=== PATIENT | female | born 1955 | race Caucasian/White ===

== ENCOUNTER → 2020-08-05 | Outpatient (CLI) | payer OTHER ==
[~2020-08-05] MED LIST: AMIT25TA; BIOT1000 PO; IMIT50TA; LIPITOR; SYNT75TA; VITMTA PO
== END ==
LOC: M LABSMTC 08:16
PROVIDERS: ATTEND Anesthesiology
DX: Z01.812 Encounter for preprocedural laboratory examination (principal); Z20.822 Contact with and (suspected) exposure to COVID-19

== ENCOUNTER 2020-08-10 07:05 | Day surgery (SDC) | payer OTHER ==
[~2020-08-10] VITALS: Ht 157.5 cm; Wt 99.3 kg
[~2020-08-10 07:05] MED LIST changes: -AMIT25TA; +AMIT25TA17; +LR 1,000 ML IV ONE; +ceFAZolin SOD 2 GM in IV 1 EA IV ONE
--- OUTSIDE RECORDS SUMMARY | 2020-08-10 07:12 | CCD | Continuity of Care Document ---
Author Author [facility] Organization [facility] Address [address] [place] [address] Phone Support Name Relationship Address [place] [address] Jack Jamil PRS [facility] [place] [address] Navi Hunt PRS [address] [place] [address] [place] [address] Stanislaw Thompson PRS [address] [place] [address] Gerson Francisco PRS [address] [place] [address] Josesito Ragland PRS [address] [place] [address] Bandar Vazquez PRS [address] [place] [address] [place] [address] [place] [address] Allergies, Adverse Reactions, Alerts No known allergies. Medications Medication Status Dose Units Route Directions Qty Days Start Date End Date Instructions Flucelvax Quad 5320-6909 (PF) (flu vac q s 2018(4 yr up)CD(PF)) 60 mcg (15 mcg x Discontinued 0.5 ML IM 1 Time/Once 0.5 June 28, 2019 8:54am June 28, 2019 9:41am Levothyroxine (Synthroid) 125 mcg tablet Discontinued 125 MCG PO daily June 28, 2019 9:24am August 30, 2019 9:57am Levothyroxine (Synthroid) 112 mcg tablet Discontinued 112 MCG PO daily 30 August 30, 2019 9:57am October 04, 2019 1:44pm Biotin Active 43864 MCG PO Once Per Day September 13, 2019 9:27am Azithromycin (Zithromax) 500 mg tablet Discontinued 500 MG PO .TIW 36 September 13, 2019 9:38am October 04, 2019 1:44pm *MUST BE BRAN D NAME Amitriptyline Active 12.5 MG PO At Bedtime December 27, 2019 7:57am Levothyroxine (Synthroid) 88 mcg tablet Discontinued 88 MCG PO daily December 27, 2019 8:23 am February 17, 2020 8:31am Afluria Qd (3yr up)(PF) (flu vac [id number] 36mos up(PF)) Discontinued 0.5 ML IM 1 Time/Once 0.5 May 29, 2020 2:56pm May 292019 2:56pm Atorvastatin (Lipitor) 40 MG tablet Discontinued 1 TAB PO O nce Per Day April 17, 2014 2:55pm April 26, 2019 11:19am Levothyroxine (Synthroid) 150 MCG tablet Discontinued 1 TAB PO O nce Per Day April 17, 2014 2:55pm April 26, 2019 11:19am Multivitamin (Daily Multi-Vitamin) tablet Active 1 TAB PO O nce Per Day July 06, 2018 8:53am Enoxaparin (Lovenox) 30 MG/0.3 ML syringe Discontinued 30 MG SQ E very 12 Hours July 08, 2018 12:16pm August 03, 2018 4:11pm Oxycodone/Acetaminophen (Percocet 5/325) 1 TAB Tablet Discontinued 2 TAB PO Every 4 hours July 08, 2018 12:16pm August 03, 2018 4:11pm Cephalexin (Keflex) 500 mg capsule D iscontinued 500 MG PO Three times a day February 06, 2019 6:16pm April 12, 2019 10:19am Naproxen Discontinued 500 MG PO Every 12 Hours February 06, 2019 6:20pm October 04, 2019 1:44pm Atorvastatin (Lipitor) 40 mg tablet Discontinued 40 MG PO O nce Per Day October 04, 2019 1:44 pm May 01, 2020 11:50am Sumatriptan Succinate (Imitrex) 50 mg tablet Discontinued 50 MG PO Q 2H October 04, 2019 1:44 pm April 19, 2020 11:31am Naproxen (Naprosyn) 500 mg tablet Di scontinued 500 MG PO Every 12 Hours October 04, 2019 1:44 pm December 27, 2019 7:57am Levothyroxine (Synthroid) 112 mcg tablet Discontinued 112 MCG PO daily October 04, 2019 1:44 pm November 23, 2019 9:54am Azithromycin (Zithromax) 500 mg tablet Discontinued 500 MG PO .TIW October 04, 2019 1:44 pm December 27, 2019 7:56am *MUST BE BRAND NAME Levothyroxine (Synthroid) 88 mcg tablet Discontinued 88 MCG PO daily February 17, 2020 8:31 am March 27, 2020 11:44am Oxycodone-Acetaminophen (Percocet) 5-325 mg tablet Active 1 TAB PO Three times a day July 17, 2020 4:19pm Sumatriptan Succinate (Imitrex) 25 MG tablet Discontinued 25 MG PO A S NEEDED May 20, 2014 9:57am December 08, 2018 7:51am Calcium Carbonate-Vitamin D3 Active 1 EACH PO Once Per Day May 20, 2014 9 :57am Naproxen (Naprosyn) 250 MG tablet Di scontinued 250 MG PO 2 Times Per Day June 03, 2014 12:45pm June 07, 2014 10:11am Oxycodone-Acetaminophen (Percocet 5-325 Mg Tablet) 1 EACH tablet Discontinued 1 - 2 TAB PO Every 4 hours June 13, 2014 12:01pm July 01, 2014 10:29am Hydrocodone-Acetaminophen Discontinued 1 TAB PO Every 4 Hours June 16, 2014 12:03pm July 01, 2014 10:29am Meloxicam Discontinued 15 MG PO Once Per Day July 19, 2014 8:44am October 24, 2014 8:03am Meloxicam (Mobic) 15 MG tablet Discontinue d 15 MG PO Once Per Day July 19, 2014 10:34am October 24, 2014 8:03am Naproxen Sodium (Aleve) 220 MG capsule Discontinued 220 MG PO August 17, 2014 9 :13am July 02, 2018 8:31am Triamcinolone Acetonide Discontinued 1 APPLIC TP 2 Times Per Da y 1 March 05, 2017 8:1 5am February 26, 2018 9:15am Patient will mix with otc moisturizer and apply to trunk and extremities twice daily x 2 weeks (disp: 1lbs jar) Ibuprofen Discontinued 4 00 MG PO At Bedtime April 18, 2017 8:40am July 02, 2018 8:31am Fexofenadine (Maritza Allergy) 180 MG tablet Discontinued 180 MG PO Once Per Day June 11, 2017 11:17am March 20, 2018 12:39pm Clobetasol Discontinued 1 SM.AMT TP 2 Times Per Day June 11, 2017 11:17am February 26, 2018 9:15am DISP 60 GRAM S (large surface area) Apply twice daily for up to two weeks as needed for active rash. Tacrolimus (Protopic) 100 GM ointment Discontinued 1 SM.AMT TP 2 Times Per Day July 23, 2017 10:17am February 26, 2018 9:15am 0.1% Apply to rashy areas twice daily as instructed. Disp 100G Azithromycin (Zithromax) 500 MG tablet Discontinued 500 MG PO Three times per week November 19, 2017 11:38am November 24, 2017 1:25pm Take one pill three times a week (Friday/Friday/Friday) Azithromycin (Zithromax) 500 MG tablet Discontinued 500 MG PO Three times per week November 24, 2017 1:25pm December 04, 2017 12:07pm Take one pill three times a week (Friday/Friday/Friday) AMIE-Pt requests BRAND ONLY Azithromycin (Zithromax) 500 MG tablet Discontinued 500 MG PO Three times per week December 04, 2017 12:pm February 17, 2018 1:26pm Take one pill three times a week (Friday/Friday/Friday) AMIE-Pt requests BRAND ONLY Azithromycin (Zithromax) 500 MG tablet Discontinued 500 MG PO Three times per week February 17, 2018 1:26pm April 03, 2018 1:22pm Take one pill three times a week (Friday /Friday/Friday) AMIE-Pt requests BRAND ONLY Azithromycin (Zithromax) 500 MG tablet Discontinued 500 MG PO Three times per week April 03, 2018 1:22pm April 08, 2018 12:03pm Take one pill three times a week (Friday /Friday/Friday) AMIE-Pt requests BRAND ONLY Azithromycin (Zithromax) 500 MG tablet Discontinued 500 MG PO Three times per week April 08, 2018 12:03pm September 10, 2018 11:51am Take one pill three times a week (Friday /Friday/Friday) AMIE-Pt requests BRAND ONLY Cephalexin (Keflex) 500 MG capsule D iscontinued 500 MG PO Four Times a Day 40 July 10, 2018 2:11pm July 13, 2018 9:13am take one tablet by mouth four times a day for 10 days Cephalexin Discontinued 500 MG PO Every 6 hours 40 July 13, 2018 9:36am August 03, 2018 4:11pm Oxycodone-Acetaminophen (Percocet 5-325 Mg Tablet) 1 EACH tablet Discontinued 1 - 2 TAB PO Every 4 hours July 16, 2018 3:54pm August 032018 4:11pm Azithromycin (Zithromax) 500 MG tablet Discontinued 500 MG PO Three times per week September 10, 2018 11:51am November 25, 2018 9:37am Take one pill three times a week (Friday /Friday/Friday) AMIE-Pt requests BRAND ONLY Azithromycin (Zithromax) 500 MG tablet Discontinued 500 MG PO Three times per week September 10, 2018 11:51am February 23, 2019 10:07am Take one pill three times a week (Friday /Friday/Friday) AMIE-Pt requests BRAND ONLY Sumatriptan Succinate (Imitrex) 25 mg tablet Discontinued 25 MG PO A S NEEDED 04 26December 08, 2018 7:49am March 26, 2019 2:39pm Azithromycin (Zithromax) 500 mg tablet Discontinued 500 MG PO Three times per week February 23, 2019 10:06am April 26, 2019 8:01am Take one pill three times a week (Friday /Friday/Friday) AMIE-Pt requests BRAND ONLY Sumatriptan Succinate (Imitrex) 25 mg tablet Discontinued 25 MG PO A S NEEDED 04 26March 26, 2019 2:37pm April 02, 2019 10:58am Sumatriptan Succinate (Imitrex) 25 mg tablet Discontinued 25 MG PO A S NEEDED April 02, 2019 10:57am August 09, 2019 12:47pm Atorvastatin (Lipitor) 40 mg tablet Discontinued 40 MG PO O nce Per Day April 26 11:18am April 26, 2019 11:54am Levothyroxine (Synthroid) 150 mcg tablet Discontinued 150 MCG PO Once Per Day April 26, 2019 11:19am April 26, 2019 11:47am Levothyroxine (Synthroid) 150 mcg tablet Discontinued 150 MCG PO Once Per Day April 26, 2019 11:47am May 24, 2019 3:16pm Atorvastatin (Lipitor) 40 mg tablet Discontinued 40 MG PO O nce Per Day April 26 11:53am April 27, 2019 8:55am Atorvastatin (Lipitor) 40 mg tablet Discontinued 40 MG PO O nce Per Day April 27, 2019 8:54am October 04, 2019 1:44pm Levothyroxine Discontinued 137 MCG PO Once Per Day May 24, 2019 3:15pm June 28, 2019 9:25am Sumatriptan Succinate (Imitrex) 50 mg tablet Discontinued 50 MG PO Q 2H August 09, 2019 12:46pm October 04, 2019 1:44pm Azithromycin (Zithromax) 500 mg tablet Discontinued 500 MG PO .TIW August 25, 2019 9:22am August 26, 2019 8:39am Azithromycin (Zithromax) 500 mg tablet Discontinued 500 MG PO .TIW August 26, 2019 8:38am September 13, 2019 9:39am Levothyroxine (Synthroid) 112 mcg tablet Discontinued 112 MCG PO daily November 23, 2019 9:54am January 26, 2020 12:07pm Levothyroxine (Synthroid) 88 mcg tablet Discontinued 88 MCG PO daily March 27, 2020 11:43am May 01, 2020 11:49am Sumatriptan Succinate (Imitrex) 50 mg tablet Discontinued 50 MG PO 2 Times Per Day 36 April 19, 2020 11:29am April 24, 2020 8:52am Sumatriptan Succinate (Imitrex) 50 mg tablet Active 50 MG PO Q 2H 36 April 24 20 8:51am Atorvastatin (Lipitor) 40 mg tablet Active 40 MG PO Once Per Day May 01, 2020 11:47am Levothyroxine (Synthroid) 75 mcg tablet Discontinued 75 MCG PO daily 30 May 01, 2020 11:48am July 26, 2020 10:07am Levothyroxine (Synthroid) 75 mcg tablet Active 0 .ROUTE .COMPLEX July 26, 2020 10:06am Take 1 tablet by mouth once daily for 30 days Problems Active Problems Medical Problem Onset Date Status Carpal tunnel syndrome, right Active Trigger finger, left middle finger Active Left carpal tunnel syndrome Active Trigger thumb, left thumb Active Rotator cuff tear, non-traumatic Active Wrist fracture, left A ctive Status post total right knee replacement Active Hyperlipidemia Active Hypothyroidism Active Trigger thumb of left hand Active Trigger thumb, right thumb Active Pityriasis lichenoides chronica Active Bilateral carpal tunnel syndrome Active Procedures Procedure Date Performed Status Urine Culture August 07, 2020 active Xray Abdomen 2V (Flat/Upright) Decem 2019 2:26pm completed CT Abd/pel w/o contrast June 3:44pm completed Urine Culture July 17, 2020 completed Xray Chest 2 view PA/LAT July 242019 9:50am completed 3D DIG MAMMO SCREEN BILAT June 282019 9:18am completed Xray Third Digit,Left Hand June 21, 2020 7:33am completed MRI Shoulder Right w/o May 08, 2020 1:45pm completed Xray Hand Complete RT April 04, 2020 7:22am completed Respiratory Panel (PCR) February 18, 2020 completed Xray Wrist complete RT October 03 12:16pm completed Relevant Diagnostic Tests and/or Laboratory Data Laboratory Results Test Date/Time Result Interpretation Reference Range Result Comment Performing Site White Blood Count August 07, 2020 7:57a m 10.1 10e3/uL 4.45-10.71 [facility], [address] [place] [address] 77799 White Blood Count July 31, 2020 8:08am 11.8 10e3/uL 4.45-10.71 [facility], [address] [place] [address] 04009 White Blood Count July 24 8:25am 7.9 10e3/uL 4.45-10.71 [facility], [address] [place] [address] 81041 White Blood Count May 01, 2020 6:33am 7.7 10e3/uL 4.45-10.71 [facility], [address] [place] [address] 82284 Red Blood Count August 07, 2020 7:57am 3.89 10e6/uL 4.20-5.40 [facility], [address] [place] [address] 85103 Red Blood Count July 31, 2020 8:08am 3.62 10e6/uL 4.20-5.40 [facility], [address] [place] [address] 07228 Red Blood Count July 24, 2020 8:25am 3.24 10e6/uL 4.20-5.40 [facility], [address] [place] [address] 84529 Red Blood Count May 01, 2020 6:33am 4.70 10e6/uL 4.20-5.40 [facility], [address] [place] [address] 32332 Hemoglobin August 07, 2020 7:57am 12.0 g/dL 10.7-15.4 [facility], [address] [place] [address] 49634 Hemoglobin July 31, 2020 8:08am 11.0 g/dL 10.7-15.4 [facility], [address] [place] [address] Hemoglobin July 24, 2020 8:25am 9.9 g/dL 10.7-15.4 [facility], [address] [place] [address] 38166 Hemoglobin May 01, 2020 6:33am 14.4 g/dL 10.7-15.4 [facility], [address] [place] [address] 15183 Hematocrit August 07, 2020 7:57am 37.9 % 37-47 [facility], [address] [place] [address] 71631 Hematocrit July 31, 2020 8:08am 35.4 % 37-47 [facility], [address] [place] [address] 69431 Hematocrit July 24, 2020 8:25am 31.5 % 37-47 [facility], [address] [place] [address] 72958 Hematocrit May 01, 2020 6:33am 44.1 % 37-47 [facility], [address] [place] [address] 35856 Mean Corpuscular Volume July 7:57am 97.4 fl 80-96 [facility], [address] [place] [address] Mean Corpuscular Volume July 31, 2020 8:08am 97.8 fl 80-96 [facility], [address] [place] [address] 41834 Mean Corpuscular Volume June 8:25am 97.[address] [place] [address] [facility], [address] [place] [address] 11387 Mean Corpuscular Volume May 01, 2020 6:33am 93.[address] [place] [address] [facility], [address] [place] [address] 57995 Mean Corpuscular Hemoglobin August 07, 2020 7:57am 30.8 pg 27-31 [facility], [address] [place] [address] 72871 Mean Corpuscular Hemoglobin July 31, 2020 8:08am 30.4 pg 27-31 [facility], [address] [place] [address] 72170 Mean Corpuscular Hemoglobin July 24, 2020 8:25am 30.6 pg 27-31 [facility], [address] [place] [address] 40972 Mean Corpuscular Hemoglobin May 01, 2020 6:33am 30.6 pg 2731 [facility], [address] [place] [address] 78070 Mean Corpuscular Hemoglobin Concent August 07, 2020 7:57am 31.7 g/dl 37 [facility], [address] [place] [address] 22296 Mean Corpuscular Hemoglobin Concent July 31, 2020 8:08am 31.1 g/dl [facility]37 [facility], [address] [place] [address] 91739 Mean Corpuscular Hemoglobin Concent July 24, 2020 8:25am 31.4 g/dl 3337 [facility], [address] [place] [address] 93212 Mean Corpuscular Hemoglobin Concent May 01, 2020 6:33am 32.7 g/dl [facility], [address] [place] [address] 90576 Red Cell Distribution Width August 07, 2020 7:57am 13 % 11-15 [facility], [address] [place] [address] 39126 Red Cell Distribution Width July 31, 2020 8:08am 13 % 11-15 [facility], [address] [place] [address] 03294 Red Cell Distribution Width July 24, 2020 8:25am 13 % 11-15 [facility], [address] [place] [address] 48614 Red Cell Distribution Width May 01, 2020 6:33am 13 % 11-15 [facility], [address] [place] [address] 55662 Platelet Count August 07, 2020 7:57am 379 10e3/ul 130-472 [facility], [address] [place] [address] 12864 Platelet Count July 31, 2020 8:08am 392 10e3/ul 130-472 [facility], [address] [place] [address] 14878 Platelet Count July 24, 2020 8:25am 301 10e3/ul 130-472 [facility], [address] [place] [address] 52329 Platelet Count May 01, 2020 6:33am 285 10e3/ul 130-472 [facility], [address] [place] [address] Mean Platelet Volume August 07, 7:57am 9.5 fl 9.1-13.1 [facility], [address] [place] [address] 53109 Mean Platelet Volume July 31 8:08am 9.7 fl 9.1-13.1 [facility], [address] [place] [address] Mean Platelet Volume July 24, 2020 8:25am 9.2 fl 9.1-13.1 [facility], [address] [place] [address] Mean Platelet Volume May 01 6:33am 9.7 fl 9.1-13.1 [facility], [address] [place] [address] 22561 Neutrophils (%) (Auto) August 07, 2020 7:57am 57.2 % 41-77 [facility], [address] [place] [address] 48536 Neutrophils (%) (Auto) July 31, 2020 8:08am 68.1 % 41-77 [facility], [address] [place] [address] 05423 Neutrophils (%) (Auto) June 8:25am 55.5 % 41-[address] [place] [address] [facility], [address] [place] [address] 80897 Neutrophils (%) (Auto) May 01, 2020 6:33am 51.7 % [address] [facility], [address] [place] [address] 21167 Absolute Neutrophil August 07 7:57am 5.8 # 1.7-7.6 [facility], [address] [place] [address] 19892 Absolute Neutrophil July 31 8:08am 8.1 # 1.7-7.6 [facility], [address] [place] [address] 64992 Absolute Neutrophil July 24 8:25am 4.4 # 1.7-7.6 [facility], [address] [place] [address] 90400 Absolute Neutrophil May 01 6:33am 4.0 # 1.7-7.6 [facility], [address] [place] [address] 47904 Lymphocytes (%) (Auto) August 07, 2020 7:57am 30.5 % 14-46 [facility], [address] [place] [address] 59308 Lymphocytes (%) (Auto) July 31, 2020 8:08am 19.8 % 14-46 [facility], [address] [place] [address] 47480 Lymphocytes (%) (Auto) June 8:25am 31.1 % 14-46 [facility], [address] [place] [address] 02843 Lymphocytes (%) (Auto) May 01, 2020 6:33am 34.5 % 14-46 [facility], [address] [place] [address] 51800 Lymphocytes # (Auto) August 07 7:57am 3.1 # 0.6-4.6 [facility], [address] [place] [address] 17081 Lymphocytes # (Auto) July 31 8:08am 2.3 # 0.6-4.6 [facility], [address] [place] [address] 73346 Lymphocytes # (Auto) July 24, 2020 8:25am 2.4 # 0.6-4.6 [facility], [address] [place] [address] 28568 Lymphocytes # (Auto) May 01 6:33am 2.7 # 0.6-4.6 [facility], [address] [place] [address] 87051 Monocytes (%) (Auto) August 07, 021 7:57am 8.6 % 4-12 [facility], [address] [place] [address] 11178 Monocytes (%) (Auto) July 31 8:08am 9.1 % 4-12 [facility], [address] [place] [address] 71474 Monocytes (%) (Auto) July 24, 2020 8:25am 8.2 % 4-12 [facility], [address] [place] [address] 22029 Monocytes (%) (Auto) May 01 6:33am 8.7 % 4-12 [facility], [address] [place] [address] 62233 Monocytes # August 07, 2020 7:57am 0.9 # 0.2-1.2 [facility], [address] [place] [address] 87399 Monocytes # July 31, 2020 8:08am 1.1 # 0.2-1.2 [facility], [address] [place] [address] 79064 Monocytes # July 24, 2020 8:25am 0.6 # 0.2-1.2 [facility], [address] [place] [address] 03557 Monocytes # May 01, 2020 6:33am 0.7 # 0.2-1.2 [facility], [address] [place] [address] 18184 Eosinophils (%) (Auto) August 07, 2020 7:57am 2.6 % 0-7 [facility], [address] [place] [address] 41683 Eosinophils (%) (Auto) July 31, 2020 8:08am 2.3 % 0-7 [facility], [address] [place] [address] 11026 Eosinophils (%) (Auto) June 8:25am 3.8 % 0-7 [facility], [address] [place] [address] 93352 Eosinophils (%) (Auto) May 01, 2020 6:33am 4.0 % 0-7 [facility], [address] [place] [address] 81969 Absolute Eosinophils (CBC) July 282020 7:57am 0.3 # 0.0-0.5 [facility], [address] [place] [address] 81935 Absolute Eosinophils (CBC) July 312020 8:08am 0.3 # 0.0-0.5 [facility], [address] [place] [address] 70885 Absolute Eosinophils (CBC) July 24, 2020 8:25am 0.3 # 0.0-0.5 [facility], [address] [place] [address] 56947 Absolute Eosinophils (CBC) May 012019 6:33am 0.3 # 0.0-0.5 [facility], [address] [place] [address] 32790 Basophils (%) (Auto) August 07 7:57am 0.8 % 0.4-1.3 [facility], [address] [place] [address] 61404 Basophils (%) (Auto) July 31 8:08am 0.4 % 0.4-1.3 [facility], [address] [place] [address] 47362 Basophils (%) (Auto) July 24, 2020 8:25am 0.9 % 0.4-1.3 [facility], [address] [place] [address] 04130 Basophils (%) (Auto) May 01 6:33am 0.8 % 0.4-1.3 [facility], [address] [place] [address] 13512 Absolute Basophils (CBC) July 7:57am 0.1 # 0.0-0.2 [facility], [address] [place] [address] 47516 Absolute Basophils (CBC) July 8:08am 0.1 # 0.0-0.2 [facility], [address] [place] [address] 37479 Absolute Basophils (CBC) July 242019 8:25am 0.1 # 0.0-0.2 [facility], [address] [place] [address] 56917 Absolute Basophils (CBC) April 6:33am 0.1 # 0.0-0.2 [facility], [address] [place] [address] 50104 Immature Granulocyte % (Auto) r y 2020 7:57am 0.3 % 0-2 [facility], [address] [place] [address] 13631 Immature Granulocyte % (Auto) r y 2020 8:08am 0.3 % 0-2 [facility], [address] [place] [address] 48719 Immature Granulocyte % (Auto) Dece er 2019 8:25am 0.5 % 0-2 [facility], [address] [place] [address] 63330 Immature Granulocyte % (Auto) Octobe r 2019 6:33am 0.3 % 0-2 [facility], [address] [place] [address] 09579 Absolute Immature Granulocyte (auto August 07, 2020 7:57am 0.0 # 0-0.1 [facility], [address] [place] [address] Absolute Immature Granulocyte (auto July 31, 2020 8:08am 0.0 # 0-0.1 [facility], [address] [place] [address] Absolute Immature Granulocyte (auto July 24, 2020 8:25am 0.0 # 0-0.1 [facility], [address] [place], [place] [id number] Absolute Immature Granulocyte (auto May 01, 2020 6:33am 0.0 # 0-0.1 [facility], [address] [place] [address] 26515 Add Manual Differential July 7:57am No [facility], [address] [place] [address] 72231 Add Manual Differential July 31, 2020 8:08am No [facility], [address] [place] [address] 15072 Add Manual Differential June 8:25am No [facility], [address] [place] [address] 19181 Add Manual Differential May 01, 2020 6:33am No [facility], [address] [place] [address] 65556 Urine Color July 17, 2020 1:54pm Yellow [facility], [address] [place] [address] 37501 Urine Appearance July 17, 2020 1:54p m Turbid CLEAR [facility], [address] [place] [address] Urine pH July 17, 2020 1:54pm 5.0 [facility], [address] [place] [address] 46805 Urine Specific [place] June 1:54pm 1.027 [facility], [address] [place] [address] 73176 Urine Leukocyte Esterase July 172019 1:54pm Small NEGATIVE A Culture has been added to this specimen per established criteria [facility], [address] [place] [address] 78597 Urine Nitrate July 17, 2020 1:54pm Negative NEGATIVE [facility], [address] [place] [address] [id number] Urine Protein July 17, 2020 1:54pm 100 mg/dl NEGATIVE [facility], [address] [place] [address] [id number] Urine Glucose July 17, 2020 1:54pm Negative NEGATIVE [facility], [address] [place] [address] [id number] Urine Ketones July 17, 2020 1:54pm Negative NEGATIVE [facility], [address] [place] [address] [id number] Urine Urobilinogen July 17 1:54pm 0.2 eu/dl [facility], [address] [place] [address] [id number] Urine Bilirubin July 17, 2020 1:54pm Negative NEGATIVE [facility], [address] [place] [address] [id number] Urine Blood July 17, 2020 1:54pm Large NEGATIVE A Culture has been added to this specimen per established criteria [facility], [address] [place] [id number] Add Urine Microanalysis June 1:54pm Microscopic added [facility], [address] [place] [address] 16149 Urine RBC July 17, 2020 1:54pm 51-100 /hpf [facility], [address] [place] [address] 82145 Urine WBC July 17, 2020 1:54pm 5-8 /hpf [facility], [address] [place] [address] 43729 Urine Squamous Epithelial Cells Dece mber 2019 1:54pm Few /hpf [facility], [address] [place] [address] 15004 Urine Amorphous Sediment July 172019 1:54pm Large amt urates [facility], [address] [place] [address] 56360 Blood Urea Nitrogen August 07 7:57am 17 mg/dL 04-19 [facility], [address] [place] [address] 05227 Blood Urea Nitrogen July 31 8:08am 22 mg/dL 04-19 [facility], [address] [place] [address] 01388 Blood Urea Nitrogen July 24 020 8:25am 15 mg/dL 04-19 [facility], [address] [place] [address] 62462 Blood Urea Nitrogen May 01 0 6:33am 18 mg/dL 04-19 [facility], [address] [place] [address] 24265 Sodium Level August 07, 2020 7:57am 141 mmol/L 132-146 [facility], [address] [place] [address] 37560 Sodium Level July 31, 2020 8:08am 142 mmol/L 132-146 [facility], [address] [place] [address] 08478 Sodium Level July 24, 2020 8:25am 144 mmol/L 132-146 [facility], [address] [place] [address] 12287 Sodium Level May 01, 2020 6:33am 141 mmol/L 132-146 [facility], [address] [place] [address] 52828 Potassium Level August 07, 2020 7:57am 4.1 mmol/L 3.5-5.5 [facility], [address] [place] [address] 80166 Potassium Level July 31, 2020 8:08am 4.7 mmol/L 3.5-5.5 [facility], [address] [place] [address] 38011 Potassium Level July 24, 2020 8:25am 4.6 mmol/L 3.5-5.5 [facility], [address] [place] [address] 53196 Potassium Level May 01, 2020 6:33am 4.1 mmol/L 3.5-5.5 [facility], [address] [place] [address] 22013 Chloride Level August 07, 2020 7:57am 106 mmol/l 99-109 [facility], [address] [place] [address] 12787 Chloride Level July 31, 2020 8:08am 107 mmol/l 99-109 [facility], [address] [place] [address] 71793 Chloride Level July 24, 2020 8:25am 107 mmol/l 99-109 [facility], [address] [place] [address] 43353 Chloride Level May 01, 2020 6:33am 108 mmol/l 99-109 [facility], [address] [place] [address] 74535 Carbon Dioxide Level August 07 7:57am 29 mmol/l -31 [facility], [address] [place] [address] 57246 Carbon Dioxide Level July 31 8:08am 30 mmol/l -31 [facility], [address] [place] [address] 23825 Carbon Dioxide Level July 24, 2020 8:25am 32 mmol/l - [facility], [address] [place] [address] 33208 Carbon Dioxide Level May 01 6:33am 27 mmol/l 20-31 [facility], [address] [place] [address] 54391 Anion Gap August 07, 2020 7:57am 10 mmol/l 8-16 [facility], [address] [place] [address] Anion Gap July 31, 2020 8:08am 10 mmol/l 8-16 [facility], [address] [place] [address] Anion Gap July 24, 2020 8:25am 10 mmol/l 8-16 [facility], [address] [place] [address] Anion Gap May 01, 2020 6:33am 10 mmol/l 8-16 [facility], [address] [place] [address] 34016 Glucose Level August 07, 2020 7:57am 136 mg/dL 74-106 [facility], [address] [place] [address] Glucose Level July 31, 2020 8:08am 122 mg/dL 74-106 [facility], [address] [place] [address] Glucose Level July 24, 2020 8:25am 127 mg/dL 74-106 [facility], [address] [place] [address] Glucose Level May 01, 2020 6:33am 125 mg/dL 74-106 [facility], [address] [place] [address] Creatinine August 07, 2020 7:57am 1.2 mg/dL 0.5-1.1 [facility], [address] [place] [address] Creatinine July 31, 2020 8:08am 1.3 mg/dL 0.5-1.1 [facility], [address] [place] [address] Creatinine July 24, 2020 8:25am 1.2 mg/dL 0.5-1.1 [facility], [address] [place] [address] Creatinine May 01, 2020 6:33am 0.9 mg/dL 0.5-1.1 [facility], [address] [place] [address] 21510 Glomerular Filtration Rate Calc Meliton radha 2020 7:57am 45 ml/min ABOVE 60 [facility], [address] [place] [address] Glomerular Filtration Rate Calc Meliton radha 2020 8:08am 41 ml/min ABOVE 60 [facility], [address] [place] [address] 73531 Glomerular Filtration Rate Calc Dece mber 2019 8:25am 45 ml/min ABOVE 60 [facility], [address] [place] [address] 73157 Glomerular Filtration Rate Calc Octo heladio 2019 6:33am Greater than 60 ml/min ABOVE 60 [facility], [address] [place] [address] 64899 Alanine Aminotransferase (ALT/SGPT) May 01, 2020 6:33am 33 U/L 10-49 [facility], [address] [place], [place] [address] Aspartate Amino Transf (AST/SGOT) Oc 2019 6:33am 20 U/L 0-33 [facility], [address] [place], [place] [address] Alkaline Phosphatase May 01 6:33am 90 U/L 45-129 [facility], [address] [place] [address] 21636 Calcium Level August 07, 2020 7:57am 9.5 mg/dL 8.5-10.1 [facility], [address] [place] [address] Calcium Level July 31, 2020 8:08am 9.2 mg/dL 8.5-10.1 [facility], [address] [place] [address] 78020 Calcium Level July 24, 2020 8:25am 9.0 mg/dL 8.5-10.1 [facility], [address] [place] [address] 27698 Calcium Level May 01, 2020 6:33am 9.2 mg/dL 8.5-10.1 [facility], [address] [place] [address] 99504 Total Bilirubin May 01, 2020 6:33am 0.6 mg/dL 0.3-1.2 [facility], [address] [place] [address] 98091 Albumin May 01, 2020 6:33am 3.7 g/dL 3.2-4.8 [facility], [address] [place] [address] 76396 Serum Total Protein May 01 6:33am 7.6 g/dL 5.7-8.2 [facility], [address] [place] [address] 99037 Triglycerides Level May 01 6:33am 189 mg/dL 0-150 [facility], [address] [place] [address] 30006 Triglycerides Level August 27 9:13am 144 mg/dL 0-150 [facility], [address] [place] [address] 96176 Cholesterol Level May 01, 2020 6:33am 194 mg/dL 120-200 [facility], [address] [place] [address] 10078 Cholesterol Level August 27, 2019 9:13a m 172 mg/dL 120-200 [facility], [address] [place] [address] 78298 HDL Cholesterol May 01, 2020 6:33am 50 mg/dL HDL Less than 40 mg/dL: Major risk for CHDHDL Greater than 59 mg/dL: Low risk for CHD [facility], [address] [place] [address] 47438 HDL Cholesterol August 27, 2019 9:13am 59 mg/dL HDL Less than 40 mg/dL: Major risk for CHDHDL Greater than 59 mg/dL: Low risk for CHD [facility], [address] [place] [address] 23780 LDL Cholesterol, Calculated May 01, 2020 6:33am 107 mg/dL 0-100 [facility], [address] [place] [address] 23925 LDL Cholesterol, Calculated August 27, 2019 9:13am 85 mg/dL 0-100 [facility], [address] [place] [address] 06493 Thyroid Stimulating Hormone (TSH) De [facility] 2019 8:25am 10.30 uIU/mL 0.35-5.50 Repeated by: Debra Estrada 07/24/20 100 4.Result Confirmation: 10.3 uIU/mL [facility], [address] [place] [address] 96111 Thyroid Stimulating Hormone (TSH) Oc tober 2019 6:33am 3.84 uIU/mL 0.35-5.50 [facility], [address] [place] [address] 45000 Thyroid Stimulating Hormone (TSH) Ju ne 2019 7:03am 3.31 uIU/mL 0.35-5.50 [facility], [address] [place] [address] 86257 Thyroid Stimulating Hormone (TSH) Ju ne 2019 6:40am 1.59 uIU/mL 0.35-5.50 [facility], [address] [place] [address] 97304 Thyroid Stimulating Hormone (TSH) Ap ril 2019 7:07am 1.75 uIU/mL 0.35-5.50 [facility], [address] [place] [address] 28380 Thyroid Stimulating Hormone (TSH) Ma [facility] 2019 7:09am 0.60 uIU/mL 0.35-5.50 [facility], [address] [place] [address] 77471 Thyroid Stimulating Hormone (TSH) Ja [facility] 2019 9:13am 0.10 uIU/mL 0.35-5.50 Repeated by: Amie Bowie 08/27/19 1033. Result Confirmation: 0.101 uIU/mL [facility], [address] [place] [address] 17489 Microbiology Results Procedure Source Result Collection Date/Time Result Date/Time Result Comment Performing Site Urine Culture Urine,voided No growth. July 17, 2020 1:54pm July 18, 2020 12:57pm [facility], [address] [place], [place] [address] Respiratory Panel (PCR) Nasopharyngeal No Organisms Detected February 18, 2020 9:05am February 18, 2020 6:03pm [facility], [address] [place] [address] 60960 Diagnostic Imaging Reports Report Dictated Date/Time Dictated By Status Radiology Report October 04, 2019 1:42pm Vinicius Steele MD completed [place] [id number] [phone] NAME SEX PT STATUS ACCOUNT NUMBER MARII DYKES REG REF [id number] ORDERING PHYSICIAN LOCATION MEDICAL RECORD NO. Navi Hunt MD [facility] [id number] ATTENDING PHYSICIAN DATE OF DATE OF EXAM/TIME Jacy Franz MD 1955 10/04/19 / 1316 TYPE / EXAM Xray Wrist complete RT REASON FOR EXAM pain, ortho COMPARISON: None FINDINGS: No evidence for fractures, subluxation or adjacent soft tissue swelling is noted. IMPRESSION: No fracture, dislocation, or other significant abnormality. Reported By Vinicius Steele MD on 10/04/19 1342 Signed By Vinicius Steele MD on 10/04/19 1343 Date Time CC: Vinicius Steele MD; Jacy Franz MD Techn: CARRC Trans Dt/Tm: Trans by: DT Prt Dt/Tm: [id number]: Total DLP = 0.00 mGy-cm Fluoroscopy Time (in secs): Radiology Report April 04, 2020 4:00p m Kristie Miranda , [employer] completed [facility] [address] [place] [address] [phone] NAME SEX PT STATUS ACCOUNT NUMBER MARII DYKES F REG REF [id number] ORDERING PHYSICIAN LOCATION MEDICAL RECORD NO. Navi Hunt MD RAD [id number] ATTENDING PHYSICIAN DATE OF DATE OF EXAM/TIME Jacy Franz MD 1955 04/04/20821 TYPE / EXAM Xray Hand Complete RT REASON FOR EXAM right hand pain, ortho ANA CRISTINAPAULDIEGO ASTUDILLOOPAL Santiago [id number] 1955 ADDENDUM CORRECTION: The original report incorrectly reflects Kristie Miranda as the reporting R adiologist. The correct Radiologist for this report is Kellie Brewer MD. The content of this report remains unchanged. Addendum Reported By Kellie Brewer MD on 04/12/201608 Signed By Kellie Brewer MD on 04/12/201608 Trans Dt/Tm: Trans by: MEDQ [p pg] COMPARISON: None FINDINGS: There is normal alignment and position of the bones. No fracture or radiopaque foreign body is identified. Mild DJD. Small erosions are also seen in the interphalangeal joints and wrist. IMPRESSION: No acute findings Reported By Kristie Miranda on 04/04/201599 Signed By Kristie Miranda on 04/04/20 160 Date Time CC: Kellie Brewer MD; Kristie Miranda; Jacy Franz MD Techn: RADTC Trans Dt/Tm: Trans by: DT Prt Dt/Tm: : Total DLP = 0.00 mGy-cm Fluoroscopy Time (in secs): Radiology Report May 08, 2020 4:25pm Donna Means MD completed [facility] [address] [place] [address] [phone] NAME SEX PT STATUS ACCOUNT NUMBER MARII DYKES REG REF [id number] ORDERING PHYSICIAN LOCATION MEDICAL RECORD NO. Jacy Franz MD MRI [id number] ATTENDING PHYSICIAN DATE OF DATE OF EXAM/TIME Jacy Franz MD 1955 05/08/201444 TYPE / EXAM MRI Shoulder Right w/o REASON FOR EXAM pain, decreased ROM since june Clinical History/Indication for Exam: pain, decreased ROM since june MR RIGHT UPPER EXTREMITY WITHOUT INTRAVENOUS CONTRAST SHOULDER INDICATION: pain, decreased ROM since june TECHNIQUE: Multiplanar magnetic resonance images of the right shoulder without intravenous contrast. COMPARISON: X-ray right shoulder 06/28/2019 FINDINGS: TENDONS: Supraspinatus: Tear posterior aspect of the supraspinatus tendon measuring 1.9 cm transverse 0.5 cm superior to inferior and 1.1 cm AP diameter. Supraspinatus tendinosis and thickening with moderate muscle atrophy. Infraspinatus: Infraspinatus tendinosis and thickening with mild muscle atrophy. Subscapularis: Subscapularis tendinosis and thickening. Teres minor: Unremarkable. Biceps brachii, long head: Unremarkable. LIGAMENTS: Glenohumeral: Unremarkable. Muscles: Unremarkable. Fluid: Fluid in the subacromial/subdeltoid bursa. Moderate glenohumeral joint effusion. Cartilage: Unremarkable. Glenoid labrum: Normal with no evidence of tear or truncation. Normal bicipital labral complex. Bones/joints: Moderate degenerative change acromioclavicular joint surrounding edema and increased fluid in the joint space. 7 mm subcortical cyst superior aspect acromion at the acromioclavicular joint. Type II acromion. IMPRESSION: 1. Moderate degenerative change acromioclavicular joint surrounding edema and increased fluid in the joint space. 7 mm subcortical cyst superior aspect acromion at the acromioclavicular joint. Type II acromion. 2. Subacromial subdeltoid bursitis. 3. Complete tear posterior aspect of the supraspinatus tendon at the insertion measuring 1.9 cm transverse 0.5 cm superior to inferior and 1.1 cm AP diameter. 4. Supraspinatus tendinosis and thickening with moderate muscle atrophy. 5. Infraspinatus tendinosis and thickening with mild muscle atrophy. 6. Subscapularis tendinosis and thickening. 7. Moderate glenohumeral joint effusion. REPORT SIGNATURE ON FILE 05/08/2020 (16:25 Eastern Time ) Signed by: Donna Means M.D., [facility] Reported By Donna Means MD on 05/08/201624 Signed By Donna Means MD on 05/08/201624 Date Time CC: Donna Means MD; Jacy Franz MD Techn: RAMÍREZJO Trans Dt/Tm: Trans by: DT Prt Dt/Tm: [id number]: Total DLP = 0.00 mGy-cm 2158-4109: Total Radiation Dose = 0.0000 mSv Lifetime Dose: 0 mSv Radiology Report June 21, 2020 8:50a m Kellie Brewer MD completed [facility] [address] [place] [id number] [phone] NAME SEX PT STATUS ACCOUNT NUMBER MARII DYKES REG REF [id number] ORDERING PHYSICIAN LOCATION MEDICAL RECORD NO. Stanislaw KIANA-C [facility] [id number] ATTENDING PHYSICIAN DATE OF DATE OF EXAM/TIME Jacy Franz MD 1955 06/21/20732 TYPE / EXAM Xray Third Digit,Left Hand REASON FOR EXAM Third digit left hand pain, ortho COMPARISON: 07/05/2019 FINDINGS: Multiple views show no fracture, dislocation, or bony abnormality. The joint spaces are well-maintained. Mild degenerative changes are seen. Soft tissue structures are normal. IMPRESSION: Mild DJD Reported By Kellie Brewer MD on 06/21/20 0850 Signed By Kellie Brewer MD on 06/21/20 0851 Date Time CC: Kellie Brewer MD; Jacy Franz MD Techn: CARRC Trans Dt/Tm: Trans by: DT Prt Dt/Tm: 9178-1600: Total DLP = 0.00 mGy-cm Fluoroscopy Time (in secs): Radiology Report July 17, 2020 2:33p m Vinicius Steele MD completed [facility] [address] [place], [place] [id number] [phone] NAME SEX PT STATUS ACCOUNT NUMBER MARII DYKES [facility] ER [id number] ORDERING PHYSICIAN LOCATION MEDICAL RECORD NO. Bandar Vazquez MD ER [id number] ATTENDING PHYSICIAN DATE OF DATE OF EXAM/TIME Jacy Franz MD 1955 07/17/206 TYPE / EXAM Xray Abdomen 2V (Flat/Upright) REASON FOR EXAM c/o constipation COMPARISON: None available. FINDINGS: There is no free intraperitoneal air. Grossly, paucity of small bowel gas is seen. There is no pathologically dilated loop of large or small bowel. Solid stool is seen in the cecum. IMPRESSION: 1. No free intraperitoneal air. 2. No pathologically dilated small or large bowel loop. 3. Solid stool seen in the cecum. Reported By Vinicius Steele MD on 07/17/20 1433 Signed By Vinicius Steele MD on 07/17/20 1435 Date Time CC: Vinicius Steele MD; Jacy Franz MD Techn: CARAI Trans Dt/Tm: Trans by: DT Prt Dt/Tm: [id number]: Total DLP = 0.00 mGy-cm Fluoroscopy Time (in secs): Radiology Report July 17, 2020 3:46p m Vinicius Steele MD completed [facility] [address] [place] [address] [phone] NAME SEX PT STATUS ACCOUNT NUMBER MARII DYKES REG ER [id number] ORDERING PHYSICIAN LOCATION MEDICAL RECORD NO. Bandar Vazquez MD ER [id number] ATTENDING PHYSICIAN DATE OF DATE OF EXAM/TIME Jacy Franz MD 1955 07/17/201543 TYPE / EXAM CT Abd/pel w/o contrast REASON FOR EXAM L sided flank pain; r/o kidney stone COMPARISON: None available. TECHNIQUE: CT images through the abdomen and pelvis obtained without intravenous contrast. FINDINGS: LUNG BASES: A small hiatal hernia is seen. Otherwise, grossly unremarkable LIVER: No focal mass lesions. No intrahepatic biliary ductal dilatation. GALLBLADDER: CT appearance is unremarkable. SPLEEN: Unremarkable. PANCREAS: Normal CT appearance. ADRENALS: No nodules. KIDNEYS: An approximately 8 to 9 mm calculus is seen at the left UPJ. It is associated with significant proximal hydronephrosis. A second tiny calculus is seen in the left renal pelvis. It measures approximately 2 to 3 mm. Perinephric stranding seen on the left indicates a component of pelvicalyceal reflux. No renal calculus or hydronephrosis seen on the right. BOWEL: Sigmoid diverticulosis is seen. Mild injection of the sigmoid. Colon is appreciated. Clinical correlation advised. MESENTERY/PERITONEUM: Unremarkable. NODES: Nondilated. PELVIS: Unremarkable. BONE WINDOWS: No aggressive osseous abnormalities. VASCULATURE: Normal, without aneurysm or significant atherosclerotic disease. SOFT TISSUES: Unremarkable. IMPRESSION: 1. Obstructive 8 to 9 mm calculus, left UPJ. Associated hydronephrosis and perinephric stranding. 2. Sigmoid diverticulosis associated with mild injection of the sigmoid mesocolon. Reported By Vinicius Steele MD on 07/17/20 1546 Signed By Vinicius Steele MD on 07/17/20 1553 Date Time CC: Vinicius Steele MD; Jacy Franz MD Techn: MORSA Trans Dt/Tm: Trans by: DT Prt Dt/Tm: [id number]: Total DLP = 732.00 mGy-cm 0174-1173: Total Radiation Dose = 10.9800 mSv Lifetime Dose: 10.9800 mS v Radiology Report July 24, 2020 10:09am Vinicius Steele MD completed [place] [address] [place] [id number] [phone] NAME SEX PT STATUS ACCOUNT NUMBER MARII DYKES REG REF [id number] ORDERING PHYSICIAN LOCATION MEDICAL RECORD NO. Jacy Franz MD EKG [id number] ATTENDING PHYSICIAN DATE OF DATE OF EXAM/TIME Jacy Franz MD 1955 07/24/20949 TYPE / EXAM Xray Chest 2 view PA/LAT REASON FOR EXAM pre op COMPARISON: June 15, 2018 FINDINGS: The cardiac and mediastinal silhouettes appear normal and the lungs are clear. Prominent cardiac fat pad finding. The bones and soft tissues are normal. The upper abdomen is unremarkable. IMPRESSION: No acute cardiopulmonary disease. Reported By Vinicius Steele MD on 07/24/201008 Signed By Vinicius Steele MD on 07/24/201008 Date Time CC: Vinicius Steele MD; Jacy Franz MD Techn: EBEBR Trans Dt/Tm: Trans by: DT Prt Dt/Tm: 6339-0504: Total DLP = 0.00 mGy-cm Fluoroscopy Time (in secs): Radiology Report July 25, 2020 9:50a m Vinicius Steele MD completed [facility] [address] [place] [address] [phone] NAME SEX PT STATUS ACCOUNT NUMBER MARII DYKES REG REF [id number] ORDERING PHYSICIAN LOCATION MEDICAL RECORD NO. Jacy Franz MD EKG [id number] ATTENDING PHYSICIAN DATE OF DATE OF EXAM/TIME Jacy Franz MD 1955 07/24/20917 TYPE / EXAM 3D DIG MAMMO SCREEN BILAT REASON FOR EXAM Screening for breast cancer LAST CLINICAL BREAST EXAM: unknown FIVE YEAR RISK: 1.2% LIFETIME RISK: 4.7% FAMILY HISTORY OF BREAST CARCINOMA: None COMPARISON: May 19, 2017 and 2012 2D bilateral digital mammogram in the CC and MLO projections was performed with supplemental 3D tomosynthesis of both breasts. FINDINGS: Craniocaudad and oblique lateral views of the breasts were obtained. The breasts are primarily of fat density. Asymmetrical breast tissue is seen in the upper-outer quadrants of both posterior breasts. These remain stable findings. There is no dominant mass, suspicious clustered microcalcification or architectural distortion. IMPRESSION: No mammographic evidence of malignancy. Yearly screening recommended. OVERALL FINAL ASSESSMENT OF FINDINGS BI-RADS 2 - Benign findings OVERALL FINAL ASSESSMENT OF THE BREAST COMPOSITION Breast Density Classification: A Description: The breasts are almost entirely fatty. This mammogram was read with the assistance of Bret, an FDA-approved computer- aided detection system for mammography. Reported By Vinicius Steele MD on 07/25/2050 Signed By Vinicius Steele MD on 07/25/2058 Date Time CC: Vinicius Steele MD; Jacy Franz MD Techn: ABE Trans Dt/Tm: Trans by: DT Prt Dt/Tm: 3086-4356: Total DLP = 0.00 mGy-cm 6907-4054: Total Radiation Dose = 0.0000 mSv Lifetime Dose: 10.9800 mSv Health Concerns Health Concerns may be documented in an alternate section. Advance Directives Advance Directive Response Recorded Date/Time Advanced Directive No Joaquin kincaid 2020 8:56am Advance Directives on File or in chart? No February 08, 2019 8:16am Does Patient have a DNR? No July 24, 2020 7:59am Healthcare Proxy Yes Dec 2019 7:59am Health Care Proxy Name Alberto Dykes February 08, 2019 8:16am Health Care Proxy Phone Number [phone] February 08, 2019 8:16am Living Will No January 12:19pm Chief Complaint and Reason for Visit Chief Complaint E03.9,E78.5 Thyroid dysfunction Office visit E03.9 Thyroid dysfunction Wrist Pain Follow-up M25.539 RIGHT WRIST Post op visit (orthopedics) Post op visit (orthopedics) E03.9 E03.9 Office visit E03.9 Screening Colonoscopy Rash PRE OP COVID TESTING Call First Appt Screening Colonoscopy M79.641 Hand pain E03.9 RT SHOULDER STRAIN Flu shot Shoulder pain/injury THIRD DIGIT LT HAND Finger Pain/injury Hyperlipidemia KIDNEY PAIN,CONSTIPATED SCREENING Z12.31,E78.2,Z01.818,E03.9,I10 D64.9 Pre-operative H&P N20.0 Shoulder pain/injury follow-up Reason for Visit Hypothyroidism Pityriasis lichenoides chronica Hypothyroidism Carpal tunnel syndrome, right Left carpal tunnel syndrome Trigger thumb, left thumb Left carpal tunnel syndrome Hyperlipidemia Hypothyroidism Trigger thumb, right thumb Rotator cuff tear, non-traumatic Trigger finger, left middle finger Hyperlipidemia Hypothyroidism Encounters Encounter Location(s) Ar rival/Admit Date Discharge/Depart Date Provider(s) Registered Referred [facility] August 27, 2019 9:00am Jacy Franz MD Departed Physician/Provider Office Visit [facility] August 30, 2019 9:24am August 30, 2019 9:54am Jacy mora MD Departed Physician/Provider Office Visit [facility] September 13, 2019 9:16am September 13, 2019 9:40am KIANA Garcia Registered Referred [facility] September 27, 2019 7:02am Jacy Franz MD Departed Physician/Provider Office Visit [facility] September 27, 2019 8:58am September 27, 2019 9:35am Jacy palacios MD Departed Physician/Provider Office Visit [facility] October 04, 2019 11:48am October 04, 2019 1:04pm Navi Hunt MD Registered Referred [facility] October 04, 2019 12:08pm Chio Roman MD Registered Outpatient [facility] October 05, 2019 9:04am October 05, 2019 3:01pm Navi Hunt MD Departed Physician/Provider Office Visit [facility] October 15, 2019 8:01am October 15, 2019 8:31am Stanislaw brunson PA-C Departed Physician/Provider Office Visit [facility] November 03, 2019 7:37am November 03, 2019 7:52am Stanislaw burr PA-C Registered Referred [facility] November 22, 2019 7:01am Jacy Franz MD Registered Referred [facility] December 27, 2019 6:25am Jacy Franz MD Departed Physician/Provider Office Visit [facility] December 27, 2019 7:42am December 27, 2019 8:27am Jacy tejeda MD Registered Referred [facility] January 25, 2020 6:50am Jacy Franz MD Departed Physician/Provider Office Visit [facility] General Surgery January 25, 2020 7:50am January 25, 2020 8:18am Rosalia Campos Departed Physician/Provider Office Visit [facility] February 14, 2020 8:43am February 14, 2020 9:14am Jacy palacios MD Registered Referred [facility] Drop Off February 18, 2020 11:08am Gerson Francisco MD Departed Physician/Provider Office Visit [facility] February 18, 2020 11:45am February 18, 2020 12:00pm Gerson Francisco MD Registered Outpatient [facility] General Surgery February 21, 2020 7:46am February 21, 2020 11:45am Gerson Francisco MD Registered Referred [facility]Radiology April 04, 2020 7:13am Chio Roman MD Departed Physician/Provider Office Visit [facility] Orthopedics April 05, 2020 7:39am April 05, 2020 8:06am Navi oneill MD Registered Referred [facility]Labor[facility] May 01, 2020 6:29am Jacy Franz MD Registered Referred [facility]-MRI/MRA May 08, 2020 1:41pm Jacy Franz MD Departed Physician/Provider Office Visit [facility] May 29, 2020 2:56pm May 29, 2020 3:09pm Jacy mora MD Departed Physician/Provider Office Visit [facility] Orthopedic May 29, 2020 3:11pm May 29, 2020 3:50pm Josesito edwards MD Registered Referred [facility] June 21, 2020 7:28am Stanislaw Thompson PA-C Departed Physician/Provider Office Visit [facility] Orthopedics June 21, 2020 8:32am June 21, 2020 9:28am Stanislaw tomas PA-C Departed Physician/Provider Office Visit [facility] July 03, 2020 9:24am July 03, 2020 9:52am Jacy mora MD Departed Emergency [facility]Emergency Room ER July 17, 2020 1:02pm July 17, 2020 4:55pm null Registered Referred [facility]-EKG July 24, 2020 7:55am Stanislaw Thompson PA-C Registered Referred [facility]Labor[facility] July 31, 2020 7:56am Jacy Franz MD Departed Physician/Provider Office Visit [facility] July 31, 2020 8:56am July 31, 2020 9:30am Jacy winn MD Registered Referred [facility] August 07, 2020 7:55am Sánchez Valdes MD Departed Physician/Provider Office Visit [facility] Orthopedics August 07, 2020 8:30am August 07, 2020 9:16am Stanislaw stover PA-C Recent Diagnosis Onset Date Hypothyroidism Pityriasis lichenoides chronica Hypothyroidism Carpal tunnel syndrome, right Left carpal tunnel syndrome Trigger thumb, left thumb Left carpal tunnel syndrome Hyperlipidemia Hypothyroidism Trigger thumb, right thumb Rotator cuff tear, non-traumatic Trigger finger, left middle finger Hyperlipidemia Hypothyroidism Assessments Diagnosis Onset Date Res olution Status Hypothyroidism acute Pityriasis lichenoides chronica acute Hypothyroidism acute Carpal tunnel syndrome, right acute Left carpal tunnel syndrome acute Trigger thumb, left thumb acute Left carpal tunnel syndrome acute Hyperlipidemia acute Hypothyroidism acute Trigger thumb, right thumb acute Rotator cuff tear, non-traumatic acute Trigger finger, left middle finger acute Hyperlipidemia acute Hypothyroidism acute Functional Status No Functional Status information available Goals Goals may be documented in an alternate section. Immunizations Immunization Event Date Not Given Reason Dose Number Print Inspector Lot Number Vaccine Information Statement (VIS) Deta il influenza vaccine, inactivated Decem 2018 [id number] influenza vaccine, inactivated [facility] 2019 [id number] Mental Status Observation Response Jose e Recorded Impairments Visual Dece 2019 1:35pm Medical Equipment No Medical Equipment Information available Insurance Providers Guarantor MARII DYKES Address [address] [place] [address] Contact Info. Home Phone: Payer Policy Id Coverage Id Subscriber's Name Subscriber Id Effective Date Expiration Date [facility] [id number] ALBERTO DYKES [id number] Self Pay Self N/A [facility] [id number] MARII DYKES [id number] Plan of Treatment Patient last seen for a right trigger thumb which has resolved from injection. She now has developed a left middle finger trigger finger and would like an injection today. She has done well with injections in the past. The patient gave verbal consent for a left long steroid injection. I discussed t he risks and complications of the same. I discussed the possible risks of short-term corticos teroid drugs to the hand to include: a temporary increase in pain, skin discoloration at the injecti on site, skin thinning, tendon injury or neurovascular injury. I discussed the rare risk of i nfection or allergic reaction after the injection. Finger was preppred with an alcohol swab. I anest hetized the skin with Ethyl Chloride spray. I injected a 1 ml mixture of the following: Lidocai ne 1% without epinephrine -- 0.5 ml, and dexamethasone 4mg/ml -0.5 ml. I used a 25-gauge needl e. Needle was disposed. Injection site dressed with a Band-Aid. The patient tolerated the inje ction very well and was given postinjection information. Patient is agreeable to follow-up as needed. She is planning shoulder surgery w diamante Ragland in July. MRI scan reviewed shows a complete tear of the right supraspinatus tendon. Regi ent is also noted to have AC arthritic changes as well as a type II acromion. There is mild to moder ate atrophy noted of the right supraspinatus muscle. The retraction of the tear is approximately 2.5 cm. In view of her symptomatology I thought it be worthwhile to try to repair the rotator cuff tear . The surgical procedure, perioperative course as well as risks and complications were discusse d with the patient in detail. We will proceed with surgical intervention at the earliest possible convenience. 64-year-old female here for follow-up of carpal tunnel surgery. In addition the patient also has new onset right trigger thumb. Patient also has a history of a left trigger ramon mb which was injected with corticosteroid injection and resolved. At this point I recommende d corticosteroid injection of the thumb flexor sheath. I explained the risk benefits alternative s and complications. Patient understood and agreed to proceed. Procedure: Patient was explained the risks, benefits alternatives, complications to injecti on of the thumb flexor sheath, right. Complications include but are not limited to localized pa in, bleeding, infection, fat necrosis, transient hyperglycemia (high blood sugar), skin discol oration, tendon rupture, failure of treatment, nerve injury. The patient verbalized understandi ng and agreed to proceed despite the risks. All questions were thoroughly answered. The skin was prepped using betadine and 70% isopropynol. A 2:1 mixture of 4 mg of dexamethasone and 1% plain Lidocaine was injected with minimal discomfort. The patient tolerated the procedure well. Post injection instructions were given to the patient and the patient verbalized understanding. All questions were answered. 64 yoF who is here for screening colonoscopy. Last one in 2007 which showed div erticulosis and no other anomalies. No changes in bowel habits, no blood in stool, and no weight l oss. No family hx of colorectal cancer. -Discussed colonoscopy with patient. The procedure details as well as risks whi ch include but not limited to bleeding and perforation were discussed. SHe understands and wishes to proceed. lipids were good, will recheck TSH with preop labs, has appt 1 month, cortisone to hand, call if not improved 1 week Postop right carpal tunnel release. Patient is doing very well and paresthesias have resolved. She will continue with home exercises. Expect continued improvement and intermitten t discomfort and patient may follow-up on an as-needed basis. Patient doing well postoperatively. Sutures removed. Pain is now under control. Paresthesias of the median nerve distribution are resolved. May wash with regular soap and water. Co ntinue postop range of motion exercises. Recommended padded bicycling glove or wrist splint intermit tently for pain. Avoid heavy lifting or pressure in the palm. Followup in 4 weeks. thyroid and hair loss improved, TSH normal, seeing neurology for headaches, advi sed on ortho for shoulder, see 3 months Patient has right carpal tunnel syndrome which is clinically significant. She h as tried multiple corticosteroid injections activity modification bracing. This is all failed to treat the problem. At this point I recommend surgical intervention. I discussed the risk benefits alternatives complications and expected outcome. Patient agreed with surgery. She also agre ed that there is no guarantee of any particular outcome. Patient understood and will schedule surge ry for her tomorrow. She will require preoperative clearance. SURGICAL CONSENT The operation and its objectives and pre and post operative course were explain ed to the patient as well as any alternative methods of treatment. Both operative and non-operative treatment courses have benefits and have consequences both positive and negative. As in any surgi ramona procedure, there are risks involved, although statistically their incidence is low. The most freq uent complications in surgery include infection, permanent numbness, joint stiffness, persistent sw elling, tenderness, prominence of the surgical scar(s), pain, muscle tendon/bone injury, nerve injur y, loss of digit or limb, neuropathic pain (CRPS), failure of treatment, unmet expectations, etc. Th e patient also understood that separate related or unrelated disease entities may become more a pparent after resolution of symptoms. There are also risks associated with anesthesia involvi ng the heart, lungs, vascular system, brain, kidneys, liver, etc. These were all explained to the pat ient and have verbalized understanding and consent. PROCEDURE: Right carpal tunnel release I also explained to the patient that medicine is not a precise science and gali vidual variations with respect to healing and ultimate recovery are impossible to predict. There i s no guarantee that the surgery will be successful and it is even conceivable, although very unlikel y, that the condition will be aggravated. It is also possible that additional operations may be required in the future. Patient verbalized understanding and consent to this as well. Occasionally, situations arise during surgery that requires that the procedure be altered in the patients best interest, and this will be done if it is deemed necessary. The patient agreed to permit any alterations of the intraoperative surgical plan based on the judgment of Dr. Hunt. The patient also consented to photographs that may be taken for medical education pu rposes, provided that their name is neither revealed nor listed in any publication. The pre and post operative course has been thoroughly discussed including the possible need for postoperati ve therapy / rehabilitation. The patient verbalized understanding and consent to all of the a ever before a decision for surgery was made. The decision to accept the surgical plan was not made under any duress. Every reasonable effort was made to explain the details of the patient s care in a compassionate manner understandable by the patients educational level, langu age barrier, and any other disability that would hinder complete and thorough understanding. Patient is less symptomatic on the left side however it is still positive on the side. Again when she recovers on the right side I will recommend carpal tunnel release surgery on the left side. This will be done in the near future however clinically the right side is more s ignificant and it is her dominant side. Patient also complains of triggering of the left thumb which is clinically impro roverto from corticosteroid injection. We will continue to follow this if this recurs will r ecommend surgical release. TSH still low, decrease thyroid dose, check 1 month, many headaches , neuro refe rral done, see 4 months Future Tests Future scheduled test information is unavailable Pending Tests Pending diagnostic test information is unavailable Future Visits Future appointment information is unavailable Referrals to Other Providers Reason for Referral Referral Start Date Provider Provider Conta ct Information Provider Address Teresa Cassidy MD Work Phone: [phone] [place] [address] Navi Hunt MD Email: [email or web address] Phone: [phone] [facility] [phone] Future Procedures Future procedure information is unavailable Future Medications Future medication information is unavailable Patient Instructions Hypothyroidism (GEN) Hypothyroidism (GEN) Carpal Tunnel Surgery (DC) Colonoscopy (DC) Diverticulosis (DC) Social History Smoking Status Status Date of Observation Former smoker July 17, 2020 1: 53pm Observation Status Date of Observation Not February 08, 2019 Observation Status Observation Response Jose e of Response Smoking Status Former smoker July 17, 2020 1:53pm Alcohol Use No July 17, 2020 1:53pm Substance Use No Decee 2019 1:53pm Assigned Sex Female Vital Signs Vital Reading Result Ref erence Range Collection Date/Time Height 62 [in_i] August 30, 2019 9:29am Weight 192.00 [lb_av] August 30, 2019 9:29am Heart Rate 87 /min 60-100 August 30, 2019 9:29am Respiratory rate 12 /min 12-24 August 30, 2019 9:29am BP Systolic 134 mm[Hg] August 30, 2019 9:29am BP Diastolic 62 mm[Hg] August 30, 2019 9:29am BMI (Body Mass Index) 35.1 kg/m2 August 30, 2019 9:29am Height 62 [in_i] September 13, 2019 9:20am Weight 192.00 [lb_av] September 13, 2019 9:20am Heart Rate 74 /min 60-100 September 13, 2019 9:20am Oxygen saturation by Pulse oximetry 98 % 95- 100 September 13, 2019 9:20am BP Systolic 128 mm[Hg] September 13, 2019 9:20am BP Diastolic 68 mm[Hg] September 13, 2019 9:20am BMI (Body Mass Index) 35.1 kg/m2 September 13, 2019 9:20am Height 62 [in_i] September 27, 2019 9:10am Weight 192.00 [lb_av] September 27, 2019 9:10am Heart Rate 74 /min 60-100 September 27, 2019 9:10am Respiratory rate 12 /min -September 27, 2019 9:10am Oxygen saturation by Pulse oximetry 98 % 95- 100 September 27, 2019 9:10am BP Systolic 148 mm[Hg] September 27, 2019 9:10am BP Diastolic 72 mm[Hg] September 27, 2019 9:10am BMI (Body Mass Index) 35.1 kg/m2 September 27, 2019 9:10am Heart Rate 84 /min 60-100 October 04, 2019 12:48pm Respiratory rate 16 /min 07-20October 04, 2019 12:48pm Oxygen saturation by Pulse oximetry 96 % 95- 100 October 04, 2019 12:48pm BP Systolic 132 mm[Hg] October 04, 2019 12:48pm BP Diastolic 74 mm[Hg] October 04, 2019 12:48pm Height 62 [in_i] October 04, 2019 2:47pm Weight 215.00 [lb_av] October 04, 2019 2:47pm Body Temperature 97.6 [degF] 97.6-99.5 October 05, 2019 3:44pm Heart Rate 87 /min 60-100 October 05, 2019 3:44pm Respiratory rate 18 /min -October 05, 2019 3:44pm Oxygen saturation by Pulse oximetry 93 % 95- 100 October 05, 2019 3:44pm BP Systolic 157 mm[Hg] October 05, 2019 3:44pm BP Diastolic 79 mm[Hg] October 05, 2019 3:44pm Heart Rate 79 /min 60-100 October 15, 2019 9:05am Respiratory rate 16 /min -October 15, 2019 9:05am Oxygen saturation by Pulse oximetry 98 % 95- 100 October 15, 2019 9:05am BP Systolic 126 mm[Hg] October 15, 2019 9:05am BP Diastolic 74 mm[Hg] October 15, 2019 9:05am Heart Rate 87 /min 60-100 November 03, 2019 8:41am Respiratory rate 16 /min -November 03, 2019 8:41am Oxygen saturation by Pulse oximetry 96 % 95- 100 November 03, 2019 8:41am BP Systolic 122 mm[Hg] November 03, 2019 8:41am BP Diastolic 78 mm[Hg] November 03, 2019 8:41am Height 62 [in_i] December 27, 2019 8:50am Weight 219.00 [lb_av] December 27, 2019 8:50am Heart Rate 90 /min 60-100 December 27, 2019 8:50am Respiratory rate 12 /min -December 27, 2019 8:50am Oxygen saturation by Pulse oximetry 96 % 95- 100 December 27, 2019 8:50am BP Systolic 132 mm[Hg] December 27, 2019 8:50am BP Diastolic 60 mm[Hg] December 27, 2019 8:50am BMI (Body Mass Index) 40.0 kg/m2 December 27, 2019 8:50am Height 62 [in_i] January 25, 2020 8:55am Weight 200.00 [lb_av] January 25, 2020 8:55am Body Temperature 98.1 [degF] 97.6-99.5 January 25, 2020 8:55am Heart Rate 92 /min 60-100 January 25, 2020 8:55am Oxygen saturation by Pulse oximetry 96 % 95- 100 January 25, 2020 8:55am BP Systolic 124 mm[Hg] January 25, 2020 8:55am BP Diastolic 70 mm[Hg] January 25, 2020 8:55am BMI (Body Mass Index) 36.6 kg/m2 January 25, 2020 8:55am Height 62 [in_i] February 14, 2020 9:57am Weight 200.00 [lb_av] February 14, 2020 9:57am BMI (Body Mass Index) 36.6 kg/m2 February 14, 2020 9:57am Height 62 [in_i] February 17, 2020 9:32am Weight 200.00 [lb_av] February 17, 2020 9:32am Body Temperature 98.5 [degF] 97.6-99.5 February 21, 2020 12:26pm Heart Rate 82 /min 60-100 February 21, 2020 12:26pm Respiratory rate 18 /min 12-February 21, 2020 12:26pm Oxygen saturation by Pulse oximetry 98 % 95- 100 February 21, 2020 12:26pm BP Systolic 128 mm[Hg] February 21, 2020 12:26pm BP Diastolic 96 mm[Hg] February 21, 2020 12:26pm Heart Rate 84 /min 60-100 April 05, 2020 8:45am Respiratory rate 16 /min -April 05, 2020 8:45am Oxygen saturation by Pulse oximetry 96 % 95- 100 April 05, 2020 8:45am BP Systolic 124 mm[Hg] April 05, 2020 8:45am BP Diastolic 72 mm[Hg] April 05, 2020 8:45am Heart Rate 86 /min 60-100 May 29, 2020 3:21pm Respiratory rate 18 /min -May 29, 2020 3:21pm Oxygen saturation by Pulse oximetry 96 % 95- 100 May 29, 2020 3:21pm BP Systolic 140 mm[Hg] May 29, 2020 3:21pm BP Diastolic 92 mm[Hg] May 29, 2020 3:21pm Height 63 [in_i] June 21, 2020 8:40am Weight 220.00 [lb_av] June 21, 2020 8:40am Body Temperature 96.7 [degF] 97.6-99.5 June 21, 2020 8:40am Heart Rate 64 /min 60-100 June 21, 2020 8:40am Respiratory rate 18 /min 07-20June 21, 2020 8:40am Oxygen saturation by Pulse oximetry 98 % 95- 100 June 21, 2020 8:40am BP Systolic 110 mm[Hg] June 21, 2020 8:40am BP Diastolic 78 mm[Hg] June 21, 2020 8:40am BMI (Body Mass Index) 38.9 kg/m2 June 21, 2020 8:40am Height 63 [in_i] July 03, 2020 9:33am Weight 200.00 [lb_av] July 03, 2020 9:33am Heart Rate 64 /min 60-100 July 03, 2020 9:33am Respiratory rate 12 /min 07-20July 03, 2020 9:33am Oxygen saturation by Pulse oximetry 96 % 95- 100 July 03, 2020 9:33am BP Systolic 142 mm[Hg] July 03, 2020 9:33am BP Diastolic 68 mm[Hg] July 03, 2020 9:33am BMI (Body Mass Index) 35.4 kg/m2 July 03, 2020 9:33am Height 62 [in_i] July 17, 2020 1:35pm Weight 221.30 [lb_av] July 17, 2020 1:35pm Body Temperature 98.7 [degF] 97.6-99.5 July 17, 2020 4:55pm Heart Rate 88 /min 60-100 July 17, 2020 4:55pm Respiratory rate 18 /min 12-July 17, 2020 4:55pm Oxygen saturation by Pulse oximetry 95 % 95- 100 July 17, 2020 4:55pm BP Systolic 144 mm[Hg] July 17, 2020 4:55pm BP Diastolic 87 mm[Hg] July 17, 2020 4:55pm Height 62 [in_i] July 31, 2020 9:07am Weight 221.00 [lb_av] July 31, 2020 9:07am Body Temperature 97.3 [degF] 97.6-99.5 July 31, 2020 9:07am Heart Rate 68 /min 60-100 July 31, 2020 9:07am Respiratory rate 12 /min -July 31, 2020 9:07am Oxygen saturation by Pulse oximetry 98 % 95- 100 July 31, 2020 9:07am BP Systolic 134 mm[Hg] July 31, 2020 9:07am BP Diastolic 62 mm[Hg] July 31, 2020 9:07am BMI (Body Mass Index) 40.4 kg/m2 July 31, 2020 9:07am Height 62 [in_i] August 07, 2020 8:43am Weight 217.37 [lb_av] August 07, 2020 8:43am Body Temperature 97.5 [degF] 97.6-99.5 August 07, 2020 8:43am Heart Rate 82 /min 60-100 August 07, 2020 8:43am Respiratory rate 18 /min 12-August 07, 2020 8:43am Oxygen saturation by Pulse oximetry 96 % 95- 100 August 07, 2020 8:43am BP Systolic 140 mm[Hg] August 07, 2020 8:43am BP Diastolic 82 mm[Hg] August 07, 2020 8:43am BMI (Body Mass Index) 39.7 kg/m2 August 07, 2020 8:43am
--- OUTSIDE RECORDS SUMMARY | 2020-08-10 07:12 | CCD | Continuity of Care Document ---
Author Author Gisselle PIMENTEL M.D. Organization Unknown Address [address] [place] [address] Phone [phone] Care Team Providers Care Counterperson Name Role Phone Jacy Franz M.D. AUTM [phone] Problems Active Problems Provider Date Migraine Arabella Pimentel M.D. Onset: 10/11/2019 Social History Type Date Description Comments Sex Unknown Tobacco Use Start: Unknown End: Unknown Patient is a former smoker Allergies, Adverse Reactions, Alerts Description No Known Drug Allergies Medications Active Medications SIG Qnty Indications Ordering Provide r Date Amitriptyline HCL 10mg Tablets Take 1 tablet at bedtime brand name only. 30tabs Arabella rojo M.D. 07/11/2020 Atorvastatin Calcium 40mg Tablets Once a day Arabella Pimentel M.D. Immunizations Description No Information Available Vital Signs Date Vital Result Comment 08/07/2020 12:44pm Respiratory Rate 12 /min Height 62 inches 5'2" Weight 212.00 lb BMI (Body Mass Index) 38.8 kg/m2 [place] Body Weight 110 lb 04/24/2020 2:39pm Respiratory Rate 12 /min Height 62 inches 5'2" Weight 200.00 lb BMI (Body Mass Index) 36.6 kg/m2 [place] [facility] Weight 110 lb Results Description No Information Available Procedures Description No Information Available Medical Devices Description No Information Available Encounters Type Date Location Provider Dx Diagnosis Office Visit 04/24/2020 2:00p Main office - [place] Arabella lopez M.D. G43.719 Chronic migraine w/o aura, intractable, w/o stat migr Assessments Date Code Description Provider 08/07/2020 G43.719 Chronic migraine wit hout aura, intractable, without status migrainosus Arabella Pimentel M.D. 04/24/2020 G43.719 Chronic migraine wit hout aura, intractable, without status migrainosus Arabella Pimentel M.D. Plan of Treatment No Information Available Functional Status Description No Information Available Mental Status Description No Information Available Referrals Description No Information Available
--- OUTSIDE RECORDS SUMMARY | 2020-08-10 07:12 | CCD | Continuity of Care Document ---
Author Author Gisselle PIMENTEL M.D. Organization Unknown Address [address] [place] [address] Phone [phone] Care Team Providers Care Immigration Lawyer Name Role Phone Jacy Franz M.D. AUTM [phone] Problems Active Problems Provider Date Migraine Arabella [...] lb BMI (Body Mass Index) 38.8 kg/m2 [place] Body Weight 110 lb 04/24/2020 2:39pm Respiratory Rate 12 /min Height 62 inches 5'2" Weight 200.00 lb BMI (Body Mass Index) 36.6 kg/m2 [place] Body Weight 110 lb Results Description No Information Available Procedures Description No Information Available Medical Devices Description No Information Available Encounters Type Date Location Provider Dx Diagnosis Office Visit 08/07/2020 12:30p Main office - [place] Arabella lopez M.D. G43.719 Chronic migraine w/o aura, intractable, w/o stat migr Office Visit 04/24/2020 2:00p Main office - [place] Arabella lopez M.D. G43.719 Chronic migraine w/o [...]
--- OUTSIDE RECORDS SUMMARY | 2020-08-10 07:14 | CCD | Continuity of Care Document ---
Author Author [facility] Organization [facility] Address [address] [place] [address] Phone Support Name Relationship Address Phone [place] [address] Jack Jamil PRS [facility] [place] [address] Navi Hunt PRS [address] [place] [address] [place] [address] Stanislaw Thompson PRS [address] [place] [address] Gerson Francisco PRS [address] [place] [address] Josesito Ragland PRS [address] [place] [address] Bandar Vazquez PRS [address] [place] [address] Allergies, Adverse Reactions, Alerts No known allergies. Medications Medication Status Dose Units Route Directions Qty Days Start Date End Date Instructions Flucelvax Quad [id number] (PF) (flu vac q s 2018(4 yr up)CD(PF)) 60 mcg (15 mcg x Discontinued 0.5 ML IM 1 Time/Once 0.5 June 28, 2019 8:54am June 28, 2019 9:41am Levothyroxine (Synthroid) 125 mcg tablet Discontinued 125 MCG PO daily June 28, 2019 9:24am August 30, 2019 9:57am Levothyroxine (Synthroid) 112 mcg tablet Discontinued 112 MCG PO daily August 30, 2019 9:57am October 04, 2019 1:44pm Biotin Active 77605 MCG PO Once Per Day September 13, [...] 8:31am Afluria Qd (3yr up)(PF) (flu vac [id number] 36mos up(PF)) Discontinued 0.5 ML IM 1 [...] 1 SM.AMT TP 2 Times Per Day 60 June 11, 2017 11:17am February 26, 2018 [...] Three times per week December 04, 2017 12:07pm February 17, 2018 1:26pm Take one pill [...] - 2 TAB PO Every 4 hours 40 July 16, 2018 3:54pm August 032018 4:11pm Azithromycin (Zithromax) 500 MG tablet Discontinued 500 MG PO Three times per week 36 September 10, 2018 11:51am November 25, 2018 [...] 50 MG PO 2 Times Per Day April 19, 2020 11:29am April 24, 2020 8:52am Sumatriptan Succinate (Imitrex) 50 mg tablet Active 50 MG PO Q 2H April 24 8:51am Atorvastatin (Lipitor) 40 mg tablet Active [...] syndrome Active Procedures Procedure Date Performed Status Xray Abdomen 2V (Flat/Upright) Decem 2019 2:26pm [...] Result Comment Performing Site White Blood Count July 31, 2020 8:08am 11.8 10e3/uL 4.45-10.71 [facility], [address] [place] [address] 39460 White Blood Count July 24 8:25am 7.9 10e3/uL 4.45-10.71 [facility], [address] [place] [address] 83723 White Blood Count May 01, 2020 6:33am 7.7 10e3/uL 4.45-10.71 [facility], [address] [place] [address] 26227 Red Blood Count July 31, 2020 8:08am 3.62 10e6/uL 4.20-5.40 [facility], [address] [place] [address] 15021 Red Blood Count July 24, 2020 8:25am 3.24 10e6/uL 4.20-5.40 [facility], [address] [place] [address] 20962 Red Blood Count May 01, 2020 6:33am 4.70 10e6/uL 4.20-5.40 [facility], [address] [place] [address] 63243 Hemoglobin July 31, 2020 8:08am 11.0 g/dL 10.7-15.4 [facility], [address] [place] [address] 36664 Hemoglobin July 24, 2020 8:25am 9.9 g/dL 10.7-15.4 [facility], [address] [place] [address] 71484 Hemoglobin May 01, 2020 6:33am 14.4 g/dL 10.7-15.4 [facility], [address] [place] [address] 08558 Hematocrit July 31, 2020 8:08am 35.4 % 37-47 [facility], [address] [place] [address] 50661 Hematocrit July 24, 2020 8:25am 31.5 % 37-47 [facility], [address] [place] [address] 83626 Hematocrit May 01, 2020 6:33am 44.1 % 37-47 [facility], [address] [place] [address] 82689 Mean Corpuscular Volume July 31, 2020 8:08am 97.8 fl 80-96 [facility], [address] [place] [address] 89435 Mean Corpuscular Volume June 8:25am 97.2 fl 80-96 [facility], [address] [place] [address] 03402 Mean Corpuscular Volume May 01, 2020 6:33am 93.8 fl 80-96 [facility], [address] [place] [address] 03615 Mean Corpuscular Hemoglobin July 31, 2020 8:08am 30.4 pg 27-31 [facility], [address] [place] [address] 86803 Mean Corpuscular Hemoglobin July 24, 2020 8:25am 30.6 pg 27-31 [facility], [address] [place] [address] 95029 Mean Corpuscular Hemoglobin May 01, 2020 6:33am 30.6 pg 27-31 [facility], [address] [place] [address] 37031 Mean Corpuscular Hemoglobin Concent July 31, 2020 8:08am 31.1 g/dl 33-37 [facility], [address] [place] [address] 20033 Mean Corpuscular Hemoglobin Concent July 24, 2020 8:25am 31.4 g/dl [address] [place] [address] LABORATORY, [address] [place] [address] 37716 Mean Corpuscular Hemoglobin Concent May 01, 2020 6:33am 32.7 g/dl [address] [place] [address] LABORATORY, [address] [place] [address] Red Cell Distribution Width July 31, 2020 8:08am 13 % 11-15 [facility], [address] [place] [address] Red Cell Distribution Width July 24, 2020 8:25am 13 % 11-15 [facility], [address] [place] [address] 23433 Red Cell Distribution Width May 01, 2020 6:33am 13 % 11-15 [facility], [address] [place] [address] 55749 Platelet Count July 31, 2020 8:08am 392 10e3/ul 130-472 [facility], [address] [place] [address] Platelet Count July 24, 2020 8:25am 301 10e3/ul 130-472 [facility], [address] [place] [address] 05665 Platelet Count May 01, 2020 6:33am 285 10e3/ul 130-472 [facility], [address] [place] [address] 11651 Mean Platelet Volume July 31 8:08am 9.7 fl 9.1-13.1 [facility], [address] [place] [address] 88492 Mean Platelet Volume July 24, 2020 8:25am 9.2 fl 9.1-13.1 [facility], [address] [place] [address] 46319 Mean Platelet Volume May 01 6:33am 9.7 fl 9.1-13.1 [facility], [address] [place] [address] 95149 Neutrophils (%) (Auto) July 31, 2020 8:08am 68.1 % [address] [facility], [address] [place] [address] 32199 Neutrophils (%) (Auto) June 8:25am 55.5 % -77 [facility], [address] [place] [address] 32368 Neutrophils (%) (Auto) May 01, 2020 6:33am 51.7 % [address] [facility], [address] [place] [address] 39775 Absolute Neutrophil July 31 8:08am 8.1 # 1.7-7.6 [facility], [address] [place] [address] 34858 Absolute Neutrophil July 24 020 8:25am 4.4 # 1.7-7.6 [facility], [address] [place] [address] 89799 Absolute Neutrophil May 01 0 6:33am 4.0 # 1.7-7.6 [facility], [address] [place] [address] 15120 Lymphocytes (%) (Auto) July 31, 2020 8:08am 19.8 % 14-46 [facility], [address] [place] [address] 87375 Lymphocytes (%) (Auto) June 8:25am 31.1 % 14-46 [facility], [address] [place] [address] 04587 Lymphocytes (%) (Auto) May 01, 2020 6:33am 34.5 % 14-46 [facility], [address] [place] [address] 83734 Lymphocytes # (Auto) July 31 8:08am 2.3 # 0.6-4.6 [facility], [address] [place] [address] 46949 Lymphocytes # (Auto) July 24, 2020 8:25am 2.4 # 0.6-4.6 [facility], [address] [place] [address] 27413 Lymphocytes # (Auto) May 01 6:33am 2.7 # 0.6-4.6 [facility], [address] [place] [address] 56471 Monocytes (%) (Auto) July 31 8:08am 9.1 % 4-12 [facility], [address] [place] [address] 58901 Monocytes (%) (Auto) July 24, 2020 8:25am 8.2 % 4-12 [facility], [address] [place] [address] 88762 Monocytes (%) (Auto) May 01 6:33am 8.7 % 4-12 [facility], [address] [place] [address] 38737 Monocytes # July 31, 2020 8:08am 1.1 # 0.2-1.2 [facility], [address] [place] [address] 84759 Monocytes # July 24, 2020 8:25am 0.6 # 0.2-1.2 [facility], [address] [place] [address] 13692 Monocytes # May 01, 2020 6:33am 0.7 # 0.2-1.2 [facility], [address] [place] [address] 58154 Eosinophils (%) (Auto) July 31, 2020 8:08am 2.3 % 0-7 [facility], [address] [place] [address] 02688 Eosinophils (%) (Auto) June 8:25am 3.8 % 0-7 [facility], [address] [place] [address] 73468 Eosinophils (%) (Auto) May 01, 2020 6:33am 4.0 % 0-7 [facility], [address] [place] [address] Absolute Eosinophils (CBC) July 312020 8:08am 0.3 # 0.0-0.5 [facility], [address] [place] [address] Absolute Eosinophils (CBC) July 24, 2020 8:25am 0.3 # 0.0-0.5 [facility], [address] [place] [address] Absolute Eosinophils (CBC) May 012019 6:33am 0.3 # 0.0-0.5 [facility], [address] [place] [address] 89403 Basophils (%) (Auto) July 31 8:08am 0.4 % 0.4-1.3 [facility], [address] [place] [address] 26279 Basophils (%) (Auto) July 24, 2020 8:25am 0.9 % 0.4-1.3 [facility], [address] [place] [address] 60674 Basophils (%) (Auto) May 01 6:33am 0.8 % 0.4-1.3 [facility], [address] [place] [address] 11530 Absolute Basophils (CBC) July 8:08am 0.1 # 0.0-0.2 [facility], [address] [place] [address] 18935 Absolute Basophils (CBC) July 242019 8:25am 0.1 # 0.0-0.2 [facility], [address] [place] [address] 30160 Absolute Basophils (CBC) April 6:33am 0.1 # 0.0-0.2 [facility], [address] [place] [address] 33865 Immature Granulocyte % (Auto) Januar y 2020 8:08am 0.3 % 0-2 [facility], [address] [place] [address] 74551 Immature Granulocyte % (Auto) Decemb er 2019 8:25am 0.5 % 0-2 [facility], [address] [place] [address] 79665 Immature Granulocyte % (Auto) Octobe r 2019 6:33am 0.3 % 0-2 [facility], [address] [place] [address] 93228 Absolute Immature Granulocyte (auto July 31, 2020 8:08am 0.0 # 0-0.1 [facility], [address] [place] [address] 32273 Absolute Immature Granulocyte (auto July 24, 2020 8:25am 0.0 # 0-0.1 [facility], [address] [place] [address] 96922 Absolute Immature Granulocyte (auto May 01, 2020 6:33am 0.0 # 0-0.1 [facility], [address] [place] [address] 31169 Add Manual Differential July 31, 2020 8:08am No [facility], [address] [place] [address] 74017 Add Manual Differential June 8:25am No [facility], [address] [place] [address] 14526 Add Manual Differential May 01, 2020 6:33am No [facility], [address] [place] [address] 22337 Urine Color July 17, 2020 1:54pm Yellow [facility], [address] [place] [address] 69550 Urine Appearance July 17, 2020 1:54p m Turbid CLEAR [facility], [address] [place] [address] 87896 Urine pH July 17, 2020 1:54pm 5.0 [facility], [address] [place] [address] 65683 Urine Specific [place] June 1:54pm 1.027 [facility], [address] [place] [address] Urine Leukocyte Esterase July 172019 1:54pm Small NEGATIVE A Culture has been added to this specimen per established criteria [facility], [address] [place] [address] 09211 Urine Nitrate July 17, 2020 1:54pm Negative NEGATIVE [facility], [address] [place] [address] Urine Protein July 17, 2020 1:54pm 100 mg/dl NEGATIVE [facility], [address] [place] [address] 55296 Urine Glucose July 17, 2020 1:54pm Negative NEGATIVE [facility], [address] [place] [address] 27754 Urine Ketones July 17, 2020 1:54pm Negative NEGATIVE [facility], [address] [place] [address] 53520 Urine Urobilinogen July 17 1:54pm 0.2 eu/dl [facility], [address] [place] [address] 29790 Urine Bilirubin July 17, 2020 1:54pm Negative NEGATIVE [facility], [address] [place] [address] 11614 Urine Blood July 17, 2020 1:54pm Large NEGATIVE A Culture has been added to this specimen per established criteria [facility], [address] [place] [address] 74641 Add Urine Microanalysis June 1:54pm Microscopic added [facility], [address] [place] [address] 61175 Urine RBC July 17, 2020 1:54pm 51-100 /hpf [facility], [address] [place] [address] Urine WBC July 17, 2020 1:54pm 5-8 /hpf [facility], [address] [place], [place] [address] Urine Squamous Epithelial Cells Dece mber 2019 1:54pm Few /hpf [facility], [address] [place] [address] Urine Amorphous Sediment July 172019 1:54pm Large amt urates [facility], [address] [place] [address] 05545 Blood Urea Nitrogen July 31 1 8:08am 22 mg/dL 04-19 [facility], [address] [place], [place] [address] Blood Urea Nitrogen July 24 020 8:25am 15 mg/dL 04-19 [facility], [address] [place] [address] 78426 Blood Urea Nitrogen May 01 0 6:33am 18 mg/dL 04-19 [facility], [address] [place], [place] [address] Sodium Level July 31, 2020 8:08am 142 mmol/L 132-146 [facility], [address] [place] [address] 64174 Sodium Level July 24, 2020 8:25am 144 mmol/L 132-146 [facility], [address] [place] [address] 28040 Sodium Level May 01, 2020 6:33am 141 mmol/L 132-146 [facility], [address] [place] [address] 96547 Potassium Level July 31, 2020 8:08am 4.7 mmol/L 3.5-5.5 [facility], [address] [place] [address] 59900 Potassium Level July 24, 2020 8:25am 4.6 mmol/L 3.5-5.5 [facility], [address] [place] [address] 13458 Potassium Level May 01, 2020 6:33am 4.1 mmol/L 3.5-5.5 [facility], [address] [place] [address] 02432 Chloride Level July 31, 2020 8:08am 107 mmol/l 99-109 [facility], [address] [place] [address] 16492 Chloride Level July 24, 2020 8:25am 107 mmol/l 99-109 [facility], [address] [place] [address] 95514 Chloride Level May 01, 2020 6:33am 108 mmol/l 99-109 [facility], [address] [place] [address] 93649 Carbon Dioxide Level July 31 8:08am 30 mmol/l -31 [facility], [address] [place] [address] Carbon Dioxide Level July 24, 2020 8:25am 32 mmol/l 20-31 [facility], [address] [place] [address] 29303 Carbon Dioxide Level May 01 6:33am 27 mmol/l -31 [facility], [address] [place] [address] 11246 Anion Gap July 31, 2020 8:08am 10 mmol/l 8-16 [facility], [address] [place] [address] Anion Gap July 24, 2020 8:25am 10 mmol/l 8-16 [facility], [address] [place] [address] Anion Gap May 01, 2020 6:33am 10 mmol/l 8-16 [facility], [address] [place] [address] 88060 Glucose Level July 31, 2020 8:08am 122 mg/dL 74-106 [facility], [address] [place] [address] Glucose Level July 24, 2020 8:25am 127 mg/dL 74-106 [facility], [address] [place] [address] Glucose Level May 01, 2020 6:33am 125 mg/dL 74-106 [facility], [address] [place] [address] Creatinine July 31, 2020 8:08am 1.3 mg/dL 0.5-1.1 [facility], [address] [place] [address] Creatinine July 24, 2020 8:25am 1.2 mg/dL 0.5-1.1 [facility], [address] [place] [address] Creatinine May 01, 2020 6:33am 0.9 mg/dL 0.5-1.1 [facility], [address] [place] [address] Glomerular Filtration Rate Calc Melitno radha 2020 8:08am 41 ml/min ABOVE 60 [facility], [address] [place] [address] Glomerular Filtration Rate Calc Dece mber 2019 8:25am 45 ml/min ABOVE 60 [facility], [address] [place] [address] Glomerular Filtration Rate Calc Octo heladio 2019 6:33am Greater than 60 ml/min ABOVE 60 [facility], [address] [place] [address] Alanine Aminotransferase (ALT/SGPT) May 01, 2020 6:33am 33 U/L 10-49 [facility], [address] [place] [address] Aspartate Amino Transf (AST/SGOT) Oc 2019 6:33am 20 U/L 0-33 [facility], [address] [place] [address] Alkaline Phosphatase May 01 6:33am 90 U/L 45-129 [facility], [address] [place] [address] Calcium Level July 31, 2020 8:08am 9.2 mg/dL 8.5-10.1 [facility], [address] [place] [address] Calcium Level July 24, 2020 8:25am 9.0 mg/dL 8.5-10.1 [facility], [address] [place] [address] 29632 Calcium Level May 01, 2020 6:33am 9.2 mg/dL 8.5-10.1 [facility], [address] [place] [address] 26745 Total Bilirubin May 01, 2020 6:33am 0.6 mg/dL 0.3-1.2 [facility], [address] [place] [address] 10701 Albumin May 01, 2020 6:33am 3.7 g/dL 3.2-4.8 [facility], [address] [place], [place] [address] Serum Total Protein May 01 0 6:33am 7.6 g/dL 5.7-8.2 [facility], [address] [place], [place] [address] Triglycerides Level May 01 0 6:33am 189 mg/dL 0-150 [facility], [address] [place], [place] [address] Triglycerides Level August 27 9:13am 144 mg/dL 0-150 [facility], [address] [place] [address] 96242 Cholesterol Level May 01, 2020 6:33am 194 mg/dL 120-200 [facility], [address] [place] [address] 07024 Cholesterol Level August 27, 2019 9:13a m 172 mg/dL 120-200 [facility], [address] [place], [place] [address] HDL Cholesterol May 01, 2020 6:33am 50 mg/dL HDL Less than 40 mg/dL: Major risk for CHDHDL Greater than 59 mg/dL: Low risk for CHD [facility], [address] [place] [address] 25798 HDL Cholesterol August 27, 2019 9:13am 59 mg/dL HDL Less than 40 mg/dL: Major risk for CHDHDL Greater than 59 mg/dL: Low risk for CHD [facility], [address] [place] [address] LDL Cholesterol, Calculated May 01, 2020 6:33am 107 mg/dL 0-100 [facility], [address] [place] [address] LDL Cholesterol, Calculated August 27, 2019 9:13am 85 mg/dL 0-100 [facility], [address] [place], [place] [address] Thyroid Stimulating Hormone (TSH) Ceron 2019 8:25am 10.30 uIU/mL 0.35-5.50 Repeated by: Debra Estrada 07/24/20 100 4.Result Confirmation: 10.3 uIU/mL [facility], [address] [place] [address] 93260 Thyroid Stimulating Hormone (TSH) Oc tober 2019 6:33am 3.84 uIU/mL 0.35-5.50 [facility], [address] [place] [address] 18540 Thyroid Stimulating Hormone (TSH) Ju ma 2019 7:03am 3.31 uIU/mL 0.35-5.50 [facility], [address] [place] [address] 85313 Thyroid Stimulating Hormone (TSH) Ju ma 2019 6:40am 1.59 uIU/mL 0.35-5.50 [facility], [address] [place] [address] 88654 Thyroid Stimulating Hormone (TSH) [facility] 2019 7:07am 1.75 uIU/mL 0.35-5.50 [facility], [address] [place] [address] 66548 Thyroid Stimulating Hormone (TSH) [facility] 2019 7:09am 0.60 uIU/mL 0.35-5.50 [facility], [address] [place] [address] 94272 Thyroid Stimulating Hormone (TSH) [facility] 2019 9:13am 0.10 uIU/mL 0.35-5.50 Repeated by: Amie Bowie 08/27/19 1033. Result Confirmation: 0.101 uIU/mL LOCATED WITH[facility], [address] [place] [id number] Microbiology Results Procedure Source Result Collection Date/Time Result Date/Time Result Comment Performing Site Urine Culture Urine,voided No growth. July 17, 2020 1:54pm July 18, 2020 12:57pm LOCATED [facility], [address] [place] [address] [id number] Respiratory Panel (PCR) Nasopharyngeal No Organisms Detected February 18, 2020 9:05am February 18, 2020 6:03pm LOCATED [facility], [address] [place] [id number] Diagnostic Imaging Reports Report Dictated Date/Time Dictated By Status Radiology Report October 04, 2019 1:42pm Vinicius Steele MD completed [facility] [place] [address] [place] [address] [phone] NAME SEX PT STATUS ACCOUNT NUMBER ANA CRISTINATINOMARII Jack F REG REF [id number] ORDERING PHYSICIAN LOCATION MEDICAL RECORD NO. Navi Hunt MD RAD [id number] ATTENDING PHYSICIAN DATE OF DATE OF EXAM/TIME Jacy Franz MD 1955 10/[birth year]/191315 TYPE / EXAM Xray Wrist complete RT REASON FOR EXAM pain, ortho COMPARISON: None FINDINGS: No evidence for fractures, subluxation or adjacent soft tissue swelling is noted. IMPRESSION: No fracture, dislocation, or other significant abnormality. Reported By Vinicius Steele MD on 10/04/19 134 Signed By Vinicius Steele MD on 10/04/19 134 Date Time CC: Vinicius Steele MD; Jacy Franz MD Techn: CARRC Trans Dt/Tm: Trans by: DT Prt Dt/Tm: [id number]: Total DLP = 0.00 mGy-cm Fluoroscopy Time (in secs): Radiology Report April 04, 2020 4:00p lula Miranda NP completed [place] [address] [place] [address] [phone] NAME SEX PT STATUS ACCOUNT NUMBER NEHAMARII Santiago Cindy REG REF [id number] ORDERING PHYSICIAN LOCATION MEDICAL RECORD NO. Navi Hunt MD RAD [id number] ATTENDING PHYSICIAN DATE OF DATE OF EXAM/TIME Jacy Franz MD 1955 04/04/20821 TYPE / EXAM Xray Hand Complete RT REASON FOR EXAM right hand pain, ortho ANA CRISTINAPAULMARII ASTUDILLO [id number] 1955 ADDENDUM CORRECTION: The original report incorrectly reflects Kristie Miranda as the reporting R adiologist. The correct Radiologist for this report is Kellie Brewer MD. The content of this report remains unchanged. Addendum Reported By Kellie Brewer MD on 04/12/20 1609 Signed By Kellie Brewer MD on 04/12/20 1609 Trans Dt/Tm: Trans by: MEDQ [p pg] COMPARISON: None FINDINGS: There is normal alignment and position of the bones. No fracture or radiopaque foreign body is identified. Mild DJD. Small erosions are also seen in the interphalangeal joints and wrist. IMPRESSION: No acute findings Reported By Kristie Miranda on 04/04/20 1600 Signed By Kristie Miranda on 04/04/20 1603 Date Time CC: Kellie Brewer MD; Kristie Miranda; Jacy Franz MD Techn: RADTC Trans Dt/Tm: Trans by: DT Prt Dt/Tm: : Total DLP = 0.00 mGy-cm Fluoroscopy Time (in secs): Radiology Report May 08, 2020 4:25pm Donna Means MD completed [place] [id number] [phone] NAME SEX PT STATUS ACCOUNT NUMBER MARII DYKES REG REF [id number] ORDERING PHYSICIAN LOCATION MEDICAL RECORD NO. Jacy Franz MD MRI [id number] ATTENDING PHYSICIAN DATE OF DATE OF EXAM/TIME [...] Time ) Signed by: Donna Means M.D., [facility] Reported By Donna Means MD on 05/08/201624 Signed By Donna Means MD on 05/08/201624 Date Time CC: Donna Means MD; Jacy Franz MD Techn: FROJO Trans Dt/Tm: Trans by: DT Prt Dt/Tm: : Total DLP = 0.00 mGy-cm : Total Radiation Dose = 0.0000 mSv Lifetime Dose: 0 mSv Radiology Report June 21, 2020 8:50a m Kellie Brewer MD completed [address] [address] [place] [address] [phone] NAME SEX PT STATUS ACCOUNT NUMBER MARII DYKES Jack REG REF [id number] ORDERING PHYSICIAN LOCATION MEDICAL RECORD NO. [facility] [id number] ATTENDING PHYSICIAN DATE OF DATE OF EXAM/TIME [...] DJD Reported By Kellie Brewer MD on 06/21/2050 Signed By Kellie Brewer MD on 06/21/2051 Date Time CC: Kellie Brewer MD; Jacy Franz MD Techn: CARRC Trans Dt/Tm: Trans by: DT Prt Dt/Tm: : Total DLP = 0.00 mGy-cm Fluoroscopy Time (in secs): Radiology Report July 17, 2020 2:33p m Vinicius Steele MD completed [place] [address] [address] [place] [address] [phone] NAME SEX PT STATUS ACCOUNT NUMBER ANA CRISTINAMARII JIMÉNEZ F REG ER [id number] ORDERING PHYSICIAN LOCATION MEDICAL RECORD NO. Bandar Vazquez MD ER [id number] ATTENDING PHYSICIAN DATE OF DATE OF EXAM/TIME Jacy Franz MD 1955 07/17/201425 TYPE / EXAM Xray Abdomen 2V (Flat/Upright) [...] Reported By Vinicius Steele MD on 07/17/20 143 Signed By Vinicius Steele MD on 07/17/20 143 Date Time CC: Vinicius Steele MD; Jacy Franz MD Techn: CARAI Trans Dt/Tm: Trans by: DT Prt Dt/Tm: [id number]: Total DLP = 0.00 mGy-cm Fluoroscopy Time (in secs): Radiology Report July 17, 2020 3:46p m [place] [address] [phone] NAME SEX PT STATUS ACCOUNT NUMBER MARII DYKES [facility] [id number] ORDERING PHYSICIAN LOCATION MEDICAL RECORD NO. Bandar Vazquez MD [id number] ATTENDING PHYSICIAN DATE OF DATE OF EXAM/TIME [...] Trans Dt/Tm: Trans by: DT Prt Dt/Tm: [id number]: Total DLP = 732.00 mGy-cm 8359-6507: Total Radiation Dose = 10.9800 mSv Lifetime Dose: 10.9800 mS v Radiology Report July 24, 2020 10:09am Vinicius Steele MD completed [facility] [address] [place] [address] [phone] NAME SEX PT STATUS ACCOUNT NUMBER MARII DYKES REG REF [id number] ORDERING PHYSICIAN LOCATION MEDICAL RECORD NO. Jacy Franz MD EKG [id number] ATTENDING PHYSICIAN DATE OF DATE OF EXAM/TIME [...] disease. Reported By Vinicius Steele MD on 07/24/20 100 Signed By Vinicius Steele MD on 07/24/20 1009 Date Time CC: Vinicius Steele MD; Jacy Franz MD Techn: EBEBR Trans Dt/Tm: Trans by: DT Prt Dt/Tm: [id number]: Total DLP = 0.00 mGy-cm Fluoroscopy Time (in secs): Radiology Report July 25, 2020 9:50a m Vinicius Steele MD completed [facility] [address] [place] [address] [phone] NAME SEX PT STATUS ACCOUNT NUMBER MARII DYKES REG REF [id number] ORDERING PHYSICIAN LOCATION MEDICAL RECORD NO. Jacy Franz MD EKG [id number] ATTENDING PHYSICIAN DATE OF DATE OF EXAM/TIME [...] mammography. Reported By Vinicius Steele MD on 07/25/20 0950 Signed By Vinicius Steele MD on 07/25/20 0958 Date Time CC: Vinicius Steele MD; Jacy Franz MD Techn: BAKLE Trans Dt/Tm: Trans by: DT Prt Dt/Tm: [id number]: Total DLP = 0.00 mGy-cm 6028-7061: Total Radiation Dose = 0.0000 mSv Lifetime Dose: 10.9800 mSv Health Concerns Health Concerns may be documented in an alternate section. Advance Directives Advance Directive Response Recorded Date/Time Advanced Directive No 2019 1:44pm Advance Directives on File or in chart? No February 08, 2019 8:16am Does Patient have a DNR? No July 24, 2020 7:59am Healthcare Proxy Yes Jun 7:59am Health Care Proxy Name Alberto Dykes February 08, 2019 8:16am Health Care Proxy Phone Number February 08, 2019 8:16am Living Will No [...] KIDNEY PAIN,CONSTIPATED SCREENING Z12.31,E78.2,Z01.818,E03.9,I10 D64.9 Pre-operative H&P Reason for Visit Hypothyroidism Pityriasis lichenoides chronica Hypothyroidism Carpal tunnel syndrome, right Left carpal tunnel syndrome Trigger thumb, left thumb Left carpal tunnel syndrome Hyperlipidemia Hypothyroidism Trigger thumb, right thumb Rotator cuff tear, non-traumatic Trigger finger, left middle finger Hyperlipidemia Hypothyroidism Encounters Encounter Location(s) Ar rival/Admit Date Discharge/Depart Date Provider(s) Registered Referred [facility] August 27, 2019 9:00am Jacy Franz MD Departed Physician/Provider Office Visit [facility] August 30, 2019 9:24am August 30, 2019 9:54am Jacy mora MD Departed Physician/Provider Office Visit [facility] Dermatology September 13, 2019 9:16am September 13, 2019 9:40am KAINA Garcia Registered [facility] September 27, 2019 7:02am Jacy Franz MD Departed Physician/Provider Office Visit [facility] September 27, 2019 8:58am September 27, 2019 9:35am Jacy palacios MD Departed Physician/Provider Office Visit [facility] Orthopedics October 04, 2019 11:48am October 04, 2019 1:04pm Navi Hunt MD Registered [facility]Radiology October 04, 2019 12:08pm Chio Roman MD Registered Outpatient [facility] Orthopedics October 05, 2019 9:04am October 05, 2019 3:01pm Navi Hunt MD Departed Physician/Provider Office Visit [facility] Orthopedics October 15, 2019 8:01am October 15, 2019 8:31am Stanislaw brunson PA-C Departed Physician/Provider Office Visit [facility] Orthopedics November 03, 2019 7:37am November 03, 2019 7:52am Stanislaw burr PA-C Registered Referred [facility] November 22, 2019 7:01am Jacy Franz MD Registered Referred [facility] December 27, 2019 6:25am Jacy Franz MD Departed Physician/Provider Office Visit [facility] December 27, 2019 7:42am December 27, 2019 8:27am Jacy tejeda MD Registered Referred [facility] January 25, 2020 6:50am Jacy Franz MD Departed Physician/Provider Office Visit [facility] General Surgery January 25, 2020 7:50am January 25, 2020 8:18am Lula Campos Departed Physician/Provider Office Visit [facility] February 14, 2020 8:43am February 14, 2020 9:14am Jacy palacios MD Registered [facility]Lab Drop Off February 18, 2020 11:08am Gerson Francisco MD Departed Physician/Provider Office Visit [facility] February 18, 2020 11:45am February 18, 2020 12:00pm Gerson Francisco MD Registered Outpatient [facility] General Surgery February 21, 2020 7:46am February 21, 2020 11:45am Gerson Francisco MD Registered [facility]Radiology April 04, 2020 7:13am Chio Roman MD Departed Physician/Provider Office Visit [facility] Orthopedics April 05, 2020 7:39am April 05, 2020 8:06am Navi oneill MD Registered Referred [facility] May 01, 2020 6:29am Jacy Franz MD Registered [facility]-MRI/MRA May 08, 2020 1:41pm Jacy Franz MD Departed Physician/Provider Office Visit [facility] May 29, 2020 2:56pm May 29, 2020 3:09pm Jacy mora MD Departed Physician/Provider Office Visit [facility] Orthopedics May 29, 2020 3:11pm May 29, 2020 3:50pm Josesito edwards MD Registered [facility]Radiology June 21, 2020 7:28am Stanislaw Thompson PA-C Departed Physician/Provider Office Visit [facility] Orthopedics June 21, 2020 8:32am June 21, 2020 9:28am Stanislaw tomas PA-C Departed Physician/Provider Office Visit [facility] July 03, 2020 9:24am July 03, 2020 9:52am Jacy mora MD Departed Emergency [facility]Emergency Room ER July 17, 2020 1:02pm July 17, 2020 4:55pm null Registered [facility]EKG July 24, 2020 7:55am Stanislaw Thompson PA-C Registered [facility]Labor[facility] July 31, 2020 7:56am Jacy Franz MD Departed Physician/Provider Office Visit [facility] July 31, 2020 8:56am July 31, 2020 9:30am Jacy winn MD Recent Diagnosis Onset Date Hypothyroidism Pityriasis lichenoides [...] Event Date Not Given Reason Dose Number Cardiopulmonary Technician And Eeg Tech Lot Number Vaccine Information Statement (VIS) Deta il influenza vaccine, inactivated Dece2018 2612 31 influenza vaccine, inactivated Novem 2019 [id number] Mental Status Observation Response Jose e Recorded Impairments Visual Dece2019 1:35pm Medical Equipment No Medical Equipment Information available Insurance Providers Guarantor MARII Santiago [facility] Address [address] [place] [address] Contact Info. Home Phone: Payer Policy Id Coverage Id Subscriber's Name Subscriber Id Effective Date Expiration Date [facility] [id number] ALBERTO DYKES [id number] Self Pay Self N/A [facility] [id number] MARII DYKES [id number] Plan of Treatment Patient last seen for [...] Provider Address Teresa Cassidy MD Work Phone: [phone] [place] [address] Navi Hunt MD Email: [email or web address] Work Phone: [phone] [phone] Future Procedures Future procedure information is unavailable [...] July 17, 2020 1:53pm Substance Use No Decembe 2019 1:53pm Assigned Sex Female Vital Signs [...] 04, 2019 12:48pm Respiratory rate 16 /min -October 04, 2019 12:48pm Oxygen saturation by Pulse [...] 05, 2019 3:44pm Respiratory rate 18 /min 12-October 05, 2019 3:44pm Oxygen saturation by Pulse oximetry 93 % 95- 100 October 05, 2019 3:44pm BP Systolic 157 mm[Hg] October 05, 2019 3:44pm BP Diastolic 79 mm[Hg] October 05, 2019 3:44pm Heart Rate 79 /min 60-100 October 15, 2019 9:05am Respiratory rate 16 /min 12-October 15, 2019 9:05am Oxygen saturation by Pulse oximetry 98 % 95- 100 October 15, 2019 9:05am BP Systolic 126 mm[Hg] October 15, 2019 9:05am BP Diastolic 74 mm[Hg] October 15, 2019 9:05am Heart Rate 87 /min 60-100 November 03, 2019 8:41am Respiratory rate 16 /min 12-November 03, 2019 8:41am Oxygen saturation by Pulse [...] 05, 2020 8:45am Respiratory rate 16 /min 07-20April 05, 2020 8:45am Oxygen saturation by Pulse oximetry 96 % 95- 100 April 05, 2020 8:45am BP Systolic 124 mm[Hg] April 05, 2020 8:45am BP Diastolic 72 mm[Hg] April 05, 2020 8:45am Heart Rate 86 /min 60-100 May 29, 2020 3:21pm Respiratory rate 18 /min 07-20May 29, 2020 3:21pm Oxygen saturation by Pulse [...] 03, 2020 9:33am Respiratory rate 12 /min 12-July 03, 2020 9:33am Oxygen saturation by Pulse [...] 17, 2020 4:55pm Respiratory rate 18 /min -July 17, 2020 4:55pm Oxygen saturation by Pulse [...]
--- OUTSIDE RECORDS SUMMARY | 2020-08-10 07:16 | CCD ---
Author Author [facility] [email or web address] ems Organization [facility] ems Address Unknown Phone Unavailable Care Team Providers Care Nurse Advocate Name Role Phone Sánchez Valdes Unavailable PROBLEMS Type Condition ICD9-CM Code [id number] Code Onset Dates Condition S tatus SNOMED Code Notes Problem Kidney stone N20.0 Active 65096041 ALLERGIES No Known Allergies ENCOUNTERS from 1955 to 2020-07-26 Encounter Location Date Provider Diagnosis [facility] Urology [address] [place] [address] [place] [address] Jun Sánchez Valdes Kidney stone N20.0 IMMUNIZATIONS No Information SOCIAL HISTORY Tobacco Use: Social History Observation Description Date Details (start date - stop date) Former Smoker Sex Assigned At : Social History Observation Description Sex Assigned At Unknown Language: Question Answer Notes Languages spoken: Japanese Sabianism: Question Answer Notes Sabianism No mu-ism beliefs that would impact health care. Alcohol Screening: Question Answer Notes Did you have a drink containing alcohol in the past year? No Points 0 Interpretation Negative Tobacco Use: Question Answer Notes Are you a: former smoker quit 14 yrs ago REASON FOR REFERRAL No Information VITAL SIGNS No information MEDICATIONS Medication SIG (Take, Route, Frequency, Duration) Notes Start Da te End Date Status Calcium + D Active Lipitor 40 MG 1 tablet Orally Once a day for 30 day(s) Active Percocet 5-325 MG 1 tablet as needed Orally Active Aleve 220 MG 1 tablet with food or milk as needed Orally every 12 hrs Active Boniva 150 MG 1 tablet Orally for 30 day(s) Active Imitrex 25 MG 1 tablet at least 2 hours be tween doses as needed Orally Twice a day Active Synthroid 150 MCG 1 tablet in the morning on a n empty stomach Orally Once a day for 30 day(s) Active Ketorolac Tromethamine 10 MG 1 tablet with food or mil k as needed Orally every 6 hrs for 5 day(s) Jun, Active PROCEDURES No Information RESULTS No Results REASON FOR VISIT KUB MEDICAL (GENERAL) HISTORY Type Description Date Medical History high cholesterol Medical History hypolipidiemia Medical History renal colic Surgical History rotator cuff 2014 Goals Section No Information Health Concerns No Information MEDICAL EQUIPMENT No Information MENTAL STATUS No Information FUNCTIONAL STATUS No Information ASSESSMENTS Encounter Date Diagnosis Assessment Notes Treatment Notes Treatm ent Clinical Notes Jun, Kidney stone (ICD-10 - N20.0) PLAN OF TREATMENT Medication Medication Name Sig Start Date Stop Date Ketorolac Tromethamine 10 MG 1 tablet with food or mil k as needed Orally every 6 hrs for 5 day(s) Jun, Treatment Notes Test Name Order Date ADM ABDOMEN 1 VIEW (KUB) 2020-07-26 Next Appt Details Provider Name:Sue L Tae, 2020-08- 8 09:00:00 AM, [address], [place], [address], Insurance Providers Payer Name Payer Address Payer Phone Insured Name Patient Relati onship to Insured Coverage Start Date Coverage End Date [facility] [address] [address] [facility] [phone] Alberto Dykes
--- OUTSIDE RECORDS SUMMARY | 2020-08-10 07:16 | CCD ---
Author Author [facility] [employer] ems Organization [facility] ems Address Unknown Phone Unavailable Care Team Providers Care Doughnut Icer Name Role Phone ValdesSánchez Unavailable PROBLEMS Type Condition ICD9-CM Code [id number] Code Onset Dates Condition S tatus SNOMED Code Notes Problem Kidney stone N20.0 Active 42642644 ALLERGIES No Known Allergies ENCOUNTERS from 1955 to 2020-07-20 Encounter Location Date Provider Diagnosis [facility] Urology [address] [place] [address] Jun Sánchez Valdes Calculus of kidney with calculus of uret er N20.2 ; Kidney stone N20.0 and Obstruction of left ureteropelvic junction (UPJ) due to stone N20.1 IMMUNIZATIONS No Information SOCIAL HISTORY Tobacco Use: Social History Observation Description Date Details (start date - stop date) Former Smoker Sex Assigned At : Social History Observation Description Sex Assigned At Unknown Language: Question Answer Notes Languages spoken: Moldovan Congregation: Question Answer Notes Congregation No christian beliefs that would impact health care. Alcohol Screening: Question Answer Notes Did you have a drink containing alcohol in the past year? No Points 0 Interpretation Negative Tobacco Use: Question Answer Notes Are you a: former smoker quit 14 yrs ago REASON FOR REFERRAL No Information VITAL SIGNS Weight 223 lbs Jun, Height 62.5 in Jun, BMI 40.13 kg/m2 Jun, Heart Rate 91 /min Jun, Respiratory Rate 18 /min Jun, Temperature 97.5 degrees Fahrenheit Jun, Oximetry 93 Jun, Blood pressure systolic 122 mm Hg Jun, Blood pressure diastolic 70 mm Hg Jun, MEDICATIONS Medication SIG (Take, Route, Frequency, Duration) [...] Information RESULTS No Results REASON FOR VISIT renal colic MEDICAL (GENERAL) HISTORY Type Description Date Medical History high cholesterol Medical History hypolipidiemia Medical History renal colic Surgical History rotator cuff 2014 Goals Section No Information Health Concerns No Information MEDICAL EQUIPMENT No Information MENTAL STATUS No Information FUNCTIONAL STATUS No Information ASSESSMENTS Encounter Date Diagnosis Assessment Notes Treatment Notes Treatm ent Clinical Notes Jun, Calculus of kidney with calculus of ureter (ICD- 10 - N20.2) Jun, Kidney stone (ICD-10 - N20.0) Patient will be scheduled for left ESWL for a 9 mm UPJ calculus. Jun, Obstruction of left ureterop elvic junction (UPJ) due to stone (ICD- 10 - N20.1) Jun, Other Kidney stones: a dult material was printed,Low-oxalate diet material was printed,Kidney stones: adult, Low-oxalate diet, Kidney stones material was published to portal PLAN OF TREATMENT Medication Medication Name Sig Start Date Stop Date Ketorolac Tromethamine 10 MG 1 tablet with food or mil k as needed Orally every 6 hrs for 5 day(s) Jun, Treatment Notes Assessment Notes Clinical Notes Kidney stone Patient will be sche duled for left ESWL for a 9 mm UPJ calculus. Treatment Notes Test Name Order Date CBC - Complete Blood Count 2020-07-20 Basic Metabolic Profile (BMP) 2020-07-20 URINE CULTURE 2020-07-20 Electrocardiogram (EKG) 2020-07-20 ADM CHEST 2 VIEW 2020-07-20 Future Test Test Name Order Date ADM ABDOMEN 1 VIEW (KUB) [id number] Next Appt Details 2 weeks after ESWL Reason:KUB after ESWL Follow Up:2 weeks after ESWLKUB after ESWL Insurance Providers Payer Name Payer Address Payer Phone Insured Name Patient Relati onship to Insured Coverage Start Date Coverage End Date [facility] [address] [address] [facility] [phone] Alberto Dykes
--- OUTSIDE RECORDS SUMMARY | 2020-08-10 07:16 | CCD ---
Author Author [facility] [employer] ems Organization [facility] ems Address Unknown Phone Unavailable Care Team Providers Care Driver Education Instructor Name Role Phone Sánchez Valdes Unavailable PROBLEMS Type Condition ICD9-CM Code [id number] Code Onset Dates Condition S tatus SNOMED Code Notes Problem Kidney stone N20.0 Active [id number] ALLERGIES No Known Allergies ENCOUNTERS from 1955 to 2020-07-20 Encounter Location Date Provider Diagnosis [facility] Urology [id number] [place] [address] [place] [address] Jun Sánchez Valdes IMMUNIZATIONS No Information SOCIAL HISTORY Tobacco Use: Social History Observation Description Date Details (start date - stop date) Former Smoker Sex Assigned At : Social History Observation Description Sex Assigned At Unknown Language: Question Answer Notes Languages spoken: Tamazight Religious: Question Answer Notes Religious No worship beliefs that would impact health care. Alcohol [...] Information RESULTS No Results REASON FOR VISIT pain meds MEDICAL (GENERAL) HISTORY Type Description Date Medical History high cholesterol Medical History hypolipidiemia Medical History renal colic Surgical History rotator cuff 2014 Goals Section No Information Health Concerns No Information MEDICAL EQUIPMENT No Information MENTAL STATUS No Information FUNCTIONAL STATUS No Information ASSESSMENTS No Information PLAN OF TREATMENT Medication Medication Name Sig Start Date Stop Date Ketorolac Tromethamine 10 MG 1 tablet with food or mil k as needed Orally every 6 hrs for 5 day(s) Jun, Insurance Providers Payer Name Payer Address Payer Phone Insured Name Patient Relati onship to Insured Coverage Start Date Coverage End Date [facility] [address] [address] [facility] [id number] Alberto Dykes
--- OUTSIDE RECORDS SUMMARY | 2020-08-10 07:17 | CCD | Continuity of Care Document ---
Author Author [facility] Organization [facility] Address [address] [place] [address] Phone Support Name Relationship Address [place] [address] Jack Jamil PRS [facility] [place] [address] Navi Hunt PRS [address] [place] [address] [place] [address] Stanislaw Thompson PRS [address] [place] [address] Gerson Francisco PRS [address] [place] [address] Josesito Ragland PRS [address] [place] [address] Bandar Vazquez PRS [address] [place] [address] Allergies, Adverse Reactions, Alerts No known allergies. Medications Medication Status Dose Units Route Directions Qty Days Start Date End Date Instructions Flucelvax Quad 1760-9814 (PF) (flu vac q s 2018(4 yr [...] 9:57am October 04, 2019 1:44pm Biotin Active 64481 MCG PO Once Per Day September 13, [...] 8:31am Afluria Qd (3yr up)(PF) (flu vac [id number] 36mos up(PF)) Discontinued 0.5 ML IM 1 [...] Discontinued 1 TAB PO Every 4 Hours 40 June 16, 2014 12:03pm July 01, 2014 [...] 1 SM.AMT TP 2 Times Per Day 1 July 23, 2017 10:17am February 26, 2018 [...] per week 36 September 10, 2018 11:51am February 23, 2019 10:07am Take one pill three times a week (Friday /Friday/Friday) AMIE-Pt requests BRAND ONLY Sumatriptan Succinate (Imitrex) 25 mg tablet Discontinued 25 MG PO A S NEEDED 04 26December 08, 2018 7:49am March 26, 2019 2:39pm Azithromycin (Zithromax) 500 mg tablet Discontinued 500 MG PO Three times per week 36 February 23, 2019 10:06am April 26, 2019 [...] 2020 11:47am Levothyroxine (Synthroid) 75 mcg tablet Active 75 MCG PO daily 30 May 01, 2020 11:48am Problems Active Problems Medical Problem Onset Date [...] 3:44pm completed Urine Culture July 17, 2020 active Xray Third Digit,Left Hand June 21, 2020 7:33am completed MRI Shoulder Right w/o May 08, 2020 1:45pm completed Xray Hand Complete RT April 04, 2020 7:22am completed Respiratory Panel (PCR) February 18, 2020 completed Xray Wrist complete RT October 03 12:16pm completed Relevant Diagnostic Tests and/or Laboratory Data Laboratory Results Test Date/Time Result Interpretation Reference Range Result Comment Performing Site White Blood Count May 01, 2020 6:33am 7.7 10e3/uL 4.45-10.71 [facility], [address] [place] [address] 41035 Red Blood Count May 01, 2020 6:33am 4.70 10e6/uL 4.20-5.40 [facility], [address] [place] [address] 18244 Hemoglobin May 01, 2020 6:33am 14.4 g/dL 10.7-15.4 [facility], [address] [place] [address] 86704 Hematocrit May 01, 2020 6:33am 44.1 % 37-47 [facility], [address] [place] [address] 17851 Mean Corpuscular Volume May 01, 2020 6:33am 93.8 fl 80-96 [facility], [address] [place] [address] 85759 Mean Corpuscular Hemoglobin May 01, 2020 6:33am 30.6 pg 27-31 [facility], [address] [place] [address] 47424 Mean Corpuscular Hemoglobin Concent May 01, 2020 6:33am 32.7 g/dl 33-37 [facility], [address] [place] [address] 34832 Red Cell Distribution Width May 01, 2020 6:33am 13 % 11-15 [facility], [address] [place] [address] 92087 Platelet Count May 01, 2020 6:33am 285 10e3/ul 130-472 [facility], [address] [place], [place] [address] Mean Platelet Volume May 01 6:33am 9.7 fl 9.1-13.1 [facility], [address] [place], [place] [address] Neutrophils (%) (Auto) May 01, 2020 6:33am 51.7 % 41-77 [facility], [address] [place], [place] [address] Absolute Neutrophil May 01 0 6:33am 4.0 # 1.7-7.6 [facility], [address] [place] [address] Lymphocytes (%) (Auto) May 01, 2020 6:33am 34.5 % 14-46 [facility], [address] [place] [address] Lymphocytes # (Auto) May 01 6:33am 2.7 # 0.6-4.6 [facility], [address] [place], [place] [id number] Monocytes (%) (Auto) May 01 6:33am 8.7 % 4-12 [facility], [address] [place], [place] [id number] Monocytes # May 01, 2020 6:33am 0.7 # 0.2-1.2 [facility], [address] [place], [place] [address] Eosinophils (%) (Auto) May 01, 2020 6:33am 4.0 % 0-7 [facility], [address] [place] [address] 68607 Absolute Eosinophils (CBC) May 012019 6:33am 0.3 # 0.0-0.5 [facility], [address] [place], [place] [address] Basophils (%) (Auto) May 01 6:33am 0.8 % 0.4-1.3 [facility], [address] [place] [address] 96498 Absolute Basophils (CBC) April 6:33am 0.1 # 0.0-0.2 [facility], [address] [place] [address] Immature Granulocyte % (Auto) Octobe r 2019 6:33am 0.3 % 0-2 [facility], [address] [place], [place] [address] Absolute Immature Granulocyte (auto May 01, 2020 6:33am 0.0 # 0-0.1 [facility], [address] [place] [address] Add Manual Differential May 01, 2020 6:33am No [facility], [address] [place], [place] [address] Urine Color July 17, 2020 1:54pm Yellow [facility], [address] [place], [place] [address] Urine Appearance July 17, 2020 1:54p m Turbid CLEAR [facility], [address] [place], [place] [address] Urine pH July 17, 2020 1:54pm 5.0 [facility], [address] [place] [address] Urine Specific [place] June 1:54pm 1.027 [facility], [address] [place] [address] Urine Leukocyte Esterase July 172019 1:54pm Small NEGATIVE A Culture has been added to this specimen per established criteria [facility], [address] [place] [address] 60740 Urine Nitrate July 17, 2020 1:54pm Negative NEGATIVE [facility], [address] [place], [place] [address] Urine Protein July 17, 2020 1:54pm 100 mg/dl NEGATIVE [facility], [address] [place] [address] 93928 Urine Glucose July 17, 2020 1:54pm Negative NEGATIVE [facility], [address] [place] [address] Urine Ketones July 17, 2020 1:54pm Negative NEGATIVE [facility], [address] [place] [address] 23896 Urine Urobilinogen July 17 1:54pm 0.2 eu/dl [facility], [address] [place] [address] 61301 Urine Bilirubin July 17, 2020 1:54pm Negative NEGATIVE [facility], [address] [place] [address] Urine Blood July 17, 2020 1:54pm Large NEGATIVE A Culture has been added to this specimen per established criteria [facility], [address] [place] [address] Add Urine Microanalysis June 1:54pm Microscopic added [facility], [address] [place] [address] Urine RBC July 17, 2020 1:54pm 51-100 /hpf [facility], [address] [place] [address] Urine WBC July 17, 2020 1:54pm 5-8 /hpf [facility], [address] [place] [address] 56366 Urine Squamous Epithelial Cells Dece mb2019 1:54pm Few /hpf [facility], [address] [place] [address] 03713 Urine Amorphous Sediment July 172019 1:54pm Large amt urates [facility], [address] [place] [address] 12136 Blood Urea Nitrogen May 01 0 6:33am 18 mg/dL 9-23 [facility], [address] [place] [address] 50107 Sodium Level May 01, 2020 6:33am 141 mmol/L 132-146 [facility], [address] [place] [address] 91493 Potassium Level May 01, 2020 6:33am 4.1 mmol/L 3.5-5.5 [facility], [address] [place] [address] 91530 Chloride Level May 01, 2020 6:33am 108 mmol/l 99-109 [facility], [address] [place] [address] 54696 Carbon Dioxide Level May 01 6:33am 27 mmol/l 20-31 [facility], [address] [place] [address] 39942 Anion Gap May 01, 2020 6:33am 10 mmol/l 8-16 [facility], [address] [place] [address] 93973 Glucose Level May 01, 2020 6:33am 125 mg/dL 74-106 [facility], [address] [place] [address] 63093 Creatinine May 01, 2020 6:33am 0.9 mg/dL 0.5-1.1 [facility], [address] [place] [address] 10418 Glomerular Filtration Rate Calc Octo 2019 6:33am Greater than 60 ml/min ABOVE 60 [facility], [address] [place] [address] 19296 Alanine Aminotransferase (ALT/SGPT) May 01, 2020 6:33am 33 U/L 10-49 [facility], [address] [place] [address] 59381 Aspartate Amino Transf (AST/SGOT) Oc 2019 6:33am 20 U/L 0-33 [facility], [address] [place] [address] 44826 Alkaline Phosphatase May 01 6:33am 90 U/L 45-129 [facility], [address] [place] [address] 29605 Calcium Level May 01, 2020 6:33am 9.2 mg/dL 8.5-10.1 [facility], [address] [place] [address] 99137 Total Bilirubin May 01, 2020 6:33am 0.6 mg/dL 0.3-1.2 [facility], [address] [place] [address] 33675 Albumin May 01, 2020 6:33am 3.7 g/dL 3.2-4.8 [facility], [address] [place], [place] [address] Serum Total Protein May 01 0 6:33am 7.6 g/dL 5.7-8.2 [facility], [address] [place], [place] [address] Triglycerides Level May 01 0 6:33am 189 mg/dL 0-150 [facility], [address] [place], [place] [address] Triglycerides Level August 27 9:13am 144 mg/dL 0-150 [facility], [address] [place] [address] Cholesterol Level May 01, 2020 6:33am 194 mg/dL 120-200 [facility], [address] [place], [place] [address] Cholesterol Level August 27, 2019 9:13a m 172 mg/dL 120-200 [facility], [address] [place], [place] [address] HDL Cholesterol May 01, 2020 6:33am 50 mg/dL HDL Less than 40 mg/dL: Major risk for CHDHDL Greater than 59 mg/dL: Low risk for CHD [facility], [address] [place], [place] [address] HDL Cholesterol August 27, 2019 9:13am 59 mg/dL HDL Less than 40 mg/dL: Major risk for CHDHDL Greater than 59 mg/dL: Low risk for CHD [facility], [address] [place], [place] [address] LDL Cholesterol, Calculated May 01, 2020 6:33am 107 mg/dL 0-100 [facility], [address] [place] [address] LDL Cholesterol, Calculated August 27, 2019 9:13am 85 mg/dL 0-100 [facility], [address] [place], [place] [address] Thyroid Stimulating Hormone (TSH) Oc tob2019 6:33am 3.84 uIU/mL 0.35-5.50 [facility], [address] [place], [place] [address] Thyroid Stimulating Hormone (TSH) Ju nc 2019 7:03am 3.31 uIU/mL 0.35-5.50 [facility], [address] [place] [address] Thyroid Stimulating Hormone (TSH) Ju nc 2019 6:40am 1.59 uIU/mL 0.35-5.50 [facility], [address] [place] [address] Thyroid Stimulating Hormone (TSH) Ap ril 2019 7:07am 1.75 uIU/mL 0.35-5.50 [facility], [address] [place] [address] Thyroid Stimulating Hormone (TSH) Ma [facility] 2019 7:09am 0.60 uIU/mL 0.35-5.50 [facility], [address] [place] [address] Thyroid Stimulating Hormone (TSH) Ja [facility] 2019 9:13am 0.10 uIU/mL 0.35-5.50 Repeated by: Amie Bowie 08/27/19 1033. Result Confirmation: 0.101 uIU/mL [facility], [address] [place] [address] Microbiology Results Procedure Source Result Collection Date/Time Result Date/Time Result Comment Performing Site Respiratory Panel (PCR) Nasopharyngeal No Organisms Detected February 18, 2020 9:05am February 18, 2020 6:03pm [facility], [address] [place] [address] Diagnostic Imaging Reports Report Dictated Date/Time Dictated By Status Radiology Report October 04, 2019 1:42pm Vinicius Steele MD completed [place] [address] [place] [address] [phone] NAME SEX PT STATUS ACCOUNT NUMBER MARII DYKES REG REF [id number] ORDERING PHYSICIAN LOCATION MEDICAL RECORD NO. Navi Hunt MD RAD [id number] ATTENDING PHYSICIAN DATE OF DATE OF EXAM/TIME Jacy Franz MD 1955 10/04/196 TYPE / EXAM Xray Wrist complete RT [...] Trans Dt/Tm: Trans by: DT Prt Dt/Tm: [id number]: Total DLP = 0.00 mGy-cm Fluoroscopy Time (in secs): Radiology Report April 04, 2020 4:00p m Kristie Miranda NP completed [facility] [address] [place] [address] [phone] NAME SEX PT STATUS ACCOUNT NUMBER NEHAMARII Jack F REG REF [id number] ORDERING PHYSICIAN LOCATION MEDICAL RECORD NO. Navi Hunt MD RAD [id number] ATTENDING PHYSICIAN DATE OF DATE OF EXAM/TIME Jacy Franz MD 1955 04/04/20821 TYPE / EXAM Xray Hand Complete RT REASON FOR EXAM right hand pain, ortho MARII DYKES [id number] 1955 ADDENDUM CORRECTION: The original report incorrectly [...] wrist. IMPRESSION: No acute findings Reported By SilverioBradKristieStaci on 04/04/20 1600 Signed By SilverioBradKristie on 04/04/20 1603 Date Time CC: Kellie Brewer MD; Kristie Miranda; Jacy Franz MD Techn: RADTC Trans Dt/Tm: Trans by: DT Prt Dt/Tm: : Total DLP = 0.00 mGy-cm Fluoroscopy Time (in secs): Radiology Report May 08, 2020 4:25pm Donna Means MD completed [facility] [address] [place] [address] [phone] NAME SEX PT STATUS ACCOUNT NUMBER MARII DYKES REG REF [id number] ORDERING PHYSICIAN LOCATION MEDICAL RECORD NO. Jacy Franz MD MRI [id number] ATTENDING PHYSICIAN DATE OF DATE OF EXAM/TIME [...] Time ) Signed by: Donna Means M.D., [facility] Reported By Donna Means MD on 05/08/201624 Signed By Donna Means MD on 05/08/201624 Date Time CC: Donna Means MD; Jacy Franz MD Techn: AMANDA Trans Dt/Tm: Trans by: DT Prt Dt/Tm: [id number]: Total DLP = 0.00 mGy-cm 6102-1212: Total Radiation Dose = 0.0000 mSv Lifetime Dose: 0 mSv Radiology Report June 21, 2020 8:50a m Kellie Brewer MD completed [facility] [address] [place] [id number] [phone] NAME SEX PT STATUS ACCOUNT NUMBER MARII DYKES REG REF [id number] ORDERING PHYSICIAN LOCATION MEDICAL RECORD NO. Stanislaw Thompson [facility] [id number] ATTENDING PHYSICIAN DATE OF DATE OF EXAM/TIME [...] 06/21/2050 Signed By Kellie Brewer MD on 06/21/20850 Date Time CC: Kellie Brewer MD; Jacy Franz MD Techn: CARRC Trans Dt/Tm: Trans by: DT Prt Dt/Tm: [id number]: Total DLP = 0.00 mGy-cm Fluoroscopy Time (in secs): Health Concerns Health Concerns may be documented in an alternate section. Advance Directives Advance Directive Response Recorded Date/Time Advanced Directive No De 2019 1:44pm Advance Directives on File or in chart? No June 20, 2020 1:36pm Does Patient have a DNR? No July 17, 2020 1:44pm Healthcare Proxy Yes Jun 1:44pm Health Care Proxy Name Alberto Dykes June 20, 2020 1:36pm Health Care Proxy Phone Number June 20, 2020 1:36pm Living Will No June 20, 2020 1:36pm Chief Complaint and Reason for Visit Chief [...] LT HAND Finger Pain/injury Hyperlipidemia KIDNEY PAIN,CONSTIPATED Reason for Visit Hypothyroidism Pityriasis lichenoides chronica Hypothyroidism Carpal tunnel syndrome, right Left carpal tunnel syndrome Trigger thumb, left thumb Left carpal tunnel syndrome Hyperlipidemia Hypothyroidism Trigger thumb, right thumb Rotator cuff tear, non-traumatic Trigger finger, left middle finger Hyperlipidemia Hypothyroidism Encounters Encounter Location(s) Ar rival/Admit Date Discharge/Depart Date Provider(s) Registered Referred -Laboratory August 27, 2019 9:00am Jacy Franz MD Departed Physician/Provider Office Visit -[facility] August 30, 2019 9:24am August 30, 2019 9:54am Jacy Franz MD Departed Physician/Provider Office Visit -[facility] Dermatology September 13, 2019 9:16am September 13, 2019 9:40am KIANA Flores Registered Referred -Laboratory September 27, 2019 7:02am Jacy Franz MD Departed Physician/Provider Office Visit -[facility] September 27, 2019 8:58am September 27, 2019 9:35am Jacy Franz MD Departed Physician/Provider Office Visit -[facility] Orthopedics October 04, 2019 11:48am October 04, 2019 1:04pm Navi Hunt MD Registered Referred -Radiology October 04, 2019 12:08pm Chio Roman MD Registered Outpatient -[facility] Orthopedics October 05, 2019 9:04am October 05, 2019 3:01pm Navi Hunt MD Departed Physician/Provider Office Visit -[facility] Orthopedics October 15, 2019 8:01am October 15, 2019 8:31am Stanislaw Thompson PA-C Departed Physician/Provider Office Visit -[facility] Orthopedics November 03, 2019 7:37am November 03, 2019 7:52am Stanislaw Thompson PA-C Registered Referred -Laboratory November 22, 2019 7:01am Jacy Franz MD Registered Referred -Laboratory December 27, 2019 6:25am Jacy Franz MD Departed Physician/Provider Office Visit -[facility] December 27, 2019 7:42am December 27, 2019 8:27am Jacy Franz MD Registered Referred -Laboratory January 25, 2020 6:50am Jacy Franz MD Departed Physician/Provider Office Visit -[facility] General Surgery January 25, 2020 7:50am January 25, 2020 8:18am Gerson Francisco MD Departed Physician/Provider Office Visit -[facility] February 14, 2020 8:43am February 14, 2020 9:14am Jacy Franz MD Registered Referred -Lab Drop Off February 18, 2020 11:08am Gerson Francisco MD Departed Physician/Provider Office Visit -[facility] February 18, 2020 11:45am February 18, 2020 12:00pm Gerson Francisco MD Registered Outpatient -[facility] Surgery February 21, 2020 7:46am February 20 11:45am Gerson Francisco MD Registered Referred -Radiology April 04, 2020 7:13am Chio Roman MD Departed Physician/Provider Office Visit -[facility] Orthopedics April 05, 2020 7:39am April 05, 2020 8:06am Navi Hunt MD Registered Referred -Laboratory May 01, 2020 6:29am Jacy Franz MD Registered Referred -MRI/MRA May 08, 2020 1:41pm Jacy Franz MD Departed Physician/Provider Office Visit -[facility] May 29, 2020 2:56pm May 29, 2020 3:09pm Jacy Franz MD Departed Physician/Provider Office Visit -[facility] Orthopedics May 29, 2020 3:11pm May 29, 2020 3:50pm Josesito Ragland MD Registered Referred -Radiology June 21, 2020 7:28am CHUCHO Gary Departed Physician/Provider Office Visit -[facility] Orthopedics June 21, 2020 8:32am June 21, 2020 9:28am Stanislaw Thompson PA-C Departed Physician/Provider Office Visit -[facility] July 03, 2020 9:24am July 03, 2020 9:52am Jacy Franz MD Departed Emergency -Emergency Room ER July 17, 2020 1:02pm July 17, 2020 4:55pm null Recent Diagnosis Onset Date Hypothyroidism Pityriasis lichenoides [...] Event Date Not Given Reason Dose Number Hairspring Ii Inspector Lot Number Vaccine Information Statement (VIS) Deta il influenza vaccine, inactivated Decem 2018 2612 31 influenza vaccine, inactivated Novem 2019 [id number] Mental Status Observation Response Jose e Recorded Impairments Visual Decem 2019 1:35pm Medical Equipment No Medical Equipment Information available Insurance Providers Guarantor MARII DYKES Address [address] [place] [address] Contact Info. Home Phone: Payer Policy Id Coverage Id Subscriber's Name Subscriber Id Effective Date Expiration Date [facility] [id number] ALBERTO DYKES [id number] Self Pay Self N/A [facility] [id number] MARII DYKES [id number] Plan of Treatment Patient last seen for [...] Provider Address Teresa Cassidy MD Work Phone: [phone] [facility] [address] Navi Hunt MD Email: [email or web address] Work Phone: [phone] [facility] [phone] Future Procedures Future procedure information is unavailable Future Medications Future medication information is unavailable Patient Instructions Hypothyroidism (GEN) Hypothyroidism (GEN) Carpal Tunnel Surgery (DC) Colonoscopy (DC) Diverticulosis (DC) Social History Smoking Status Status Date of Observation Former smoker July 17, 2020 1: 53pm Observation Status Date of Observation Not June 20, 2020 Observation Status Observation Response Jose e of Response Smoking Status Former smoker July 17, 2020 1:53pm Alcohol Use No July 17, 2020 1:53pm Substance Use No Decembe r 2019 1:53pm Assigned Sex Female Vital Signs Vital Reading Result Ref erence Range Collection Date/Time Height 62 [in_i] August 30, 2019 9:29am Weight 192.00 [lb_av] August 30, 2019 9:29am Heart Rate 87 /min 60-100 August 30, 2019 9:29am Respiratory rate 12 /min -August 30, 2019 9:29am BP Systolic 134 mm[Hg] [...] 27, 2019 9:10am Respiratory rate 12 /min 12-September 27, 2019 9:10am Oxygen saturation by Pulse oximetry 98 % 95- 100 September 27, 2019 9:10am BP Systolic 148 mm[Hg] September 27, 2019 9:10am BP Diastolic 72 mm[Hg] September 27, 2019 9:10am BMI (Body Mass Index) 35.1 kg/m2 September 27, 2019 9:10am Heart Rate 84 /min 60-100 October 04, 2019 12:48pm Respiratory rate 16 /min 12-24 October 04, 2019 12:48pm Oxygen saturation by Pulse [...] 27, 2019 8:50am Respiratory rate 12 /min 07-20December 27, 2019 8:50am Oxygen saturation by Pulse [...] 21, 2020 12:26pm Respiratory rate 18 /min -February 21, 2020 12:26pm Oxygen saturation by Pulse [...] 21, 2020 8:40am Respiratory rate 18 /min -June 21, 2020 8:40am Oxygen saturation by Pulse [...] 17, 2020 4:55pm Respiratory rate 18 /min 07-20July 17, 2020 4:55pm Oxygen saturation by Pulse oximetry 95 % 95- 100 July 17, 2020 4:55pm BP Systolic 144 mm[Hg] July 17, 2020 4:55pm BP Diastolic 87 mm[Hg] July 17, 2020 4:55pm
--- OUTSIDE RECORDS SUMMARY | 2020-08-10 07:18 | CCD | Continuity of Care Document ---
Author Author [facility] Organization [facility] Address [address] [place] [address] Phone Support Name Relationship Address Phone [place] [address] MicheleCash parmar PRS [address] [place] [address] Josesito Ragland PRS [address] [place] [address] Jack Jamil PRS [facility] [place] [address] GilbertNavi jovel PRS [address] [place] [address] [place] [address] Stanislaw Thompson PRS [address] [place] [address] Gerson Francisco PRS [address] [place] [address] Allergies, Adverse Reactions, Alerts No known allergies. Medications Medication Status Dose Units Route Directions Qty Days Start Date End Date Instructions Flucelvax Quad 1383-2421 (PF) (flu vac q s 2018(4 yr [...] 9:57am October 04, 2019 1:44pm Biotin Active 58996 MCG PO Once Per Day September 13, [...] 8:31am Afluria Qd (3yr up)(PF) (flu vac oe3832-62 36mos up(PF)) Discontinued 0.5 ML IM 1 [...] 2020 8:31 am March 27, 2020 11:44am Sumatriptan Succinate (Imitrex) 25 MG tablet Discontinued [...] Discontinued 500 MG PO Every 6 hours July 13, 2018 9:36am August 03, 2018 [...] 40 MG PO O nce Per Day 90 April 27, 2019 8:54am October 04, 2019 [...] MG PO Q 2H 36 April 24 8:51am Atorvastatin (Lipitor) 40 mg [...] Active Procedures Procedure Date Performed Status Xray Third Digit,Left Hand June 21, 2020 7:33am completed MRI Shoulder Right w/o May 08, 2020 1:45pm completed Xray Hand Complete RT April 04, 2020 7:22am completed Respiratory Panel (PCR) February 18, 2020 completed Xray Wrist complete RT October 03 12:16pm completed Xray Knee Comp 4 or more RT July 14, 2019 9:13am completed Xray Wrist complete LT July 05, 2019 7:22am completed Relevant Diagnostic Tests and/or Laboratory Data Laboratory Results Test Date/Time Result Interpretation Reference Range Result Comment Performing Site White Blood Count May 01, 2020 6:33am 7.7 10e3/uL 4.45-10.71 [facility], [address] [place] [address] 16955 Red Blood Count May 01, 2020 6:33am 4.70 10e6/uL 4.20-5.40 [facility], [address] [place] [address] 31756 Hemoglobin May 01, 2020 6:33am 14.4 g/dL 10.7-15.4 [facility], [address] [place] [address] 04259 Hematocrit May 01, 2020 6:33am 44.1 % 37-47 [facility], [address] [place] [address] 02594 Mean Corpuscular Volume May 01, 2020 6:33am 93.8 fl 80-96 [facility], [address] [place] [address] 34071 Mean Corpuscular Hemoglobin May 01, 2020 6:33am 30.6 pg 27-31 [facility], [address] [place] [address] 61290 Mean Corpuscular Hemoglobin Concent May 01, 2020 6:33am 32.7 g/dl 33-37 [facility], [address] [place] [address] 88097 Red Cell Distribution Width May 01, 2020 6:33am 13 % 11-15 [facility], [address] [place] [address] 78370 Platelet Count May 01, 2020 6:33am 285 10e3/ul 130-472 [facility], [address] [place] [address] 43852 Mean Platelet Volume May 01 6:33am 9.7 fl 9.1-13.1 [facility], [address] [place] [address] Neutrophils (%) (Auto) May 01, 2020 6:33am 51.7 % 41-77 [facility], [address] [place], [place] [address] Absolute Neutrophil May 01 0 6:33am 4.0 # 1.7-7.6 [facility], [address] [place] [address] Lymphocytes (%) (Auto) May 01, 2020 6:33am 34.5 % 14-46 [facility], [address] [place] [address] Lymphocytes # (Auto) May 01 6:33am 2.7 # 0.6-4.6 [facility], [address] [place] [address] Monocytes (%) (Auto) May 01 6:33am 8.7 % 4-12 [facility], [address] [place] [address] Monocytes # May 01, 2020 6:33am 0.7 # 0.2-1.2 [facility], [address] [place] [address] Eosinophils (%) (Auto) May 01, 2020 6:33am 4.0 % 0-7 [facility], [address] [place] [address] Absolute Eosinophils (CBC) May 012019 6:33am 0.3 # 0.0-0.5 [facility], [address] [place] [address] Basophils (%) (Auto) May 01 6:33am 0.8 % 0.4-1.3 [facility], [address] [place] [address] Absolute Basophils (CBC) April 6:33am 0.1 # 0.0-0.2 [facility], [address] [place] [address] Immature Granulocyte % (Auto) Octobe r 2019 6:33am 0.3 % 0-2 [facility], [address] [place] [address] Absolute Immature Granulocyte (auto May 01, 2020 6:33am 0.0 # 0-0.1 [facility], [address] [place] [address] Add Manual Differential May 01, 2020 6:33am No [facility], [address] [place] [address] 63833 Blood Urea Nitrogen May 01 0 6:33am 18 mg/dL 9-23 [facility], [address] [place] [address] 24601 Sodium Level May 01, 2020 6:33am 141 mmol/L 132-146 [facility], [address] [place] [address] 51734 Potassium Level May 01, 2020 6:33am 4.1 mmol/L 3.5-5.5 [facility], [address] [place] [address] 04708 Chloride Level May 01, 2020 6:33am 108 mmol/l 99-109 [facility], [address] [place] [address] 33949 Carbon Dioxide Level May 01 6:33am 27 mmol/l 20-31 [facility], [address] [place] [address] 43896 Anion Gap May 01, 2020 6:33am 10 mmol/l 8-16 [facility], [address] [place] [address] 38207 Glucose Level May 01, 2020 6:33am 125 mg/dL 74-106 [facility], [address] [place] [address] 90106 Creatinine May 01, 2020 6:33am 0.9 mg/dL 0.5-1.1 [facility], [address] [place] [address] 99151 Glomerular Filtration Rate Calc Octo 2019 6:33am Greater than 60 ml/min ABOVE 60 [facility], [address] [place] [address] 77118 Alanine Aminotransferase (ALT/SGPT) May 01, 2020 6:33am 33 U/L 10-49 [facility], [address] [place] [address] 10069 Aspartate Amino Transf (AST/SGOT) Oc tob2019 6:33am 20 U/L 0-33 [facility], [address] [place] [address] 64049 Alkaline Phosphatase May 01 6:33am 90 U/L 45-129 [facility], [address] [place] [address] 61876 Calcium Level May 01, 2020 6:33am 9.2 mg/dL 8.5-10.1 [facility], [address] [place] [address] 91553 Total Bilirubin May 01, 2020 6:33am 0.6 mg/dL 0.3-1.2 [facility], [address] [place] [address] 90080 Albumin May 01, 2020 6:33am 3.7 g/dL 3.2-4.8 [facility], [address] [place] [address] 59970 Serum Total Protein May 01 6:33am 7.6 g/dL 5.7-8.2 [facility], [address] [place] [address] 42882 Triglycerides Level May 01 6:33am 189 mg/dL 0-150 [facility], [address] [place] [address] 01541 Triglycerides Level August 27 9:13am 144 mg/dL 0-150 [facility], [address] [place] [address] 61806 Cholesterol Level May 01, 2020 6:33am 194 mg/dL 120-200 [facility], [address] [place] [address] Cholesterol Level August 27, 2019 9:13a m 172 mg/dL 120-200 [facility], [address] [place] [address] 16234 HDL Cholesterol May 01, 2020 6:33am 50 mg/dL HDL Less than 40 mg/dL: Major risk for CHDHDL Greater than 59 mg/dL: Low risk for CHD [facility], [address] [place] [address] HDL Cholesterol August 27, 2019 9:13am 59 mg/dL HDL Less than 40 mg/dL: Major risk for CHDHDL Greater than 59 mg/dL: Low risk for CHD [facility], [address] [place] [address] 65871 LDL Cholesterol, Calculated May 01, 2020 6:33am 107 mg/dL 0-100 [facility], [address] [place] [address] 86284 LDL Cholesterol, Calculated August 27, 2019 9:13am 85 mg/dL 0-100 [facility], [address] [place] [address] 25611 Thyroid Stimulating Hormone (TSH) Oc tober 2019 6:33am 3.84 uIU/mL 0.35-5.50 [facility], [address] [place] [address] Thyroid Stimulating Hormone (TSH) Ju ne 2019 7:03am 3.31 uIU/mL 0.35-5.50 [facility], [address] [place] [address] 34831 Thyroid Stimulating Hormone (TSH) Ju ne 2019 6:40am 1.59 uIU/mL 0.35-5.50 [facility], [address] [place] [address] Thyroid Stimulating Hormone (TSH) Ap ril 2019 7:07am 1.75 uIU/mL 0.35-5.50 [facility], [address] [place] [address] Thyroid Stimulating Hormone (TSH) [facility] 2019 7:09am 0.60 uIU/mL 0.35-5.50 [facility], [address] [place] [address] Thyroid Stimulating Hormone (TSH) Ja [facility] 2019 9:13am 0.10 uIU/mL 0.35-5.50 Repeated by: Amie Bowie 08/27/19 1033. Result Confirmation: 0.101 uIU/mL [facility], [address] [place] [address] Microbiology Results Procedure Source Result Collection Date/Time Result Date/Time Result Comment Performing Site Respiratory Panel (PCR) Nasopharyngeal No Organisms Detected February 18, 2020 9:05am February 18, 2020 6:03pm [facility], [address] [place] [address] Diagnostic Imaging Reports Report Dictated Date/Time Dictated By Status Radiology Report July 05, 2019 3:11pm Niraj Torres MD completed [address] [place] [address] [phone] NAME SEX PT STATUS ACCOUNT NUMBER MARII DYKES REG REF [id number] ORDERING PHYSICIAN LOCATION MEDICAL RECORD NO. Cash Bautista MD [facility] [id number] ATTENDING PHYSICIAN DATE OF DATE OF EXAM/TIME Jacy Franz MD 1955 07/05/19721 TYPE / EXAM Xray Wrist complete LT REASON FOR EXAM Left wrist pain, ortho LEFT WRIST SERIES 07/05/2019 FINDINGS: The bones are osteopenic. No fracture or dislocation is identified. No suspicious osseous lesion is seen. The soft tissues are unremarkable. There is some mild joint space narrowing and spurring at the interphalangeal joint of the thumb. IMPRESSION: No fracture/dislocation. Osteopenia. Mild DJD. Reported By Niraj Torres MD on 07/05/19 1511 Signed By Niraj Torres MD on 07/07/19 1346 Date Time CC: Niraj Torres MD; Jacy Franz MD Techn: CUMME Trans Dt/Tm: Trans by: DT Prt Dt/Tm: [id number]: Total DLP = 0.00 mGy-cm Fluoroscopy Time (in secs): Radiology Report July 14, 2019 9:18a m Bandar Arita MD completed [facility] [address] [id number] [phone] NAME SEX PT STATUS ACCOUNT NUMBER MARII DYKES REG REF [id number] ORDERING PHYSICIAN LOCATION MEDICAL RECORD NO. Josesito Ragland MD RAD [id number] ATTENDING PHYSICIAN DATE OF DATE OF EXAM/TIME Jacy Franz MD 1955 07/14/19912 TYPE / EXAM Xray Knee Comp 4 or more RT REASON FOR EXAM 1 year post op right total knee arthropl asty- Orth Procedure: Right knee Clinical indication: 1 years status post right knee arthroplasty Comparison: 12/28/2018 Technique: 4 view(s) Findings: No fractures are seen. Spurring at the medial and lateral joint compartments of the left knee is consistent with degenerative disease. The patient is status post total right knee prosthesis placement. No abnormalities between the bone or prosthesis is present.. Multiple calcifications posterior to the right knee suggest loose bodies, possibly within a Padilla's cyst.. Bone mineralization is normal. Impression: Multiple calcific loose bodies posterior to the right knee possibly in a Padilla's cyst Findings in the medial and lateral joint compartments of the left knee consistent with degenerative disease Unremarkable total right knee prosthesis Reported By Bandar Arita MD on 07/14/19917 Signed By Bandar Arita MD on 07/14/19919 Date Time CC: Bandar Arita MD; Jacy Franz MD Techn: FROSA Trans Dt/Tm: Trans by: DT Prt Dt/Tm: [id number]: Total DLP = 0.00 mGy-cm Fluoroscopy Time (in secs): Radiology Report October 04, 2019 1:42pm Vinicius Steele MD completed [place] [address] [place] [address] [phone] NAME SEX PT STATUS ACCOUNT NUMBER PEEMARII ASTUDILLO REG REF [id number] ORDERING PHYSICIAN LOCATION MEDICAL RECORD NO. Navi Hunt MD RAD [id number] ATTENDING PHYSICIAN DATE OF DATE OF EXAM/TIME [...] Trans Dt/Tm: Trans by: DT Prt Dt/Tm: [id number]: Total DLP = 0.00 mGy-cm Fluoroscopy Time (in secs): Radiology Report April 04, 2020 4:00p m Kristie Miranda NP completed [place] [address] [place] [address] [phone] NAME SEX PT STATUS ACCOUNT NUMBER MARII DYKES REG REF [id number] ORDERING PHYSICIAN LOCATION MEDICAL RECORD NO. Navi Hunt MD RAD [id number] ATTENDING PHYSICIAN DATE OF DATE OF EXAM/TIME Jacy Franz MD 1955 04/04/20821 TYPE / EXAM Xray Hand Complete RT REASON FOR EXAM right hand pain, ortho MARII DYKES [id number] 1955 ADDENDUM CORRECTION: The original report incorrectly reflects Kristie Miranda as the reporting R adiologist. The correct Radiologist for this report is Kellie Brewer MD. The content of this report remains unchanged. Addendum Reported By Kellie Brewer MD on 04/12/20 160 Signed By Kellie Brewer MD on 04/12/201608 [...] on 04/04/20 1603 Date Time CC: Kellie Brweer MD; Kristie Miranda; Jacy Franz MD Techn: RADTC Trans Dt/Tm: Trans by: DT Prt Dt/Tm: : Total DLP = 0.00 mGy-cm Fluoroscopy Time (in secs): Radiology Report May 08, 2020 4:25pm Donna Means MD completed [facility] [address] [place] [address] [phone] NAME SEX PT STATUS ACCOUNT NUMBER MARII DYKES REG REF [id number] ORDERING PHYSICIAN LOCATION MEDICAL RECORD NO. Jacy Franz MD [facility] [id number] ATTENDING PHYSICIAN DATE OF DATE OF EXAM/TIME Jacy Franz MD 1955 05/08/20 1445 TYPE / EXAM MRI Shoulder Right w/o [...] Time ) Signed by: Donna Means M.D., FRCPC Reported By Donna Means MD on 05/08/201624 Signed By Donna Means MD on 05/08/201624 Date Time CC: Donna Means MD; Jacy Franz MD Techn: FROJO Trans Dt/Tm: Trans by: DT Prt Dt/Tm: : Total DLP = 0.00 mGy-cm : Total Radiation Dose = 0.0000 mSv Lifetime Dose: 0 mSv Radiology Report June 21, 2020 8:50a m Kellie Brewer MD completed [facility] [address] [place], [place] [id number] [phone] NAME SEX PT STATUS ACCOUNT NUMBER MARII DYKES REG REF [id number] ORDERING PHYSICIAN LOCATION MEDICAL RECORD NO. Stanislaw PA-C [facility] [id number] ATTENDING PHYSICIAN DATE OF DATE OF EXAM/TIME [...] Advance Directive Response Recorded Date/Time Advanced Directive Yes N ov2019 1:36pm Advance Directives on File or in chart? No June 20, 2020 1:36pm Does Patient have a DNR? No June 20, 2020 1:36pm Healthcare Proxy Yes Kelley murphyer 2019 1:36pm Health Care Proxy Name Alberto Dykes June 20, 2020 1:36pm Health Care Proxy Phone Number June 20, 2020 1:36pm Living Will No June 20, 2020 1:36pm Chief Complaint and Reason for Visit Chief Complaint LT WRIST PAIN,ORTHO Wrist pain TOTAL KNEE ARTHROPLASTY Knee pain follow-up E03.9,E78.5 Thyroid dysfunction Office visit E03.9 Thyroid dysfunction Wrist Pain Follow-up M25.539 RIGHT WRIST Post op visit (orthopedics) Post op visit (orthopedics) E03.9 E03.9 Office visit E03.9 Screening Colonoscopy Rash PRE OP COVID TESTING Call First Appt Screening Colonoscopy M79.641 Hand pain E03.9 RT SHOULDER STRAIN Flu shot Shoulder pain/injury THIRD DIGIT LT HAND Finger Pain/injury Hyperlipidemia Reason for Visit Trigger thumb of le ft hand Status post total right knee replacement Hypothyroidism Pityriasis lichenoides chronica Hypothyroidism Carpal tunnel syndrome, right Left carpal tunnel syndrome Trigger thumb, left thumb Left carpal tunnel syndrome Hyperlipidemia Hypothyroidism Trigger thumb, right thumb Rotator cuff tear, non-traumatic Trigger finger, left middle finger Hyperlipidemia Hypothyroidism Encounters Encounter Location(s) Ar rival/Admit Date Discharge/Depart Date Provider(s) Registered Referred -Radiology July 05, 2019 7:04am Cash Bautista MD Departed Physician/Provider Office Visit -[facility] Orthopedics July 05, 2019 9:13am July 05, 2019 9:46am Cash Bautista MD Registered Referred -Radiology July 14, 2019 8:58am Josesito Ragland MD Departed Physician/Provider Office Visit -[facility] July 14, 2019 9:13am July 14, 2019 10:23am Josesito Ragland MD Registered Referred -Laboratory August 27, 2019 9:00am Jacy Franz MD Departed Physician/Provider Office Visit -[facility] August 30, 2019 9:24am August 30, 2019 9:54am Jacy Franz MD Departed Physician/Provider Office Visit -[facility] Dermatology September 13, 2019 9:16am September 13, 2019 9:40am KIANA Flores Registered Referred -Laboratory September 27, 2019 7:02am Jacy Franz MD Departed Physician/Provider Office Visit -[facility] September 27, 2019 8:58am September 27, 2019 9:35am Jacy Franz MD Departed Physician/Provider Office Visit -[facility] October 04, 2019 11:48am October 04, 2019 1:04pm Navi Hunt MD Registered Referred -Radiology October 04, 2019 12:08pm Chio Roman MD Registered Outpatient -[facility] October 05, 2019 9:04am October 05, 2019 3:01pm Navi Hunt MD Departed Physician/Provider Office Visit -[facility] October 15, 2019 8:01am October 15, 2019 8:31am Stanislaw Thompson PA-C Departed Physician/Provider Office Visit -[facility] November 03, 2019 7:37am November 03, 2019 7:52am Stanislaw Thompson PA-C Registered Referred -Laboratory November 22, 2019 7:01am Jacy Franz MD Registered Referred -Laboratory December 27, 2019 6:25am Jacy Franz MD Departed Physician/Provider Office Visit -[facility] December 27, 2019 7:42am December 27, 2019 8:27am Jacy Franz MD Registered Referred -Laboratory January 25, 2020 6:50am Jacy Franz MD Departed Physician/Provider Office Visit -[facility] General Surgery January 25, 2020 7:50am January 25, 2020 8:18am Gerson Francisco MD Departed Physician/Provider Office Visit -[facility] February 14, 2020 8:43am February 14, 2020 9:14am Jacy Franz MD Registered Referred -Lab Drop Off February 18, 2020 11:08am Gerson Francisco MD Departed Physician/Provider Office Visit -[facility] February 18, 2020 11:45am February 18, 2020 12:00pm Gerson Francisco MD Registered Outpatient -[facility] General Surgery February 21, 2020 7:46am February 20 11:45am Gerson Francisco MD Registered Referred -Radiology April 04, 2020 7:13am Chio Roman MD Departed Physician/Provider Office Visit -[facility] Orthopedics April 05, 2020 7:39am April 05, 2020 8:06am Navi Hunt MD Registered Referred -Laboratory May 01, 2020 6:29am Jacy Frazn MD Registered Referred -MRI/MRA May 08, 2020 1:41pm Jacy Franz MD Departed Physician/Provider Office Visit -[facility] May 29, 2020 2:56pm May 29, 2020 3:09pm Jacy Franz MD Departed Physician/Provider Office Visit -[facility] May 29, 2020 3:11pm May 29, 2020 3:50pm Josesito Ragland MD Registered Referred -Radiology June 21, 2020 7:28am CHUCHO Gary Departed Physician/Provider Office Visit -[facility] June 21, 2020 8:32am June 21, 2020 9:28am Stanislaw Thompson PA-C Departed Physician/Provider Office Visit -[facility] July 03, 2020 9:24am July 03, 2020 9:52am Jacy Franz MD Recent Diagnosis Onset Date Trigger thumb of left hand Status post total right knee replacement Hypothyroidism Pityriasis lichenoides chronica Hypothyroidism Carpal tunnel syndrome, right Left carpal tunnel syndrome Trigger thumb, left thumb Left carpal tunnel syndrome Hyperlipidemia Hypothyroidism Trigger thumb, right thumb Rotator cuff tear, non-traumatic Trigger finger, left middle finger Hyperlipidemia Hypothyroidism Assessments Diagnosis Onset Date Res olution Status Trigger thumb of left hand acute Status post total right knee replacement acute Hypothyroidism acute Pityriasis lichenoides chronica acute Hypothyroidism [...] Event Date Not Given Reason Dose Number Medical Editor Lot Number Vaccine Information Statement (VIS) Deta il influenza vaccine, inactivated Decem heladio 2018 [id number] influenza vaccine, inactivated Novem 2019 [id number] Mental Status No Mental Status Information Available Medical Equipment No Medical Equipment Information available Insurance Providers Guarantor MARII Santiago NEHA Address [address] [id number] Contact Info. Home Phone: Payer Policy Id Coverage Id Subscriber's Name Subscriber Id Effective Date Expiration Date [facility] [id number] ALBERTO Farris NEHA [id number] Self Pay Self N/A [facility] [id number] MARII Santiago NEHA [id number] Plan of Treatment Patient last seen for [...] discussed. SHe understands and wishes to proceed. Postop right carpal tunnel release. Patient is [...] neuro refe rral done, see 4 months Each carpal tunnel has been injected today, using 2 cc 1% plain Xylocaine and 40 mg of Kenalog for each. Patient has been reminded that there is limited duration of action of the corticosteroid, and ultimately she is likely to require surgical intervention. The flexor pollicis longus tendon sheath on the left has been injected today wit h 1/4 cc each of Xylocaine and Kenalog. It is hoped that this will again be of symptomatic benef it, but ultimately patient will likely require tenovaginotomy for long-term relief. We will see patient in follow-up as requested. Patient is doing well following right total knee arthroplasty done a year ago. X-rays show good position alignment of prosthetic components. Patient has no radiolucencies arou nd either the tibial or femoral components. Patient ambulates with a normal gait. She was advised t o continue with activity to tolerance and follow-up with us on as-needed basis. Antibiotics raleigh uld be used prophylactically for dental procedures. Future Tests Future scheduled test information is unavailable Pending Tests Pending diagnostic test information is unavailable Future Visits Future appointment information is unavailable Referrals to Other Providers Reason for Referral Referral Start Date Provider Provider Ana ct Information Provider Address Navi Hunt MD Email: [email or web address] Phone: [phone] [phone] Future Procedures Future procedure information is unavailable Future Medications Future medication information is unavailable Patient Instructions Hypothyroidism (GEN) Hypothyroidism (GEN) Carpal Tunnel Surgery (DC) Colonoscopy (DC) Diverticulosis (DC) Social History Smoking Status Status Date of Observation Never smoker June 20, 2020 1:3 6pm Observation Status Date of Observation Not June 20, 2020 Observation Status Observation Response Jose e of Response Smoking Status Never smoker June 20, 2020 1:36pm Alcohol Use No June 20, 2020 1:36pm Substance Use No Novembe r 2019 1:36pm Assigned Sex Female Vital Signs Vital Reading Result Ref erence Range Collection Date/Time Heart Rate 92 /min 60-100 July 05, 2019 9:15am Respiratory rate 16 /min 12-24 July 05, 2019 9:15am Oxygen saturation by Pulse oximetry 95 % 95- 100 July 05, 2019 9:15am BP Systolic 136 mm[Hg] July 05, 2019 9:15am BP Diastolic 82 mm[Hg] July 05, 2019 9:15am Height 62 [in_i] July 14, 2019 9:45am Weight 190.00 [lb_av] July 14, 2019 9:45am Heart Rate 86 /min 60-100 July 14, 2019 9:45am Respiratory rate 16 /min 12-24 July 14, 2019 9:45am Oxygen saturation by Pulse oximetry 96 % 95- 100 July 14, 2019 9:45am BP Systolic 124 mm[Hg] July 14, 2019 9:45am BP Diastolic 76 mm[Hg] July 14, 2019 9:45am BMI (Body Mass Index) 34.7 kg/m2 July 14, 2019 9:45am Height 62 [in_i] August 30, 2019 9:29am [...] 04, 2019 12:48pm Respiratory rate 16 /min 12-October 04, 2019 12:48pm Oxygen saturation by Pulse [...] Respiratory rate 18 /min -February 21, 2020 12:pm Oxygen saturation by Pulse oximetry 98 % [...]
--- OUTSIDE RECORDS SUMMARY | 2020-08-10 07:19 | CCD | Continuity of Care Document ---
Author Author [facility] Organization [facility] Address [address] [place] [address] Phone Support Name Relationship Address Phone [place] [address] MicheleCash parmar PRS [address] [place] [address] Josesito Ragland PRS [address] [place] [address] Jack Jamil PRS [facility] [place] [address] GilbertNavi jovel PRS [address] [place] [address] [place] [address] Stanislaw Thompson PRS [address] [place] [address] Gerson Francisco PRS [address] [place] [address] Allergies, Adverse Reactions, Alerts No known allergies. Medications Medication Status Dose Units Route Directions Qty Days Start Date End Date Instructions Flucelvax Quad 6885-0940 (PF) (flu vac q s 2018(4 yr [...] 9:57am October 04, 2019 1:44pm Biotin Active 25412 MCG PO Once Per Day September 13, [...] 8:31am Afluria Qd (3yr up)(PF) (flu vac fa4401-32 36mos up(PF)) Discontinued 0.5 ML IM 1 [...] complete LT July 05, 2019 7:22am completed Xray Shoulder complete RT June 282018 9:43am completed Relevant Diagnostic Tests and/or Laboratory Data Laboratory Results Test Date/Time Result Interpretation Reference Range Result Comment Performing Site White Blood Count May 01, 2020 6:33am 7.7 10e3/uL 4.45-10.71 [facility], [address] [place] [address] 38425 Red Blood Count May 01, 2020 6:33am 4.70 10e6/uL 4.20-5.40 [facility], [address] [place] [address] 78683 Hemoglobin May 01, 2020 6:33am 14.4 g/dL 10.7-15.4 [facility], [address] [place] [address] 02567 Hematocrit May 01, 2020 6:33am 44.1 % 37-47 [facility], [address] [place] [address] 30726 Mean Corpuscular Volume May 01, 2020 6:33am 93.8 fl 80-96 [facility], [address] [place] [address] 28356 Mean Corpuscular Hemoglobin May 01, 2020 6:33am 30.6 pg 27-31 [facility], [address] [place] [address] 04419 Mean Corpuscular Hemoglobin Concent May 01, 2020 6:33am 32.7 g/dl 33-37 [facility], [address] [place] [address] 73336 Red Cell Distribution Width May 01, 2020 6:33am 13 % 11-15 [facility], [address] [place] [address] 87335 Platelet Count May 01, 2020 6:33am 285 10e3/ul 130-472 [facility], [address] [place] [address] 90829 Mean Platelet Volume May 01 6:33am 9.7 fl 9.1-13.1 [facility], [address] [place] [address] 47053 Neutrophils (%) (Auto) May 01, 2020 6:33am 51.7 % 41-77 [facility], [address] [place], [place] [address] Absolute Neutrophil May 01 0 6:33am 4.0 # 1.7-7.6 [facility], [address] [place], [place] [address] Lymphocytes (%) (Auto) May 01, 2020 6:33am 34.5 % 14-46 [facility], [address] [place] [address] Lymphocytes # (Auto) May 01 6:33am 2.7 # 0.6-4.6 [facility], [address] [place] [address] Monocytes (%) (Auto) May 01 6:33am 8.7 % 4-12 [facility], [address] [place] [address] 11409 Monocytes # May 01, 2020 6:33am 0.7 # 0.2-1.2 [facility], [address] [place] [address] Eosinophils (%) (Auto) May 01, 2020 6:33am 4.0 % 0-7 [facility], [address] [place] [address] Absolute Eosinophils (CBC) May 012019 6:33am 0.3 # 0.0-0.5 [facility], [address] [place] [address] Basophils (%) (Auto) May 01 6:33am 0.8 % 0.4-1.3 [facility], [address] [place], [place] [address] Absolute Basophils (CBC) April 6:33am 0.1 # 0.0-0.2 [facility], [address] [place] [address] Immature Granulocyte % (Auto) Octobe r 2019 6:33am 0.3 % 0-2 [facility], [address] [place] [address] Absolute Immature Granulocyte (auto May 01, 2020 6:33am 0.0 # 0-0.1 [facility], [address] [place] [address] Add Manual Differential May 01, 2020 6:33am No [facility], [address] [place] [address] 45463 Blood Urea Nitrogen May 01 0 6:33am 18 mg/dL 9-23 [facility], [address] [place] [address] 49217 Sodium Level May 01, 2020 6:33am 141 mmol/L 132-146 [facility], [address] [place] [address] 85110 Potassium Level May 01, 2020 6:33am 4.1 mmol/L 3.5-5.5 [facility], [address] [place] [address] 79808 Chloride Level May 01, 2020 6:33am 108 mmol/l 99-109 [facility], [address] [place] [address] 07363 Carbon Dioxide Level May 01 6:33am 27 mmol/l 20-31 [facility], [address] [place] [address] 87687 Anion Gap May 01, 2020 6:33am 10 mmol/l 8-16 [facility], [address] [place] [address] 52250 Glucose Level May 01, 2020 6:33am 125 mg/dL 74-106 [facility], [address] [place] [address] 85269 Creatinine May 01, 2020 6:33am 0.9 mg/dL 0.5-1.1 [facility], [address] [place] [address] 80361 Glomerular Filtration Rate Calc Octo 2019 6:33am Greater than 60 ml/min ABOVE 60 [facility], [address] [place] [address] 58459 Alanine Aminotransferase (ALT/SGPT) May 01, 2020 6:33am 33 U/L 10-49 [facility], [address] [place] [address] 00054 Aspartate Amino Transf (AST/SGOT) Oc tob2019 6:33am 20 U/L 0-33 [facility], [address] [place] [address] 85440 Alkaline Phosphatase May 01 6:33am 90 U/L 45-129 [facility], [address] [place] [address] 36450 Calcium Level May 01, 2020 6:33am 9.2 mg/dL 8.5-10.1 [facility], [address] [place] [address] 75719 Total Bilirubin May 01, 2020 6:33am 0.6 mg/dL 0.3-1.2 [facility], [address] [place] [address] 90504 Albumin May 01, 2020 6:33am 3.7 g/dL 3.2-4.8 [facility], [address] [place] [address] 32022 Serum Total Protein May 01 0 6:33am 7.6 g/dL 5.7-8.2 [facility], [address] [place] [address] 31183 Triglycerides Level May 01 0 6:33am 189 mg/dL 0-150 [facility], [address] [place] [address] 68147 Triglycerides Level August 27 9:13am 144 mg/dL 0-150 [facility], [address] [place] [address] 31197 Cholesterol Level May 01, 2020 6:33am 194 mg/dL 120-200 [facility], [address] [place] [address] 57449 Cholesterol Level August 27, 2019 9:13a m 172 mg/dL 120-200 [facility], [address] [place] [address] HDL Cholesterol May 01, 2020 6:33am 50 mg/dL HDL Less than 40 mg/dL: Major risk for CHDHDL Greater than 59 mg/dL: Low risk for CHD [facility], [address] [place] [address] 97307 HDL Cholesterol August 27, 2019 9:13am 59 mg/dL HDL Less than 40 mg/dL: Major risk for CHDHDL Greater than 59 mg/dL: Low risk for CHD [facility], [address] [place] [address] 65462 LDL Cholesterol, Calculated May 01, 2020 6:33am 107 mg/dL 0-100 [facility], [address] [place] [address] LDL Cholesterol, Calculated August 27, 2019 9:13am 85 mg/dL 0-100 [facility], [address] [place] [address] 95907 Thyroid Stimulating Hormone (TSH) Oc tober 2019 6:33am 3.84 uIU/mL 0.35-5.50 [facility], [address] [place] [address] 85580 Thyroid Stimulating Hormone (TSH) Ju md 2019 7:03am 3.31 uIU/mL 0.35-5.50 [facility], [address] [place] [address] Thyroid Stimulating Hormone (TSH) Ju ne 2019 6:40am 1.59 uIU/mL 0.35-5.50 [facility], [address] [place] [address] 27412 Thyroid Stimulating Hormone (TSH) Ap ril 2019 7:07am 1.75 uIU/mL 0.35-5.50 [facility], [address] [place] [address] 22771 Thyroid Stimulating Hormone (TSH) Ma rch 2019 7:09am 0.60 uIU/mL 0.35-5.50 [facility], [address] [place] [address] Thyroid Stimulating Hormone (TSH) Ja nuary 2019 9:13am 0.10 uIU/mL 0.35-5.50 Repeated by: Amie Bowie 08/27/19 1033. Result Confirmation: 0.101 uIU/mL [facility], [address] [place] [address] Thyroid Stimulating Hormone (TSH) De cember 2018 7:08am 0.08 uIU/mL 0.35-5.50 Repeated by: Debra Estrada 06/28/19 083 8.Result Confirmation: 0.074 uIU/mL [facility], [address] [place] [address] 63485 Microbiology Results Procedure Source Result Collection Date/Time Result Date/Time Result Comment Performing Site Respiratory Panel (PCR) Nasopharyngeal No Organisms Detected February 18, 2020 9:05am February 18, 2020 6:03pm [facility], [address] [place] [address] 35433 Diagnostic Imaging Reports Report Dictated Date/Time Dictated By Status Radiology Report June 28, 2019 2:48pm Josh Young MD completed [place] [address] [facility] [place] [place] [address] [phone] NAME SEX PT STATUS ACCOUNT NUMBER MARII DYKES REG REF [id number] ORDERING PHYSICIAN LOCATION MEDICAL RECORD NO. Jacy Franz MD LAB [id number] ATTENDING PHYSICIAN DATE OF DATE OF EXAM/TIME Jacy Franz MD 1955 06/28/19942 TYPE / EXAM Xray Shoulder complete RT REASON FOR EXAM pain RIGHT SHOULDER PRIOR EXAMINATION: 04/14/15. FINDINGS: There is no acute fracture or dislocation. There are moderate degenerative changes most significant acromioclavicular joint with joint space narrowing. There is mild downward spurring from the distal clavicle. IMPRESSION: Degenerative changes without acute fracture. Reported By Josh Young MD on 06/28/19 1448 Signed By Josh Young MD on 07/02/19 1329 Date Time CC: Josh Young MD; Jacy Franz MD Techn: RADTC Trans Dt/Tm: Trans by: DT Prt Dt/Tm: [id number]: Total DLP = 0.00 mGy-cm Fluoroscopy Time (in secs): Radiology Report July 05, 2019 3:11pm Niraj Torres MD completed [place] [id number] [phone] NAME SEX PT STATUS ACCOUNT NUMBER MARII DYKES REG REF [id number] ORDERING PHYSICIAN LOCATION MEDICAL RECORD NO. Cash Bautista MD RAD [id number] ATTENDING PHYSICIAN DATE OF DATE OF EXAM/TIME [...] Trans Dt/Tm: Trans by: DT Prt Dt/Tm: [id number]: Total DLP = 0.00 mGy-cm Fluoroscopy Time (in secs): Radiology Report July 14, 2019 9:18a m Bandar Arita MD completed [facility] [address] [place] [id number] [phone] NAME SEX PT STATUS ACCOUNT NUMBER MARII DYKES REG REF [id number] ORDERING PHYSICIAN LOCATION MEDICAL RECORD NO. Josesito Ragland MD RAD [id number] ATTENDING PHYSICIAN DATE OF DATE OF EXAM/TIME [...] Trans Dt/Tm: Trans by: DT Prt Dt/Tm: [id number]: Total DLP = 0.00 mGy-cm Fluoroscopy Time (in secs): Radiology Report October 04, 2019 1:42pm Vinicius Steele MD completed [place] [address] [place] [address] [phone] NAME SEX PT STATUS ACCOUNT NUMBER NEHAMARII Jack White REG REF [id number] ORDERING PHYSICIAN LOCATION MEDICAL RECORD NO. Navi Hunt MD RAD [id number] ATTENDING PHYSICIAN DATE OF DATE OF EXAM/TIME Jacy Franz MD 1955 10/04/191315 TYPE / EXAM Xray Wrist complete RT REASON FOR EXAM pain, ortho COMPARISON: None FINDINGS: No evidence for fractures, subluxation or adjacent soft tissue swelling is noted. IMPRESSION: No fracture, dislocation, or other significant abnormality. Reported By Vinicius Steele MD on 10/04/191341 Signed By Vinicius Steele MD on 10/04/191342 Date Time CC: Vinicius Steele MD; Jacy Franz MD Techn: [facility] Trans Dt/Tm: Trans by: DT Prt Dt/Tm: [id number]: Total DLP = 0.00 mGy-cm Fluoroscopy Time (in secs): Radiology Report April 04, 2020 4:00p m Kristie Miranda NP completed [place] [address] [place] [address] [phone] NAME SEX PT STATUS ACCOUNT NUMBER MARII DYKES F REG REF [id number] ORDERING PHYSICIAN LOCATION MEDICAL RECORD NO. Navi Hunt MD RAD [id number] ATTENDING PHYSICIAN DATE OF DATE OF EXAM/TIME Jacy Franz MD 1955 04/04/20821 TYPE / EXAM Xray Hand Complete RT REASON FOR EXAM right hand pain, ortho MARII DYKES [id number] 1955 ADDENDUM CORRECTION: The original report incorrectly reflects Kristie Miranda as the reporting R adiologist. The correct Radiologist for this report is Kellie Brewer MD. The content of this report remains unchanged. Addendum Reported By Kellie Brewer MD on 04/12/20 1609 Signed By Kellie Brewer MD on 04/12/20 160 Trans Dt/Tm: Trans by: MEDQ [p pg] [...] 08, 2020 4:25pm Donna Means MD completed [place] [address] [place] [address] [phone] NAME SEX PT STATUS ACCOUNT NUMBER MARII DYKES REG REF [id number] ORDERING PHYSICIAN LOCATION MEDICAL RECORD NO. Jacy Franz MD MRI [id number] ATTENDING PHYSICIAN DATE OF DATE OF EXAM/TIME [...] Time ) Signed by: Donna Means M.D., [facility] Reported By Donna Means MD on 05/08/20 1625 Signed By Donna Means MD on 05/08/20 1625 Date Time CC: Donna Means MD; Jacy Franz MD Techn: [facility] Trans Dt/Tm: Trans by: DT Prt Dt/Tm: [id number]: Total DLP = 0.00 mGy-cm 2764-5993: Total Radiation Dose = 0.0000 mSv Lifetime Dose: 0 mSv Health Concerns Health Concerns may be documented in an alternate section. Advance Directives Advance Directive Response Recorded Date/Time Advanced Directive Yes N ov2019 1:36pm Advance Directives on File or in chart? No June 20, 2020 1:36pm Does Patient have a DNR? No June 20, 2020 1:36pm Healthcare Proxy Yes Kelley 2019 1:36pm Health Care Proxy Name Alberto Dykes June 20, 2020 1:36pm Health Care Proxy Phone Number [phone] June 20, 2020 1:36pm Living Will No June 20, 2020 1:36pm Chief Complaint and Reason for Visit Chief Complaint E03.9/PAIN Office visit LT WRIST PAIN,ORTHO Wrist pain TOTAL KNEE [...] pain/injury THIRD DIGIT LT HAND Finger Pain/injury Reason for Visit Trigger thumb of le ft hand Status post total right knee replacement Hypothyroidism Pityriasis lichenoides chronica Hypothyroidism Carpal tunnel syndrome, right Left carpal tunnel syndrome Trigger thumb, left thumb Left carpal tunnel syndrome Hyperlipidemia Hypothyroidism Trigger thumb, right thumb Rotator cuff tear, non-traumatic Trigger finger, left middle finger Encounters Encounter Location(s) Ar rival/Admit Date Discharge/Depart Date Provider(s) Registered Referred -Laboratory June 28, 2019 7:00am Rosalia Brenner Departed Physician/Provider Office Visit -[facility] June 28, 2019 8:54am June 28, 2019 9:30am Jacy Franz MD Registered Referred -Radiology July 05, 2019 7:04am Cash Bautista MD Departed Physician/Provider Office Visit -[facility] Orthopedics July 05, 2019 9:13am July 05, 2019 9:46am Cash Bautista MD Registered Referred -Radiology July 14, 2019 8:58am Josesito Ragland MD Departed Physician/Provider Office Visit -[facility] Orthopedics July 14, 2019 9:13am July 14, 2019 10:23am Josesito Ragland MD Registered Referred -Laboratory August 27, 2019 9:00am Jacy Franz MD Departed Physician/Provider Office Visit -[facility] August 30, 2019 9:24am August 30, 2019 9:54am Jacy Franz MD Departed Physician/Provider Office Visit -[facility] Dermatology September 13, 2019 9:16am September 13, 2019 9:40am KIANA Flores Registered Referred -Laboratory September 27, 2019 7:02am Jacy Franz MD Departed Physician/Provider Office Visit -[facility] September 27, 2019 8:58am September 27, 2019 9:35am Jacy Franz MD Departed Physician/Provider Office Visit -[facility] Orthopedics October 04, 2019 11:48am October 04, 2019 1:04pm Navi Hunt MD Registered Referred -Radiology October 04, 2019 12:08pm Chio Roman MD Registered Outpatient -[facility] Orthopedics October 05, 2019 9:04am October 05, 2019 3:01pm Navi Hunt MD Departed Physician/Provider Office Visit -[facility] Orthopedics October 15, 2019 8:01am October 15, 2019 8:31am Stanislaw Thompson PA-C Departed Physician/Provider Office Visit -[facility] Orthopedics November 03, 2019 7:37am November 03, 2019 7:52am Stanislaw Thompson PA-C Registered Referred -Laboratory November 22, 2019 7:01am Jacy Franz MD Registered Referred -Laboratory December 27, 2019 6:25am Jacy Franz MD Departed Physician/Provider Office Visit -[facility] December 27, 2019 7:42am December 27, 2019 8:27am Jacy Franz MD Registered Referred -Laboratory January 25, 2020 6:50am Jacy Franz MD Departed Physician/Provider Office Visit -[facility] General Surgery January 25, 2020 7:50am January 25, 2020 8:18am Gerson Francisco MD Departed Physician/Provider Office Visit -[facility] February 14, 2020 8:43am February 14, 2020 9:14am Jacy Franz MD Registered Referred -Lab Drop Off February 18, 2020 11:08am Gerson Francisco MD Departed Physician/Provider Office Visit -[facility] February 18, 2020 11:45am February 18, 2020 12:00pm Gerson Francisco MD Registered Outpatient -[facility] General Surgery February 21, 2020 7:46am February 20 11:45am Gerson Francisco MD Registered Referred -Radiology April 04, 2020 7:13am Chio Roman MD Departed Physician/Provider Office Visit -[facility] Orthopedics April 05, 2020 7:39am April 05, 2020 8:06am Navi Hunt MD Registered Referred -Laboratory May 01, 2020 6:29am Jacy Franz MD Registered Referred -MRI/MRA May 08, 2020 1:41pm Jacy Franz MD Departed Physician/Provider Office Visit -[facility] May 29, 2020 2:56pm May 29, 2020 3:09pm Jacy Franz MD Departed Physician/Provider Office Visit -[facility] Orthopedics May 29, 2020 3:11pm May 29, 2020 3:50pm Josesito Ragland MD Registered Referred -Radiology June 21, 2020 7:28am CHUCHO Gary Departed Physician/Provider Office Visit -[facility] Orthopedics June 21, 2020 8:32am June 21, 2020 9:28am Stanislaw Thompson PA-C Recent Diagnosis Onset Date Trigger thumb of left hand Status post total right knee replacement Hypothyroidism Pityriasis lichenoides chronica Hypothyroidism Carpal tunnel syndrome, right Left carpal tunnel syndrome Trigger thumb, left thumb Left carpal tunnel syndrome Hyperlipidemia Hypothyroidism Trigger thumb, right thumb Rotator cuff tear, non-traumatic Trigger finger, left middle finger Assessments Diagnosis Onset Date Res olution Status [...] acute Trigger finger, left middle finger acute Functional Status No Functional Status information available Goals Goals may be documented in an alternate section. Immunizations Immunization Event Date Not Given Reason Dose Number Web User Experience Strategist Lot Number Vaccine Information Statement (VIS) Deta il influenza vaccine, inactivated Decem 2018 2612 31 influenza vaccine, inactivated Novem 2019 [id number] Mental Status No Mental Status Information Available Medical Equipment No Medical Equipment Information available Insurance Providers Guarantor MARII DYKES Address [address] [place] [address] Contact Info. Home Phone: Payer Policy Id Coverage Id Subscriber's Name Subscriber Id Effective Date Expiration Date [facility] [id number] ALBERTO DYKES [id number] Self Pay Self N/A [facility] [id number] MARII DYKES [id number] Plan of Treatment Patient last seen for [...] uld be used prophylactically for dental procedures. discussed thyroid, hair loss, decrease to synthroid 125 mcg, check 6 weeks, x ra y shoulder and ortho referral done, hugo lester advised Future Tests Future scheduled test information is unavailable Pending Tests Pending diagnostic test information is unavailable Future Visits Future appointment information is unavailable Referrals to Other Providers Reason for Referral Referral Start Date Provider Provider Ana ct Information Provider Address Navi Hunt MD Email: [email or web address] Phone: [phone] [address] Future Procedures Future procedure information is unavailable Future Medications Future medication information is unavailable Patient Instructions Hypothyroidism (GEN) Hypothyroidism (GEN) Hypothyroidism (GEN) Carpal Tunnel Surgery (DC) Colonoscopy (DC) Diverticulosis (DC) Social History Smoking Status Status Date of Observation Never smoker June 20, 2020 1:3 6pm Observation Status Date of Observation Not June 20, 2020 Observation Status Observation Response Jose e of Response Smoking Status Never smoker June 20, 2020 1:36pm Alcohol Use No June 20, 2020 1:36pm Substance Use No [facility] 2019 1:36pm Assigned Sex Female Vital Signs Vital Reading Result Ref erence Range Collection Date/Time Height 62 [in_i] June 28, 2019 9:03am Weight 190.00 [lb_av] June 28, 2019 9:03am Heart Rate 68 /min 60-100 June 28, 2019 9:03am Respiratory rate 12 /min -June 28, 2019 9:03am Oxygen saturation by Pulse oximetry 95 % 95- 100 June 28, 2019 9:03am BP Systolic 168 mm[Hg] June 28, 2019 9:03am BP Diastolic 82 mm[Hg] June 28, 2019 9:03am BMI (Body Mass Index) 34.7 kg/m2 June 28, 2019 9:03am Heart Rate 92 /min 60-100 July 05, 2019 9:15am Respiratory rate 16 /min -July 05, 2019 9:15am Oxygen saturation by Pulse [...] 05, 2019 3:44pm Respiratory rate 18 /min 07-20October 05, 2019 3:44pm Oxygen saturation by Pulse [...] 03, 2019 8:41am Respiratory rate 16 /min 07-20November 03, 2019 8:41am Oxygen saturation by Pulse [...] 21, 2020 8:40am Respiratory rate 18 /min 12-24 June 21, 2020 8:40am Oxygen saturation by Pulse oximetry 98 % 95- 100 June 21, 2020 8:40am BP Systolic 110 mm[Hg] June 21, 2020 8:40am BP Diastolic 78 mm[Hg] June 21, 2020 8:40am BMI (Body Mass Index) 38.9 kg/m2 June 21, 2020 8:40am
--- OUTSIDE RECORDS SUMMARY | 2020-08-10 07:20 | CCD | Continuity of Care Document ---
Author Author [facility] Organization [facility] Address [address] [place] [address] Phone Support Name Relationship Address [place] [address] MicheleCash parmar PRS [address] [place] [address] Josesito Ragland PRS [address] [place] [address] Jack Jamil PRS [facility] [place] [address] GilbertNavi jovel PRS [address] [place] [address] RomanReg [place] [address] Stanislaw Thompson PRS [address] [place] [address] Gerson Francisco PRS [address] [place] [address] Allergies, Adverse Reactions, Alerts No known allergies. Medications Medication Status Dose Units Route Directions Qty Days Start Date End Date Instructions Flucelvax Quad 1646-0099 (PF) (flu vac q s 2018(4 yr [...] 9:57am October 04, 2019 1:44pm Biotin Active 29341 MCG PO Once Per Day September 13, 2019 9:27am Azithromycin (Zithromax) 500 mg tablet Discontinued 500 MG PO .TIW 36 September 13, 2019 9:38am October 04, 2019 1:44pm *MUST BE BRAN D NAME Amitriptyline Active 12.5 MG PO At Bedtime December 27, 2019 7:57am Levothyroxine (Synthroid) 88 mcg tablet Discontinued 88 MCG PO daily December 27, 2019 8:23 am February 17, 2020 8:31am Atorvastatin (Lipitor) 40 MG tablet Discontinued 1 [...] APPLIC TP 2 Times Per Da y March 05, 2017 8:1 5am February 26, [...] tablet Discontinued 50 MG PO Q 2H 27 August 09, 2019 12:46pm October 04, 2019 [...] Date Status Carpal tunnel syndrome, right Active Left carpal tunnel syndrome Active Trigger thumb, left thumb Active Wrist fracture, left A ctive Status post total right knee replacement Active Hyperlipidemia Active Hypothyroidism Active Trigger thumb of left hand Active Trigger thumb, right thumb Active Pityriasis lichenoides chronica Active Bilateral carpal tunnel syndrome Active Procedures Procedure Date Performed Status MRI Shoulder Right w/o May 08, 2020 [...] 01, 2020 6:33am 7.7 10e3/uL 4.45-10.71 [facility], [address] [place] [address] 68091 Red Blood Count May 01, 2020 6:33am 4.70 10e6/uL 4.20-5.40 [facility], [address] [place] [address] 58530 Hemoglobin May 01, 2020 6:33am 14.4 g/dL 10.7-15.4 [facility], [address] [place] [address] 86501 Hematocrit May 01, 2020 6:33am 44.1 % 37-47 [facility], [address] [place] [address] 65468 Mean Corpuscular Volume May 01, 2020 6:33am 93.8 fl 80-96 [facility], [address] [place] [address] 57850 Mean Corpuscular Hemoglobin May 01, 2020 6:33am 30.6 pg 27-31 [facility], [address] [place] [address] 31822 Mean Corpuscular Hemoglobin Concent May 01, 2020 6:33am 32.7 g/dl 33-37 [facility], [address] [place] [address] 35061 Red Cell Distribution Width May 01, 2020 6:33am 13 % 11-15 [facility], [address] [place] [address] 09947 Platelet Count May 01, 2020 6:33am 285 10e3/ul 130-472 [facility], [address] [place] [address] 27229 Mean Platelet Volume May 01 6:33am 9.7 fl 9.1-13.1 [facility], [address] [place] [address] 03370 Neutrophils (%) (Auto) May 01, 2020 6:33am 51.7 % 41-77 [facility], [address] [place] [address] 38444 Absolute Neutrophil May 01 0 6:33am 4.0 # 1.7-7.6 [facility], [address] [place] [address] 73325 Lymphocytes (%) (Auto) May 01, 2020 6:33am 34.5 % 14-46 [facility], [address] [place] [address] 46167 Lymphocytes # (Auto) May 01 6:33am 2.7 # 0.6-4.6 [facility], [address] [place] [address] 65369 Monocytes (%) (Auto) May 01 6:33am 8.7 % 4-12 [facility], [address] [place], [place] [address] Monocytes # May 01, 2020 6:33am 0.7 # 0.2-1.2 [facility], [address] [place] [address] 16412 Eosinophils (%) (Auto) May 01, 2020 6:33am 4.0 % 0-7 [facility], [address] [place], [place] [address] Absolute Eosinophils (CBC) May 012019 6:33am 0.3 # 0.0-0.5 [facility], [address] [place], [place] [address] Basophils (%) (Auto) May 01 6:33am 0.8 % 0.4-1.3 [facility], [address] [place] [address] Absolute Basophils (CBC) April 6:33am 0.1 # 0.0-0.2 [facility], [address] [place] [address] Immature Granulocyte % (Auto) Octobe r 2019 6:33am 0.3 % 0-2 [facility], [address] [place], [place] [address] Absolute Immature Granulocyte (auto May 01, 2020 6:33am 0.0 # 0-0.1 [facility], [address] [place], [place] [address] Add Manual Differential May 01, 2020 6:33am No [facility], [address] [place], [place] [address] Blood Urea Nitrogen May 01 0 6:33am 18 mg/dL 9-23 [facility], [address] [place], [place] [address] Sodium Level May 01, 2020 6:33am 141 mmol/L 132-146 [facility], [address] [place], [place] [address] Potassium Level May 01, 2020 6:33am 4.1 mmol/L 3.5-5.5 [facility], [address] [place] [address] 36767 Chloride Level May 01, 2020 6:33am 108 mmol/l 99-109 [facility], [address] [place] [address] 26426 Carbon Dioxide Level May 01 6:33am 27 mmol/l 20-31 [facility], [address] [place] [address] 22337 Anion Gap May 01, 2020 6:33am 10 mmol/l 8-16 [facility], [address] [place] [address] 79162 Glucose Level May 01, 2020 6:33am 125 mg/dL 74-106 [facility], [address] [place] [address] 72664 Creatinine May 01, 2020 6:33am 0.9 mg/dL 0.5-1.1 [facility], [address] [place] [address] 70570 Glomerular Filtration Rate Calc Octo 2019 6:33am Greater than 60 ml/min ABOVE 60 [facility], [address] [place] [address] 28275 Alanine Aminotransferase (ALT/SGPT) May 01, 2020 6:33am 33 U/L 10-49 [facility], [address] [place] [address] 15004 Aspartate Amino Transf (AST/SGOT) Oc tober 2019 6:33am 20 U/L 0-33 [facility], [address] [place] [address] 40717 Alkaline Phosphatase May 01 6:33am 90 U/L 45-129 [facility], [address] [place] [address] 22411 Calcium Level May 01, 2020 6:33am 9.2 mg/dL 8.5-10.1 [facility], [address] [place] [address] 72733 Total Bilirubin May 01, 2020 6:33am 0.6 mg/dL 0.3-1.2 [facility], [address] [place] [address] 44268 Albumin May 01, 2020 6:33am 3.7 g/dL 3.2-4.8 [facility], [address] [place] [address] 50816 Serum Total Protein May 01 0 6:33am 7.6 g/dL 5.7-8.2 [facility], [address] [place] [address] 43983 Triglycerides Level May 01 0 6:33am 189 mg/dL 0-150 [facility], [address] [place] [address] 89545 Triglycerides Level August 27 9:13am 144 mg/dL 0-150 [facility], [address] [place] [address] 87737 Cholesterol Level May 01, 2020 6:33am 194 mg/dL 120-200 [facility], [address] [place] [address] 20014 Cholesterol Level August 27, 2019 9:13a m 172 mg/dL 120-200 [facility], [address] [place] [address] 48362 HDL Cholesterol May 01, 2020 6:33am 50 mg/dL HDL Less than 40 mg/dL: Major risk for CHDHDL Greater than 59 mg/dL: Low risk for CHD [facility], [address] [place] [address] 44803 HDL Cholesterol August 27, 2019 9:13am 59 mg/dL HDL Less than 40 mg/dL: Major risk for CHDHDL Greater than 59 mg/dL: Low risk for CHD [facility], [address] [place] [address] 75302 LDL Cholesterol, Calculated May 01, 2020 6:33am 107 mg/dL 0-100 [facility], [address] [place] [address] 84047 LDL Cholesterol, Calculated August 27, 2019 9:13am 85 mg/dL 0-100 [facility], [address] [place] [address] 71790 Thyroid Stimulating Hormone (TSH) [facility] 6:33am 3.84 uIU/mL 0.35-5.50 [facility], [address] [place] [address] 22282 Thyroid Stimulating Hormone (TSH) Ju ne 2019 7:03am 3.31 uIU/mL 0.35-5.50 [facility], [address] [place] [address] 42931 Thyroid Stimulating Hormone (TSH) Ju ne 2019 6:40am 1.59 uIU/mL 0.35-5.50 [facility], [address] [place] [address] 09408 Thyroid Stimulating Hormone (TSH) Ap ril 2019 7:07am 1.75 uIU/mL 0.35-5.50 [facility], [address] [place] [address] 67174 Thyroid Stimulating Hormone (TSH) [facility] 2019 7:09am 0.60 uIU/mL 0.35-5.50 [facility], [address] [place] [address] Thyroid Stimulating Hormone (TSH) Joaquin codi 2019 9:13am 0.10 uIU/mL 0.35-5.50 Repeated by: Amie Bowie 08/27/19 1033. Result Confirmation: 0.101 uIU/mL [facility], [address] [place] [address] Thyroid Stimulating Hormone (TSH) Ceron 2018 7:08am 0.08 uIU/mL 0.35-5.50 Repeated by: Debra Estrada 06/28/19 083 8.Result Confirmation: 0.074 uIU/mL [facility], [address] [place] [address] Microbiology Results Procedure Source Result Collection Date/Time Result Date/Time Result Comment Performing Site Respiratory Panel (PCR) Nasopharyngeal No Organisms Detected February 18, 2020 9:05am February 18, 2020 6:03pm [facility], [address] [place], [place] [address] Diagnostic Imaging Reports Report Dictated Date/Time Dictated By Status Radiology Report June 28, 2019 2:48pm Josh Young MD completed [place] [address] [place] [address] [phone] NAME SEX PT STATUS ACCOUNT NUMBER MARII DYKES REG REF [id number] ORDERING PHYSICIAN LOCATION MEDICAL RECORD NO. Jacy Franz MD LAB [id number] ATTENDING PHYSICIAN DATE OF DATE OF EXAM/TIME [...] Reported By Josh Young MD on 06/28/19 4528 Signed By Josh Young MD on 07/02/19 1329 Date Time CC: Josh Young MD; Jacy Franz MD Techn: RADTC Trans Dt/Tm: Trans by: DT Prt Dt/Tm: [id number]: Total DLP = 0.00 mGy-cm Fluoroscopy Time (in secs): Radiology Report July 05, 2019 3:11pm Niraj Torres MD completed [place] [id number] [place], [place] [address] [phone] NAME SEX PT STATUS ACCOUNT NUMBER MARII DYKES REG REF [id number] ORDERING PHYSICIAN LOCATION MEDICAL RECORD NO. Cash Bautista MD RAD [id number] ATTENDING PHYSICIAN DATE OF DATE OF EXAM/TIME [...] Trans Dt/Tm: Trans by: DT Prt Dt/Tm: [id number]: Total DLP = 0.00 mGy-cm Fluoroscopy Time (in secs): Radiology Report July 14, 2019 9:18a m Bandar Arita MD completed [place] [address] [place], [place] [address] [phone] NAME SEX PT STATUS ACCOUNT NUMBER MARII DYKES F REG REF [id number] ORDERING PHYSICIAN LOCATION MEDICAL RECORD NO. Josesito Ragland MD RAD [id number] ATTENDING PHYSICIAN DATE OF DATE OF EXAM/TIME [...] Arita MD on 07/14/19919 Date Time CC: Banadr Arita MD; Jacy Franz MD Techn: FRO Trans Dt/Tm: Trans by: DT Prt Dt/Tm: 1712-1079: Total DLP = 0.00 mGy-cm Fluoroscopy Time (in secs): Radiology Report October 04, 2019 1:42pm Vinicius Steele MD completed [facility] [address] [place] [address] [phone] NAME SEX PT STATUS ACCOUNT NUMBER MARII DYKES REG REF [id number] ORDERING PHYSICIAN LOCATION MEDICAL RECORD NO. 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 Navi Hunt MD RAD [id number] ATTENDING PHYSICIAN DATE OF DATE OF EXAM/TIME Jacy Franz MD 1955 04/04/20821 TYPE / EXAM Xray Hand Complete RT REASON FOR EXAM right hand pain, ortho MARII DYKES [id number] 1955 ADDENDUM CORRECTION: The original report incorrectly [...] 08, 2020 4:25pm Donna Means MD completed [facility] [address] [place] [address] [phone] NAME SEX PT STATUS ACCOUNT NUMBER MARII DYKES REG REF [id number] ORDERING PHYSICIAN LOCATION MEDICAL RECORD NO. Jacy Franz MD MRI [id number] ATTENDING PHYSICIAN DATE OF DATE OF EXAM/TIME [...] Time ) Signed by: Donna Means M.D., [facility] Reported By Donna Means MD on [...] Directive Response Recorded Date/Time Advanced Directive Yes J 2019 6:50am Advance Directives on File or in chart? No February 08, 2019 8:16am Does Patient have a DNR? No February 18, 2020 12:19pm Healthcare Proxy Yes Willy 2019 12:19pm Health Care Proxy Name Alberto Dykes February [...] RT SHOULDER STRAIN Flu shot Shoulder pain/injury Reason for Visit Trigger thumb of le ft hand Status post total right knee replacement Hypothyroidism Pityriasis lichenoides chronica Hypothyroidism Carpal tunnel syndrome, right Left carpal tunnel syndrome Trigger thumb, left thumb Left carpal tunnel syndrome Hyperlipidemia Hypothyroidism Trigger thumb, right thumb Encounters Encounter Location(s) Ar rival/Admit Date Discharge/Depart Date Provider(s) Registered Referred [facility]Laboratory June 28, 2019 7:00am Jacy Franz MD Departed Physician/Provider Office Visit [facility] June 28, 2019 8:54am June 28, 2019 9:30am Jacy mora MD Registered Referred [facility]Radiology July 05, 2019 7:04am Cash Bautista MD Departed Physician/Provider Office Visit [facility] July 05, 2019 9:13am July 05, 2019 9:46am Cash walsh MD Registered Referred [facility] July 14, 2019 8:58am Josesito Ragland MD Departed Physician/Provider Office Visit [facility] July 14, 2019 9:13am July 14, 2019 10:23am Josesito champagne MD Registered Referred [facility] August 27, 2019 9:00am Jacy Franz MD Departed Physician/Provider Office Visit [facility] August 30, 2019 9:24am August 30, 2019 9:54am Jacy mora MD Departed Physician/Provider Office Visit [facility] Dermat[facility] September 13, 2019 9:16am September 13, 2019 9:40am KIANA Garcia Registered Referred [facility] September 27, 2019 7:02am Jacy Franz MD Departed Physician/Provider Office Visit [facility] September 27, 2019 8:58am September 27, 2019 9:35am Jacy palacios MD Departed Physician/Provider Office Visit [facility] October 04, 2019 11:48am October 04, 2019 1:04pm Navi Hunt MD Registered Referred [facility]Rad[facility] October 04, 2019 12:08pm Chio Roman MD Registered Outpatient [facility] October 05, 2019 9:04am October 05, 2019 3:01pm Navi Hunt MD Departed Physician/Provider Office Visit [facility] October 15, 2019 8:01am October 15, 2019 8:31am Stanislaw brunson PA-C Departed Physician/Provider Office Visit [facility] November 03, 2019 7:37am November 03, 2019 7:52am Stanislaw burr PA-C Registered Referred [facility]Labor[facility] November 22, 2019 7:01am Jacy Franz MD Registered Referred [facility] December 27, 2019 6:25am Jcay Franz MD Departed Physician/Provider Office Visit [facility] December 27, 2019 7:42am December 27, 2019 8:27am Jacy tejeda MD Registered Referred [facility] January 25, 2020 6:50am Jacy Franz MD Departed Physician/Provider Office Visit [facility] General Surgery January 25, 2020 7:50am January 25, 2020 8:18am Lula Campos Departed Physician/Provider Office Visit [facility] February 14, 2020 8:43am February 14, 2020 9:14am Jacy palacios MD Registered Referred [facility]-Lab Drop Off February 18, 2020 11:08am Gerson Francisco MD Departed Physician/Provider Office Visit [facility] February 18, 2020 11:45am February 18, 2020 12:00pm Gerson Francisco MD Registered Outpatient [facility] February 21, 2020 7:46am February 21, 2020 11:45am Gerson Francisco MD Registered Referred [facility]Radiology April 04, 2020 7:13am Chio Roman MD Departed Physician/Provider Office Visit [facility] April 05, 2020 7:39am April 05, 2020 8:06am Navi oneill MD Registered Referred [facility]Labor[facility] May 01, 2020 6:29am Jacy Franz MD Registered Referred [facility]-MRI/MRA May 08, 2020 1:41pm Jacy Franz MD Departed Physician/Provider Office Visit [facility] May 29, 2020 2:56pm May 29, 2020 3:09pm Jacy mora MD Departed Physician/Provider Office Visit [facility] May 29, 2020 3:11pm May 29, 2020 3:50pm Josesito edwards MD Recent Diagnosis Onset Date Trigger thumb of left hand Status post total right knee replacement Hypothyroidism Pityriasis lichenoides chronica Hypothyroidism Carpal tunnel syndrome, right Left carpal tunnel syndrome Trigger thumb, left thumb Left carpal tunnel syndrome Hyperlipidemia Hypothyroidism Trigger thumb, right thumb Assessments Diagnosis Onset Date Res olution Status Trigger thumb of left hand acute Status post total right knee replacement acute Hypothyroidism acute Pityriasis lichenoides chronica acute Hypothyroidism acute Carpal tunnel syndrome, right acute Left carpal tunnel syndrome acute Trigger thumb, left thumb acute Left carpal tunnel syndrome acute Hyperlipidemia acute Hypothyroidism acute Trigger thumb, right thumb acute Functional Status No Functional Status information available Goals Goals may be documented in an alternate section. Immunizations Immunization Event Date Not Given Reason Dose Number Air/Ocean Export Clerk Lot Number Vaccine Information Statement (VIS) Zainab mckenzie influenza vaccine, inactivated Decem 2018 [id number] 31 Mental Status No Mental Status Information Available Medical Equipment No Medical Equipment Information available Insurance Providers Guarantor MARII DYKES Address [address] [place] [address] Contact Info. Home Phone: Payer Policy Id Coverage Id Subscriber's Name Subscriber Id Effective Date Expiration Date [facility] [id number] ALBERTO Farris NEHA [id number] Self Pay Self N/A [facility] [id number] MARII DYKES [id number] Plan of Treatment 64-year-old female here for follow-up of carpal [...] Provider Address Navi Hunt MD Email: [email or web address] Phone: [phone] [address] Future Procedures Future procedure information is unavailable Future Medications Future medication information is unavailable Patient Instructions Hypothyroidism (GEN) Hypothyroidism (GEN) Hypothyroidism (GEN) Carpal Tunnel Surgery (DC) Colonoscopy (DC) Diverticulosis (DC) Social History Smoking Status Status Date of Observation Never smoker February 17, 2020 9:32am Observation Status Date of Observation Not February 08, 2019 Observation Status Observation Response Jose e of Response Smoking Status Never smoker February 17, 2020 8:32am Alcohol Use No January 8:16am Substance Use No February 162019 8:32am Assigned Sex Female Vital Signs Vital Reading Result Ref erence Range Collection Date/Time Height 62 [in_i] June 28, 2019 9:03am Weight 190.00 [lb_av] June 28, 2019 9:03am Heart Rate 68 /min 60-100 June 28, 2019 9:03am Respiratory rate 12 /min 12-June 28, 2019 9:03am Oxygen saturation by Pulse oximetry 95 % 95- 100 June 28, 2019 9:03am BP Systolic 168 mm[Hg] June 28, 2019 9:03am BP Diastolic 82 mm[Hg] June 28, 2019 9:03am BMI (Body Mass Index) 34.7 kg/m2 June 28, 2019 9:03am Heart Rate 92 /min 60-100 July 05, 2019 9:15am Respiratory rate 16 /min 12-24 July 05 2019 9:15am Oxygen saturation by Pulse oximetry 95 % 95- 100 July 05, 2019 9:15am BP Systolic 136 mm[Hg] July 05, 2019 9:15am BP Diastolic 82 mm[Hg] July 05, 2019 9:15am Height 62 [in_i] July 14, 2019 9:45am Weight 190.00 [lb_av] July 14, 2019 9:45am Heart Rate 86 /min 60-100 July 14, 2019 9:45am Respiratory rate 16 /min 12-July 14, 2019 9:45am Oxygen saturation by Pulse [...] 27, 2019 8:50am Respiratory rate 12 /min 12-December 27, 2019 8:50am Oxygen saturation by Pulse [...] 29, 2020 3:21pm Respiratory rate 18 /min 12-24 May 29, 2020 3:21pm Oxygen saturation by Pulse oximetry 96 % 95- 100 May 29, 2020 3:21pm BP Systolic 140 mm[Hg] May 29, 2020 3:21pm BP Diastolic 92 mm[Hg] May 29, 2020 3:21pm
--- OUTSIDE RECORDS SUMMARY | 2020-08-10 07:22 | CCD | Continuity of Care Document ---
Author Author [facility] Organization [facility] Address [address] [place] [address] Phone Support Name Relationship Address [place] [address] MicheleCash parmar PRS [address] [place] [address] Josesito Ragland PRS [address] [place] [address] Jack Jamil PRS [facility] [place] [address] GilbertNavi jovel PRS [address] [place] [address] RomanReg [place] [address] Stanislaw Thompson PRS [address] [place] [address] Gerson Francisco PRS [address] [place] [address] Allergies, Adverse Reactions, Alerts No known allergies. Medications Medication Status Dose Units Route Directions Qty Days Start Date End Date Instructions Flucelvax Quad 2949-8488 (PF) (flu vac q s 2018(5 yr [...] 9:57am October 04, 2019 1:44pm Biotin Active 36928 MCG PO Once Per Day September 13, [...] 10e3/uL 4.45-10.71 [facility], [address] [place] [address] 36431 Red Blood Count May 01, 2020 6:33am 4.70 10e6/uL 4.20-5.40 [facility], [address] [place] [address] 42849 Hemoglobin May 01, 2020 6:33am 14.4 g/dL 10.7-15.4 [facility], [address] [place] [address] 28817 Hematocrit May 01, 2020 6:33am 44.1 % 37-47 [facility], [address] [place] [address] 67168 Mean Corpuscular Volume May 01, 2020 6:33am 93.8 fl 80-96 [facility], [address] [place] [address] 27835 Mean Corpuscular Hemoglobin May 01, 2020 6:33am 30.6 pg 27-31 [facility], [address] [place] [address] 83118 Mean Corpuscular Hemoglobin Concent May 01, 2020 6:33am 32.7 g/dl 33-37 [facility], [address] [place] [address] 63773 Red Cell Distribution Width May 01, 2020 6:33am 13 % 11-15 [facility], [address] [place] [address] 63443 Platelet Count May 01, 2020 6:33am 285 10e3/ul 130-472 [facility], [address] [place] [address] 46700 Mean Platelet Volume May 01 6:33am 9.7 fl 9.1-13.1 [facility], [address] [place] [address] 91270 Neutrophils (%) (Auto) May 01, 2020 6:33am 51.7 % 41-77 [facility], [address] [place] [address] 87124 Absolute Neutrophil May 01 0 6:33am 4.0 # 1.7-7.6 [facility], [address] [place] [address] 69667 Lymphocytes (%) (Auto) May 01, 2020 6:33am 34.5 % 14-46 [facility], [address] [place] [address] 96366 Lymphocytes # (Auto) May 01 6:33am 2.7 # 0.6-4.6 [facility], [address] [place] [address] 37091 Monocytes (%) (Auto) May 01 6:33am 8.7 % 4-12 [facility], [address] [place], [place] [address] Monocytes # May 01, 2020 6:33am 0.7 # 0.2-1.2 [facility], [address] [place] [address] 45134 Eosinophils (%) (Auto) May 01, 2020 6:33am 4.0 % 0-7 [facility], [address] [place], [place] [address] Absolute Eosinophils (CBC) May 012019 6:33am 0.3 # 0.0-0.5 [facility], [address] [place], [place] [address] Basophils (%) (Auto) May 01 6:33am 0.8 % 0.4-1.3 [facility], [address] [place] [address] Absolute Basophils (CBC) April 6:33am 0.1 # 0.0-0.[address] [facility], [address] [place] [address] Immature Granulocyte % (Auto) Octobe r 2019 6:33am 0.3 % 0-2 [facility], [address] [place], [place] [address] Absolute Immature Granulocyte (auto May 01, 2020 6:33am 0.0 # 0-0.1 [facility], [address] [place], [place] [address] Add Manual Differential May 01, 2020 6:33am No [facility], [address] [place], [place] [address] Blood Urea Nitrogen May 01 0 6:33am 18 mg/dL 9-23 [facility], [address] [place], [place] [address] Sodium Level May 01, 2020 6:33am 141 mmol/L 132-146 [facility], [address] [place], [place] [address] Potassium Level May 01, 2020 6:33am 4.1 mmol/L 3.5-5.5 [facility], [address] [place] [address] 37806 Chloride Level May 01, 2020 6:33am 108 mmol/l 99-109 [facility], [address] [place] [address] 87942 Carbon Dioxide Level May 01 6:33am 27 mmol/l 20-31 [facility], [address] [place] [address] 24796 Anion Gap May 01, 2020 6:33am 10 mmol/l 8-16 [facility], [address] [place] [address] 93719 Glucose Level May 01, 2020 6:33am 125 mg/dL 74-106 [facility], [address] [place] [address] 45827 Creatinine May 01, 2020 6:33am 0.9 mg/dL 0.5-1.1 [facility], [address] [place] [address] 09914 Glomerular Filtration Rate Calc Octo 2019 6:33am Greater than 60 ml/min ABOVE 60 [facility], [address] [place] [address] 71418 Alanine Aminotransferase (ALT/SGPT) May 01, 2020 6:33am 33 U/L 10-49 [facility], [address] [place] [address] 36946 Aspartate Amino Transf (AST/SGOT) Oc tober 2019 6:33am 20 U/L 0-33 [facility], [address] [place] [address] 73426 Alkaline Phosphatase May 01 6:33am 90 U/L 45-129 [facility], [address] [place] [address] 99919 Calcium Level May 01, 2020 6:33am 9.2 mg/dL 8.5-10.1 [facility], [address] [place] [address] 81867 Total Bilirubin May 01, 2020 6:33am 0.6 mg/dL 0.3-1.2 [facility], [address] [place] [address] 39859 Albumin May 01, 2020 6:33am 3.7 g/dL 3.2-4.8 [facility], [address] [place] [address] 17952 Serum Total Protein May 01 0 6:33am 7.6 g/dL 5.7-8.2 [facility], [address] [place] [address] 95778 Triglycerides Level May 01 0 6:33am 189 mg/dL 0-150 [facility], [address] [place] [address] 36843 Triglycerides Level August 27 9:13am 144 mg/dL 0-150 [facility], [address] [place] [address] 15200 Cholesterol Level May 01, 2020 6:33am 194 mg/dL 120-200 [facility], [address] [place] [address] 13082 Cholesterol Level August 27, 2019 9:13a m 172 mg/dL 120-200 [facility], [address] [place] [address] 08691 HDL Cholesterol May 01, 2020 6:33am 50 mg/dL HDL Less than 40 mg/dL: Major risk for CHDHDL Greater than 59 mg/dL: Low risk for CHD [facility], [address] [place] [address] 74140 HDL Cholesterol August 27, 2019 9:13am 59 mg/dL HDL Less than 40 mg/dL: Major risk for CHDHDL Greater than 59 mg/dL: Low risk for CHD [facility], [address] [place] [address] 28490 LDL Cholesterol, Calculated May 01, 2020 6:33am 107 mg/dL 0-100 [facility], [address] [place] [address] 84377 LDL Cholesterol, Calculated August 27, 2019 9:13am 85 mg/dL 0-100 [facility], [address] [place] [address] 46647 Thyroid Stimulating Hormone (TSH) [facility] 6:33am 3.84 uIU/mL 0.35-5.50 [facility], [address] [place] [address] 82234 Thyroid Stimulating Hormone (TSH) Ju ne 2019 7:03am 3.31 uIU/mL 0.35-5.50 [facility], [address] [place] [address] 58425 Thyroid Stimulating Hormone (TSH) Ju ne 2019 6:40am 1.59 uIU/mL 0.35-5.50 [facility], [address] [place] [address] 63147 Thyroid Stimulating Hormone (TSH) Ap ril 2019 7:07am 1.75 uIU/mL 0.35-5.50 [facility], [address] [place] [address] 75331 Thyroid Stimulating Hormone (TSH) [facility] 2019 7:09am 0.60 uIU/mL 0.35-5.50 [facility], [address] [place] [address] Thyroid Stimulating Hormone (TSH) Joaquin codi 2019 9:13am 0.10 uIU/mL 0.35-5.50 Repeated by: Amie Bowie 08/27/19 1033. Result Confirmation: 0.101 uIU/mL [facility], [address] [place] [address] Thyroid Stimulating Hormone (TSH) Ceron 2018 7:08am 0.08 uIU/mL 0.35-5.50 Repeated by: Debra Estrada 06/28/19 083 8.Result Confirmation: 0.074 uIU/mL [facility], [address] [place] [address] Microbiology Results Procedure Source Result Collection Date/Time Result Date/Time Result Comment Performing Site Respiratory Panel (PCR) Nasopharyngeal No Organisms Detected February 18, 2020 9:05am February 18, 2020 6:03pm [facility], [address] [place], [place] [address] Diagnostic Imaging Reports Report Dictated Date/Time Dictated By Status Radiology Report June 28, 2019 2:48pm Josh Young MD completed [address] [place] [address] [phone] NAME SEX PT STATUS ACCOUNT NUMBER MARII DYKES REG REF [id number] ORDERING PHYSICIAN LOCATION MEDICAL RECORD NO. Jacy Franz MD LAB [id number] ATTENDING PHYSICIAN DATE OF DATE OF EXAM/TIME [...] Reported By Josh Young MD on 06/28/19 5838 Signed By Josh Young MD on 07/02/19 1329 Date Time CC: Josh Young MD; Jacy Franz MD Techn: RADTC Trans Dt/Tm: Trans by: DT Prt Dt/Tm: [id number]: Total DLP = 0.00 mGy-cm Fluoroscopy Time (in secs): Radiology Report July 05, 2019 3:11pm Niraj Torres MD completed [id number] [place], [place] [address] [phone] NAME SEX PT STATUS ACCOUNT NUMBER MARII DYKES REG REF [id number] ORDERING PHYSICIAN LOCATION MEDICAL RECORD NO. Cash Bautista MD RAD [id number] ATTENDING PHYSICIAN DATE OF DATE OF EXAM/TIME [...] Trans Dt/Tm: Trans by: DT Prt Dt/Tm: [id number]: Total DLP = 0.00 mGy-cm Fluoroscopy Time (in secs): Radiology Report July 14, 2019 9:18a m Bandar Arita MD completed [id number] [place], [place] [address] [phone] NAME SEX PT STATUS ACCOUNT NUMBER MARII DYKES F REG REF [id number] ORDERING PHYSICIAN LOCATION MEDICAL RECORD NO. Josesito Ragland MD RAD [id number] ATTENDING PHYSICIAN DATE OF DATE OF EXAM/TIME [...] Bandar Arita MD; Jacy Franz MD Techn: FRO Trans Dt/Tm: Trans by: DT Prt Dt/Tm: [id number]: Total DLP = 0.00 mGy-cm Fluoroscopy Time (in secs): Radiology Report October 04, 2019 1:42pm Vinicius Steele MD completed [facility] [address] [place] [address] [phone] NAME SEX PT STATUS ACCOUNT NUMBER MARII DYKES REG REF [id number] ORDERING PHYSICIAN LOCATION MEDICAL RECORD NO. Navi Hunt MD RAD [id number] ATTENDING PHYSICIAN DATE OF DATE OF EXAM/TIME [...] Vinicius Steele MD; Jacy Franz MD Techn: [facility] Trans Dt/Tm: Trans by: DT Prt Dt/Tm: 8440-9551: Total DLP = 0.00 mGy-cm Fluoroscopy Time (in secs): Radiology Report April 04, 2020 4:00p lula Miranda DEPUTY [employer]OBATION OFFICER completed [facility] [address] [id number] [phone] NAME SEX PT STATUS ACCOUNT NUMBER MARII DYKES F REG REF [id number] ORDERING PHYSICIAN LOCATION MEDICAL RECORD NO. Navi Hunt MD RAD [id number] ATTENDING PHYSICIAN DATE OF DATE OF EXAM/TIME Jacy Franz MD 1955 04[birth year]/20821 TYPE / EXAM Xray Hand Complete RT REASON FOR EXAM right hand pain, ortho MARII DYKES [id number] 1955 ADDENDUM CORRECTION: The original report incorrectly [...] 08, 2020 4:25pm Donna Means MD completed [facility] [address] [place] [address] [phone] NAME SEX PT STATUS ACCOUNT NUMBER MARII DYKES REG REF [id number] ORDERING PHYSICIAN LOCATION MEDICAL RECORD NO. Jacy Franz MD MRI [id number] ATTENDING PHYSICIAN DATE OF DATE OF EXAM/TIME [...] Time ) Signed by: Donna Means M.D., [facility] Reported By Donna Means MD on 05/08/201624 [...] 2019 8:16am Health Care Proxy Phone Number [phone] February 08, 2019 8:16am Living Will [...] pain E03.9 RT SHOULDER STRAIN Flu shot Reason for Visit Trigger thumb of le ft hand Status post total right knee replacement Hypothyroidism Pityriasis lichenoides chronica Hypothyroidism Carpal tunnel syndrome, right Left carpal tunnel syndrome Trigger thumb, left thumb Left carpal tunnel syndrome Hyperlipidemia Hypothyroidism Trigger thumb, right thumb Encounters Encounter Location(s) Ar rival/Admit Date Discharge/Depart Date Provider(s) Registered Referred [facility] June 28, 2019 7:00am Jacy Franz MD Departed Physician/Provider Office Visit [facility] June 28, 2019 8:54am June 28, 2019 9:30am Jacy mora MD Registered Referred [facility] July 05, 2019 7:04am Cash Bautista MD Departed Physician/Provider Office Visit [facility] July 05, 2019 9:13am July 05, 2019 9:46am Cash walsh MD Registered Referred [facility] July 14, 2019 8:58am Josesito Ragland MD Departed Physician/Provider Office Visit [facility] July 14, 2019 9:13am July 14, 2019 10:23am Josesito champagne MD Registered Referred [facility] August 27, 2019 9:00am Jacy Franz MD Departed Physician/Provider Office Visit [facility] August 30, 2019 9:24am August 30, 2019 9:54am Jacy mora MD Departed Physician/Provider Office Visit [facility] Dermatology September 13, 2019 9:16am September 13, 2019 9:40am KIANA Garcia Registered Referred [facility] September 27, 2019 7:02am Jacy Franz MD Departed Physician/Provider Office Visit [facility] September 27, 2019 8:58am September 27, 2019 9:35am Jacy palacios MD Departed Physician/Provider Office Visit [facility] Orthoped[facility] October 04, 2019 11:48am October 04, 2019 1:04pm Navi Hunt MD Registered Referred [facility] October 04, 2019 12:08pm Chio Roman MD Registered Outpatient [facility] October 05, 2019 9:04am October 05, 2019 3:01pm Navi Hunt MD Departed Physician/Provider Office Visit [facility] October 15, 2019 8:01am October 15, 2019 8:31am Stanislaw brunson PA-C Departed Physician/Provider Office Visit [facility] November 03, 2019 7:37am November 03, 2019 7:52am Stanislaw burr PA-C Registered Referred [facility] November 22, 2019 7:01am Jacy Franz MD Registered Referred [facility] December 27, 2019 6:25am Jacy Franz MD Departed Physician/Provider Office Visit [facility] December 27, 2019 7:42am December 27, 2019 8:27am Jacy tejeda MD Registered Referred [facility] January 25, 2020 6:50am Jacy Franz MD Departed Physician/Provider Office Visit [facility] January 25, 2020 7:50am January 25, 2020 8:18am Lula Campos Departed Physician/Provider Office Visit [facility] February 14, 2020 8:43am February 14, 2020 9:14am Jacy palacios MD Registered Referred [facility] Drop Off February 18, 2020 11:08am Gerson Francisco MD Departed Physician/Provider Office Visit [facility] February 18, 2020 11:45am February 18, 2020 12:00pm Gerson Francisco MD Registered Outpatient [facility] February 21, 2020 7:46am February 21, 2020 11:45am Gerson Francisco MD Registered Referred [facility] April 04, 2020 7:13am Chio Roman MD Departed Physician/Provider Office Visit [facility] April 05, 2020 7:39am April 05, 2020 8:06am Navi oneill MD Registered Referred [facility] May 01, 2020 6:29am Jacy Franz MD Registered Referred [facility] May 08, 2020 1:41pm Jacy Franz MD Departed Physician/Provider Office Visit [facility] May 29, 2020 2:56pm May 29, 2020 3:09pm Jacy mora MD Recent Diagnosis Onset Date Trigger thumb [...] Event Date Not Given Reason Dose Number [employer] Chief Lot Number Vaccine Information Statement (VIS) Zainab mckenzie influenza vaccine, inactivated Decem 2018 2612 31 Mental Status No Mental Status Information Available Medical Equipment No Medical Equipment Information available Insurance Providers Guarantor MARII Jack NEHA [address] [facility] [address] Contact Info. Home Phone: Payer Policy Id Coverage Id Subscriber's Name Subscriber Id Effective Date Expiration Date [facility] [id number] ALBERTO Farris NEHA [id number] Self Pay Self N/A [facility] [id number] MARII Santiago NEHA [id number] Plan of Treatment 64-year-old female here for [...] Provider Address Navi Hunt MD Email: [email or web address] Phone: [phone] [address] Future Procedures Future procedure information is unavailable [...] 05, 2019 9:15am Respiratory rate 16 /min 12-July 05, 2019 9:15am Oxygen saturation by Pulse [...]
--- OUTSIDE RECORDS SUMMARY | 2020-08-10 07:24 | CCD ---
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 Casework Manager Name Role Phone Kaleigh Franz MD Unavailable Unavailable Kaleigh Franz MD Unavailable Unavailable Kaleigh Franz MD Unavailable Unavailable Kaleigh Franz MD Unavailable Unavailable Kaleigh Franz MD Unavailable Unavailable Kaleigh Franz MD Unavailable Unavailable Kaleigh Franz MD Unavailable Unavailable Kaleigh rFanz MD Unavailable Unavailable Kaleigh Franz MD Unavailable Unavailable Kaleigh Franz MD Unavailable Unavailable Kaleigh Franz MD Unavailable Unavailable Kaleigh Franz MD Unavailable Unavailable Kaleigh Franz MD Unavailable Unavailable Kaleigh Franz MD Unavailable Unavailable Kaleigh Franz MD Unavailable Unavailable Kaleigh Franz MD Unavailable Unavailable Kaleigh Franz MD Unavailable Unavailable Kaleigh Franz MD Unavailable Unavailable Kaleigh Franz MD Unavailable Unavailable Kaleigh Franz MD Unavailable Unavailable Kaleigh Franz MD Unavailable Unavailable Kaleigh Franz MD Unavailable Unavailable Kaleigh Franz MD Unavailable Unavailable Kaleigh Franz MD Unavailable Unavailable Kaleigh Franz MD Unavailable Unavailable Kaleigh Franz MD Unavailable Unavailable Kaleigh Franz MD Unavailable Unavailable Kaleigh Franz MD Unavailable Unavailable Kaleigh Franz MD Unavailable Unavailable Kaleigh Franz MD Unavailable Unavailable Kaleigh Franz MD Unavailable Unavailable Kaleigh Franz MD Unavailable Unavailable Kaleigh Franz MD Unavailable Unavailable Kaleigh Franz MD Unavailable Unavailable Kaleigh Franz MD Unavailable Unavailable Kaleigh Franz MD Unavailable Unavailable Kaleigh Franz MD Unavailable Unavailable Kaleigh Franz MD Unavailable Unavailable Kaleigh Franz MD Unavailable Unavailable Kaleigh Franz MD Unavailable Unavailable Kaleigh Franz MD Unavailable Unavailable Kaleigh Franz MD Unavailable Unavailable Kaleigh Franz MD Unavailable Unavailable Kaleigh Franz MD Unavailable Unavailable Kaleigh Franz MD Unavailable Unavailable Kaleigh Franz MD Unavailable Unavailable Kaleigh Franz MD Unavailable Unavailable Kaleigh Franz MD Unavailable Unavailable Kaleigh Franz MD Unavailable Unavailable Kaleigh Franz MD Unavailable Unavailable Kaleigh Franz MD Unavailable Unavailable Kaleigh Franz MD Unavailable Unavailable Kaleigh Franz MD Unavailable Unavailable Kaleigh Franz MD Unavailable Unavailable Kaleigh Franz MD Unavailable Unavailable Kaleigh Franz MD Unavailable Unavailable Kaleigh Franz MD Unavailable Unavailable Kaleigh Franz MD Unavailable Unavailable Kaleigh Franz MD Unavailable Unavailable Kaleigh Franz MD Unavailable Unavailable Kaleigh Franz MD Unavailable Unavailable Kaleigh Franz MD Unavailable Unavailable Kaleigh Franz MD Unavailable Unavailable Kaleigh Franz MD Unavailable Unavailable Kaleigh Franz MD Unavailable Unavailable Kaleigh Franz MD Unavailable Unavailable Kaleigh Franz MD Unavailable Unavailable Kaleigh Franz MD Unavailable Unavailable Kaleigh Franz MD Unavailable Unavailable Kaleigh Franz MD Unavailable Unavailable Kaleigh Franz MD Unavailable Unavailable Kaleigh Franz MD Unavailable Unavailable Kaleigh Franz MD Unavailable Unavailable Kaleigh Franz MD Unavailable Unavailable Kaleigh Franz MD Unavailable Unavailable Kaleigh Franz MD Unavailable Unavailable Kaleigh Franz MD Unavailable Unavailable Kaleigh Franz MD Unavailable Unavailable Kaleigh Franz MD Unavailable Unavailable Kaleigh Franz MD Unavailable Unavailable Kaleigh Franz MD Unavailable Unavailable Kaleigh Franz MD Unavailable Unavailable Kaleigh Franz MD Unavailable Unavailable Maryam, [id number] MD Gerson MCLAUGHLIN Unavailable Unavailable Maryam, [id number] MD Gerson [place] Unavailable Unavailable Maryam, [id number] MD Gerson [place] Unavailable Unavailable LEIBELSPERGER, HANANE PA Unavailable Unavailable LEIBELSPERGER, HANANE PA Unavailable Unavailable LEIBELSPERGER, HANANE PA Unavailable Unavailable LEIBELSPERGER, HANANE PA Unavailable Unavailable LEIBELSPERGER, HANANE PA Unavailable Unavailable LEIBELSPERGER, HANANE PA Unavailable Unavailable LEIBELSPERGER, HANANE PA Unavailable Unavailable LEIBELSPERGER, HANANE PA Unavailable Unavailable LEIBELSPERGER, HANANE PA Unavailable Unavailable LEIBELSPERGER, HANANE PA Unavailable Unavailable LEIBELSPERGER, HANANE PA Unavailable Unavailable LEIBELSPERGER, HANANE PA Unavailable Unavailable LEIBELSPERGER, HANANE PA Unavailable Unavailable LEIBELSPERGER, HANANE PA Unavailable Unavailable LEIBELSPERGER, HANANE PA Unavailable Unavailable LEIBELSPERGER, HANANE PA Unavailable Unavailable LEIBELSPERGER, HANANE PA Unavailable Unavailable LEIBELSPERGER, HANANE PA Unavailable Unavailable LEIBELSPERGER, HANANE PA Unavailable Unavailable LEIBELSPERGER, HANANE PA Unavailable Unavailable LEIBELSPERGER, HANANE PA Unavailable Unavailable LEIBELSPERGER, HANANE PA Unavailable Unavailable LEIBELSPERGER, HANANE PA Unavailable Unavailable Bandar Vazquez MD Unavailable Unavailable Reggie Beltran MD Unavailable Unavailable Reggie Beltran MD Unavailable Unavailable Rosalia Valdes MD Unavailable Unavailable Reg Roman MD Unavailable Unavailable Reg Roman MD Unavailable Unavailable Lor Ragland MD Unavailable Unavailable Lor Ragland MD Unavailable Unavailable Lor Ragland MD Unavailable Unavailable Lor Ragland MD Unavailable Unavailable Jack VELIZ MD Unavailable Unavailable Jack VELIZ MD Unavailable Unavailable Jack VELIZ MD Unavailable Unavailable Jack VELIZ MD Unavailable Unavailable Jack VELIZ MD Unavailable Unavailable Jack VELIZ MD Unavailable Unavailable Jack VELIZ MD Unavailable Unavailable Jack VELIZ MD Unavailable Unavailable Jack VELIZ MD Unavailable Unavailable Jack VELIZ MD Unavailable Unavailable Jack VELIZ MD Unavailable Unavailable Jack VELIZ MD Unavailable Unavailable Jack VELIZ MD Unavailable Unavailable Jack VELIZ MD Unavailable Unavailable Jack VELIZ MD Unavailable Unavailable Jack VELIZ MD Unavailable Unavailable Jack VELIZ MD Unavailable Unavailable Jack VELIZ MD Unavailable Unavailable Jack VELIZ MD Unavailable Unavailable Jack VELIZ MD Unavailable Unavailable Jack VELIZ MD Unavailable Unavailable Jack VELIZ MD Unavailable Unavailable Jack VELIZ MD Unavailable Unavailable Jack VELIZ MD Unavailable Unavailable Jack VELIZ MD Unavailable Unavailable Jack VELIZ MD Unavailable Unavailable Jack VELIZ MD Unavailable Unavailable Jack VELIZ MD Unavailable Unavailable Jack VELIZ MD Unavailable Unavailable Jack VELIZ MD Unavailable Unavailable Jack VELIZ MD Unavailable Unavailable Jack VELIZ MD Unavailable Unavailable Jack VELIZ MD Unavailable Unavailable Jack VELIZ MD Unavailable Unavailable Jack VELIZ MD Unavailable Unavailable Jack VELIZ MD Unavailable Unavailable Jack VELIZ MD Unavailable Unavailable Jack VELIZ MD Unavailable Unavailable Jack VELIZ MD Unavailable Unavailable Jack VELIZ MD Unavailable Unavailable Cash Bautista MD Unavailable Unavailable Navi Hunt MD Unavailable Unavailable Joni Stoll MD Unavailable Unavailable Joni Stoll MD Unavailable Unavailable Joni Stoll MD Unavailable Unavailable Joni Stoll MD Unavailable Unavailable Joni Stoll MD Unavailable Unavailable Joni Stoll MD Unavailable Unavailable Joni Stoll MD Unavailable Unavailable Joni Stollah Unavailable Unavailable Joni Stollah Unavailable Unavailable Joni Stollah Unavailable Unavailable Jerman O Samah Unavailable Unavailable Joni Stoll MD Unavailable Unavailable Joni Stoll MD Unavailable Unavailable Joni Stoll MD Unavailable Unavailable Joni Stoll MD Unavailable Unavailable Joni Stoll MD Unavailable Unavailable Joni Stoll MD Unavailable Unavailable Joni Stoll MD Unavailable Unavailable Joni Stoll MD Unavailable Unavailable Joni Stoll MD Unavailable Unavailable Joni Stoll MD Unavailable Unavailable Joni Stoll MD Unavailable Unavailable Joni Stoll MD Unavailable Unavailable Joni Stoll MD Unavailable Unavailable Joni Stoll MD Unavailable Unavailable Joni Stoll MD Unavailable Unavailable Joni Stoll MD Unavailable Unavailable Joni Stoll MD Unavailable Unavailable Joni Stoll MD Unavailable Unavailable Joni Stoll MD Unavailable Unavailable Joni Stoll MD Unavailable Unavailable Joni Stoll MD Unavailable Unavailable Joni Stoll MD Unavailable Unavailable Joni Stoll MD Unavailable Unavailable Joni Stoll MD Unavailable Unavailable Joni Stoll MD Unavailable Unavailable Joni Stoll MD Unavailable Unavailable Joni Stoll MD Unavailable Unavailable Joni Stoll MD Unavailable Unavailable Joni Stoll MD Unavailable Unavailable Joni Stoll MD Unavailable Unavailable Joni Stoll MD Unavailable Unavailable Joni Stoll MD Unavailable Unavailable Joni Stoll MD Unavailable Unavailable Joni Stoll MD Unavailable Unavailable Joni Stoll MD Unavailable Unavailable Joni Stoll MD Unavailable Unavailable Joni Stoll MD Unavailable Unavailable Joni Stoll MD Unavailable Unavailable Joni Stoll MD Unavailable Unavailable Joni Stoll MD Unavailable Unavailable Joni Stoll MD Unavailable Unavailable Joni Stoll MD Unavailable Unavailable Joni Stoll MD Unavailable Unavailable Joni Stoll MD Unavailable Unavailable Joni Stoll MD Unavailable Unavailable Joni Stoll MD Unavailable Unavailable Joni Stoll MD Unavailable Unavailable Joni Stoll MD Unavailable Unavailable Joni Stoll MD Unavailable Unavailable Joni Stoll MD Unavailable Unavailable Joni Stoll MD Unavailable Unavailable Joni Stoll MD Unavailable Unavailable Joni Stoll MD Unavailable Unavailable Joni Stoll MD Unavailable Unavailable Joni Stoll MD Unavailable Unavailable Joni Stoll MD Unavailable Unavailable Joni Stoll MD Unavailable Unavailable Joni Stoll MD Unavailable Unavailable Joni Stoll MD Unavailable Unavailable Joni Stoll MD Unavailable Unavailable Joni Stoll MD Unavailable Unavailable Joni Stoll MD Unavailable Unavailable Joni Stoll MD Unavailable Unavailable Joni Stoll MD Unavailable Unavailable Werchinski, L Brenna PA Unavailable Unavailable Werchinski, L Brenna PA Unavailable Unavailable Werchinski, L Brenna PA Unavailable Unavailable Werchinski, L Brenna PA Unavailable Unavailable Werchinski, L Brenna PA Unavailable Unavailable Werchinski, L Brenna PA Unavailable Unavailable Werchinski, L Brenna PA Unavailable Unavailable Werchinski, L Brenna PA Unavailable Unavailable Werchinski, L Brenna PA Unavailable Unavailable Werchinski, L Brenna PA Unavailable Unavailable Werchinski, L Brenna PA Unavailable Unavailable Werchinski, L Brenna PA Unavailable Unavailable Werchinski, L Brenna PA Unavailable Unavailable Werchinski, L Brenna PA Unavailable Unavailable Werchinski, L Brenna PA Unavailable Unavailable Werchinski, L Brenna PA Unavailable Unavailable Werchinski, L Brenna PA Unavailable Unavailable Werchinski, L Brenna PA Unavailable Unavailable Werchinski, L Brenna PA Unavailable Unavailable Werchinski, L Brenna PA Unavailable Unavailable Werchinski, L Brenna PA Unavailable Unavailable Werchinski, L Brenna PA Unavailable Unavailable Werchinski, L Brenna PA Unavailable Unavailable Werchinski, L Brenna PA Unavailable Unavailable Werchinski, L Brenna PA Unavailable Unavailable Werchinski, L Brenna PA Unavailable Unavailable Werchinski, L Brenna PA Unavailable Unavailable Werchinski, L Brenna PA Unavailable Unavailable Werchinski, L Brenna PA Unavailable Unavailable Werchinski, L Brenna PA Unavailable Unavailable Werchinski, L Brenna PA Unavailable Unavailable Werchinski, L Brenna PA Unavailable Unavailable Werchinski, L Brenna PA Unavailable Unavailable Re-disclosure Warning The records that you are about to access may contain information from federally-assisted alcohol or drug abuse programs. If such information is present, then the following federally mandated warning applies: This information has been disclosed to you from records protected by federal confidentiality rules (42 CFR part 2). The federal rules prohibit you from making any further disclosure of this information unless further disclosure is expressly permitted by the written consent of the person to whom it pertains or as otherwise permitted by 42 CFR part 2. A general authorization for the release of medical or other information is NOT sufficient for this purpose. The Federal rules restrict any use of the information to criminally investigate or prosecute any alcohol or drug abuse patient.The records that you are about to access may contain highly sensitive health information, the redisclosure of which is protected by Article 27-F of the [facility] Public Health law. If you continue you may have access to information: Regarding HIV / AIDS; Provided by facilities licensed or operated by the [facility] Office of Mental Health; or Provided by the [facility] Office for People With Developmental Disabilities. If such information is present, then the following [facility] mandated warning applies: This information has been disclosed to you from confidential records which are protected by state law. State law prohibits you from making any further disclosure of this information without the specific written consent of the person to whom it pertains, or as otherwise permitted by law. Any unauthorized further disclosure in violation of state law may result in a fine or custodial sentence or both. A general authorization for the release of medical or other information is NOT sufficient authorization for further disc losure. Allergies and Adverse Reactions Type Description Substance Reaction Status Data Source(s ) Drug allergy No Known Drug Allergies No Known Drug Allergies [facility] Family History Family Member Name Family Member Gender Family Member Status Date o f Status Description Data Source(s) Unknown Female Problem [facility] ([facility]) Unknown Female Problem [facility] ([facility]) Unknown Female Problem [facility] ([facility]) Encounters Encounter Providers Location Date Indications Data Source(s ) Preadmit Attender: Josesito Ragland MD 08/18/2020 07: 30:00 AM EST M75.100/RT SHOULDER [id number] [facility] M75.100/RT SHOULDER [id number] Office Visit Attender: Arabella Stoll MD Main office - [facility] 08/07/2020 11:30:00 AM EST [facility] ([facility] ) Outpatient Attender: HANANE HOOVER PAReferrer: Jacy Franz MD 08/07/2020 08:30:00 AM EST - 08/07/2020 09:16:00 AM EST [facility] Outpatient Attender: Sánchez Valdes MD 08/07/2020 07:55:00 A M EST N20.0 [facility] N20.0 Outpatient Attender: Jacy CARRERAeferrer: Jacy mora MD 07/31/2020 08:56:00 AM EST - 07/31/2020 09:30:00 AM EST [facility] Outpatient Attender: Jacy Franz MD 07/31/2020 07:56:0 0 AM EST D64.9 [facility] D64.9 Unknown [address] [facility] [id number] 07/26/2020 12:00:00 AM EST eCW1 ([facility]) Outpatient Attender: HANANE BRUNO 0 07:55:00 AM EST SCREENING Z12.31,E78.2,Z01.818,E03.9,I10 [facility] SCREENING Z12.31,E78.2,Z01.818,E03.9,I10 Unknown [address] [facility] [id number] 07/20/2020 12:00:00 AM EST eCW1 ([facility]) Outpatient [address] [facility] [id number] 07/18/2020 12:00:00 AM EST eCW1 ([facility]) Emergency Attender: Bandar Vazquez MD 06/28 01:02:00 PM EST - 07/17/2020 04:55:00 PM EST [facility] Patient discharged. Outpatient Attender: ALBERTO VELIZ MD 07/13/2020 11:40:00 AM EST Z87.898 [facility] Z87.898 Admission cancelled. Disregard status an d admitted date. Outpatient Attender: Jacy Franz MDReferrer: Jacy mora MD 07/03/2020 09:24:00 AM EST [facility] Out[facility] Attender: HANANE HOOVER PAReferrer: Jacy Franz MD 06/21/2020 08:32:00 AM EST [facility] Attender: HANANE BRUNO 0 07:28:00 AM EST THIRD DIGIT LT HAND [facility] THIRD DIGIT LT HAND Outpatient Attender: Josesito Ragland MDReferrer: Jacy williamson MD 05/29/2020 03:11:00 PM EST - 05/29/2020 03:50:00 PM EST [facility] Outpatient Attender: Jacy Franz MDReferrer: Jacy mora MD 05/29/2020 02:56:00 PM EST - 05/29/2020 03:09:00 PM EST [facility] Outpatient Attender: Jacy Franz MD 05/08/2020 0 2:41:00 PM EDT RT SHOULDER STRAIN [facility] RT SHOULDER STRAIN Outpatient Attender: Jacy Franz MD 05/01/2020 07:29:0 0 AM EDT E03.9 [facility] E03.9 Office Visit Attender: Arabella Stoll MD Main office - [facility] 04/24/2020 02:00:00 PM EDT MED[facility] ([facility], ) Outpatient Attender: Navi Hunt MDReferrer: Jacy Franz MD 04/05/2020 08:39:00 AM EDT - 04/05/2020 09:06:00 AM EDT [facility] Outpatient Attender: Chio Roman MD 04/04/2020 08:13:00 AM EDT M79.641 [facility] M79.641 Outpatient Attender: [id number] Gerson Francisco MD 02/21/2020 08:46:00 AM EDT - 02/21/2020 12:45:00 PM EDT Z12.11/COLONOSCOPY [id number] [facility] Z12.11/COLONOSCOPY [id number] Patient discharged. Outpatient Attender: [id number] Gerson Francisco MD 020 12:08:00 PM EDT PRE OP COVID TESTING [facility] PRE OP COVID TESTING Outpatient Attender: Jacy Franz MDReferrer: Jacy mora MD 02/14/2020 09:43:00 AM EDT - 02/14/2020 10:14:00 AM EDT [facility] Outpatient Attender: [id number] Gerson Francisco MDReferrer: Triny Franz MD 01/25/2020 08:50:00 AM EDT - 01/25/2020 09:18:00 AM EDT [facility] Outpatient Attender: Jacy Franz MD 01/25/2020 07:50:0 0 AM EDT [address] [place] [address] E03.9 Outpatient Attender: Jacy Franz MDReferrer: Jacy mora MD 12/27/2019 08:42:00 AM EDT - 12/27/2019 09:27:00 AM EDT [facility] Outpatient Attender: Jacy Franz MD 12/27/2019 07:25:0 0 AM EDT [address] [place] [address] E03.9 Outpatient Attender: Jacy Franz MD 11/22/2019 08:01:0 0 AM EDT [address] [place] [address] E03.9 Outpatient Attender: HANANE LUNAeferrer: Jacy Franz MD 11/03/2019 08:37:00 AM EDT - 11/03/2019 08:52:00 AM EDT [facility] Outpatient Attender: HANANE Yunerrer: Jacy Franz MD 10/15/2019 09:01:00 AM EDT - 10/15/2019 09:31:00 AM EDT [facility] Outpatient Attender: Navi Hunt MD 10/05/19 10:04:00 AM EDT - 10/05/2019 04:01:00 PM EDT RIGHT 06337/G56.01 [facility] RIGHT 76924/G56.01 Patient discharged. Outpatient Attender: Chio Roman MD 10/04/2019 01:08:00 PM EDT M25.539 [facility] M25.539 Outpatient Attender: Navi Hunt MDReferrer: Jacy Franz MD 10/04/2019 12:48:00 PM EDT - 10/04/2019 02:04:00 PM EDT [facility] Outpatient Attender: Jacy Franz MDReferrer: Jacy mora MD 09/27/2019 08:58:00 AM EST - 09/27/2019 09:35:00 AM EST [facility] Outpatient Attender: Jacy Franz MD 09/27/2019 07:02:0 0 AM EST E03.9 [facility] E03.9 Outpatient Attender: Brenna Jamil PAReferrer: Jacy winn MD 09/13/2019 09:16:00 AM EST - 09/13/2019 09:40:00 AM EST [facility] Outpatient Attender: Jacy Franz MDReferrer: Jacy mora MD 08/30/2019 09:24:00 AM EST - 08/30/2019 09:54:00 AM EST [facility] Outpatient Attender: Jacy Franz MD 08/25/2019 1 2:00:00 AM EST E03.9,E78.5 [facility] E03.9,E78.5 Recurring Patient Referrer: Barry Beltran MD 08/19/2019 02:1 0:39 PM EST [facility] Outpatient Attender: Josesito Ragland MD 07/14/2019 08: 58:00 AM EST TOTAL KNEE ARTHROPLASTY [facility] TOTAL KNEE ARTHROPLASTY Outpatient Attender: Cash Bautista MD 07/05/2019 07 :04:00 AM EST LT WRIST PAIN,ORTHO [facility] LT WRIST PAIN,ORTHO Outpatient Attender: Jacy Franz MD 08/2018 08:54:00 AM EST - 06/28/2019 09:30:00 AM EST [facility] Outpatient Attender: Jacy Franz MD 06/28/2019 07:00:0 0 AM EST E03.9/PAIN [facility] E03.9/PAIN Immunizations Vaccine Date Status Description Data Source(s) IIV3. This is one of two codes replacing CVX 15, which is being retired. 05/29/2020 12:00:00 AM EST completed influenza vaccine, inactivated [facility] IIV3. This is one of two codes replacing CVX 15, which is being retired. 05/29/2020 12:00:00 AM EST completed influenza vaccine, inactivated [facility] IIV3. This is one of two codes replacing CVX 15, which is being retired. 05/29/2020 12:00:00 AM EST completed influenza vaccine, inactivated [facility] IIV3. This is one of two codes replacing CVX 15, which is being retired. 05/29/2020 12:00:00 AM EST completed influenza vaccine, inactivated [facility] IIV3. This is one of two codes replacing CVX 15, which is being retired. 05/29/2020 12:00:00 AM EST completed influenza vaccine, inactivated [facility] IIV3. This is one of two codes replacing CVX 15, which is being retired. 06/28/2019 12:00:00 AM EST completed influenza vaccine, inactivated [facility] IIV3. This is one of two codes replacing CVX 15, which is being retired. 06/28/2019 12:00:00 AM EST completed influenza vaccine, inactivated [facility] IIV3. This is one of two codes replacing CVX 15, which is being retired. 06/28/2019 12:00:00 AM EST completed influenza vaccine, inactivated [facility] IIV3. This is one of two codes replacing CVX 15, which is being retired. 06/28/2019 12:00:00 AM EST completed influenza vaccine, inactivated [facility] IIV3. This is one of two codes replacing CVX 15, which is being retired. 06/28/2019 12:00:00 AM EST completed influenza vaccine, inactivated [facility] IIV3. This is one of two codes replacing CVX 15, which is being retired. 06/28/2019 12:00:00 AM EST completed influenza vaccine, inactivated [facility] IIV3. This is one of two codes replacing CVX 15, which is being retired. 06/28/2019 12:00:00 AM EST completed influenza vaccine, inactivated [facility] IIV3. This is one of two codes replacing CVX 15, which is being retired. 06/28/2019 12:00:00 AM EST completed influenza vaccine, inactivated [facility] IIV3. This is one of two codes replacing CVX 15, which is being retired. 06/28/2019 12:00:00 AM EST completed influenza vaccine, inactivated [facility] IIV3. This is one of two codes replacing CVX 15, which is being retired. 06/28/2019 12:00:00 AM EST completed influenza vaccine, inactivated [facility] IIV3. This is one of two codes replacing CVX 15, which is being retired. 06/28/2019 12:00:00 AM EST completed influenza vaccine, inactivated [facility] IIV3. This is one of two codes replacing CVX 15, which is being retired. 06/28/2019 12:00:00 AM EST completed influenza vaccine, inactivated [facility] IIV3. This is one of two codes replacing CVX 15, which is being retired. 06/28/2019 12:00:00 AM EST completed influenza vaccine, inactivated [facility] IIV3. This is one of two codes replacing CVX 15, which is being retired. 06/28/2019 12:00:00 AM EST completed influenza vaccine, inactivated [facility] IIV3. This is one of two codes replacing CVX 15, which is being retired. 06/28/2019 12:00:00 AM EST completed influenza vaccine, inactivated [facility] IIV3. This is one of two codes replacing CVX 15, which is being retired. 06/28/2019 12:00:00 AM EST completed influenza vaccine, inactivated [facility] IIV3. This is one of two codes replacing CVX 15, which is being retired. 06/28/2019 12:00:00 AM EST completed influenza vaccine, inactivated [facility] IIV3. This is one of two codes replacing CVX 15, which is being retired. 06/28/2019 12:00:00 AM EST completed influenza vaccine, inactivated [facility] IIV3. This is one of two codes replacing CVX 15, which is being retired. 06/28/2019 12:00:00 AM EST completed influenza vaccine, inactivated [facility] IIV3. This is one of two codes replacing CVX 15, which is being retired. 06/28/2019 12:00:00 AM EST completed influenza vaccine, inactivated [facility] IIV3. This is one of two codes replacing CVX 15, which is being retired. 06/28/2019 12:00:00 AM EST completed influenza vaccine, inactivated [facility] IIV3. This is one of two codes replacing CVX 15, which is being retired. 06/28/2019 12:00:00 AM EST completed influenza vaccine, inactivated [facility] Medications Medication Brand Name Start Date Product Form Dose Route Admi nistrative Instructions Pharmacy Instructions Status Indications Reaction Description Data Source(s) Levothyroxine Sodium 0.075 MG Oral Table t [Synthroid] Levothyroxine (Synthroid) 75 mcg tablet Levothyroxine (Synthroid) 75 mcg tablet 07/26/2020 10: 06:57 AM EST 0 active [facility] Levothyroxine Sodium 0.075 MG Oral Table t [Synthroid] Levothyroxine (Synthroid) 75 mcg tablet Levothyroxine (Synthroid) 75 mcg tablet 07/26/2020 10: 06:57 AM EST 0 active [facility] Ketorolac Tromethamine 10 MG Oral Tablet Ketorolac Trometham ine 10 MG 07/20/2020 12:00:00 AM EST active Ketorol ac Tromethamine 10 MG eCW1 ([facility]) Ketorolac Tromethamine 10 MG Oral Tablet Ketorolac Trometham ine 10 MG 07/20/2020 12:00:00 AM EST active Ketorol ac Tromethamine 10 MG eCW1 ([facility]) Ketorolac Tromethamine 10 MG Oral Tablet Ketorolac Trometham ine 10 MG 07/20/2020 12:00:00 AM EST active Ketorol ac Tromethamine 10 MG eCW1 ([facility]) Acetaminophen 325 MG / Oxycodone Hydroch loride 5 MG Oral Tablet Oxycodone- Acetaminophen (Percocet) 5-325 mg tablet Oxycodone-Acetaminophen (Percocet) 5- 325 mg tablet 07/17/2020 04:19:34 PM EST 1 TAB active [facility] Acetaminophen 325 MG / Oxycodone Hydroch loride 5 MG Oral Tablet Oxycodone- Acetaminophen (Percocet) 5-325 mg tablet Oxycodone-Acetaminophen (Percocet) 5- 325 mg tablet 07/17/2020 04:19:34 PM EST 1 TAB active [facility] Acetaminophen 325 MG / Oxycodone Hydroch loride 5 MG Oral Tablet Oxycodone- Acetaminophen (Percocet) 5-325 mg tablet Oxycodone-Acetaminophen (Percocet) 5- 325 mg tablet 07/17/2020 04:19:34 PM EST 1 TAB active [facility] Amitriptyline Hydrochloride 10 MG Oral Tablet Amitriptyline HCL 07/11/2020 12:00:00 AM EST active [facility] ([facility]) Afluria Qd (3yr up)(PF) (flu vac [id number] 36mos up(P F)) 05/29/2020 02:56:12 PM EST 0.5 ML completed [facility] Afluria Qd (3yr up)(PF) (flu vac [id number] 36mos up(P F)) 05/29/2020 02:56:12 PM EST 0.5 ML completed [facility] Afluria Qd (3yr up)(PF) (flu vac [id number] 36mos up(P F)) 05/29/2020 02:56:12 PM EST 0.5 ML completed [facility] Afluria Qd 2019-(3yr up)(PF) (flu vac [id number] 36mos up(P F)) 05/29/2020 02:56:12 PM EST 0.5 ML completed [facility] Afluria Qd 2019-(3yr up)(PF) (flu vac [id number] 36mos up(P F)) 05/29/2020 02:56:12 PM EST 0.5 ML completed [facility] Levothyroxine Sodium 0.075 MG Oral Table t [Synthroid] Levothyroxine (Synthroid) 75 mcg tablet Levothyroxine (Synthroid) 75 mcg tablet 05/01/2020 12: 48:34 PM EDT 75 MCG active [facility] Levothyroxine Sodium 0.075 MG Oral Table t [Synthroid] Levothyroxine (Synthroid) 75 mcg tablet Levothyroxine (Synthroid) 75 mcg tablet 05/01/2020 12: 48:34 PM EDT 75 MCG active [facility] Levothyroxine Sodium 0.075 MG Oral Table t [Synthroid] Levothyroxine (Synthroid) 75 mcg tablet Levothyroxine (Synthroid) 75 mcg tablet 05/01/2020 12: 48:34 PM EDT 75 MCG completed [facility] Levothyroxine Sodium 0.075 MG Oral Table t [Synthroid] Levothyroxine (Synthroid) 75 mcg tablet Levothyroxine (Synthroid) 75 mcg tablet 05/01/2020 12: 48:34 PM EDT 75 MCG active [facility] Levothyroxine Sodium 0.075 MG Oral Table t [Synthroid] Levothyroxine (Synthroid) 75 mcg tablet Levothyroxine (Synthroid) 75 mcg tablet 05/01/2020 12: 48:34 PM EDT 75 MCG active [facility] Levothyroxine Sodium 0.075 MG Oral Table t [Synthroid] Levothyroxine (Synthroid) 75 mcg tablet Levothyroxine (Synthroid) 75 mcg tablet 05/01/2020 12: 48:34 PM EDT 75 MCG active [facility] Levothyroxine Sodium 0.075 MG Oral Table t [Synthroid] Levothyroxine (Synthroid) 75 mcg tablet Levothyroxine (Synthroid) 75 mcg tablet 05/01/2020 12: 48:34 PM EDT 75 MCG completed [facility] atorvastatin 40 MG Oral Tablet Atorvastatin (Lipitor) 40 mg tablet Atorvastatin (Lipitor) 40 mg tablet 05/01/2020 12:47:17 PM EDT 40 MG active [facility] atorvastatin 40 MG Oral Tablet Atorvastatin (Lipitor) 40 mg tablet Atorvastatin (Lipitor) 40 mg tablet 05/01/2020 12:47:17 PM EDT 40 MG active [facility] atorvastatin 40 MG Oral Tablet Atorvastatin (Lipitor) 40 mg tablet Atorvastatin (Lipitor) 40 mg tablet 05/01/2020 12:47:17 PM EDT 40 MG active [facility] atorvastatin 40 MG Oral Tablet Atorvastatin (Lipitor) 40 mg tablet Atorvastatin (Lipitor) 40 mg tablet 05/01/2020 12:47:17 PM EDT 40 MG active [facility] atorvastatin 40 MG Oral Tablet Atorvastatin (Lipitor) 40 mg tablet Atorvastatin (Lipitor) 40 mg tablet 05/01/2020 12:47:17 PM EDT 40 MG active [facility] atorvastatin 40 MG Oral Tablet Atorvastatin (Lipitor) 40 mg tablet Atorvastatin (Lipitor) 40 mg tablet 05/01/2020 12:47:17 PM EDT 40 MG active [facility] atorvastatin 40 MG Oral Tablet Atorvastatin (Lipitor) 40 mg tablet Atorvastatin (Lipitor) 40 mg tablet 05/01/2020 12:47:17 PM EDT 40 MG [facility] Sumatriptan 50 MG Oral Tablet [Imitrex] Sumatriptan Succinate (Imitrex) 50 mg tablet Sumatriptan Succinate (Imitrex) 50 mg tablet 04/24/2020 09:5 1:45 AM EDT [address] [facility] Sumatriptan 50 MG Oral Tablet [Imitrex] Sumatriptan Succinate (Imitrex) 50 mg tablet Sumatriptan Succinate (Imitrex) 50 mg tablet 04/24/2020 09:5 1:45 AM EDT [address] [facility] Sumatriptan 50 MG Oral Tablet [Imitrex] Sumatriptan Succinate (Imitrex) 50 mg tablet Sumatriptan Succinate (Imitrex) 50 mg tablet 04/24/2020 09:5 1:45 AM EDT 50 MG active [facility] Sumatriptan 50 MG Oral Tablet [Imitrex] Sumatriptan Succinate (Imitrex) 50 mg tablet Sumatriptan Succinate (Imitrex) 50 mg tablet 04/24/2020 09:5 1:45 AM EDT [address] [facility] Sumatriptan 50 MG Oral Tablet [Imitrex] Sumatriptan Succinate (Imitrex) 50 mg tablet Sumatriptan Succinate (Imitrex) 50 mg tablet 04/24/2020 09:5 1:45 AM EDT 50 MG active [facility] Sumatriptan 50 MG Oral Tablet [Imitrex] Sumatriptan Succinate (Imitrex) 50 mg tablet Sumatriptan Succinate (Imitrex) 50 mg tablet 04/24/2020 09:5 1:45 AM EDT 50 MG active [facility] Sumatriptan 50 MG Oral Tablet [Imitrex] Sumatriptan Succinate (Imitrex) 50 mg tablet Sumatriptan Succinate (Imitrex) 50 mg tablet 04/24/2020 09:5 1:45 AM EDT 50 MG completed [facility] Sumatriptan 50 MG Oral Tablet [Imitrex] Sumatriptan Succinate (Imitrex) 50 mg tablet Sumatriptan Succinate (Imitrex) 50 mg tablet 04/19/2020 12:2 9:16 PM EDT 50 MG completed [facility] Sumatriptan 50 MG Oral Tablet [Imitrex] Sumatriptan Succinate (Imitrex) 50 mg tablet Sumatriptan Succinate (Imitrex) 50 mg tablet 04/19/2020 12:2 9:16 PM EDT 50 MG completed [facility] Sumatriptan 50 MG Oral Tablet [Imitrex] Sumatriptan Succinate (Imitrex) 50 mg tablet Sumatriptan Succinate (Imitrex) 50 mg tablet 04/19/2020 12:2 9:16 PM EDT 50 MG completed [facility] Sumatriptan 50 MG Oral Tablet [Imitrex] Sumatriptan Succinate (Imitrex) 50 mg tablet Sumatriptan Succinate (Imitrex) 50 mg tablet 04/19/2020 12:2 9:16 PM EDT 50 MG completed [facility] Sumatriptan 50 MG Oral Tablet [Imitrex] Sumatriptan Succinate (Imitrex) 50 mg tablet Sumatriptan Succinate (Imitrex) 50 mg tablet 04/19/2020 12:2 9:16 PM EDT 50 MG completed [facility] Sumatriptan 50 MG Oral Tablet [Imitrex] Sumatriptan Succinate (Imitrex) 50 mg tablet Sumatriptan Succinate (Imitrex) 50 mg tablet 04/19/2020 12:2 9:16 PM EDT 50 MG completed [facility] Sumatriptan 50 MG Oral Tablet [Imitrex] Sumatriptan Succinate (Imitrex) 50 mg tablet Sumatriptan Succinate (Imitrex) 50 mg tablet 04/19/2020 12:2 9:16 PM EDT 50 MG completed [facility] Levothyroxine Sodium 0.088 MG Oral Table t Levothyroxine (Synthroid) 88 mcg tablet Levothyroxine (Synthroid) 88 mcg tablet 03/27/2020 12:43:46 PM E DT 88 MCG completed [facility] Levothyroxine Sodium 0.088 MG Oral Table t Levothyroxine (Synthroid) 88 mcg tablet Levothyroxine (Synthroid) 88 mcg tablet 03/27/2020 12:43:46 PM E DT 88 MCG completed [facility] Levothyroxine Sodium 0.088 MG Oral Table t Levothyroxine (Synthroid) 88 mcg tablet Levothyroxine (Synthroid) 88 mcg tablet 03/27/2020 12:43:46 PM E DT 88 MCG completed [facility] Levothyroxine Sodium 0.088 MG Oral Table t Levothyroxine (Synthroid) 88 mcg tablet Levothyroxine (Synthroid) 88 mcg tablet 03/27/2020 12:43:46 PM E DT 88 MCG completed [facility] Levothyroxine Sodium 0.088 MG Oral Table t Levothyroxine (Synthroid) 88 mcg tablet Levothyroxine (Synthroid) 88 mcg tablet 03/27/2020 12:43:46 PM E DT 88 MCG completed [facility] Levothyroxine Sodium 0.088 MG Oral Table t Levothyroxine (Synthroid) 88 mcg tablet Levothyroxine (Synthroid) 88 mcg tablet 03/27/2020 12:43:46 PM E DT 88 MCG completed [facility] Levothyroxine Sodium 0.088 MG Oral Table t Levothyroxine (Synthroid) 88 mcg tablet Levothyroxine (Synthroid) 88 mcg tablet 03/27/2020 12:43:46 PM E DT 88 MCG completed [facility] Levothyroxine Sodium 0.088 MG Oral Table t Levothyroxine (Synthroid) 88 mcg tablet Levothyroxine (Synthroid) 88 mcg tablet 03/27/2020 12:43:46 PM E DT 88 MCG active [facility] Levothyroxine Sodium 0.088 MG Oral Table t Levothyroxine (Synthroid) 88 mcg tablet Levothyroxine (Synthroid) 88 mcg tablet 02/17/2020 09:31:44 AM E DT 88 MCG active [facility] Levothyroxine Sodium 0.088 MG Oral Table t Levothyroxine (Synthroid) 88 mcg tablet Levothyroxine (Synthroid) 88 mcg tablet 02/17/2020 09:31:44 AM E DT 88 MCG active [facility] Levothyroxine Sodium 0.088 MG Oral Table t Levothyroxine (Synthroid) 88 mcg tablet Levothyroxine (Synthroid) 88 mcg tablet 02/17/2020 09:31:44 AM E DT 88 MCG completed [facility] Levothyroxine Sodium 0.088 MG Oral Table t Levothyroxine (Synthroid) 88 mcg tablet Levothyroxine (Synthroid) 88 mcg tablet 02/17/2020 09:31:44 AM E DT 88 MCG completed [facility] Levothyroxine Sodium 0.088 MG Oral Table t Levothyroxine (Synthroid) 88 mcg tablet Levothyroxine (Synthroid) 88 mcg tablet 02/17/2020 09:31:44 AM E DT 88 MCG completed [facility] Levothyroxine Sodium 0.088 MG Oral Table t Levothyroxine (Synthroid) 88 mcg tablet Levothyroxine (Synthroid) 88 mcg tablet 02/17/2020 09:31:44 AM E DT 88 MCG completed [facility] Levothyroxine Sodium 0.088 MG Oral Table t Levothyroxine (Synthroid) 88 mcg tablet Levothyroxine (Synthroid) 88 mcg tablet 02/17/2020 09:31:44 AM E DT 88 MCG completed [facility] Levothyroxine Sodium 0.088 MG Oral Table t Levothyroxine (Synthroid) 88 mcg tablet Levothyroxine (Synthroid) 88 mcg tablet 02/17/2020 09:31:44 AM E DT 88 MCG completed [facility] Levothyroxine Sodium 0.088 MG Oral Table t Levothyroxine (Synthroid) 88 mcg tablet Levothyroxine (Synthroid) 88 mcg tablet 02/17/2020 09:31:44 AM E DT 88 MCG completed [facility] Levothyroxine Sodium 0.088 MG Oral Table t Levothyroxine (Synthroid) 88 mcg tablet Levothyroxine (Synthroid) 88 mcg tablet 02/17/2020 09:31:44 AM E DT 88 MCG completed [facility] Levothyroxine Sodium 0.088 MG Oral Table t Levothyroxine (Synthroid) 88 mcg tablet Levothyroxine (Synthroid) 88 mcg tablet 12/27/2019 09:23:35 AM E DT 88 MCG completed [facility] Levothyroxine Sodium 0.088 MG Oral Table t Levothyroxine (Synthroid) 88 mcg tablet Levothyroxine (Synthroid) 88 mcg tablet 12/27/2019 09:23:35 AM E DT 88 MCG completed [facility] Levothyroxine Sodium 0.088 MG Oral Table t Levothyroxine (Synthroid) 88 mcg tablet Levothyroxine (Synthroid) 88 mcg tablet 12/27/2019 09:23:35 AM E DT 88 MCG completed [facility] Levothyroxine Sodium 0.088 MG Oral Table t Levothyroxine (Synthroid) 88 mcg tablet Levothyroxine (Synthroid) 88 mcg tablet 12/27/2019 09:23:35 AM E DT 88 MCG completed [facility] Levothyroxine Sodium 0.088 MG Oral Tablet Levothyroxine 12/27/2019 09:23:35 AM EDT 88 MCG active [facility] Levothyroxine Sodium 0.088 MG Oral Tablet Levothyroxine 12/27/2019 09:23:35 AM EDT 88 MCG active [facility] Levothyroxine Sodium 0.088 MG Oral Table t Levothyroxine (Synthroid) 88 mcg tablet Levothyroxine (Synthroid) 88 mcg tablet 12/27/2019 09:23:35 AM E DT 88 MCG completed [facility] Levothyroxine Sodium 0.088 MG Oral Table t Levothyroxine (Synthroid) 88 mcg tablet Levothyroxine (Synthroid) 88 mcg tablet 12/27/2019 09:23:35 AM E DT 88 MCG completed [facility] Levothyroxine Sodium 0.088 MG Oral Table t Levothyroxine (Synthroid) 88 mcg tablet Levothyroxine (Synthroid) 88 mcg tablet 12/27/2019 09:23:35 AM E DT 88 MCG completed [facility] Levothyroxine Sodium 0.088 MG Oral Table t Levothyroxine (Synthroid) 88 mcg tablet Levothyroxine (Synthroid) 88 mcg tablet 12/27/2019 09:23:35 AM E DT 88 MCG active [facility] Levothyroxine Sodium 0.088 MG Oral Table t Levothyroxine (Synthroid) 88 mcg tablet Levothyroxine (Synthroid) 88 mcg tablet 12/27/2019 09:23:35 AM E DT 88 MCG completed [facility] Levothyroxine Sodium 0.088 MG Oral Table t Levothyroxine (Synthroid) 88 mcg tablet Levothyroxine (Synthroid) 88 mcg tablet 12/27/2019 09:23:35 AM E DT 88 MCG completed [facility] Levothyroxine Sodium 0.088 MG Oral Table t Levothyroxine (Synthroid) 88 mcg tablet Levothyroxine (Synthroid) 88 mcg tablet 12/27/2019 09:23:35 AM E DT 88 MCG completed [facility] Amitriptyline Hydrochloride 25 MG Oral Tablet Amitriptyline 12/27/2019 08:57:34 AM EDT 12.5 MG active [facility] Amitriptyline Hydrochloride 25 MG Oral Tablet Amitriptyline 12/27/2019 08:57:34 AM EDT 12.5 MG active [facility] Amitriptyline Hydrochloride 25 MG Oral Tablet Amitriptyline 12/27/2019 08:57:34 AM EDT 12.5 MG active [facility] Amitriptyline Hydrochloride 25 MG Oral Tablet Amitriptyline 12/27/2019 08:57:34 AM EDT 25 MG active [facility] Amitriptyline Hydrochloride 25 MG Oral Tablet Amitriptyline 12/27/2019 08:57:34 AM EDT 25 MG active [facility] Amitriptyline Hydrochloride 25 MG Oral Tablet Amitriptyline 12/27/2019 08:57:34 AM EDT 12.5 MG active [facility] Amitriptyline Hydrochloride 25 MG Oral Tablet Amitriptyline 12/27/2019 08:57:34 AM EDT 12.5 MG active [facility] Amitriptyline Hydrochloride 25 MG Oral Tablet Amitriptyline 12/27/2019 08:57:34 AM EDT 12.5 MG active [facility] Amitriptyline Hydrochloride 25 MG Oral Tablet Amitriptyline 12/27/2019 08:57:34 AM EDT 12.5 MG active [facility] Amitriptyline Hydrochloride 25 MG Oral Tablet Amitriptyline 12/27/2019 08:57:34 AM EDT 12.5 MG active [facility] Amitriptyline Hydrochloride 25 MG Oral Tablet Amitriptyline 12/27/2019 08:57:34 AM EDT 12.5 MG active [facility] Amitriptyline Hydrochloride 25 MG Oral Tablet Amitriptyline 12/27/2019 08:57:34 AM EDT 12.5 MG active [facility] Amitriptyline Hydrochloride 25 MG Oral Tablet Amitriptyline 12/27/2019 08:57:34 AM EDT 25 MG active [facility] Levothyroxine Sodium 0.112 MG Oral Table t [Synthroid] Levothyroxine (Synthroid) 112 mcg tablet Levothyroxine (Synthroid) 112 mcg tablet 11/23/2019 10 :54:32 AM EDT 112 MCG completed [facility] Levothyroxine Sodium 0.112 MG Oral Tablet [Synthroid] Levoth yroxine 11/23/2019 10:54:32 AM EDT 112 MCG active [facility] Levothyroxine Sodium 0.112 MG Oral Tablet [Synthroid] Levoth yroxine 11/23/2019 10:54:32 AM EDT 112 MCG active [facility] Levothyroxine Sodium 0.112 MG Oral Table t [Synthroid] Levothyroxine (Synthroid) 112 mcg tablet Levothyroxine (Synthroid) 112 mcg tablet 11/23/2019 10 :54:32 AM EDT 112 MCG completed [facility] Levothyroxine Sodium 0.112 MG Oral Table t [Synthroid] Levothyroxine (Synthroid) 112 mcg tablet Levothyroxine (Synthroid) 112 mcg tablet 11/23/2019 10 :54:32 AM EDT 112 MCG completed [facility] Levothyroxine Sodium 0.112 MG Oral Table t [Synthroid] Levothyroxine (Synthroid) 112 mcg tablet Levothyroxine (Synthroid) 112 mcg tablet 11/23/2019 10 :54:32 AM EDT 112 MCG completed [facility] Levothyroxine Sodium 0.112 MG Oral Table t [Synthroid] Levothyroxine (Synthroid) 112 mcg tablet Levothyroxine (Synthroid) 112 mcg tablet 11/23/2019 10 :54:32 AM EDT 112 MCG completed [facility] Levothyroxine Sodium 0.112 MG Oral Table t [Synthroid] Levothyroxine (Synthroid) 112 mcg tablet Levothyroxine (Synthroid) 112 mcg tablet 11/23/2019 10 :54:32 AM EDT 112 MCG completed [facility] Levothyroxine Sodium 0.112 MG Oral Table t [Synthroid] Levothyroxine (Synthroid) 112 mcg tablet Levothyroxine (Synthroid) 112 mcg tablet 11/23/2019 10 :54:32 AM EDT 112 MCG completed [facility] Levothyroxine Sodium 0.112 MG Oral Table t [Synthroid] Levothyroxine (Synthroid) 112 mcg tablet Levothyroxine (Synthroid) 112 mcg tablet 11/23/2019 10 :54:32 AM EDT 112 MCG completed [facility] Levothyroxine Sodium 0.112 MG Oral Table t [Synthroid] Levothyroxine (Synthroid) 112 mcg tablet Levothyroxine (Synthroid) 112 mcg tablet 11/23/2019 10 :54:32 AM EDT 112 MCG completed [facility] Levothyroxine Sodium 0.112 MG Oral Table t [Synthroid] Levothyroxine (Synthroid) 112 mcg tablet Levothyroxine (Synthroid) 112 mcg tablet 11/23/2019 10 :54:32 AM EDT 112 MCG completed [facility] Levothyroxine Sodium 0.112 MG Oral Table t [Synthroid] Levothyroxine (Synthroid) 112 mcg tablet Levothyroxine (Synthroid) 112 mcg tablet 11/23/2019 10 :54:32 AM EDT 112 MCG completed [facility] Amitriptyline Hydrochloride 25 MG Oral Tablet Amitriptyline HCL 10/11/2019 12:00:00 AM EDT active [facility] ([facility]) Naproxen 500 MG Oral Tablet [Naprosyn] Naproxen (Napro syn) 500 mg tablet Naproxen (Naprosyn) 500 mg tablet 10/04/2019 02:44:54 PM EDT 500 MG completed [facility] Naproxen 500 MG Oral Tablet [Naprosyn] Naproxen (Napro syn) 500 mg tablet Naproxen (Naprosyn) 500 mg tablet 10/04/2019 02:44:54 PM EDT 500 MG completed [facility] Levothyroxine Sodium 0.112 MG Oral Table t [Synthroid] Levothyroxine (Synthroid) 112 mcg tablet Levothyroxine (Synthroid) 112 mcg tablet 10/04/2019 02 :44:54 PM EDT 112 MCG completed [facility] Naproxen 500 MG Oral Tablet [Naprosyn] Naproxen 10/04/2019 02:4 4:54 PM EDT 500 MG active [facility] Naproxen 500 MG Oral Tablet [Naprosyn] Naproxen 10/04/2019 02:4 4:54 PM EDT 500 MG active [facility] atorvastatin 40 MG Oral Tablet Atorvastatin (Lipitor) 40 mg tablet Atorvastatin (Lipitor) 40 mg tablet 10/04/2019 02:44:54 PM EDT 40 MG completed [facility] Azithromycin 500 MG Oral Tablet [Zithrom ax] Azithromycin (Zithromax) 500 mg tablet Azithromycin (Zithromax) 500 mg tablet 10/04/2019 02:44:54 PM ED T 500 MG completed [facility] Naproxen 500 MG Oral Tablet [Naprosyn] Naproxen (Napro syn) 500 mg tablet Naproxen (Naprosyn) 500 mg tablet 10/04/2019 02:44:54 PM EDT 500 MG completed [facility] Azithromycin 500 MG Oral Tablet [Zithrom ax] Azithromycin (Zithromax) 500 mg tablet Azithromycin (Zithromax) 500 mg tablet 10/04/2019 02:44:54 PM ED T 500 MG completed [facility] Naproxen 500 MG Oral Tablet [Naprosyn] Naproxen 10/04/2019 02:4 4:54 PM EDT 500 MG active [facility] Levothyroxine Sodium 0.112 MG Oral Tablet [Synthroid] Levoth yroxine 10/04/2019 02:44:54 PM EDT 112 MCG completed [facility] Sumatriptan 50 MG Oral Tablet [Imitrex] Sumatriptan [place] ccinate Sumatriptan Succinate 10/04/2019 02:44:54 PM EDT 50 MG active [facility] atorvastatin 40 MG Oral Tablet Atorvastatin Atorvastatin 10/04/2019 02:44:54 PM EDT 40 MG active [facility] Azithromycin 500 MG Oral Tablet [Zithromax] Azithromycin 10/04/2019 02:44:54 PM EDT 500 MG completed [facility] Levothyroxine Sodium 0.112 MG Oral Table t [Synthroid] Levothyroxine (Synthroid) 112 mcg tablet Levothyroxine (Synthroid) 112 mcg tablet 10/04/2019 02 :44:54 PM EDT 112 MCG completed [facility] Sumatriptan 50 MG Oral Tablet [Imitrex] Sumatriptan Succinate (Imitrex) 50 mg tablet Sumatriptan Succinate (Imitrex) 50 mg tablet 10/04/2019 02:4 4:54 PM EDT 50 MG completed [facility] Sumatriptan 50 MG Oral Tablet [Imitrex] Sumatriptan [place] ccinate Sumatriptan Succinate 10/04/2019 02:44:54 PM EDT 50 MG active [facility] Levothyroxine Sodium 0.112 MG Oral Table t [Synthroid] Levothyroxine (Synthroid) 112 mcg tablet Levothyroxine (Synthroid) 112 mcg tablet 10/04/2019 02 :44:54 PM EDT 112 MCG completed [facility] Levothyroxine Sodium 0.112 MG Oral Table t [Synthroid] Levothyroxine (Synthroid) 112 mcg tablet Levothyroxine (Synthroid) 112 mcg tablet 10/04/2019 02 :44:54 PM EDT 112 MCG completed [facility] Levothyroxine Sodium 0.112 MG Oral Tablet [Synthroid] Levoth yroxine 10/04/2019 02:44:54 PM EDT 112 MCG completed [facility] Naproxen 500 MG Oral Tablet [Naprosyn] Naproxen (Napro syn) 500 mg tablet Naproxen (Naprosyn) 500 mg tablet 10/04/2019 02:44:54 PM EDT 500 MG completed [facility] Azithromycin 500 MG Oral Tablet [Zithromax] Azithromycin 10/04/2019 02:44:54 PM EDT 500 MG active [facility] atorvastatin 40 MG Oral Tablet Atorvastatin Atorvastatin 10/04/2019 02:44:54 PM EDT 40 MG active [facility] Sumatriptan 50 MG Oral Tablet [Imitrex] Sumatriptan Succinate (Imitrex) 50 mg tablet Sumatriptan Succinate (Imitrex) 50 mg tablet 10/04/2019 02:4 4:54 PM EDT 50 MG completed [facility] Azithromycin 500 MG Oral Tablet [Zithrom ax] Azithromycin (Zithromax) 500 mg tablet Azithromycin (Zithromax) 500 mg tablet 10/04/2019 02:44:54 PM ED T 500 MG completed [facility] atorvastatin 40 MG Oral Tablet Atorvastatin Atorvastatin 10/04/2019 02:44:54 PM EDT 40 MG active [facility] Azithromycin 500 MG Oral Tablet [Zithrom ax] Azithromycin (Zithromax) 500 mg tablet Azithromycin (Zithromax) 500 mg tablet 10/04/2019 02:44:54 PM ED T 500 MG completed [facility] Azithromycin 500 MG Oral Tablet [Zithrom ax] Azithromycin (Zithromax) 500 mg tablet Azithromycin (Zithromax) 500 mg tablet 10/04/2019 02:44:54 PM ED T 500 MG completed [facility] Azithromycin 500 MG Oral Tablet [Zithrom ax] Azithromycin (Zithromax) 500 mg tablet Azithromycin (Zithromax) 500 mg tablet 10/04/2019 02:44:54 PM ED T 500 MG completed [facility] Sumatriptan 50 MG Oral Tablet [Imitrex] Sumatriptan [place] ccinate Sumatriptan Succinate 10/04/2019 02:44:54 PM EDT 50 MG active [facility] Naproxen 500 MG Oral Tablet [Naprosyn] Naproxen (Napro syn) 500 mg tablet Naproxen (Naprosyn) 500 mg tablet 10/04/2019 02:44:54 PM EDT 500 MG completed [facility] Sumatriptan 50 MG Oral Tablet [Imitrex] Sumatriptan Succinate (Imitrex) 50 mg tablet Sumatriptan Succinate (Imitrex) 50 mg tablet 10/04/2019 02:4 4:54 PM EDT 50 MG completed [facility] [facility] Sumatriptan 50 MG Oral Tablet [Imitrex] Sumatriptan [place] ccinate Sumatriptan Succinate 10/04/2019 02:44:54 PM EDT 50 MG active [facility] Azithromycin 500 MG Oral Tablet [Zithrom ax] Azithromycin (Zithromax) 500 mg tablet Azithromycin (Zithromax) 500 mg tablet 10/04/2019 02:44:54 PM ED T 500 MG completed [facility] Azithromycin 500 MG Oral Tablet [Zithromax] Azithromycin 10/04/2019 02:44:54 PM EDT 500 MG active [facility] Azithromycin 500 MG Oral Tablet [Zithrom ax] Azithromycin (Zithromax) 500 mg tablet Azithromycin (Zithromax) 500 mg tablet 10/04/2019 02:44:54 PM ED T 500 MG completed [facility] Sumatriptan 50 MG Oral Tablet [Imitrex] Sumatriptan Succinate (Imitrex) 50 mg tablet Sumatriptan Succinate (Imitrex) 50 mg tablet 10/04/2019 02:4 4:54 PM EDT 50 MG active [facility] Sumatriptan 50 MG Oral Tablet [Imitrex] Sumatriptan Succinate (Imitrex) 50 mg tablet Sumatriptan Succinate (Imitrex) 50 mg tablet 10/04/2019 02:4 4:54 PM EDT 50 MG active [facility] Sumatriptan 50 MG Oral Tablet [Imitrex] Sumatriptan Succinate (Imitrex) 50 mg tablet Sumatriptan Succinate (Imitrex) 50 mg tablet 10/04/2019 02:4 4:54 PM EDT 50 MG completed [facility] Naproxen 500 MG Oral Tablet [Naprosyn] Naproxen (Napro syn) 500 mg tablet Naproxen (Naprosyn) 500 mg tablet 10/04/2019 02:44:54 PM EDT 500 MG completed [facility] Azithromycin 500 MG Oral Tablet [Zithromax] Azithromycin 10/04/2019 02:44:54 PM EDT 500 MG completed [facility] Naproxen 500 MG Oral Tablet [Naprosyn] Naproxen 10/04/2019 02:4 4:54 PM EDT 500 MG completed [facility] atorvastatin 40 MG Oral Tablet Atorvastatin (Lipitor) 40 mg tablet Atorvastatin (Lipitor) 40 mg tablet 10/04/2019 02:44:54 PM EDT 40 MG completed [facility] atorvastatin 40 MG Oral Tablet Atorvastatin (Lipitor) 40 mg tablet Atorvastatin (Lipitor) 40 mg tablet 10/04/2019 02:44:54 PM EDT 40 MG active [facility] atorvastatin 40 MG Oral Tablet Atorvastatin (Lipitor) 40 mg tablet Atorvastatin (Lipitor) 40 mg tablet 10/04/2019 02:44:54 PM EDT 40 MG active [facility] Naproxen 500 MG Oral Tablet [Naprosyn] Naproxen (Napro syn) 500 mg tablet Naproxen (Naprosyn) 500 mg tablet 10/04/2019 02:44:54 PM EDT 500 MG completed [facility] Naproxen 500 MG Oral Tablet [Naprosyn] Naproxen (Napro syn) 500 mg tablet Naproxen (Naprosyn) 500 mg tablet 10/04/2019 02:44:54 PM EDT 500 MG completed [facility] Sumatriptan 50 MG Oral Tablet [Imitrex] Sumatriptan [place] ccinate Sumatriptan Succinate 10/04/2019 02:44:54 PM EDT 50 MG active [facility] Sumatriptan 50 MG Oral Tablet [Imitrex] Sumatriptan Succinate (Imitrex) 50 mg tablet Sumatriptan Succinate (Imitrex) 50 mg tablet 10/04/2019 02:4 4:54 PM EDT 50 MG completed [facility] atorvastatin 40 MG Oral Tablet Atorvastatin (Lipitor) 40 mg tablet Atorvastatin (Lipitor) 40 mg tablet 10/04/2019 02:44:54 PM EDT 40 MG completed [facility] Azithromycin 500 MG Oral Tablet [Zithrom ax] Azithromycin (Zithromax) 500 mg tablet Azithromycin (Zithromax) 500 mg tablet 10/04/2019 02:44:54 PM ED T 500 MG completed [facility] Azithromycin 500 MG Oral Tablet [Zithrom ax] Azithromycin (Zithromax) 500 mg tablet Azithromycin (Zithromax) 500 mg tablet 10/04/2019 02:44:54 PM ED T 500 MG completed [facility] Naproxen 500 MG Oral Tablet [Naprosyn] Naproxen (Napro syn) 500 mg tablet Naproxen (Naprosyn) 500 mg tablet 10/04/2019 02:44:54 PM EDT 500 MG completed [facility] atorvastatin 40 MG Oral Tablet Atorvastatin (Lipitor) 40 mg tablet Atorvastatin (Lipitor) 40 mg tablet 10/04/2019 02:44:54 PM EDT 40 MG completed [facility] Levothyroxine Sodium 0.112 MG Oral Table t [Synthroid] Levothyroxine (Synthroid) 112 mcg tablet Levothyroxine (Synthroid) 112 mcg tablet 10/04/2019 02 :44:54 PM EDT 112 MCG completed [facility] Levothyroxine Sodium 0.112 MG Oral Table t [Synthroid] Levothyroxine (Synthroid) 112 mcg tablet Levothyroxine (Synthroid) 112 mcg tablet 10/04/2019 02 :44:54 PM EDT 112 MCG completed [facility] Sumatriptan 50 MG Oral Tablet [Imitrex] Sumatriptan Succinate (Imitrex) 50 mg tablet Sumatriptan Succinate (Imitrex) 50 mg tablet 10/04/2019 02:4 4:54 PM EDT 50 MG completed [facility] Naproxen 500 MG Oral Tablet [Naprosyn] Naproxen (Napro syn) 500 mg tablet Naproxen (Naprosyn) 500 mg tablet 10/04/2019 02:44:54 PM EDT 500 MG completed [facility] atorvastatin 40 MG Oral Tablet Atorvastatin Atorvastatin 10/04/2019 02:44:54 PM EDT 40 MG active [facility] Levothyroxine Sodium 0.112 MG Oral Tablet [Synthroid] Levoth yroxine 10/04/2019 02:44:54 PM EDT 112 MCG active [facility] atorvastatin 40 MG Oral Tablet Atorvastatin (Lipitor) 40 mg tablet Atorvastatin (Lipitor) 40 mg tablet 10/04/2019 02:44:54 PM EDT 40 MG completed [facility] atorvastatin 40 MG Oral Tablet Atorvastatin (Lipitor) 40 mg tablet Atorvastatin (Lipitor) 40 mg tablet 10/04/2019 02:44:54 PM EDT 40 MG completed [facility] Sumatriptan 50 MG Oral Tablet [Imitrex] Sumatriptan Succinate (Imitrex) 50 mg tablet Sumatriptan Succinate (Imitrex) 50 mg tablet 10/04/2019 02:4 4:54 PM EDT 50 MG completed [facility] Levothyroxine Sodium 0.112 MG Oral Table t [Synthroid] Levothyroxine (Synthroid) 112 mcg tablet Levothyroxine (Synthroid) 112 mcg tablet 10/04/2019 02 :44:54 PM EDT 112 MCG completed [facility] Levothyroxine Sodium 0.112 MG Oral Tablet [Synthroid] Levoth yroxine 10/04/2019 02:44:54 PM EDT 112 MCG active [facility] atorvastatin 40 MG Oral Tablet Atorvastatin (Lipitor) 40 mg tablet Atorvastatin (Lipitor) 40 mg tablet 10/04/2019 02:44:54 PM EDT 40 MG completed [facility] atorvastatin 40 MG Oral Tablet Atorvastatin (Lipitor) 40 mg tablet Atorvastatin (Lipitor) 40 mg tablet 10/04/2019 02:44:54 PM EDT 40 MG active [facility] atorvastatin 40 MG Oral Tablet Atorvastatin Atorvastatin 10/04/2019 02:44:54 PM EDT 40 MG active [facility] Azithromycin 500 MG Oral Tablet [Zithromax] Azithromycin 10/04/2019 02:44:54 PM EDT 500 MG active [facility] Naproxen 500 MG Oral Tablet [Naprosyn] Naproxen 10/04/2019 02:4 4:54 PM EDT 500 MG completed [facility] Levothyroxine Sodium 0.112 MG Oral Table t [Synthroid] Levothyroxine (Synthroid) 112 mcg tablet Levothyroxine (Synthroid) 112 mcg tablet 10/04/2019 02 :44:54 PM EDT 112 MCG completed [facility] Levothyroxine Sodium 0.112 MG Oral Table t [Synthroid] Levothyroxine (Synthroid) 112 mcg tablet Levothyroxine (Synthroid) 112 mcg tablet 10/04/2019 02 :44:54 PM EDT 112 MCG completed [facility] Levothyroxine Sodium 0.112 MG Oral Table t [Synthroid] Levothyroxine (Synthroid) 112 mcg tablet Levothyroxine (Synthroid) 112 mcg tablet 10/04/2019 02 :44:54 PM EDT 112 MCG completed [facility] Azithromycin 500 MG Oral Tablet [Zithrom ax] Azithromycin (Zithromax) 500 mg tablet Azithromycin (Zithromax) 500 mg tablet 10/04/2019 02:44:54 PM ED T 500 MG completed [facility] Naproxen 500 MG Oral Tablet [Naprosyn] Naproxen (Napro syn) 500 mg tablet Naproxen (Naprosyn) 500 mg tablet 10/04/2019 02:44:54 PM EDT 500 MG completed [facility] Levothyroxine Sodium 0.112 MG Oral Table t [Synthroid] Levothyroxine (Synthroid) 112 mcg tablet Levothyroxine (Synthroid) 112 mcg tablet 10/04/2019 02 :44:54 PM EDT 112 MCG completed [facility] Levothyroxine Sodium 0.112 MG Oral Tablet [Synthroid] Levoth yroxine 10/04/2019 02:44:54 PM EDT 112 MCG active [facility] Sumatriptan 50 MG Oral Tablet [Imitrex] Sumatriptan Succinate (Imitrex) 50 mg tablet Sumatriptan Succinate (Imitrex) 50 mg tablet 10/04/2019 02:4 4:54 PM EDT 50 MG active [facility] atorvastatin 40 MG Oral Tablet Atorvastatin (Lipitor) 40 mg tablet Atorvastatin (Lipitor) 40 mg tablet 10/04/2019 02:44:54 PM EDT 40 MG active [facility] Sumatriptan 50 MG Oral Tablet [Imitrex] Sumatriptan Succinate (Imitrex) 50 mg tablet Sumatriptan Succinate (Imitrex) 50 mg tablet 10/04/2019 02:4 4:54 PM EDT 50 MG active [facility] Azithromycin 500 MG Oral Tablet [Zithromax] Azithromycin 09/13/2019 09:38:58 AM EST 500 MG active [facility] Azithromycin 500 MG Oral Tablet [Zithrom ax] Azithromycin (Zithromax) 500 mg tablet Azithromycin (Zithromax) 500 mg tablet 09/13/2019 09:38:58 AM ES T 500 MG completed [facility] Azithromycin 500 MG Oral Tablet [Zithrom ax] Azithromycin (Zithromax) 500 mg tablet Azithromycin (Zithromax) 500 mg tablet 09/13/2019 09:38:58 AM ES T 500 MG completed [facility] Azithromycin 500 MG Oral Tablet [Zithrom ax] Azithromycin (Zithromax) 500 mg tablet Azithromycin (Zithromax) 500 mg tablet 09/13/2019 09:38:58 AM ES T 500 MG completed [facility] Azithromycin 500 MG Oral Tablet [Zithromax] Azithromycin 09/13/2019 09:38:58 AM EST 500 MG active [facility] Azithromycin 500 MG Oral Tablet [Zithromax] Azithromycin 09/13/2019 09:38:58 AM EST 500 MG active [facility] Azithromycin 500 MG Oral Tablet [Zithromax] Azithromycin 09/13/2019 09:38:58 AM EST 500 MG completed [facility] Azithromycin 500 MG Oral Tablet [Zithromax] Azithromycin 09/13/2019 09:38:58 AM EST 500 MG completed [facility] Azithromycin 500 MG Oral Tablet [Zithrom ax] Azithromycin (Zithromax) 500 mg tablet Azithromycin (Zithromax) 500 mg tablet 09/13/2019 09:38:58 AM ES T 500 MG completed [facility] Azithromycin 500 MG Oral Tablet [Zithrom ax] Azithromycin (Zithromax) 500 mg tablet Azithromycin (Zithromax) 500 mg tablet 09/13/2019 09:38:58 AM ES T 500 MG completed [facility] Azithromycin 500 MG Oral Tablet [Zithrom ax] Azithromycin (Zithromax) 500 mg tablet Azithromycin (Zithromax) 500 mg tablet 09/13/2019 09:38:58 AM ES T 500 MG completed [facility] Azithromycin 500 MG Oral Tablet [Zithrom ax] Azithromycin (Zithromax) 500 mg tablet Azithromycin (Zithromax) 500 mg tablet 09/13/2019 09:38:58 AM ES T 500 MG completed [facility] Azithromycin 500 MG Oral Tablet [Zithrom ax] Azithromycin (Zithromax) 500 mg tablet Azithromycin (Zithromax) 500 mg tablet 09/13/2019 09:38:58 AM ES T 500 MG completed [facility] Azithromycin 500 MG Oral Tablet [Zithromax] Azithromycin 09/13/2019 09:38:58 AM EST 500 MG completed [facility] Azithromycin 500 MG Oral Tablet [Zithrom ax] Azithromycin (Zithromax) 500 mg tablet Azithromycin (Zithromax) 500 mg tablet 09/13/2019 09:38:58 AM ES T 500 MG completed [facility] Azithromycin 500 MG Oral Tablet [Zithromax] Azithromycin 09/13/2019 09:38:58 AM EST 500 MG completed [facility] Azithromycin 500 MG Oral Tablet [Zithrom ax] Azithromycin (Zithromax) 500 mg tablet Azithromycin (Zithromax) 500 mg tablet 09/13/2019 09:38:58 AM ES T 500 MG completed [facility] Azithromycin 500 MG Oral Tablet [Zithrom ax] Azithromycin (Zithromax) 500 mg tablet Azithromycin (Zithromax) 500 mg tablet 09/13/2019 09:38:58 AM ES T 500 MG completed [facility] Azithromycin 500 MG Oral Tablet [Zithromax] Azithromycin 09/13/2019 09:38:58 AM EST 500 MG completed [facility] Biotin 10 MG Oral Capsule Biotin 09/13/2019 09:27:09 AM EST 100 00 MCG active [facility] Biotin 10 MG Oral Capsule Biotin 09/13/2019 09:27:09 AM EST 100 00 MCG active [facility] Biotin 10 MG Oral Capsule Biotin 09/13/2019 09:27:09 AM EST [address] [facility] Biotin 10 MG Oral Capsule Biotin 09/13/2019 09:27:09 AM EST [facility] Biotin 10 MG Oral Capsule Biotin 09/13/2019 09:27:09 AM EST [address] [facility] Biotin 10 MG Oral Capsule Biotin 09/13/2019 09:27:09 AM EST active [facility] Biotin 10 MG Oral Capsule Biotin 09/13/2019 09:27:09 AM EST 100 00 MCG active [facility] Biotin 10 MG Oral Capsule Biotin 09/13/2019 09:27:09 AM EST 100 00 MCG active [facility] Biotin 10 MG Oral Capsule Biotin 09/13/2019 09:27:09 AM EST [facility] Biotin 10 MG Oral Capsule Biotin 09/13/2019 09:27:09 AM EST 100 00 MCG active [facility] Biotin 10 MG Oral Capsule Biotin 09/13/2019 09:27:09 AM EST 100 00 MCG active [facility] Biotin 10 MG Oral Capsule Biotin 09/13/2019 09:27:09 AM EST 100 00 MCG active [facility] Biotin 10 MG Oral Capsule Biotin 09/13/2019 09:27:09 AM EST 100 00 MCG active [facility] Biotin 10 MG Oral Capsule Biotin 09/13/2019 09:27:09 AM EST 100 00 MCG active [facility] Biotin 10 MG Oral Capsule Biotin 09/13/2019 09:27:09 AM EST 100 00 MCG active [facility] Biotin 10 MG Oral Capsule Biotin 09/13/2019 09:27:09 AM EST 100 00 MCG active [facility] Biotin 10 MG Oral Capsule Biotin 09/13/2019 09:27:09 AM EST 100 00 MCG active [facility] Biotin 10 MG Oral Capsule Biotin 09/13/2019 09:27:09 AM EST 100 00 MCG active [facility] Biotin 10 MG Oral Capsule Biotin 09/13/2019 09:27:09 AM EST 100 00 MCG active [facility] Levothyroxine Sodium 0.112 MG Oral Table t [Synthroid] Levothyroxine (Synthroid) 112 mcg tablet Levothyroxine (Synthroid) 112 mcg tablet 08/30/2019 09 :57:39 AM EST 112 MCG completed [facility] Levothyroxine Sodium 0.112 MG Oral Table t [Synthroid] Levothyroxine (Synthroid) 112 mcg tablet Levothyroxine (Synthroid) 112 mcg tablet 08/30/2019 09 :57:39 AM EST 112 MCG completed [facility] Levothyroxine Sodium 0.112 MG Oral Tablet [Synthroid] Levoth yroxine 08/30/2019 09:57:39 AM EST 112 MCG active [facility] Levothyroxine Sodium 0.112 MG Oral Tablet [Synthroid] Levoth yroxine 08/30/2019 09:57:39 AM EST 112 MCG completed [facility] Levothyroxine Sodium 0.112 MG Oral Table t [Synthroid] Levothyroxine (Synthroid) 112 mcg tablet Levothyroxine (Synthroid) 112 mcg tablet 08/30/2019 09 :57:39 AM EST 112 MCG completed [facility] Levothyroxine Sodium 0.112 MG Oral Tablet [Synthroid] Levoth yroxine 08/30/2019 09:57:39 AM EST 112 MCG completed [facility] Levothyroxine Sodium 0.112 MG Oral Tablet [Synthroid] Levoth yroxine 08/30/2019 09:57:39 AM EST 112 MCG completed [facility] Levothyroxine Sodium 0.112 MG Oral Table t [Synthroid] Levothyroxine (Synthroid) 112 mcg tablet Levothyroxine (Synthroid) 112 mcg tablet 08/30/2019 09 :57:39 AM EST 112 MCG completed [facility] Levothyroxine Sodium 0.112 MG Oral Tablet [Synthroid] Levoth yroxine 08/30/2019 09:57:39 AM EST 112 MCG completed [facility] Levothyroxine Sodium 0.112 MG Oral Table t [Synthroid] Levothyroxine (Synthroid) 112 mcg tablet Levothyroxine (Synthroid) 112 mcg tablet 08/30/2019 09 :57:39 AM EST 112 MCG completed [facility] Levothyroxine Sodium 0.112 MG Oral Table t [Synthroid] Levothyroxine (Synthroid) 112 mcg tablet Levothyroxine (Synthroid) 112 mcg tablet 08/30/2019 09 :57:39 AM EST 112 MCG completed [facility] Levothyroxine Sodium 0.112 MG Oral Table t [Synthroid] Levothyroxine (Synthroid) 112 mcg tablet Levothyroxine (Synthroid) 112 mcg tablet 08/30/2019 09 :57:39 AM EST 112 MCG completed [facility] Levothyroxine Sodium 0.112 MG Oral Table t [Synthroid] Levothyroxine (Synthroid) 112 mcg tablet Levothyroxine (Synthroid) 112 mcg tablet 08/30/2019 09 :57:39 AM EST 112 MCG completed [facility] Levothyroxine Sodium 0.112 MG Oral Table t [Synthroid] Levothyroxine (Synthroid) 112 mcg tablet Levothyroxine (Synthroid) 112 mcg tablet 08/30/2019 09 :57:39 AM EST 112 MCG completed [facility] Levothyroxine Sodium 0.112 MG Oral Table t [Synthroid] Levothyroxine (Synthroid) 112 mcg tablet Levothyroxine (Synthroid) 112 mcg tablet 08/30/2019 09 :57:39 AM EST 112 MCG completed [facility] Levothyroxine Sodium 0.112 MG Oral Tablet [Synthroid] Levoth yroxine 08/30/2019 09:57:39 AM EST 112 MCG active [facility] Levothyroxine Sodium 0.112 MG Oral Table t [Synthroid] Levothyroxine (Synthroid) 112 mcg tablet Levothyroxine (Synthroid) 112 mcg tablet 08/30/2019 09 :57:39 AM EST 112 MCG completed [facility] Levothyroxine Sodium 0.112 MG Oral Tablet [Synthroid] Levoth yroxine 08/30/2019 09:57:39 AM EST 112 MCG completed [facility] Levothyroxine Sodium 0.112 MG Oral Tablet [Synthroid] Levoth yroxine 08/30/2019 09:57:39 AM EST 112 MCG active [facility] Azithromycin 500 MG Oral Tablet [Zithromax] Azithromycin 08/26/2019 08:38:47 AM EST 500 MG completed [facility] Azithromycin 500 MG Oral Tablet [Zithromax] Azithromycin 08/26/2019 08:38:47 AM EST 500 MG completed [facility] Azithromycin 500 MG Oral Tablet [Zithrom ax] Azithromycin (Zithromax) 500 mg tablet Azithromycin (Zithromax) 500 mg tablet 08/26/2019 08:38:47 AM ES T 500 MG completed [facility] Azithromycin 500 MG Oral Tablet [Zithrom ax] Azithromycin (Zithromax) 500 mg tablet Azithromycin (Zithromax) 500 mg tablet 08/26/2019 08:38:47 AM ES T 500 MG completed [facility] Azithromycin 500 MG Oral Tablet [Zithrom ax] Azithromycin (Zithromax) 500 mg tablet Azithromycin (Zithromax) 500 mg tablet 08/26/2019 08:38:47 AM ES T 500 MG completed [facility] Azithromycin 500 MG Oral Tablet [Zithromax] Azithromycin 08/26/2019 08:38:47 AM EST 500 MG completed [facility] Azithromycin 500 MG Oral Tablet [Zithromax] Azithromycin 08/26/2019 08:38:47 AM EST 500 MG completed [facility] Azithromycin 500 MG Oral Tablet [Zithromax] Azithromycin 08/26/2019 08:38:47 AM EST 500 MG completed [facility] Azithromycin 500 MG Oral Tablet [Zithrom ax] Azithromycin (Zithromax) 500 mg tablet Azithromycin (Zithromax) 500 mg tablet 08/26/2019 08:38:47 AM ES T 500 MG completed [facility] Azithromycin 500 MG Oral Tablet [Zithromax] Azithromycin 08/26/2019 08:38:47 AM EST 500 MG completed [facility] Azithromycin 500 MG Oral Tablet [Zithromax] Azithromycin 08/26/2019 08:38:47 AM EST 500 MG active [facility] Azithromycin 500 MG Oral Tablet [Zithrom ax] Azithromycin (Zithromax) 500 mg tablet Azithromycin (Zithromax) 500 mg tablet 08/26/2019 08:38:47 AM ES T 500 MG completed [facility] Azithromycin 500 MG Oral Tablet [Zithrom ax] Azithromycin (Zithromax) 500 mg tablet Azithromycin (Zithromax) 500 mg tablet 08/26/2019 08:38:47 AM ES T 500 MG completed [facility] Azithromycin 500 MG Oral Tablet [Zithrom ax] Azithromycin (Zithromax) 500 mg tablet Azithromycin (Zithromax) 500 mg tablet 08/26/2019 08:38:47 AM ES T 500 MG completed [facility] Azithromycin 500 MG Oral Tablet [Zithrom ax] Azithromycin (Zithromax) 500 mg tablet Azithromycin (Zithromax) 500 mg tablet 08/26/2019 08:38:47 AM ES T 500 MG completed [facility] Azithromycin 500 MG Oral Tablet [Zithrom ax] Azithromycin (Zithromax) 500 mg tablet Azithromycin (Zithromax) 500 mg tablet 08/26/2019 08:38:47 AM ES T 500 MG completed [facility] Azithromycin 500 MG Oral Tablet [Zithrom ax] Azithromycin (Zithromax) 500 mg tablet Azithromycin (Zithromax) 500 mg tablet 08/26/2019 08:38:47 AM ES T 500 MG completed [facility] Azithromycin 500 MG Oral Tablet [Zithrom ax] Azithromycin (Zithromax) 500 mg tablet Azithromycin (Zithromax) 500 mg tablet 08/26/2019 08:38:47 AM ES T 500 MG completed [facility] Azithromycin 500 MG Oral Tablet [Zithromax] Azithromycin 08/26/2019 08:38:47 AM EST 500 MG completed [facility] Azithromycin 500 MG Oral Tablet [Zithromax] Azithromycin 08/26/2019 08:38:47 AM EST 500 MG completed [facility] Azithromycin 500 MG Oral Tablet [Zithrom ax] Azithromycin (Zithromax) 500 mg tablet Azithromycin (Zithromax) 500 mg tablet 08/25/2019 09:22:03 AM ES T 500 MG completed [facility] Azithromycin 500 MG Oral Tablet [Zithromax] Azithromycin 08/25/2019 09:22:03 AM EST 500 MG completed [facility] Azithromycin 500 MG Oral Tablet [Zithrom ax] Azithromycin (Zithromax) 500 mg tablet Azithromycin (Zithromax) 500 mg tablet 08/25/2019 09:22:03 AM ES T 500 MG completed [facility] Azithromycin 500 MG Oral Tablet [Zithromax] Azithromycin 08/25/2019 09:22:03 AM EST 500 MG completed [facility] Azithromycin 500 MG Oral Tablet [Zithrom ax] Azithromycin (Zithromax) 500 mg tablet Azithromycin (Zithromax) 500 mg tablet 08/25/2019 09:22:03 AM ES T 500 MG completed [facility] Azithromycin 500 MG Oral Tablet [Zithrom ax] Azithromycin (Zithromax) 500 mg tablet Azithromycin (Zithromax) 500 mg tablet 08/25/2019 09:22:03 AM ES T 500 MG completed [facility] Azithromycin 500 MG Oral Tablet [Zithromax] Azithromycin 08/25/2019 09:22:03 AM EST 500 MG completed [facility] Azithromycin 500 MG Oral Tablet [Zithromax] Azithromycin 08/25/2019 09:22:03 AM EST 500 MG completed [facility] Azithromycin 500 MG Oral Tablet [Zithromax] Azithromycin 08/25/2019 09:22:03 AM EST 500 MG completed [facility] Azithromycin 500 MG Oral Tablet [Zithromax] Azithromycin 08/25/2019 09:22:03 AM EST 500 MG completed [facility] Azithromycin 500 MG Oral Tablet [Zithromax] Azithromycin 08/25/2019 09:22:03 AM EST 500 MG completed [facility] Azithromycin 500 MG Oral Tablet [Zithrom ax] Azithromycin (Zithromax) 500 mg tablet Azithromycin (Zithromax) 500 mg tablet 08/25/2019 09:22:03 AM ES T 500 MG completed [facility] Azithromycin 500 MG Oral Tablet [Zithromax] Azithromycin 08/25/2019 09:22:03 AM EST 500 MG completed [facility] Azithromycin 500 MG Oral Tablet [Zithromax] Azithromycin 08/25/2019 09:22:03 AM EST 500 MG completed [facility] Azithromycin 500 MG Oral Tablet [Zithrom ax] Azithromycin (Zithromax) 500 mg tablet Azithromycin (Zithromax) 500 mg tablet 08/25/2019 09:22:03 AM ES T 500 MG completed [facility] Azithromycin 500 MG Oral Tablet [Zithrom ax] Azithromycin (Zithromax) 500 mg tablet Azithromycin (Zithromax) 500 mg tablet 08/25/2019 09:22:03 AM ES T 500 MG completed [facility] Azithromycin 500 MG Oral Tablet [Zithrom ax] Azithromycin (Zithromax) 500 mg tablet Azithromycin (Zithromax) 500 mg tablet 08/25/2019 09:22:03 AM ES T 500 MG completed [facility] Azithromycin 500 MG Oral Tablet [Zithrom ax] Azithromycin (Zithromax) 500 mg tablet Azithromycin (Zithromax) 500 mg tablet 08/25/2019 09:22:03 AM ES T 500 MG completed [facility] Azithromycin 500 MG Oral Tablet [Zithrom ax] Azithromycin (Zithromax) 500 mg tablet Azithromycin (Zithromax) 500 mg tablet 08/25/2019 09:22:03 AM ES T 500 MG completed [facility] Azithromycin 500 MG Oral Tablet [Zithrom ax] Azithromycin (Zithromax) 500 mg tablet Azithromycin (Zithromax) 500 mg tablet 08/25/2019 09:22:03 AM ES T 500 MG completed [facility] Sumatriptan 50 MG Oral Tablet [Imitrex] Sumatriptan Succinate (Imitrex) 50 mg tablet Sumatriptan Succinate (Imitrex) 50 mg tablet 08/09/2019 12:4 6:04 PM EST 50 MG completed [facility] Sumatriptan 50 MG Oral Tablet [Imitrex] Sumatriptan [place] ccinate Sumatriptan Succinate 08/09/2019 12:46:04 PM EST 50 MG completed [facility] Sumatriptan 50 MG Oral Tablet [Imitrex] Sumatriptan Succinate (Imitrex) 50 mg tablet Sumatriptan Succinate (Imitrex) 50 mg tablet 08/09/2019 12:4 6:04 PM EST 50 MG completed [facility] Sumatriptan 50 MG Oral Tablet [Imitrex] Sumatriptan Succinate (Imitrex) 50 mg tablet Sumatriptan Succinate (Imitrex) 50 mg tablet 08/09/2019 12:4 6:04 PM EST 50 MG completed [facility] Sumatriptan 50 MG Oral Tablet [Imitrex] Sumatriptan Succinate (Imitrex) 50 mg tablet Sumatriptan Succinate (Imitrex) 50 mg tablet 08/09/2019 12:4 6:04 PM EST 50 MG completed [facility] Sumatriptan 50 MG Oral Tablet [Imitrex] Sumatriptan Warren ccinate Sumatriptan Succinate 08/09/2019 12:46:04 PM EST 50 MG active [facility] Sumatriptan 50 MG Oral Tablet [Imitrex] Sumatriptan Warren ccinate Sumatriptan Succinate 08/09/2019 12:46:04 PM EST 50 MG completed [facility] Sumatriptan 50 MG Oral Tablet [Imitrex] Sumatriptan Warren ccinate Sumatriptan Succinate 08/09/2019 12:46:04 PM EST 50 MG active [facility] Sumatriptan 50 MG Oral Tablet [Imitrex] Sumatriptan Succinate (Imitrex) 50 mg tablet Sumatriptan Succinate (Imitrex) 50 mg tablet 08/09/2019 12:4 6:04 PM EST 50 MG completed [facility] Sumatriptan 50 MG Oral Tablet [Imitrex] Sumatriptan Succinate (Imitrex) 50 mg tablet Sumatriptan Succinate (Imitrex) 50 mg tablet 08/09/2019 12:4 6:04 PM EST 50 MG completed [facility] Sumatriptan 50 MG Oral Tablet [Imitrex] Sumatriptan Warren ccinate Sumatriptan Succinate 08/09/2019 12:46:04 PM EST 50 MG completed [facility] Sumatriptan 50 MG Oral Tablet [Imitrex] Sumatriptan Succinate (Imitrex) 50 mg tablet Sumatriptan Succinate (Imitrex) 50 mg tablet 08/09/2019 12:4 6:04 PM EST 50 MG completed [facility] Sumatriptan 50 MG Oral Tablet [Imitrex] Sumatriptan Warren ccinate Sumatriptan Succinate 08/09/2019 12:46:04 PM EST 50 MG active [facility] Sumatriptan 50 MG Oral Tablet [Imitrex] Sumatriptan Warren ccinate Sumatriptan Succinate 08/09/2019 12:46:04 PM EST 50 MG completed [facility] Sumatriptan 50 MG Oral Tablet [Imitrex] Sumatriptan Succinate (Imitrex) 50 mg tablet Sumatriptan Succinate (Imitrex) 50 mg tablet 08/09/2019 12:4 6:04 PM EST 50 MG completed [facility] Sumatriptan 50 MG Oral Tablet [Imitrex] Sumatriptan Succinate (Imitrex) 50 mg tablet Sumatriptan Succinate (Imitrex) 50 mg tablet 08/09/2019 12:4 6:04 PM EST 50 MG completed [facility] Sumatriptan 50 MG Oral Tablet [Imitrex] Sumatriptan Succinate (Imitrex) 50 mg tablet Sumatriptan Succinate (Imitrex) 50 mg tablet 08/09/2019 12:4 6:04 PM EST 50 MG completed [facility] Sumatriptan 50 MG Oral Tablet [Imitrex] Sumatriptan Warren ccinate Sumatriptan Succinate 08/09/2019 12:46:04 PM EST 50 MG completed [facility] Sumatriptan 50 MG Oral Tablet [Imitrex] Sumatriptan Succinate (Imitrex) 50 mg tablet Sumatriptan Succinate (Imitrex) 50 mg tablet 08/09/2019 12:4 6:04 PM EST 50 MG completed [facility] Sumatriptan 50 MG Oral Tablet [[facility]] [facility] 08/09/2019 12:46:04 PM EST 50 MG active [facility] Levothyroxine Sodium 0.125 MG Oral Tablet [Synthroid] Levoth oxine 06/28/2019 09:24:08 AM EST 125 MCG completed [facility] Levothyroxine Sodium 0.125 MG Oral Table t [Synthroid] Levothyroxine (Synthroid) 125 mcg tablet Levothyroxine (Synthroid) 125 mcg tablet 06/28/2019 09 :24:08 AM EST 125 MCG completed [facility] Levothyroxine Sodium 0.125 MG Oral Tablet [Synthroid] Levoth oxine 06/28/2019 09:24:08 AM EST 125 MCG completed [facility] Levothyroxine Sodium 0.125 MG Oral Tablet [Synthroid] Levoth oxine 06/28/2019 09:24:08 AM EST 125 MCG active [facility] Levothyroxine Sodium 0.125 MG Oral Table t [Synthroid] Levothyroxine (Synthroid) 125 mcg tablet Levothyroxine (Synthroid) 125 mcg tablet 06/28/2019 09 :24:08 AM EST 125 MCG completed [facility] Levothyroxine Sodium 0.125 MG Oral Table t [Synthroid] Levothyroxine (Synthroid) 125 mcg tablet Levothyroxine (Synthroid) 125 mcg tablet 06/28/2019 09 :24:08 AM EST 125 MCG completed [facility] Levothyroxine Sodium 0.125 MG Oral Tablet [Synthroid] Levoth oxine 06/28/2019 09:24:08 AM EST 125 MCG completed [facility] Levothyroxine Sodium 0.125 MG Oral Tablet [Synthroid] Levoth oxine 06/28/2019 09:24:08 AM EST 125 MCG completed [facility] Levothyroxine Sodium 0.125 MG Oral Tablet [Synthroid] Levoth oxine 06/28/2019 09:24:08 AM EST 125 MCG completed [facility] Levothyroxine Sodium 0.125 MG Oral Table t [Synthroid] Levothyroxine (Synthroid) 125 mcg tablet Levothyroxine (Synthroid) 125 mcg tablet 06/28/2019 09 :24:08 AM EST 125 MCG completed [facility] Levothyroxine Sodium 0.125 MG Oral Table t [Synthroid] Levothyroxine (Synthroid) 125 mcg tablet Levothyroxine (Synthroid) 125 mcg tablet 06/28/2019 09 :24:08 AM EST 125 MCG completed [facility] Levothyroxine Sodium 0.125 MG Oral Table t [Synthroid] Levothyroxine (Synthroid) 125 mcg tablet Levothyroxine (Synthroid) 125 mcg tablet 06/28/2019 09 :24:08 AM EST 125 MCG completed [facility] Levothyroxine Sodium 0.125 MG Oral Table t [Synthroid] Levothyroxine (Synthroid) 125 mcg tablet Levothyroxine (Synthroid) 125 mcg tablet 06/28/2019 09 :24:08 AM EST 125 MCG completed [facility] Levothyroxine Sodium 0.125 MG Oral Table t [Synthroid] Levothyroxine (Synthroid) 125 mcg tablet Levothyroxine (Synthroid) 125 mcg tablet 06/28/2019 09 :24:08 AM EST 125 MCG completed [facility] Levothyroxine Sodium 0.125 MG Oral Tablet [Synthroid] Levoth yroxine 06/28/2019 09:24:08 AM EST 125 MCG completed [facility] Levothyroxine Sodium 0.125 MG Oral Table t [Synthroid] Levothyroxine (Synthroid) 125 mcg tablet Levothyroxine (Synthroid) 125 mcg tablet 06/28/2019 09 :24:08 AM EST 125 MCG completed [facility] Levothyroxine Sodium 0.125 MG Oral Tablet [Synthroid] Levoth yroxine 06/28/2019 09:24:08 AM EST 125 MCG completed [facility] Levothyroxine Sodium 0.125 MG Oral Table t [Synthroid] Levothyroxine (Synthroid) 125 mcg tablet Levothyroxine (Synthroid) 125 mcg tablet 06/28/2019 09 :24:08 AM EST 125 MCG completed [facility] Levothyroxine Sodium 0.125 MG Oral Table t [Synthroid] Levothyroxine (Synthroid) 125 mcg tablet Levothyroxine (Synthroid) 125 mcg tablet 06/28/2019 09 :24:08 AM EST 125 MCG completed [facility] Levothyroxine Sodium 0.125 MG Oral Tablet [Synthroid] Levoth yroxine 06/28/2019 09:24:08 AM EST 125 MCG completed [facility] Flucelvax Quad (PF) (flu vac qs 2018(4 yr up )CD(PF)) 60 mcg (15 mcg x 06/28/2019 08:54:06 AM EST 0.5 ML completed [facility] Flucelvax Quad (PF) (flu vac qs 2018(4 yr up )CD(PF)) 60 mcg (15 mcg x 06/28/2019 08:54:06 AM EST 0.5 ML completed [facility] [id number]/28/2019 08:54:06 AM EST 0.5 ML complete d [facility] [id number]/28/2019 08:54:06 AM EST 0.5 ML complete d [facility] Flucelvax Quad (PF) (flu vac qs 2018(4 yr up )CD(PF)) 60 mcg (15 mcg x 06/28/2019 08:54:06 AM EST 0.5 ML completed [facility] [id number] 06/28/2019 08:54:06 AM EST 0.5 ML complete d [facility] [id number] 06/28/2019 08:54:06 AM EST 0.5 ML complete d [facility] [id number] 06/28/2019 08:54:06 AM EST 0.5 ML complete d [facility] [id number]/28/2019 08:54:06 AM EST 0.5 ML complete d [facility] Flucelvax Quad (PF) (flu vac qs 2018(4 yr up )CD(PF)) 60 mcg (15 mcg x 06/28/2019 08:54:06 AM EST 0.5 ML completed [facility] Flucelvax Quad (PF) (flu vac qs 2018(4 yr up )CD(PF)) 60 mcg (15 mcg x 06/28/2019 08:54:06 AM EST 0.5 ML completed [facility] Flucelvax Quad (PF) (flu vac qs 2018(4 yr up )CD(PF)) 60 mcg (15 mcg x 06/28/2019 08:54:06 AM EST 0.5 ML completed [facility] [id number]/28/2019 08:54:06 AM EST 0.5 ML complete d [facility] [id number] 06/28/2019 08:54:06 AM EST 0.5 ML complete d [facility] [id number] 06/28/2019 08:54:06 AM EST 0.5 ML complete d [facility] [id number] 06/28/2019 08:54:06 AM EST 0.5 ML complete d [facility] [id number] 06/28/2019 08:54:06 AM EST 0.5 ML complete d [facility] [id number] 06/28/2019 08:54:06 AM EST 0.5 ML complete d [facility] Flucelvax Quad [id number] (PF) (flu vac qs 2018(4 yr up )CD(PF)) 60 mcg (15 mcg x 06/28/2019 08:54:06 AM EST 0.5 ML completed [facility] [id number] 06/28/2019 08:54:06 AM EST 0.5 ML complete d [facility] Levothyroxine Sodium 0.137 MG Oral Tablet Levothyroxine 05/24/2019 04:15:29 PM EDT 137 MCG completed [facility] Levothyroxine Sodium 0.137 MG Oral Tablet Levothyroxine 05/24/2019 04:15:29 PM EDT 137 MCG completed [facility] Levothyroxine Sodium 0.137 MG Oral Tablet Levothyroxine 05/24/2019 04:15:29 PM EDT 137 MCG completed [facility] Levothyroxine Sodium 0.137 MG Oral Tablet Levothyroxine 05/24/2019 04:15:29 PM EDT 137 MCG completed [facility] Levothyroxine Sodium 0.137 MG Oral Tablet Levothyroxine 05/24/2019 04:15:29 PM EDT 137 MCG completed [facility] Levothyroxine Sodium 0.137 MG Oral Tablet Levothyroxine 05/24/2019 04:15:29 PM EDT 137 MCG completed [facility] Levothyroxine Sodium 0.137 MG Oral Tablet Levothyroxine 05/24/2019 04:15:29 PM EDT 137 MCG completed [facility] Levothyroxine Sodium 0.137 MG Oral Tablet Levothyroxine 05/24/2019 04:15:29 PM EDT 137 MCG completed [facility] Levothyroxine Sodium 0.137 MG Oral Tablet Levothyroxine 05/24/2019 04:15:29 PM EDT 137 MCG completed [facility] Levothyroxine Sodium 0.137 MG Oral Tablet Levothyroxine 05/24/2019 04:15:29 PM EDT 137 MCG completed [facility] Levothyroxine Sodium 0.137 MG Oral Tablet Levothyroxine 05/24/2019 04:15:29 PM EDT 137 MCG completed [facility] Levothyroxine Sodium 0.137 MG Oral Tablet Levothyroxine 05/24/2019 04:15:29 PM EDT 137 MCG completed [facility] Levothyroxine Sodium 0.137 MG Oral Tablet Levothyroxine 05/24/2019 04:15:29 PM EDT 137 MCG completed [facility] Levothyroxine Sodium 0.137 MG Oral Tablet Levothyroxine 05/24/2019 04:15:29 PM EDT 137 MCG completed [facility] Levothyroxine Sodium 0.137 MG Oral Tablet Levothyroxine 05/24/2019 04:15:29 PM EDT 137 MCG completed [facility] Levothyroxine Sodium 0.137 MG Oral Tablet Levothyroxine 05/24/2019 04:15:29 PM EDT 137 MCG completed [facility] Levothyroxine Sodium 0.137 MG Oral Tablet Levothyroxine 05/24/2019 04:15:29 PM EDT 137 MCG completed [facility] Levothyroxine Sodium 0.137 MG Oral Tablet Levothyroxine 05/24/2019 04:15:29 PM EDT 137 MCG completed [facility] Levothyroxine Sodium 0.137 MG Oral Tablet Levothyroxine 05/24/2019 04:15:29 PM EDT 137 MCG completed [facility] Levothyroxine Sodium 0.137 MG Oral Tablet Levothyroxine 05/24/2019 04:15:29 PM EDT 137 MCG completed [facility] atorvastatin 40 MG Oral Tablet Atorvastatin (Lipitor) 40 mg tablet Atorvastatin (Lipitor) 40 mg tablet 04/27/2019 09:54:42 AM EDT 40 MG completed [facility] atorvastatin 40 MG Oral Tablet Atorvastatin (Lipitor) 40 mg tablet Atorvastatin (Lipitor) 40 mg tablet 04/27/2019 09:54:42 AM EDT 40 MG completed [facility] atorvastatin 40 MG Oral Tablet Atorvastatin (Lipitor) 40 mg tablet Atorvastatin (Lipitor) 40 mg tablet 04/27/2019 09:54:42 AM EDT 40 MG completed [facility] atorvastatin 40 MG Oral Tablet Atorvastatin Atorvastatin 04/27/2019 09:54:42 AM EDT 40 MG completed [facility] atorvastatin 40 MG Oral Tablet Atorvastatin Atorvastatin 04/27/2019 09:54:42 AM EDT 40 MG completed [facility] atorvastatin 40 MG Oral Tablet Atorvastatin (Lipitor) 40 mg tablet Atorvastatin (Lipitor) 40 mg tablet 04/27/2019 09:54:42 AM EDT 40 MG completed [facility] atorvastatin 40 MG Oral Tablet Atorvastatin (Lipitor) 40 mg tablet Atorvastatin (Lipitor) 40 mg tablet 04/27/2019 09:54:42 AM EDT 40 MG completed [facility] atorvastatin 40 MG Oral Tablet Atorvastatin (Lipitor) 40 mg tablet Atorvastatin (Lipitor) 40 mg tablet 04/27/2019 09:54:42 AM EDT 40 MG completed [facility] atorvastatin 40 MG Oral Tablet Atorvastatin Atorvastatin 04/27/2019 09:54:42 AM EDT 40 MG completed [facility] atorvastatin 40 MG Oral Tablet Atorvastatin (Lipitor) 40 mg tablet Atorvastatin (Lipitor) 40 mg tablet 04/27/2019 09:54:42 AM EDT 40 MG completed [facility] atorvastatin 40 MG Oral Tablet Atorvastatin (Lipitor) 40 mg tablet Atorvastatin (Lipitor) 40 mg tablet 04/27/2019 09:54:42 AM EDT 40 MG completed [facility] atorvastatin 40 MG Oral Tablet Atorvastatin (Lipitor) 40 mg tablet Atorvastatin (Lipitor) 40 mg tablet 04/27/2019 09:54:42 AM EDT 40 MG completed [facility] atorvastatin 40 MG Oral Tablet Atorvastatin (Lipitor) 40 mg tablet Atorvastatin (Lipitor) 40 mg tablet 04/27/2019 09:54:42 AM EDT 40 MG completed [facility] atorvastatin 40 MG Oral Tablet Atorvastatin (Lipitor) 40 mg tablet Atorvastatin (Lipitor) 40 mg tablet 04/27/2019 09:54:42 AM EDT 40 MG completed [facility] atorvastatin 40 MG Oral Tablet Atorvastatin Atorvastatin 04/27/2019 09:54:42 AM EDT 40 MG completed [facility] atorvastatin 40 MG Oral Tablet Atorvastatin Atorvastatin 04/27/2019 09:54:42 AM EDT 40 MG completed [facility] Sumatriptan 25 MG Oral Tablet [Imitrex] Sumatriptan Succinate (Imitrex) 25 mg tablet Sumatriptan Succinate (Imitrex) 25 mg tablet 04/02/2019 11:5 7:46 AM EDT 25 MG completed [facility] Sumatriptan 25 MG Oral Tablet [Imitrex] Sumatriptan Warren ccinate Sumatriptan Succinate 04/02/2019 11:57:46 AM EDT 25 MG completed [facility] Sumatriptan 25 MG Oral Tablet [Imitrex] Sumatriptan Succinate (Imitrex) 25 mg tablet Sumatriptan Succinate (Imitrex) 25 mg tablet 04/02/2019 11:5 7:46 AM EDT 25 MG completed [facility] Sumatriptan 25 MG Oral Tablet [Imitrex] Sumatriptan Warren ccinate Sumatriptan Succinate 04/02/2019 11:57:46 AM EDT 25 MG completed [facility] Sumatriptan 25 MG Oral Tablet [Imitrex] Sumatriptan Succinate (Imitrex) 25 mg tablet Sumatriptan Succinate (Imitrex) 25 mg tablet 04/02/2019 11:5 7:46 AM EDT 25 MG completed [facility] Sumatriptan 25 MG Oral Tablet [Imitrex] Sumatriptan Warren ccinate Sumatriptan Succinate 04/02/2019 11:57:46 AM EDT 25 MG completed [facility] Sumatriptan 25 MG Oral Tablet [Imitrex] Sumatriptan Warren ccinate Sumatriptan Succinate 04/02/2019 11:57:46 AM EDT 25 MG completed [facility] Sumatriptan 25 MG Oral Tablet [Imitrex] Sumatriptan Warren ccinate Sumatriptan Succinate 04/02/2019 11:57:46 AM EDT 25 MG completed [facility] Sumatriptan 25 MG Oral Tablet [Imitrex] Sumatriptan Succinate (Imitrex) 25 mg tablet Sumatriptan Succinate (Imitrex) 25 mg tablet 04/02/2019 11:5 7:46 AM EDT 25 MG completed [facility] Sumatriptan 25 MG Oral Tablet [Imitrex] Sumatriptan Succinate (Imitrex) 25 mg tablet Sumatriptan Succinate (Imitrex) 25 mg tablet 04/02/2019 11:5 7:46 AM EDT 25 MG completed [facility] Sumatriptan 25 MG Oral Tablet [Imitrex] Sumatriptan Succinate (Imitrex) 25 mg tablet Sumatriptan Succinate (Imitrex) 25 mg tablet 04/02/2019 11:5 7:46 AM EDT 25 MG completed [facility] Sumatriptan 25 MG Oral Tablet [Imitrex] Sumatriptan Succinate (Imitrex) 25 mg tablet Sumatriptan Succinate (Imitrex) 25 mg tablet 04/02/2019 11:5 7:46 AM EDT 25 MG completed [facility] Sumatriptan 25 MG Oral Tablet [Imitrex] Sumatriptan Warren ccinate Sumatriptan Succinate 04/02/2019 11:57:46 AM EDT 25 MG completed [facility] Sumatriptan 25 MG Oral Tablet [Imitrex] Sumatriptan Succinate (Imitrex) 25 mg tablet Sumatriptan Succinate (Imitrex) 25 mg tablet 04/02/2019 11:5 7:46 AM EDT 25 MG completed [facility] Sumatriptan 25 MG Oral Tablet [Imitrex] Sumatriptan Warren ccinate Sumatriptan Succinate 04/02/2019 11:57:46 AM EDT 25 MG completed [facility] Sumatriptan 25 MG Oral Tablet [Imitrex] Sumatriptan Succinate (Imitrex) 25 mg tablet Sumatriptan Succinate (Imitrex) 25 mg tablet 04/02/2019 11:5 7:46 AM EDT 25 MG completed [facility] Sumatriptan 25 MG Oral Tablet [Imitrex] Sumatriptan Warren ccinate Sumatriptan Succinate 04/02/2019 11:57:46 AM EDT 25 MG completed [facility] Sumatriptan 25 MG Oral Tablet [Imitrex] Sumatriptan Succinate (Imitrex) 25 mg tablet Sumatriptan Succinate (Imitrex) 25 mg tablet 04/02/2019 11:5 7:46 AM EDT 25 MG completed [facility] Sumatriptan 25 MG Oral Tablet [Imitrex] Sumatriptan Succinate (Imitrex) 25 mg tablet Sumatriptan Succinate (Imitrex) 25 mg tablet 04/02/2019 11:5 7:46 AM EDT 25 MG completed [facility] Sumatriptan 25 MG Oral Tablet [Imitrex] Sumatriptan Warren [email or web address] Sumatriptan Succinate 04/02/2019 11:57:46 AM EDT 25 MG completed [facility] Naproxen 500 MG Oral Tablet Naproxen 02/06/2019 07:20:06 PM EDT 500 MG completed [facility] Naproxen 500 MG Oral Tablet Naproxen 02/06/2019 07:20:06 PM EDT 500 MG completed [facility] Naproxen 500 MG Oral Tablet Naproxen 02/06/2019 07:20:06 PM EDT 500 MG completed [facility] Naproxen 500 MG Oral Tablet Naproxen 02/06/2019 07:20:06 PM EDT 500 MG completed [facility] Naproxen 500 MG Oral Tablet Naproxen 02/06/2019 07:20:06 PM EDT 500 MG completed [facility] Naproxen 500 MG Oral Tablet Naproxen 02/06/2019 07:20:06 PM EDT 500 MG completed [facility] Naproxen 500 MG Oral Tablet Naproxen 02/06/2019 07:20:06 PM EDT 500 MG completed [facility] Naproxen 500 MG Oral Tablet Naproxen 02/06/2019 07:20:06 PM EDT 500 MG completed [facility] Naproxen 500 MG Oral Tablet Naproxen 02/06/2019 07:20:06 PM EDT 500 MG completed [facility] Naproxen 500 MG Oral Tablet Naproxen 02/06/2019 07:20:06 PM EDT 500 MG completed [facility] Naproxen 500 MG Oral Tablet Naproxen 02/06/2019 07:20:06 PM EDT 500 MG completed [facility] Naproxen 500 MG Oral Tablet Naproxen 02/06/2019 07:20:06 PM EDT 500 MG completed [facility] Naproxen 500 MG Oral Tablet Naproxen 02/06/2019 07:20:06 PM EDT 500 MG completed [facility] Naproxen 500 MG Oral Tablet Naproxen 02/06/2019 07:20:06 PM EDT 500 MG completed [facility] Naproxen 500 MG Oral Tablet Naproxen 02/06/2019 07:20:06 PM EDT 500 MG completed [facility] Naproxen 500 MG Oral Tablet Naproxen 02/06/2019 07:20:06 PM EDT 500 MG completed [facility] Insurance Providers Payer name Policy type / Coverage type Policy ID Covered democrat ID Covered democrat's relationship to medrano Policy [place] Plan Information UMR [facility] [id number] UMR F [id number] SPOUSE [id number] UMR F [id number] SELF [id number] [place] / UMR F [id number] SELF [id number] [employer] Other 505 Self 505 [employer] Other 505 Self 505 [place] / UMR F [id number] SELF [id number] [employer] Other 505 Self 505 [employer] Other 505 Self 505 [employer] Other 505 Self 505 [employer] Other 505 Self 505 [employer] Other 505 Self 505 [employer] Other 505 Self 505 [employer] Other 505 Self 505 [employer] Other 505 Self 505 [employer] PPO O [id number] S [id number] Lifetime Benefit Solution Medigap Part B [place] (pr) Commercial Self Problems, Conditions, and Diagnoses Code Display Name Description Problem Type Effective Dates Data Source(s) N20.0 Kidney stone Kidney stone Problem 07/18/2020 12:00:00 A M EST [id number] ([facility]) 57160030 Migraine Migraine Problem 10/11/2019 12:00:00 AM ED T JOSH ([facility], ) Surgeries/Procedures Procedure Description Date Indications Data Source(s) Urine Culture 08/07/2020 12:00:00 AM [facility] chest X-ray (procedure) 07/24/2020 09:50:00 AM E [facility] chest X-ray (procedure) 07/24/2020 09:50:00 AM E [facility] Screening mammography (procedure) 07/24/2020 09:18:00 AM [facility] Screening mammography (procedure) 07/24/2020 09:18:[address] [facility] [address] Abd/pel w/o contrast 07/17/2020 03:44:[address] [facility] [address] Abd/pel w/o contrast 07/17/2020 03:44:[address] [facility] [address] Abd/pel w/o contrast 07/17/2020 03:44:00 PM [facility] Diagnostic radiography of abdomen (procedure) 07/17/20 20 02:26:00 PM [facility] Diagnostic radiography of abdomen (procedure) 07/17/20 20 02:26:00 PM [facility] Diagnostic radiography of abdomen (procedure) 07/17/20 02:26:00 PM [facility] Urine culture (procedure) 07/17/2020 12:00:00 AM [facility] Urine culture (procedure) 07/17/2020 12:00:00 AM [facility] Urine Culture 07/17/2020 12:00:00 AM [facility] X-ray of middle finger (procedure) 06/21/2020 07:33:48 AM [facility] X-ray of middle finger (procedure) 06/21/2020 07:33:48 AM [facility] X-ray of middle finger (procedure) 06/21/2020 07:33:48 AM [facility] X-ray of middle finger (procedure) 06/21/2020 07:33:48 AM [facility] X-ray of middle finger (procedure) 06/21/2020 07:33:48 AM [facility] Magnetic resonance imaging of shoulder (procedure) 05/08/2020 02:45:35 PM [facility] Magnetic resonance imaging of shoulder (procedure) 05/08/2020 02:45:35 PM [facility] Magnetic resonance imaging of shoulder (procedure) 05/08/2020 02:45:35 PM [facility] Magnetic resonance imaging of shoulder (procedure) 05/08/2020 02:45:35 PM [facility] Magnetic resonance imaging of shoulder (procedure) 05/08/2020 02:45:35 PM [facility] Magnetic resonance imaging of shoulder (procedure) 05/08/2020 02:45:35 PM [facility] Magnetic resonance imaging of shoulder (procedure) 05/08/2020 02:45:35 PM [facility] Xray Hand Complete RT 04/04/2020 08:22:00 AM [facility] Xray Hand Complete RT 04/04/2020 08:22:00 AM [facility] Xray Hand Complete RT 04/04/2020 08:22:00 AM [facility] Xray Hand Complete RT 04/04/2020 08:22:00 AM [facility] Xray Hand Complete RT 04/04/2020 08:22:00 AM [facility] Xray Hand Complete RT 04/04/2020 08:22:00 AM [facility] Xray Hand Complete RT 04/04/2020 08:22:00 AM [facility] Xray Hand Complete RT 04/04/2020 08:22:00 AM [facility] Nucleic acid assay (procedure) 02/18/2020 12:00:00 AM [facility] Nucleic acid assay (procedure) 02/18/2020 12:00:00 AM [facility] Nucleic acid assay (procedure) 02/18/2020 12:00:00 [facility] System Nucleic acid assay (procedure) 02/18/2020 12:00:00 AM [facility] Nucleic acid assay (procedure) 02/18/2020 12:00:00 AM [facility] Nucleic acid assay (procedure) 02/18/2020 12:00:00 AM [facility] Nucleic acid assay (procedure) 02/18/2020 12:00:00 AM [facility] Nucleic acid assay (procedure) 02/18/2020 12:00:00 AM [facility] Nucleic acid assay (procedure) 02/18/2020 12:00:00 AM [facility] Respiratory Panel (PCR) 02/18/2020 12:00:00 AM [facility] MRI BRAIN BRAIN STEM W/O CONTRAST MATERIAL 10/25/2019 12:00:00 AM EDT [facility] ([facility]) MRI BRAIN BRAIN STEM W/O CONTRAST MATERIAL 10/25/2019 12:00:00 AM EDT [facility] ([facility] ) Radiography of wrist (procedure) 10/04/2019 01:16:44 P M [facility] Radiography of wrist (procedure) 10/04/2019 01:16:44 P M [facility] Radiography of wrist (procedure) 10/04/2019 01:16:44 P M [facility] Radiography of wrist (procedure) 10/04/2019 01:16:44 P M [facility] Radiography of wrist (procedure) 10/04/2019 01:16:44 P M [facility] Radiography of wrist (procedure) 10/04/2019 01:16:44 P M [facility] Radiography of wrist (procedure) 10/04/2019 01:16:44 P M [facility] Radiography of wrist (procedure) 10/04/2019 01:16:44 P M [facility] Radiography of wrist (procedure) 10/04/2019 01:16:44 P M [facility] Radiography of wrist (procedure) 10/04/2019 01:16:44 P M [facility] Radiography of wrist (procedure) 10/04/2019 01:16:44 P M [facility] Radiography of wrist (procedure) 10/04/2019 01:16:44 P M [facility] Radiography of wrist (procedure) 10/04/2019 01:16:44 P M [facility] Radiography of wrist (procedure) 10/04/2019 01:16:44 P M [facility] Radiography of wrist (procedure) 10/04/2019 01:16:44 P M [facility] Radiography of wrist (procedure) 10/04/2019 01:16:44 P M [facility] Radiography of wrist (procedure) 10/04/2019 01:16:44 P M [facility] X-ray of right knee (procedure) 07/14/2019 09:13:00 AM [facility] X-ray of right knee (procedure) 07/14/2019 09:13:00 AM [facility] X-ray of right knee (procedure) 07/14/2019 09:13:00 AM [facility] X-ray of right knee (procedure) 07/14/2019 09:13:00 AM [facility] X-ray of right knee (procedure) 07/14/2019 09:13:00 AM [facility] X-ray of right knee (procedure) 07/14/2019 09:13:00 AM [facility] X-ray of right knee (procedure) 07/14/2019 09:13:00 AM [facility] X-ray of right knee (procedure) 07/14/2019 09:13:00 AM [facility] X-ray of right knee (procedure) 07/14/2019 09:13:00 AM [facility] X-ray of right knee (procedure) 07/14/2019 09:13:00 AM [facility] X-ray of right knee (procedure) 07/14/2019 09:13:00 AM [facility] X-ray of right knee (procedure) 07/14/2019 09:13:00 AM [facility] X-ray of right knee (procedure) 07/14/2019 09:13:00 AM [facility] X-ray of right knee (procedure) 07/14/2019 09:13:00 AM [facility] X-ray of right knee (procedure) 07/14/2019 09:13:00 AM [facility] X-ray of right knee (procedure) 07/14/2019 09:13:00 AM [facility] X-ray of right knee (procedure) 07/14/2019 09:13:00 AM [facility] X-ray of right knee (procedure) 07/14/2019 09:13:00 AM [facility] Radiography of wrist (procedure) 07/05/2019 07:22:00 A [facility] Radiography of wrist (procedure) 07/05/2019 07:22:00 A [facility] Radiography of wrist (procedure) 07/05/2019 07:22:00 A [facility] Radiography of wrist (procedure) 07/05/2019 07:22:00 A [facility] Radiography of wrist (procedure) 07/05/2019 07:22:00 A [facility] Radiography of wrist (procedure) 07/05/2019 07:22:00 A [facility] Radiography of wrist (procedure) 07/05/2019 07:22:00 A [facility] Radiography of wrist (procedure) 07/05/2019 07:22:00 A [facility] Radiography of wrist (procedure) 07/05/2019 07:22:00 A [facility] Radiography of wrist (procedure) 07/05/2019 07:22:00 A [facility] Radiography of wrist (procedure) 07/05/2019 07:22:00 A [facility] Radiography of wrist (procedure) 07/05/2019 07:22:00 A [facility] Radiography of wrist (procedure) 07/05/2019 07:22:00 A [facility] Radiography of wrist (procedure) 07/05/2019 07:22:00 A [facility] Radiography of wrist (procedure) 07/05/2019 07:22:00 A [facility] Radiography of wrist (procedure) 07/05/2019 07:22:00 A [facility] Radiography of wrist (procedure) 07/05/2019 07:22:00 A [facility] Radiography of wrist (procedure) 07/05/2019 07:22:00 A [facility] Radiography of wrist (procedure) 07/05/2019 12:00:00 A [facility] Radiography of shoulder (procedure) 06/28/2019 09:43:0 0 [facility] Radiography of shoulder (procedure) 06/28/2019 09:43:0 0 [facility] Radiography of shoulder (procedure) 06/28/2019 09:43:0 0 [facility] Radiography of shoulder (procedure) 06/28/2019 09:43:0 0 [facility] Radiography of shoulder (procedure) 06/28/2019 09:43:0 0 [facility] Radiography of shoulder (procedure) 06/28/2019 09:43:0 0 [facility] Radiography of shoulder (procedure) 06/28/2019 09:43:0 0 [facility] Radiography of shoulder (procedure) 06/28/2019 09:43:0 0 [facility] Radiography of shoulder (procedure) 06/28/2019 09:43:0 0 [facility] Radiography of shoulder (procedure) 06/28/2019 09:43:0 0 AM [facility] Radiography of shoulder (procedure) 06/28/2019 09:43:0 0 AM [facility] Radiography of shoulder (procedure) 06/28/2019 09:43:0 0 AM [facility] Radiography of shoulder (procedure) 06/28/2019 09:43:0 0 AM [facility] Radiography of shoulder (procedure) 06/28/2019 09:43:0 0 AM [facility] Radiography of shoulder (procedure) 06/28/2019 09:43:0 0 AM [facility] Radiography of shoulder (procedure) 06/28/2019 09:43:0 0 AM [facility] Radiography of shoulder (procedure) 06/28/2019 09:43:0 0 AM [facility] Radiography of shoulder (procedure) 06/28/2019 12:00:0 0 AM [facility] Results ID Date Data Source [id number] 08/07/2020 08:41:00 AM [facility] Patient Name: MARII DYKES DO B: 1955 Sex: F Pt Unit #: [id number] [facility] Provider: Visit Date/Time: 08/07/20 Primary Insurance: [facility] Secondary Insurance: Self Pay Intake Vital Signs 08/07/20 08:43 Current Height 5 ft 2 in Current Weight 217 lb 6 oz BMI 39.7 BP 140/82 Respiration 18 Pulse 82 Temp 97.5 F L Temp Source Temporal Artery Scan Pulse Oximetry (%) 96 Oxygen Delivery Method room air Intake Visit Reasons: Shoulder pain/injury follow-up Is patient in pain?: Yes Pain scale (1- 10): 4 Allergies No Known Drug Allergies Allergy (Verified 08/07/20 09:18) [facility] Medical History (Updated 08/07/20 @ 09:20 by Hanane Hoover PA-C) Hyperlipidemia Hypothyroidism Migraine Pityriasis lichenoides chronica Right rotator cuff tear Vitamin D deficiency Surgical History History of - artificial joint History of - surgery ( 05/2014) History of hysterectomy ( 1985) History of orthopedic surgery Family History Mother No problems noted. Father No problems noted. Brother No problems noted. Brother No problems noted. Brother No problems noted. Brother No problems noted. Sister No problems noted. Sister No problems noted. Sister No problems noted. Sister No problems noted. Social History Does the Patient have a Healthcare Proxy: Yes Does Patient have a DNR?: No Does Patient have a Living Will?: No Advance Directives on File or in chart?: No Hx Recent Travel (where): No Smoking Status: Former smoker Tobacco: How many years used: 37 how long ago did patient quit smokin years ago HPI HPI HPI (1) Rotator cuff tear, non-traumatic: (2) Arthritis of right acromioclavicular joint: HPI Comments Details: Patient is a 65 year old [id number] female, here for a surgical consult of her Right shoulder. Patient with persistent right shoulder pain for almost 2 years. Previous MRI of the right shoulder shows retracted supraspinatus tear. Patient is eager to proceed with right shoulder arthroscopy and rotator cuff repair as previously discussed and arranged with Dr. Ragland. Review of Systems Const Denies anorexia, Denies excessive sweating, Denies fatigue, Denies fever(s), Denies headache(s), Denies weight gain and Denies weight loss Eyes Denies blurry vision, Denies change in vision, Denies dry eyes, Denies irritation, Denies itchy eyesand Denies loss of vision ENT Denies abnormal hearing, Denies dysphagia, Denies dizziness, Denies headache(s), Denies lip swelling, Denies nasal congestion, Denies nasal discharge, Denies disequilibrium, Denies sinus pain,Denies sore throat and Denies throat swelling Card Denies chest pain, Denies pedal edema, Denies lightheadedness, Denies palpitations and Denies dyspnea Resp Denies cough, Denies excessive phlegm production, Denies pain on inspiration, Denies dyspnea and Denies wheezing GI Denies abdominal pain, Denies change in bowel habits, Denies dysphagia, Denies early satiety, Deniesheartburn, Denies diarrhea, Denies nausea and Denies vomiting Genitourinary: Denies difficulty voiding, urinary incontinence or urinary urgency Musc Denies back pain, Reports arthralgias (Right shoulder), Denies limited range of motion, Denies muscle cramps and Denies muscle weakness Skin/Breast Denies breast pain, Denies change in pigmentation, Denies lesions, Denies nail changes, Denies rash and Denies unusual bruising Neuro Denies abnormal hearing, Denies dizziness, Denies headache(s), Denies loss of vision, Denies memory loss, Denies paresthesias and Denies disequilibrium Psych Denies abnormal sleep pattern, Denies anxiety, Denies change in appetite, Denies depression, Denies irritability and Denies memory loss Endo Denies cold intolerance, Denies excessive sweating, Denies fatigue, Denies polyphagia, Denies polydipsia, Denies polyuria and Denies palpitations Yuri/Lymph Denies easy bleeding, Denies easy bruising and Denies lymphadenopathy Aller/Immun Denies urticaria, Denies itchy eyes, Denies lip swelling, Denies seasonal rhinor alanna, Denies throat swelling and Denies wheezing Exam Const General: cooperative, healthy appearing, no acute distress, well developed and well groomed Nutritional Appearance: well nourished Orientation: alert, awake and oriented x3 [facility] Head: normal to inspection, normocephalic and atraumatic Eyes General: appearance normal, both eyes and all related structures Neck Neck: normal visual inspection Chest Chest: normal inspection of the chest Resp Effort Inspection: normal respiratory effort Cardio Pulses: normal peripheral pulses GI Inspection: Yes normal to inspection Skin Lesions: no lesions Rashes: no rashes Hair: normal Nails: normal Neuro General: patient alert, patient awake, patient oriented x3, moves all extremities and normal light touch, pain and propioception Extrem Other: Patient continues to have pain and limitations with active shoulder abduction and forward flexion as well as external rotation and internal rotation. She is tender laterally at rotator cuffinsertion and is tender over the acromioclavicular joint. She has a positive empty can test for both pain and weakness. Positive pain and weakness with resisted external rotation. 5/5 internal rotation. Positive impingement testing. Intact sensation throughout the right upper extremity withintact peripheral pulses. Psych Appearance: grossly normal and well kempt Mental Status: mental status grossly normal Assessment Plan Assessment Plan (1) Rotator cuff tear, non-traumatic: Status: Acute Code(s): M75.100 - Unspecified rotator cuff tear or rupture of unspecified shoulder, not specified as traumatic SNOMED Code(s): 739404631 Category: Medical Qualifiers: Rotator cuff tear extent: complete Laterality: right Qualified Code(s): M75.121 - Completerotator cuff tear or rupture of right shoulder, not specified as traumatic Plan - CHUCHO Gary: Patient is eager to proceed with right shoulder surgery as previously di scussed and arranged. We discussed right shoulder arthroscopy with rotator cuff repair, subacromial decompression and distal clavicle excision. Patient demonstrated good understanding. She understands that she will need postoperative physical therapy. Recovery time is highly dependent on operative findings. Patient has been cleared for surgery by her primary care provider. Preoperative history and physical performed. She will undergo preoperative COVID-19 testing. Surgical consent was reviewed and signed by the patient. Patient will follow-up postoperatively. (2) Arthritis of right acromio clavicular joint: Status: Acute Code(s): M19.011 - Primary osteoarthritis, right shoulder SNOMED Code(s): 540179579 Category: Medical <Electronically signed by Hanane Warren> 08/07/20 0924 Name Value Range Interpretation Code Description Data Kay rce(s) Supporting Document(s) ID Date Data Source [id number] 08/08/2020 07:29:00 AM [facility] Name Value Range Interpretation Code Description Data Kay rce(s) Supporting Document(s) Bacteria identified in Urine by Culture [facility] ID Date Data Source [id number] 08/07/2020 08:11:00 AM [facility] Name Value Range Interpretation Code Description Data Kay rce(s) Supporting Document(s) Leukocytes [#/volume] in Blood by Automated count 10.1 10*3/uL 4.45-1 0.71 N [facility] Erythrocytes [#/volume] in Blood by Automated count 3.89 10*6/uL 4.20-5.40 Below low normal [facility] Hemoglobin [Moles/volume] in Blood 12.0 g/dL 10.7-15.4 N [facility] Hematocrit [Volume Fraction] of Blood by Automated count 37.9 % 3 7-47 N [facility] Erythrocyte mean corpuscular volume [Ent itic volume] in Cord blood by Automated count 97.4 fL 80-96 Above high normal [facility] Erythrocyte mean corpuscular hemoglobin [Entitic mass] by Automated count 30.8 pg 27-31 N [facility] Erythrocyte mean corpuscular hemoglobin concentration [Mass/volume] in Cord blood 31.7 g/dL 33-37 Below low normal [facility] Erythrocyte distribution width [Entitic volume] by Automated count 13 % 11-15 N [facility] Platelets [#/volume] in Blood by Automated count 379 10*3/uL 130-472 N [facility] Platelet mean volume [Entitic volume] in Blood 9.5 fL 9.1-13.1 N [facility] Neutrophils/100 leukocytes in Blood by Automated count 57.2 % 41- 77 N [facility] Neutrophils [#/volume] in Blood by Automated count 5.8 U 1.7-7.6 N [facility] Lymphocytes/100 leukocytes in Blood by Automated count 30.5 % 14- 46 N [facility] Lymphocytes [#/volume] in Blood by Automated count 3.1 U 0.6-4.6 N [facility] Monocytes/100 leukocytes in Blood by Automated count 8.6 % 4-12 N [facility] Monocytes [#/volume] in Blood by Automated count 0.9 U 0.2-1.2 N [facility] Eosinophils/100 leukocytes in Blood by Automated count 2.6 % 0-7 N [facility] Eosinophils [#/volume] in Blood by Automated count 0.3 U 0.0-0.5 N [facility] Basophils/100 leukocytes in Blood by Automated count 0.8 % 0.4-1 .3 N [facility] Basophils [#/volume] in Blood by Automated count 0.1 U 0.0-0.2 N [facility] NUCLEATED RED BLOOD CELL 0 % [facility] NUCLEATED RED BLOOD CELL# 0 U [facility] Immature granulocytes [Presence] in Blood by Automated count 0-2 N [facility] Immature granulocytes [#/volume] in Blood by Automated count 0.0 U 0-0.1 N [facility] Manual Differential panel - Blood NO [facility] ID Date Data Source [id number] 08/07/2020 08:49:00 AM EST [facility] Name Value Range Interpretation Code Description Data Kay rce(s) Supporting Document(s) Urea nitrogen [Mass/volume] in Serum or Plasma 17 mg/dL 9-23 N [facility] Sodium [Moles/volume] in Serum or Plasma 141 mmol/L 132-146 N [facility] Potassium [Moles/volume] in Serum or Plasma 4.1 mmol/L 3.5-5.5 N [facility] Chloride [Moles/volume] in Serum or Plasma 106 mmol/L 99-109 N [facility] Carbon dioxide, total [Moles/volume] in Serum or Plasma 29 mmol/L 20 -31 N [facility] Anion gap in Serum or Plasma 10 mmol/L 8-16 N [facility] Glucose [Mass/volume] in Serum or Plasma 136 mg/dL 74-106 Above high normal [facility] Creatinine 1.2 mg/dL 0.5-1.1 Above high normal [facility] Glomerular filtration rate/1.73 sq M.pre dicted [Volume Rate/Area] in Serum or Plasma 45 ml/min ABOVE 60 [facility] ital Calcium [Mass/volume] in Serum or Plasma 9.5 mg/dL 8.5-10.1 [facility] ID Date Data Source [id number] 08/05/2020 08:30:00 AM [facility] Name Value Range Interpretation Code Description Data Kay rce(s) Supporting Document(s) SARS coronavirus 2 RNA Not Detected [facility] This lab was ordered by [facility] and reported by [facility]. ID Date Data Source [id number] 07/31/2020 09:07:00 AM [facility] Patient Name: MARII DYKES DO B: 1955 Sex: F Pt Unit #: [id number] Location:[facility] Provider: Visit Date/Time: 07/31/20 Primary Insurance: [facility] Secondary Insurance: Self Pay Intake Vital Signs 07/31/20 09:07 Current Height 5 ft 2 in Current Weight 221 lb Weight Measurement Method Standing Scale BMI 40.4 BP 134/62 Blood Pressure Location Lt brachial Position Sitting Respiration 12 Pulse 68 Pulse Strength Normal Pulse Source Pulse Oximeter Temp 97.3 F L Temp Source Tympanic Pulse Oximetry (%) 98 Oxygen Delivery Method room air Intake Visit Reasons: Pre-operative H P Nurse Note: Pre op For Right Shoulder Surgery Dx M75.100 - Had EKG last week, and has had Blood workdone as well - Still Struggling with Kidney stone issue, but is having it Taken care of on 08/10/2020t [facility] - Otherwise doing well - 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 amitriptyline 12.5 mg PO HS bio tin 10,000 mcg PO DAILY calcium carbonate-vitamin D3 600 mg(1,500mg) -200 unit 1 ea PO DAILY Imitrex (sumatriptan succinate) 50 mg PO Q2H 75 days PRN MDD 4 NS Lipitor (atorvastatin) 40 mg PO DAILY 90 days NS multivitamin (Daily Multi- Vitamin) 1 tab PO DAILY oxycodone-acetaminophen 5-325 mg (Percocet) 1 tab PO TID PRN Synthroid (levothyroxine) Take 1 tablet by mouth once daily for 30 days NS Is last menstrual period known: No Post menopausal: Yes Patient : No Vision Wearing glasses?: Yes Fall Risk History of falls: No Ambulatory Aid:: None Gait/Transferring:: Normal Medications:: No High Risk Medications PHQ-2/9 Over the last 2 weeks, how often have you been bothered by any of the following problems? 1. Little interest or pleasure in doing things: not at all 2. Feeling down, depressed, or hopeless: not at all Total score: 0 HIV Testing Offer - ages 13-64 HIV testing Offer: Yes Requirement for HIV testing offer been met?: Declines today. Pretest education received and acknowledged Hep C Testing Offered: Yes SBIRT Annual Questionnaire Are you currently in recovery for alcohol or substance use?: No How many times in the past year have you had 4 or more drinks in a day?: None How many times in the past year have you used a recreational drug or used a prescription medication for nonmedical reasons?: None Do you need a note to return Do you need a note to return to daycare/school/sports/work: No Coronavirus Screening Screening Have you traveled outside of [facility] or [facility] in the last 14 days.: No Has patient experienced coronavirus symptoms: No PFSH Medical History Hyperlipidemia Hypothyroidism Migraine Pityriasis lichenoides chronica Right rotator cuff tear Vitamin D deficiency Surgical History History of - artificial joint History of - surgery ( 05/2014) History of hysterectomy ( 1985) History of orthopedic surgery Family History Mother No problems noted. Father No problems noted. Brother No problems noted. Brother No problems noted. Brother No problems noted. Brother No problems noted. Sister No problems noted. Sister No problems noted. Sister No problems noted. Sister No problems noted. Social History Does the Patient have a Healthcare Proxy: Yes Does Patient have a DNR?: No Does Patient have a Living Will?: No Advance Directives on File or in chart?: No Hx Recent Travel (where): No Smoking Status: Former smoker Tobacco: How many years used: 37 how long ago did patient quit smokin years ago HPI Pre-Operative H P Covid Screening Pre-Op Covid testing ordered?: Yes Exercise tolerance Can climb one flight of stairs (12-13 steps) in less than 30 seconds without stopping and without symptoms: Yes Risk factors Pulmonary risk factors: age > 60 Active cardiac conditions: none Active risk factors: none Pertinent Past History Previous surgical complications: No Previous anesthesia intolerance: No Steroid use in last 6 months: No Allergies to meds or foods: No Pertinent Family History Family hx adverse reaction to anesthesia: No Family history coagulopathy: No Menstrual History Menopausal?: Yes Surgical Risk Surgical risk for this patient: Low Review of Systems Const Denies chills, Denies fatigue, Denies fever(s), Santos es headache(s), Denies night sweats, Denies poorappetite, Denies weakness, Denies weight gain and Denies weight loss Eyes Denies blurry vision, Denies diplopia and Denies eye discharge ENT Denies vertigo, Denies dizziness, Denies otalgia, Denies headache(s), Denies nasal congestion and Denies sore throat Card Denies chest pain, Denies palpitations and Denies dyspnea Resp Denies cough, Denies dyspnea and Denies wheezing GI Reports abdominal pain (some better), Denies constipation, Denies diarrhea, Denies nausea and Deniesvomiting Genitourinary: Reports hematuria; Denies abnormal vaginal bleeding, metrorrhagia or dysuria Musc Reports as per HPI, Denies back pain, Reports arthralgias (shoulder), Reports limited range of motion and Denies numbness Skin/Breast Denies breast pain, Denies lesions and Denies rash Neuro Denies vertigo, Denies dizziness, Denies headache(s), Denies numbness and Denies weakness Psych Denies abnormal sleep pattern, Denies anxiety, Denies depression and Denies irritability Endo Denies fatigue, Denies polydipsia, Denies polyuria and Denies palpitations Yuri/Lymph Denies easy bleeding, Denies easy bruising and Denies lymphadenopathy Aller/Immun Denies wheezing Exam Const General: cooperative, healthy appearing and no acute distress Nutritional Appearance: well nourished [facility] Head: normal to inspection, normocephalic and atraumatic Ears: TM's normal bilaterally and EAC's normal General nose exam: external nose normal; no nasal discharge noted Mouth: oral mucosae normal Throat: posterior oropharynx normal and no postnasal drainage Eyes General: appearance normal, both eyes and all related structures Conjunctivae: conjunctivae normal Sclera: sclerae normal Neck Neck: normal visual inspection and full ROM Thyroid: thyroid normal Carotids: normal carotid upstroke Lymphatic: no lymphadenopathy noted Chest Chest: normal inspection of the chest Resp Effort Inspection: normal respiratory effort Auscultation: no rales, no rhonchi and no wheezes Cardio Rate: regular rate Rhythm: regular rhythm Heart Sounds: no murmurs GI Inspection: Yes normal to inspection Palpation: soft, no masses and nontender Auscultation: normal bowel sounds Musc Cervical Spine: cervical ROM normal Thoracic/Lumbar Spine: thoracic and lumbar spine normal to inspection Neuro General: patient alert and patient awake Cranial Nerves: hearing normal Cognition: normal cognition Motor: muscle tone normal throughout Sensory Exam: no sensory deficits noted Extrem General: no clubbing, cyanosis or edema Psych Appearance: grossly norm al Mental Status: mental status grossly normal Assessment Plan Assessment Plan (1) Pre-Operative Examination: Code(s): Z01.818 - Encounter for other preprocedural examination (2) Unspecified rotator cuff tear or rupture of unspecified shoulder, not specified as traumatic: Code(s): M75.100 - Unspecified rotator cuff tear or rupture of unspecified shoulder, not specified as traumatic Qualifiers: Rotator cuff tear extent: unspecified tear extent Rotator cuff tear trauma status: unspecified whether traumatic Laterality: left Qualified Code(s): M75.102 - Unspecified rotator cuff tear or rupture of left shoulder, not specified as traumatic Additional Comments Additional Comments: labs reviewed, H/H improved, EKG and CXR reviewed, cleared for surgery Orders Other Orders: Orders: Xray Chest 2 view PA/LAT 07/24/20 I10 Coding Level of Care Code 46752 Est Pt Extended Comp Exam Detailed Diagnoses Pre- Operative Examination Z01.818 Unspecified rotator cuff tear or rupture of unspecified shoulder, not specified as traumatic M75.102 Rotator cuff tear extent: unspecified tear extent Rotator cuff tear trauma status: unspecified whether traumatic Laterality: left <Electronically signed by Jacy Franz MD> 07/31/20 1246 Name Value Range Interpretation Code Description Data Kay rce(s) Supporting Document(s) ID Date Data Source [id number] 07/31/2020 08:44:00 AM [facility] Name Value Range Interpretation Code Description Data Kay rce(s) Supporting Document(s) Leukocytes [#/volume] in Blood by Automated count 11.8 10*3/uL 4.45-10.71 Above high normal [facility] Erythrocytes [#/volume] in Blood by Automated count 3.62 10*6/uL 4.20-5.40 Below low normal [facility] Hemoglobin [Moles/volume] in Blood 11.0 g/dL 10.7-15.4 N [facility] Hematocrit [Volume Fraction] of Blood by Automated count 35.4 % 37-47 Below low normal [facility] Erythrocyte mean corpuscular volume [Ent itic volume] in Cord blood by Automated count 97.8 fL 80-96 Above high normal [facility] Erythrocyte mean corpuscular hemoglobin [Entitic mass] by Automated count 30.4 pg 27-31 N [facility] Erythrocyte mean corpuscular hemoglobin concentration [Mass/volume] in Cord blood 31.1 g/dL 33-37 Below low normal [facility] Erythrocyte distribution width [Entitic volume] by Automated count 13 % 11-15 N [facility] Platelets [#/volume] in Blood by Automated count 392 10*3/uL 130-472 N [facility] Platelet mean volume [Entitic volume] in Blood 9.7 fL 9.1-13.1 N [facility] Neutrophils/100 leukocytes in Blood by Automated count 68.1 % 41- 77 N [facility] Neutrophils [#/volume] in Blood by Automated count 8.1 U 1.7-7.6 Above high normal [facility] Lymphocytes/100 leukocytes in Blood by Automated count 19.8 % 14- 46 N [facility] Lymphocytes [#/volume] in Blood by Automated count 2.3 U 0.6-4.6 N [facility] Monocytes/100 leukocytes in Blood by Automated count 9.1 % 4-12 N [facility] Monocytes [#/volume] in Blood by Automated count 1.1 U 0.2-1.2 N [facility] Eosinophils/100 leukocytes in Blood by Automated count 2.3 % 0-7 N [facility] Eosinophils [#/volume] in Blood by Automated count 0.3 U 0.0-0.5 N [facility] Basophils/100 leukocytes in Blood by Automated count 0.4 % 0.4-1 .3 N [facility] Basophils [#/volume] in Blood by Automated count 0.1 U 0.0-0.2 [facility] NUCLEATED RED BLOOD CELL 0 % [facility] NUCLEATED RED BLOOD CELL# 0 U [facility] Immature granulocytes [Presence] in Blood by Automated count 0-2 N [facility] Immature granulocytes [#/volume] in Blood by Automated count 0.0 U 0-0.1 N [facility] Manual Differential panel - Blood NO [facility] ID Date Data Source [id number] 07/31/2020 09:28:00 AM EST [facility] Name Value Range Interpretation Code Description Data Kay rce(s) Supporting Document(s) Urea nitrogen [Mass/volume] in Serum or Plasma 22 mg/dL 9-23 N [facility] Sodium [Moles/volume] in Serum or Plasma 142 mmol/L 132-146 [facility] Potassium [Moles/volume] in Serum or Plasma 4.7 mmol/L 3.5-5.5 [facility] Chloride [Moles/volume] in Serum or Plasma 107 mmol/L 99-109 N [facility] Carbon dioxide, total [Moles/volume] in Serum or Plasma 30 mmol/L 20 -31 N [facility] Anion gap in Serum or Plasma 10 mmol/L 8-16 N [facility] Glucose [Mass/volume] in Serum or Plasma 122 mg/dL 74-106 Above high normal [facility] Creatinine 1.3 mg/dL 0.5-1.1 Above high normal [facility] Glomerular filtration rate/1.73 sq M.pre dicted [Volume Rate/Area] in Serum or Plasma 41 ml/min ABOVE 60 [facility] ital Calcium [Mass/volume] in Serum or Plasma 9.2 mg/dL 8.5-10.1 [facility] ID Date Data Source [id number] 07/25/2020 09:50:00 AM [facility] [address] [id number] [phone] NAME SEX PT STATUS ACCOUNT NUMBER MARII DYKES REG REF [id number] ORDERING PHYSICIAN LOCATION MEDICAL RECORD NO. Jacy Franz MD EKG [id number] ATTENDING PHYSICIAN DATE OF DATE OF EXAM/TIME [...] mammogram was read with the assistance of [employer], an FDA-approved computer-aided detection system for mammography. Reported By Vinicius Steele MD on 07/25/20949 Signed By Vinicius Steele MD on 07/25/2058 Date Time CC: Vinicius Steele MD; Jacy Franz MD Techn: BAKLE Trans Dt/Tm: Trans by: DT Prt Dt/Tm: 1227- 1: Total DLP = 0.00 mGy-cm 1412-2797: Total Radiation Dose = 0.0000 mSv Lifetime Dose: 10.9800 mSv Name Value Range Interpretation Code Description Data Kay rce(s) Supporting Document(s) ID Date Data Source [id number] 07/24/2020 10:09:00 AM EST [facility] [address] [id number] [phone] NAME SEX PT STATUS ACCOUNT NUMBER MARII DYKES REG REF [id number] ORDERING PHYSICIAN LOCATION MEDICAL RECORD NO. Jacy Franz MD EKG [id number] ATTENDING PHYSICIAN DATE OF DATE OF EXAM/TIME [...] Reported By Vinicius Steele MD on 07/24/20 1009 Signed By Vinicius Steele MD on 07/24/20 1009 Date Time CC: Vinicius Steele MD; Jacy Franz MD Techn: EBEBR Trans Dt/Tm: Trans by: DT Prt Dt/Tm: 5410-6051: Total DLP = 0.00 mGy-cm Fluoroscopy Time (in secs): Name Value Range Interpretation Code Description Data Kay rce(s) Supporting Document(s) ID Date Data Source [id number] 07/24/2020 10:04:00 AM [facility] Name Value Range Interpretation Code Description Data Kay rce(s) Supporting Document(s) Urea nitrogen [Mass/volume] in Serum or Plasma 15 mg/dL 9-23 N [facility] Sodium [Moles/volume] in Serum or Plasma 144 mmol/L 132-146 [facility] Potassium [Moles/volume] in Serum or Plasma 4.6 mmol/L 3.5-5.5 N [facility] Chloride [Moles/volume] in Serum or Plasma 107 mmol/L 99-109 N [facility] Carbon dioxide, total [Moles/volume] in Serum or Plasma 32 mmol/ L 20-31 Above high normal [facility] Anion gap in Serum or Plasma 10 mmol/L 8-16 N [facility] Glucose [Mass/volume] in Serum or Plasma 127 mg/dL 74-106 Above high normal [facility] Creatinine 1.2 mg/dL 0.5-1.1 Above high normal [facility] Glomerular filtration rate/1.73 sq M.pre dicted [Volume Rate/Area] in Serum or Plasma 45 ml/min ABOVE 60 [facility] ital Calcium [Mass/volume] in Serum or Plasma 9.0 mg/dL 8.5-10.1 N [facility] ID Date Data Source [id number] 07/24/2020 10:04:00 AM [facility] Name Value Range Interpretation Code Description Data Kay rce(s) Supporting Document(s) Thyrotropin [Units/volume] in Serum or Plasma by Detec tion limit <= 0.005 mIU/L 10.30 u[iU]/mL 0.35-5.50 Above high normal [facility] @Review & document.Repeated by: Sean Debra 07/24/20 1004.Result Confirmation: 10.3 uIU/mL ID Date Data Source [id number] 07/24/2020 08:37:00 AM EST [facility] Name Value Range Interpretation Code Description Data Kay rce(s) Supporting Document(s) Leukocytes [#/volume] in Blood by Automated count 7.9 10*3/uL 4.45-10 .71 N [facility] Erythrocytes [#/volume] in Blood by Automated count 3.24 10*6/uL 4.20-5.40 Below low normal [facility] Hemoglobin [Moles/volume] in Blood 9.9 g/dL 10.7-15.4 Below low no rmal [facility] Hematocrit [Volume Fraction] of Blood by Automated count 31.5 % 37-47 Below low normal [facility] Erythrocyte mean corpuscular volume [Ent itic volume] in Cord blood by Automated count 97.2 fL 80-96 Above high normal [facility] Erythrocyte mean corpuscular hemoglobin [Entitic mass] by Automated count 30.6 pg 27-31 [facility] Erythrocyte mean corpuscular hemoglobin concentration [Mass/volume] in Cord blood 31.4 g/dL 33-37 Below low normal [facility] Erythrocyte distribution width [Entitic volume] by Automated count 13 % 11-15 N [facility] Platelets [#/volume] in Blood by Automated count 301 10*3/uL 130-472 N [facility] Platelet mean volume [Entitic volume] in Blood 9.2 fL 9.1-13.1 N [facility] Neutrophils/100 leukocytes in Blood by Automated count 55.5 % 41- 77 [facility] Neutrophils [#/volume] in Blood by Automated count 4.4 U 1.7-7.6 [facility] Lymphocytes/100 leukocytes in Blood by Automated count 31.1 % 14- 46 N [facility] Lymphocytes [#/volume] in Blood by Automated count 2.4 U 0.6-4.6 N [facility] Monocytes/100 leukocytes in Blood by Automated count 8.2 % 4-12 N [facility] Monocytes [#/volume] in Blood by Automated count 0.6 U 0.2-1.2 N [facility] Eosinophils/100 leukocytes in Blood by Automated count 3.8 % 0-7 N [facility] Eosinophils [#/volume] in Blood by Automated count 0.3 U 0.0-0.5 N [facility] Basophils/100 leukocytes in Blood by Automated count 0.9 % 0.4-1 .3 N [facility] Basophils [#/volume] in Blood by Automated count 0.1 U 0.0-0.2 N [facility] NUCLEATED RED BLOOD CELL 0 % [facility] NUCLEATED RED BLOOD CELL# 0 U [facility] Immature granulocytes [Presence] in Blood by Automated count 0-2 N [facility] Immature granulocytes [#/volume] in Blood by Automated count 0.0 U 0-0.1 N [facility] Manual Differential panel - Blood NO [facility] ID Date Data Source [id number] 07/17/2020 03:46:00 PM EST [facility] [address] [place] [id number] [phone] NAME SEX PT STATUS ACCOUNT NUMBER MARII DYKES [facility] ER [id number] ORDERING PHYSICIAN LOCATION MEDICAL RECORD NO. Bandar Vazquez MD ER [id number] ATTENDING PHYSICIAN DATE OF DATE OF EXAM/TIME [...] Trans Dt/Tm: Trans by: DT Prt Dt/Tm: 2499-0073: Total DLP = 732.00 mGy-cm 6090-6698: Total Radiation Dose = 10.9800 mSv Lifetime Dose: 10.9800 mSv Name Value Range Interpretation Code Description Data Kay rce(s) Supporting Document(s) ID Date Data Source [id number] 07/17/2020 02:33:00 PM [facility] [address] [place], [place] [id number] [phone] NAME SEX PT STATUS ACCOUNT NUMBER MARII DYKES REG ER [id number] ORDERING PHYSICIAN LOCATION MEDICAL RECORD NO. Bandar Vazquez MD ER [id number] ATTENDING PHYSICIAN DATE OF DATE OF EXAM/TIME [...] Vinicius Steele MD; Jacy Franz MD Techn: ELIESER Trans Dt/Tm: Trans by: DT Prt Dt/Tm: 0679-3337: Total DLP = 0.00 mGy-cm Fluoroscopy Time (in secs): Name Value Range Interpretation Code Description Data [facility] rce(s) Supporting Document(s) ID Date Data Source [id number] 07/17/2020 02:25:00 PM EST [facility] Reason for ordering culture: Abnormal fi ndings UA@07/17/20 1405: UA W/ MICRO added. RFLXG = UMIC CIF.Method of Collection:: Voided @07/17/20 1425: Urine culture added. RFL XG = CULT.ADD. Reason for ordering culture: Abnormal fi ndings UA@07/17/20 1405: UA W/ MICRO added. RFLXG = UMIC CIF.Method of Collection:: Voided Name Value Range Interpretation Code Description Data [facility] rce(s) Supporting Document(s) Color of Urine [facility] Appearance of Urine CLEAR Abnormal (applies to non-nu meric results) [facility] pH of Urine by Test strip 5.0 5-8 [facility] Specific gravity of Urine by Refractometry 1.027 1.005-1.030 [facility] Leukocyte esterase [Presence] in Urine by Test strip NEGATIVE Abnormal (applies to non-numeric results) [facility]!!!!A Culture has been added to this specimen per established criteria Nitrite [Presence] in Urine by Test strip NEGATIVE [facility] Protein [Presence] in Urine by Test strip NEGATIVE Above high normal [facility] @DO MICRO!!!! Glucose [Mass/volume] in Urine by Automated test strip NEGATIVE NEG ATIVE [facility] Ketones [Presence] in Urine by Test strip NEGATIVE [facility] Urobilinogen [Presence] in Urine 0.2-1 EU/dl [facility] Bilirubin.total [Presence] in Urine by Automated test strip NEGATIVE [facility] Erythrocytes [#/volume] in Urine by Test strip LARGE NEGATIV E Above high normal [facility] @DO MICRO!!!!A Culture has been added to this specimen per established criteria URINE MICROSCOPIC? (CIF) Microscopic Added [facility] ID Date Data Source [id number] 07/18/2020 12:57:00 PM [facility] Reason for ordering culture: Abnormal fi ndings UA@07/17/20 1405: UA W/ MICRO added. RFLXG = UMIC CIF.Method of Collection:: Voided @07/17/20 1425: Urine culture added. RFL XG = CULT.ADD. Reason for ordering culture: Abnormal fi ndings UA@07/17/20 1405: UA W/ MICRO added. RFLXG = UMIC CIF.Method of Collection:: Voided Name Value Range Interpretation Code [facility](s) Bacteria identified in Urine by Culture [facility] ID Date Data Source [id number] 07/17/2020 02:25:00 PM EST [facility] Reason for ordering culture: Abnormal fi ndings UA@07/17/20 1405: UA W/ MICRO added. RFLXG = UMIC CIF.Method of Collection:: Voided @07/17/20 1425: Urine culture added. RFL XG = CULT.ADD. Reason for ordering culture: Abnormal fi ndings UA@07/17/20 1405: UA W/ MICRO added. RFLXG = UMIC CIF.Method of Collection:: Voided Name Value Range Interpretation Code Description Data Kay rce(s) Supporting Document(s) Erythrocytes [#/volume] in Urine by Manual count 51-100 /hpf 0-5 Above high normal [facility] Leukocytes [#/volume] in Urine by Manual count 5-8 /hpf 0-5 Above high normal [facility] Cells [Type] in Urine sediment by Light microscopy [facility] Amorphous sediment [Presence] in Urine sediment by Light microscopy [facility] ID Date Data Source [id number] 07/17/2020 01:52:00 PM EST [facility] ED Physician Documentation NAME: MARII DYKES : 1955 AGE: 65 MR#: [id number] SERVICE DATE: 07/17/[address]: Bandar Vazquez MD PRIMARY CARE DR: Jacy Franz MD ROOM#: HPI (Adult, General) General Chief Complaint: Urogenital Stated Complaint: KIDNEY PAIN,CONSTIPATED Resident LTC, travel outisde home, exposure to hot tubs:: No Time Seen by Provider: 07/17/20 13:32 Source: patient Exam Limitations: no limitations History of Present Illness Narrative: 65 yo woman with thyroid disease, HLD, presents with constipation starting 3 days ago associated with L sided "kidney pain" that started yesterday. No fevers or chills, no N/V/D, no dysuria. Allergies/Home Meds Allergies Allergy/AdvReac Type Severity Reaction Status Date / Time No Known Drug Allergies Allergy Verified 06/21/20 09:11 Home Medications Medication Instructions Recorded Confirmed Last Taken Type calcium carbonate-vitamin D3 1 ea PO DAILY tab 05/20/14 07/03/20 02/16/20 13:00 History multivitamin [Daily Multi-Vitamin] 1 tab PO DAILY 07/06/18 07/03/20 02/16/20 13:00 History biotin 10,000 mcg capsule 10,000 mcg PO DAILY 09/13/19 07/03/20 02/16/20 13:00 History amitriptyline 25 mg tablet 12.5 mg PO HS tab 12/27/19 07/03/20 02/16/20 History Imitrex 50 mg tablet 50 mg PO Q2H PRN 75 Days #36 tab 04/24/20 07/03/20 Unknown Rx NS MDD 4 Lipitor 40 mg tablet 40 mg PO DAILY 90 Days #90 tab NS 05/01/20 07/03/20 Unknown Rx Synthroid 75 mcg tablet 75 mcg PO QDAY 30 Days #30 tab NS 05/01/20 07/03/20 Unknown Rx oxycodone-acetaminophen [Percocet] 1 tab PO TID PRN #15 tab 07/17/20 Unknown Rx PMH (from Triage) Patient Medical History PMH Reviewed/Updated as Needed: Yes PMH/PSH from Triage: Medical History (Updated 06/21/20 @ 09:13 by Hanane Hoover PA-C) Hyperlipidemia (Medical) Hypothyroidism (Medical) Migraine (Medical) 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 Right rotator cuff tear (Medical) PAST HX Vitamin D deficiency (Medical) Surgical History (Updated 10/15/19 @ 09:03 by Katja Caballero) History of - artificial joint (Surgical) Right total knee arthroplasty 07/06/18 History of - surgery (Surgical 05/2014) ROTATOR CUFF REPAIR LEFT SHOULDER History of hysterectomy (Surgical 1985) History of orthopedic surgery (Surgical) Z98.890 right carpal tunnel release 10/05/2019 Female History LMP:: Hysterectomy Hx Drug Resistant Infections Hx MRSA: (Methicillin-resistant Staphylococcus aureus): No Hx VRE (Vancomycin-resistant enterococci): No Hx C.Diff: No Hx CRKP: No Hx Other Resistant Infection?: No Isolation: Standard precautions Hx Recent Travel Out of the country within 10 days (where): No Hx Fever: No Hx Fever with a rash?: No Nurse screening for coronavirus: Recent Travel outside the No country (where) Has patient experienced No coronavirus symptoms Social History Does patient have suicidal/homicidal thoughts or ideation?: No Are you in a relationship with/Does anyone hit you, yell/swear at you, steal from you?: No Substance Use Hx Alcohol Use: No Hx Substance Use: No Hx Substance Use Treatment: No Second Hand Smoke Exposure: No Smoking Status: Former smoker Vaccination History Hx/Date of Tetanus, Diphtheria Vaccination: Yes Hx/Date of Influenza Vaccination: Yes Hx/Date of Pneumococcal Vaccination: No Immunizations Up to Date: Yes PFSH Medical History Hyperlipidemia Hypothyroidism Migraine Pityriasis lichenoides chronica Right rotator cuff tear Vitamin D deficiency Surgical History History of - artificial joint History of - surgery ( 05/2014) History of hysterectomy ( 1985) History of orthopedic surgery Family History Mother No problems noted. Father No problems noted. Brother No problems noted. Brother No problems noted. Brother No problems noted. Brother No problems noted. Sister No problems noted. Sister No problems noted. Sister No problems noted. Sister No problems noted. Social History Does the Patient have a Healthcare Proxy: Yes Does Patient have a DNR?: No Does Patient have a Living Will?: No Advance Directives on File or in chart?: No Hx Recent Travel (where): No Smoking Status: Former smoker Tobacco: How many years used: 37 how long ago did patient quit smokin years ago ROS Review of Systems Constitutional: Denies fever and chills Respiratory: Denies SOB Cardiovascular: Denies chest pain Gastrointestinal: Reports abdominal pain and constipation; Denies vomiting Genitourinary-Female: Denies dysuria and frequency Musculoskeletal: Reports back pain Skin/Breasts: Denies rash Neurologic: Denies weakness and numbness Endocrine: Reports Loss of appetite Hematological/Lymphatic: Denies easy bleeding and easy bruising Allergic/Immunologic: Denies rash Physical Exam General Physical Exam Narrative: obese woman, awake and alert, in mild distress due to pain Limitations: no limitations General appearance: alert, in distress and obese Head Head exam: Present atraumatic, normocephalic and normal inspection Eye Eye exam: Present normal apperance and EOMI; Absent scleral icterus and conjunctival injection ENT ENT exam: Present normal exam, normal orophraynx and mucous membranes moist Neck Neck exam: Present normal inspection and full ROM; Absent tenderness Respiratory Respiratory exam: Present normal lung sounds bilaterally; Absent respiratory distress Cardiovascular Cardiovascular Exam: Present regular rate and normal rhythm GI/Abdominal GI/Abdominal exam: Present Abd soft, bowel sounds present all quadrents and tenderness (over L side of abdomen); Absent guarding and rebound Extremities Exam Extremities exam: Present normal inspection and full ROM; Absent tenderness Back Exam Back exam: Present normal inspection, full ROM, tenderness (L flank) and CVA tenderness (L); Absent vertebral tenderness and rash noted Neurological Exam Neurological exam: Present alert and oriented X3; Absent motor sensory deficit Psychiatric Psychiatric exam: Present normal affect and normal mood Skin Skin exam: Present warm, dry, intact and normal color Vital Signs Vital Signs: Vital Signs 07/17/20 13:52 07/17/20 16:55 Temperature 98.4 F 98.7 F Pulse Rate 77 88 Respiratory Rate 20 18 Blood Pressure 121/75 144/87 O2 Sat by Pulse Oximetry 95 95 MDM (comprehensive) Lab Data Labs: Laboratory Results Last 24 hours 07/17/20 13:54: Urine Color Yellow, Urine Appearance Turbid A, Urine pH 5.0, Ur Specific Clifford 1.027, Urine Protein 100 mg/dl H, Urine Ketones Negative, Urine Blood Large H, Urine Nitrate Negative, Urine Bilirubin Negative, Urine Urobilinogen 0.2 eu/dl, Ur Leukocyte Esterase Small A, Add Ur Microanalysis Microscopic added, Urine RBC 51-100 H, Urine WBC 5-8 H, Ur Squamous Epith Cells Few, Amorphous Sediment Large amt urates, Urine Glucose Negative Radiology Data Radiology results: report reviewed and image reviewed Medical Decision Making Free Text/Narative:: The patient was evaluated for L sided back pain and constipation. The PE was significant for discomfort on palpation over the L flank area. U/A showed large blood. KUB showed sold stool in the cecum. CT abd done showing 9 mm stone at the L UPJ. IVF and toradol given with moderate relief. Case d/w Dr. De La Paz who will see the patient in clinic tomorrow. Plan Plan Plan: d/c home Plan of care: Plan of care discussed with patient and or family, Patient encouraged to ask questions about plan and Patient agrees with plan of care Visit Medications Administered ED medications:: Medications Discontinued Medications Generic Name Dose Route Start Last Admin Trade Name Freq PRN Reason Stop Dose Admin Sodium Chloride 1,000 mls @ 999 mls/hr 07/17/20 14:53 07/17/20 16:25 Ns 0.9% IV 07/17/20 15:53 Infused .Q1H1M ONE Infusion Ketorolac Tromethamine 30 mg 07/17/20 14:53 07/17/20 15:21 Ketorolac Tromethamine 30 Mg/Ml Sdv IVP 07/17/20 14:54 30 mg 1T ONE Administration Oxycodone/Acetaminophen 1 tab 07/17/20 16:22 07/17/20 16:50 Oxycodone/Acetaminophen (5/325) 1 Tab PO 07/17/20 16:23 Not Given TO GO ONE Other Medications: New: oxycodone-acetaminophen 5-325 mg (Percocet) 1 tab PO TID PRN 15 tabs 0RF pain Discharge Plan Admission/Discharge Dx Primary DC Diagnosis: L sided Renal Colic ED Provider: Bandar Vazquez ED Status: Discharged Time Seen by Provider: 07/17/20 13:32 Triaged At: 07/17/20 13:35 Condition Condition: Stable Discharge Detail Disposition: Home, Self-Care Med Rec New Prescriptions: New oxycodone-acetaminophen [Percocet] 5-325 mg tablet 1 tab PO TID PRN (Reason: pain) Qty: 15 RF: 0 No Action biotin 10,000 mcg capsule 10,000 mcg PO DAILY RF: 0 amitriptyline 25 mg tablet 12.5 mg PO HS RF: 0 multivitamin [Daily Multi-Vitamin] Tablet 1 tab PO DAILY RF: 0 calcium carbonate-vitamin D3 1 EACH tablet 1 ea PO DAILY RF: 0 sumatriptan succinate [Imitrex] 50 mg tablet 50 mg PO Q2H MDD 4 PRN (Reason: migraines) 75 Days Qty: 36 RF: 3 atorvastatin [Lipitor] 40 mg tablet 40 mg PO DAILY 90 Days Qty: 90 RF: 3 levothyroxine [Synthroid] 75 mcg tablet 75 mcg PO QDAY 30 Days Qty: 30 RF: 2 Follow Up Visit/Referrals: Teresa Cassidy [PHYSICIAN] - Medications Medication reconciliation performed by provider at discharge: Yes Follow Up Care/Instructions Diet/Activity/Wound Care..: [facility] appointment tomorrow at 10:30 AM; pain medicine as needed *Discharge Patient* Discharge Orders: Discharge Order (Routine); Ordered 07/17/20 Ordered By: Bandar Vazquez Discharge Date/Time: 07/17/20 16:55 Interventions Interventions: ED Discharge Instructions Last Done: 07/17/20 17:10 ED Urogenital Last Done: 07/17/20 13:44 Report Signers: <Electronically signed by Bandar Vazquez MD> Bandar Vazquez MD 07/18/20 0821 Bandar Vazquez MD SIGNATURE DA Report Cosigners: D: URSULA 07/17/20 135 T: URSULA 07/17/20 135 CC: Jacy Franz MD Name Value Range Interpretation Code Description Data Kay rce(s) Supporting Document(s) ID Date Data Source [id number] 07/03/2020 09:33:00 AM [facility] Patient Name: MARII DYKES DO B: 1955 Sex: F Pt Unit #: [id number] Location:[facility] Provider: Visit Date/Time: 07/03/20 Primary Insurance: [facility] Secondary Insurance: Self Pay Intake Vital Signs 07/03/20 09:33 Current Height 5 ft 3 in Current Weight 200 lb Weight Measurement Method Standing Scale BMI 35.4 BP 142/68 Blood Pressure Location Rt radial Position Sitting Respiration 12 Pulse 64 Pulse Strength Normal Pulse Source Pulse Oximeter Pulse Oximetry (%) 96 Oxygen Delivery Method room air Intake Visit Reasons: Hyperlipidemia, Hypothyroidism Nurse Note: Cholesterol follow up- had carpel tunnel repair done and is doing well with that - Her trigger finger left hand middle finger has been bothersome lately - scheduled for shoulder surgery in july Spring F[employer] Helper Required: No Accompanied by: Alphonse marti Is patient in pain?: No Allergies No Known Drug Allergies Allergy (Verified 06/21/20 09:11) Medications - Last Reconciled 07/03/20 by Jacy Franz M.D. amitriptyline 12.5 mg PO HS biotin 10,000 mcg PO DAILY calcium carbonate-vitamin D3 600 mg(1,500mg) -200 unit 1 ea PO DAILY Imitrex (sumatriptan succinate) 50 mg PO Q2H 75 days PRN MDD 4 NS Lipitor (atorvastatin) 40 mg PO DAILY 90 days NS multivitamin (Daily Multi-Vitamin) 1 tab PO DAILY Synthroid (levothyroxine) 75 mcg PO QDAY 30 days NS Is last menstrual period known: No Post menopausal: Yes Patient : No Vision Wearing glasses?: No Fall Risk History of falls: No Ambulatory Aid:: None Gait/Transferring:: Normal Medications:: No High Risk Medications PHQ-2/9 Over the last 2 weeks, how often have you been bothered by any of the following problems? 1. Little interest or pleasure in doing things: not at all 2. Feeling down, depressed, or hopeless: not at all Total score: 0 HIV Testing Offer - ages 13-64 HIV testing Offer: Yes Requirement for HIV testing offer been met?: Declines today. Pretest education received and acknowledged Hep C Testing Offered: Yes Hep C Requirement met: Refuses today SBIRT Annual Questionnaire Are you currently in recovery for alcohol or substance use?: No How many times in the past year have you had 4 or more drinks in a day?: None How many times in the past year have you used a recreational drug or used a prescription medication for nonmedical reasons?: None Do you need a note to return Do you need a note to return to daycare/school/sports/work: No Coronavirus Screening Screening Have you traveled outside of [facility] or [facility] in the last 14 days.: No Has patient experienced coronavirus symptoms: No [facility] Medical History Hyperlipidemia Hypothyroidism Migraine Pityriasis lichenoides chronica Right rotator cuff tear Vitamin D deficiency Surgic al History History of - artificial joint History of - surgery ( 05/2014) History of hysterectomy ( 1985) History of orthopedic surgery Family History Mother No problems noted. Father No problems noted. Brother No problems noted. Brother No problems noted. Brother No problems noted. Brother No problems noted. Sister No problems noted. Sister No problems noted. Sister No problems noted. Sister No problems noted. Social History Does the Patient have a Healthcare Proxy: Yes Does Patient have a DNR?: No Does Patient have a Living Will?: No Advance Directives on File or in chart?: No Hx Recent Travel (where): No Smoking Status: Never smoker Tobacco: How many years used: 37 how long ago did p atient quit smokin years ago HPI Hyperlipidemia denies chest pain or dyspnea Most Recent Cardiac Tests: No Data to Display Hypothyroidism Current symptoms: Denies fatigue, poor appetite or alopecia Review of Systems Const Denies chills, Denies fatigue, Denies fever(s), Denies poor appetite and Denies weakness ENT Denies vertigo, Denies dizziness, Denies nasal congestion and Denies sinus pressure Card Denies chest pain, Denies palpitations and Denies dyspnea Resp Denies cough, Denies dyspnea and Denies wheezing GI Denies abdominal pain, Denies nausea and Denies vomiting Musc Reports arthralgias, Reports limited range of motion and Denies numbness Skin/Breast Denies alopecia and Reports lesions (rsh hand where had bandage) Neuro Denies vertigo, Denies dizziness, Reports headache(s) (improved but med makes tired), Denies numbness and Denies weakness Endo Denies fatigue and Denies palpitations Yuri/Lymph Reports easy bruising and Denies lym phadenopathy Aller/Immun Denies wheezing Exam Const General: cooperative and no acute distress Nutritional Appearance: average body habitus Orientation: alert and awake Resp Effort Inspection: normal respiratory effort Auscultation: no rales, no rhonchi and no wheezes Cardio Rate: regular rate Rhythm: regular rhythm Skin Rashes: rashes noted (dorsum hand scaling, slight erythema) Trauma: other Assessment Plan Assessment Plan (1) Hyperlipidemia: Status: Acute Code(s): E78.5 - Hyperlipidemia, unspecified SNOMED Code(s): 17800841 Category: Medical Qualifiers: Hyperlipidemia type: mixed hyperlipidemia Qualified Code(s): E78.2 - Mixed hyperlipidemia Plan - Jacy Franz M.D.: lipids were good, will recheck TSH with preop labs, has appt 1 month, cortisone to hand, call if notimproved 1 week (2) Hypothyroidism: Status: Acute Code(s): E03.9 - Hypothyroidism, unspecified SNOMED Code(s): 409 89305 Category: Medical Qualifiers: Hypothyroidism type: acquired Qualified Code(s): E03.9 - Hypothyroidism, unspecified Orders: Orders: TSH 1 Month (3) Contact dermatitis: Code(s): L25.9 - Unspecified contact dermatitis, unspecified cause Orders Instructions: Hypothyroidism (GEN) <Electronically signed by Jacy Franz MD> 07/03/20 1014 Name Value Range Interpretation Code Description Data Kay rce(s) Supporting Document(s) ID Date Data Source [id number] 06/21/2020 08:50:00 AM [facility] [address] [place] [id number] [phone] NAME SEX PT STATUS ACCOUNT NUMBER MARII DYKES REG REF [id number] ORDERING PHYSICIAN LOCATION MEDICAL RECORD NO. Hanane MAJOR [facility] [id number] ATTENDING PHYSICIAN DATE OF DATE OF EXAM/TIME Jacy Franz MD 1955 06/21/20732 TYPE / EXAM Xray Third Digit,Left Hand REASON FOR EXAM Third digit left hand pain, ortho COMPARISON: 07/05/2019 FINDINGS: Multiple views show no fracture, dislocation, or bony abnormality. The joint spaces are well-maintained. Mild degenerative changes are seen. Soft tissue structures are normal. IMPRESS ION: Mild DJD Reported By Kellie Brewer MD on 06/21/2050 Signed By Kellie Brewer MD on 06/21/2051 Date Time CC: Kellie Brewer MD; Jacy Franz MD Techn: [facility] Trans Dt/Tm: Trans by: DT Prt Dt/Tm: [id number]: Total DLP = 0.00 mGy-cm Fluoroscopy Time (in secs): Name Value Range Interpretation Code Description Data Kay rce(s) Supporting Document(s) ID Date Data Source [id number] 06/21/2020 08:34:00 AM [facility] Patient Name: MARII DYKES DO B: 1955 Sex: F Pt Unit #: [id number] Location:AMB.ORTHO Provider: Visit Date/Time: 06/21/20 Primary Insurance: R/[facility] Secondary Insurance: Self Pay Intake Vital Signs 06/21/20 08:40 Current Height 5 ft 3 in Current Weight 220 lb BMI 38.9 BP 110/78 Blood Pressure Location Rt brachial Position Sitting Respiration 18 Pulse 64 Temp 96.7 F L Pulse Oximetry (%) 98 Oxygen Delivery Method room air Intake Visit Reasons: Finger Pain/injury Is patient in pain?: Yes Pain scale (1-10): 5 Allergies No Known Drug Allergies Allergy (Verified 06/21/20 09:11) Medications - Last Reconciled 06/21/20 by Hanane Hoover PA-C amitriptyline 12.5 mg PO HS biotin 10,000 mcg PO DAILY calcium carbonate-vitamin D3 600 mg(1,500mg) -200 unit 1 ea PO DAILY Imitrex (sumatriptan succinate) 50 mg PO Q2H 75 days PRN MDD 4 NS Lipitor (atorvastatin) 40 mg PO DAILY 90 days NS multivitamin (Daily Multi- Vitamin) 1 tab PO DAILY Synthroid (levothyroxine) 75 mcg PO QDAY 30 days NS HIV Testing Offer - ages 13-64 Requirement for HIV testing offer been met?: Declines today. Pretest education received and acknowledged Coronavirus Screening Screening Have you traveled outside of [facility] or [facility] in the last 14 days.: No Has patient experienced coronavirus symptoms: No [facility] Medical History (Updated 06/21/20 @ 09:13 by Hanane Hoover PA-C) Hyperlipidemia Hypothyroidism Migraine Pityriasis lichenoides chronica Right rotator cuff tear Vitamin D deficiency Surgical History History of - artificial joint History of - surgery ( 05/2014) History of hysterectomy ( 1985) History of orthopedic surgery Family History Mother No problems noted. Father No problems noted. Brother No problems noted. Brother No problems noted. Brother No problems noted. Brother No problems noted. Sister No problems noted. Sister No problems noted. Sister No problems noted. Sister No problems noted. Social History Does the Patient have a Healthcare Proxy: Yes Does Patient have a DNR?: No Does Patient have a Living Will?: No Advance Directives on File or in chart?: No Hx Recent Tra oscar (where): No Smoking Status: Never smoker Tobacco: How many years used: 37 how long ago did patient quit smokin years ago HPI Additional HPI HPI Details: Established patient is a 65 year old female here for new orthopedic issue of left middle finger pain. Patient subsequently seen at the last office visit given her right thumb trigger finger injection and her symptoms have resolved. Subsequently since that office visit she has developed pain and intermittent locking of her left middle finger. She has had multiple trigger digits of bilateral hands throughout the years and has responded well to injections. She has noticed to have limitations in both flexion and extension of the finger as well as pain. No improvement with [id number] anti- inflammatories. Pain Management History of Present Illness Associated symptoms: Denies weight gain and Denies weight loss Review of Systems Const Denies anorexia, Denies excessive sweating, Denies fatigue, Denies fever(s), Denies headache(s), Denies weight gain and Denies weight loss Eyes Denies blurry vision, Denies change in vision, Denies dry eyes, Denies irritation, Denies itchy eyesand Denies loss of vision ENT Denies abnormal hearing, Denies dysphagia, Denies dizziness, Denies headache(s), Denies lip swelling, Denies nasal congestion, Denies nasal discharge, Denies disequilibrium, Denies sinus pain,Denies sore throat and Denies throat swelling Card Denies chest pain, Denies pedal edema, Denies lightheadedness, Denies palpitations and Denies dyspnea Resp Denies cough, Denies excessive phlegm production, Denies pain on inspiration, Denies dyspnea and Denies wheezing GI Denies abdominal pain, Denies change in bowel habits, Denies dysphagia, Denies early satiety, Deniesheartburn, Denies diarrhea, Denies nausea and Denies vomiting Genitourinary: Denies difficulty voiding, urinary incontinence or urinary urgency Musc Denies back pain, Reports arthralgias (left middle finger ), Denies limited range of motion, Denies muscle cramps and Denies muscle weakness Skin/Breast Denies breast pain, Denies change in pigmentation, Denies lesions, Denies nail changes, Denies rash and Denies unusual bruising Neuro Denies abnormal hearing, Denies dizziness, Denies headache(s), Denies loss of vision, Denies memory loss, Denies paresthesias and Denies disequilibrium Psych Denies abnormal sleep pattern, Denies anxiety, Denies change in appetite, Denies depression, Denies irritability and Denies memory loss Endo Denies cold intolerance, Denies excessive sweating, Denies fatigue, Denies polyphagia, Denies polydipsia, Denies polyuria and Denies palpitations Yuri/Lymph Denies easy bleeding, Denies easy bruising and Denies lymphadenopathy Aller/Immun Denies urticaria, Denies itchy eyes, Denies lip swelling, Denies seasonal rhinorrhea, Denies throat swelling and Denies wheezing Exam Const General: cooperative, healthy appearing, no acute distress, well developed and well groomed Nutritional Appearance: overweight Orientation: alert, awake and oriented x3 [facility] Head: normal to inspection, normocephalic and atraumatic Eyes General: appearance normal, both eyes and all related structures Neck Neck: normal visual inspection Chest Chest: normal inspection of the chest Resp Effort Inspection: normal respiratory effort Cardio Pulses: normal peripheral pulses GI Inspection: Yes normal to inspection Skin Lesions: no lesions Rashes: no rashes Hair: normal Nails: normal Neuro General: patient alert, patient awake, patient oriented x3, moves all extremities and normal lig ht touch, pain and propioception Extrem Other: Inspection of left hand shows no obvious swelling erythema or ecchymosis. No skin abnormalities. She has multiple previous surgical scars from trigger finger releases and carpal tunnel releases that are all well-healed. She is quite tender today over the A1 sage of the left long finger. With attempts of flexion she has distinct locking of the left long finger however is able to unlock on her own. She has no additional tenderness throughout the left long finger including the A2 sage. She has nontender over the remaining digits as well as the contralateral right thumbprevious trigger. She has no extensor tendon subluxation. She has intact sensation of all fingers with intact capillary refill. Psych Appearance: grossly normal and well kempt Mental Status: mental status grossly normal Assessment Plan Assessment Plan (1) Trigger finger, left middle finger: Status: Acute Code(s): M65.332 - Trigger finger, left middle finger SNOMED Code(s): 614851278 Category: Medical Plan - Hanane Hoover PA-C: Patient last seen for a right trigger thumb which has resolved from injection. She now has developed a left middle finger trigger finger and would like an injection today. She has done well with injections in the past. The patient gave verbal consent for a left long steroid injection. I discussed the risks and complications of the same. I discussed the possible risks of short-term corticosteroid drugs to the hand to include: a temporary increase in pain, skin discoloration at the injection site, skin thinning, tendon injury or neurovascular injury. I discussed the rare risk of infection or allergicreaction after the injection. Finger was preppred with an alcohol swab. I anesthetized the skin with Ethyl Chloride spray. I injected a 1 ml mixture of the following: Lidocaine 1% without epinephrine -- 0.5 ml, and dexamethasone 4mg/ml -0.5 ml. I used a 25-gauge needle. Needle was disposed. Injection site dressed with a Band-Aid. The patient tolerated the injection very well and was given postinjection information. Patient is agreeable to follow-up as needed. She is planning shoulder surgery with Dr. Ragland in July. <Electronically signed by Hanane Warren> 06/21/20 0914 Name Value Range Interpretation Code Description Data Kay rce(s) Supporting Document(s) ID Date Data Source [id number] 05/29/2020 04:47:00 PM [facility] Patient Name: MARII DYKES DO B: 1955 Sex: F Pt Unit #: [id number] Location:[facility] Provider: Visit Date/Time: 05/29/20 Primary Insurance: [facility] Secondary Insurance: Self Pay Documented by User: Allegra Maldonado 05/30/20 10:17 Intake Nurse Note Intake Visit Reasons: Flu shot Nurse Note: Pt in for Flu shot, tolerated well, no additional concerns today Accompanied by: Self / Same as Patient Coronavirus Screening Screening Have you traveled outside of [facility] or [facility] in the last 14 days.: No Has patient experienced coronavirus symptoms: No Immunizations Afluria Qd (3yr up)(PF) Performing Provider: Jacy Franz M.D. Administered by: Allegra Maldonado on 05/29/20 10:15 Dose Route Admin Location Lot Number Expiration Date NDC Manufactu rer 0.5 mL IM Right deltoid [id number] 01/24/21 [id number] [employer] VIS Given Date VIS Provided VIS Publication Date 05/29/20 Single Vaccine 19 Eligibility Eligibility Date Funding Source Not VFC Eligible 05/29/20 Private Assessment Plan Orders Other Orders: Orders: INJ - Influenza Vaccine 05/29/20 Z23 Documented by User: Jacy Franz M.D. 05/31/20 07:27 Intake Nurse Note Intake Visit Reasons: Flu shot Immunizations Afluria Qd 2019-(3yr up)(PF) Performing Provider: Jacy Franz M.D. Administered by: Allegra Maldonado on 05/29/20 10:15 Dose Route Admin Location Lot Number Expiration Date [facility] Manufactu rer 0.5 mL IM Right deltoid [id number] 01/24/21 30091-516-68 [employer] VIS Given Date VIS Provided VIS Publication Date 05/29/20 Single Vaccine 19 Eligibility Eligibility Date Funding Source Not VFC Eligible 05/29/20 Private Assessment Plan Orders Other Orders: Orders: INJ - Influenza Vaccine 05/29/20 Z23 <Electronically signed by Jacy Franz MD> 05/31/20 0727 Name Value Range Interpretation Code Description Data Kay rce(s) Supporting Document(s) ID Date Data Source [id number] 05/29/2020 07:36:00 AM [facility] Patient Name: MARII DYKES DO B: 1955 Sex: F Pt Unit #: [id number] Location:[facility] Provider: Visit Date/Time: 05/29/20 Primary Insurance: R/[facility] Secondary Insurance: Self Pay Intake Vital Signs 05/29/20 15:21 BP 140/92 Respiration 18 Pulse 86 Pulse Oximetry (%) 96 Oxygen Delivery Method room air Intake Visit Reasons: Shoulder pain/injury Is patient in pain?: Yes Pain scale (1-10): 7 Allergies No Known Drug Allergies Allergy (Verified 05/29/20 15:48) HIV Testing Offer - ages 13-64 Requirement for HIV testing offer been met?: Declines today. Pretest education received and acknowledged Coronavirus Screening Screening Have you traveled outside of [facility] or [facility] in the last 14 days.: No Has patient experienced coronavirus symptoms: No [facility] Medical History (Updated 05/29/20 @ 15:52 by Josesito Ragland MD) Hyperlipidemia Hypothyroidism Migraine Pityriasis lichenoides chronica Right rotator cuff tear Vitamin D deficiency Surgical History History of - artificial joint History of - surgery ( 05/2014) History of hysterectomy ( 1985) History of orthopedic surgery Family History Mother No problems noted. Father No problems noted. Brother No problems noted. Brother No problems noted. Brother No problems noted. Brother No problems noted. Sister No problems noted. Sister No problems noted. Sister No problems noted. Sister No problems noted. Social History Does the Patient have a Healthcare Proxy: Yes Does Patient have a DNR?: No Does Patient have a Living Will?: No Advance Directives on File or in chart?: No Hx Recent Travel (where): No Smoking Status: Never smoker Tobacco: How many years used: 37 how long ago did patient quit smokin years ago HPI Additional HPI HPI Details: Patient is a 65 year old female, here for her Right shoulder pain. She has had pain in the shoulder for over a year with no known injury. Patient describes an inability to reach overhead without pain and progressive generalized weakness in respect to right shoulder strength. Patient has had prior open rotator cuff repair involving the left shoulder. Patient describes pain at nightin the right shoulder that occasionally awakens her. She has trouble finding a comfortable position. She denies any radicular complaints and denies any neck pain at this time. Review of Systems Const Denies anorexia, Denies excessive sweating, Denies fatigue, Denies fever(s), Denies headache(s), Denies weight gain and Denies weight loss Eyes Denies blurry vision, Denies change in vision, Denies dry eyes, Denies irritation, Denies itchy eyesand Denies loss of vision ENT Denies abnormal hearing, Denies dysphagia, Denies dizziness, Denies headache(s), Denies lip swelling, Denies nasal congestion, Denies nasal discharge, Denies disequilibrium, Denies sinus pain,Denies sore throat and Denies throat swelling Card Denies chest pain, Denies pedal edema, Denies lightheadedness, Denies palpitations and Denies dyspnea Resp Denies cough, Denies excessive phlegm production, Denies pain on inspiration, Denies dyspnea and Denies wheezing GI Denies abdominal pain, Denies change in bowel habits, Denies dysphagia, Denies early satiety, Deniesheartburn, Denies diarrhea, Denies nausea and Denies vomiting Musc Denies back pain, Reports arthralgias (Right shoulder), Denies limited range of motion, Denies muscle cramps and Denies muscle weakness Skin/Breast Denies breast pain, Denies change in pigmentation, Denies lesions, Denies nail changes, Denies rash and Denies unusual bruising Neuro Denies abnormal hearing, Denies dizziness, Denies headache(s), Denies loss of vision, Denies memory loss, Denies paresthesias and Denies disequilibrium Psych Denies abnormal sleep pattern, Denies anxiety, Denies change in appetite, Denies depression, Denies irritability and Denies memory loss Endo Denies cold intolerance, Denies excessive sweating, Denies fatigue, Denies polyphagia, Denies polydipsia, Denies polyuria and Denies palpitations Yuri/Lymph Denies easy bleeding, Denies easy bruising and Denies lymphadenopathy Aller/Immun Denies urticaria, Denies itchy eyes, Denies lip swelling, Denies seasonal rhinorrhea, Denies throat swelling and Denies wheezing Exam Const General: cooperative, healthy appearing, comfortable, well developed and well groomed Nutritional Appearance: average body habitus Orientation: alert, awake and oriented x3 [facility] Head: normal to inspection, normocephalic and atraumatic Eyes General: appearance normal, both eyes and all related structures Pupils: PERRL Neck Neck: normal visual inspection, full ROM and nontender Chest Chest: normal inspection of the chest Resp Effort Inspection: normal respiratory effort Skin Lesions: no lesions Rashes: no rashes Trauma: no lacerations or abrasions Neuro General: patient alert, patient awake and patient oriented x3 Cognition: normal cognition Speech: speech normal Motor: muscle tone normal throughout Extrem Other: Examination reveals full range of motion of the cervical spine. Passive range of motion of the right glenohumeral joint is full. Patient has a painful abduction arc on the affected side withweakness noted when resistance applied to right shoulder external rotation and right shoulder abduction. Malheur's and liftoff tests are negative. She has tenderness overlying the right AC joint. Neurosensory and motor testing of the right upper extremity distal to the right shoulder joint is normal. Neer impingement testing as well as empty can test are positive. Psych Appearance: grossly normal Thought Process: normal Thought Content: normal Insight: insight good Assessment Plan Assessment Plan (1) Shoulder injury: Code(s): S49.90XA - Unspecified injury of shoulder and upper arm, unspec ified arm, initial encounter (2) Rotator cuff tear, non-traumatic: Status: Acute Code(s): M75.100 - Unspecified rotator cuff tear or rupture of unspecified shoulder, not specified as traumatic SNOMED Code(s): 231256308 Category: Medical Qualifiers: Rotator cuff tear extent: complete Laterality: right Qualified Code(s): M75.121 - Completerotator cuff tear or rupture of right shoulder, not specified as traumatic Plan - Josesito Ragland MD: MRI scan reviewed shows a complete tear of the right supraspinatus tendon. Patient is also noted tohave AC arthritic changes as well as a type II acromion. There is mild to moderate atrophy noted ofthe right supraspinatus muscle. The retraction of the tear is approximately 2.5 cm. In view of hersymptomatology I thought it be worthwhile to try to repair the rotator cuff tear. The surgical procedure, perioperative course as well as risks and complications were discussed with the patient in detail. We will proceed with surgical intervention at the earliest possible convenience. <Electronically signed by Josesito Ragland MD> 05/29/20 1554 Name Value Range Interpretation Code Description Data Kay rce(s) Supporting Document(s) ID Date Data Source [id number] 05/08/2020 04:25:00 PM EDT [facility] [address] [place] [address] [phone] NAME SEX PT STATUS ACCOUNT NUMBER MARII DYKES REG REF [id number] ORDERING PHYSICIAN LOCATION MEDICAL RECORD NO. Jacy Franz MD MRI [id number] ATTENDING PHYSICIAN DATE OF DATE OF EXAM/TIME Jacy Franz MD 1955 05/08/205 TYPE / EXAM MRI Shoulder Right w/o [...] and thickening with moderate muscle atrophy. Infraspinatus: Infraspin atus tendinosis and thickening with mild muscle atrophy. [...] Time ) Signed by: Donna Means M.D., [facility] Reported By Donna Means MD on 05/08/201624 Signed By Donna Means MD on 05/08/201624 Date Time CC: Donna Means MD; Jacy Franz MD Techn: FROJO Trans Dt/Tm: Trans by: DT Prt Dt/Tm: [id number]: Total DLP = 0.00 mGy-cm 6497-1208: Total Radiation Dose = 0.0000 mSv Lifetime Dose: 0 mSv Name Value Range Interpretation Code Description Data Kay rce(s) Supporting Document(s) ID Date Data Source [id number] 05/01/2020 07:44:00 AM EDT [facility] Name Value Range Interpretation Code Description Data Kay rce(s) Supporting Document(s) Leukocytes [#/volume] in Blood by Automated count 7.7 10*3/uL 4.45-10 .71 N [facility] Erythrocytes [#/volume] in Blood by Automated count 4.70 10*6/uL 4.20 -5.40 [facility] Hemoglobin [Moles/volume] in Blood 14.4 g/dL 10.7-15.4 N [facility] Hematocrit [Volume Fraction] of Blood by Automated count 44.1 % 3 7-47 N [facility] Erythrocyte mean corpuscular volume [Ent itic volume] in Cord blood by Automated count 93.8 fL 80-96 N [facility] Erythrocyte mean corpuscular hemoglobin [Entitic mass] by Automated count 30.6 pg 27-31 N [facility] Erythrocyte mean corpuscular hemoglobin concentration [Mass/volume] in Cord blood 32.7 g/dL 33-37 Below low normal [facility] Erythrocyte distribution width [Entitic volume] by Automated count 13 % 11-15 N [facility] Platelets [#/volume] in Blood by Automated count 285 10*3/uL 130-472 N [facility] Platelet mean volume [Entitic volume] in Blood 9.7 fL 9.1-13.1 N [facility] Neutrophils/100 leukocytes in Blood by Automated count 51.7 % 41- 77 N [facility] Neutrophils [#/volume] in Blood by Automated count 4.0 U 1.7-7.6 N [facility] Lymphocytes/100 leukocytes in Blood by Automated count 34.5 % 14- 46 N [facility] Lymphocytes [#/volume] in Blood by Automated count 2.7 U 0.6-4.6 N [facility] Monocytes/100 leukocytes in Blood by Automated count 8.7 % 4-12 N [facility] Monocytes [#/volume] in Blood by Automated count 0.7 U 0.2-1.2 N [facility] Eosinophils/100 leukocytes in Blood by Automated count 4.0 % 0-7 N [facility] Eosinophils [#/volume] in Blood by Automated count 0.3 U 0.0-0.5 N [facility] Basophils/100 leukocytes in Blood by Automated count 0.8 % 0.4-1 .3 N [facility] Basophils [#/volume] in Blood by Automated count 0.1 U 0.0-0.2 N [facility] NUCLEATED RED BLOOD CELL 0 % [facility] NUCLEATED RED BLOOD CELL# 0 U [facility] Immature granulocytes [Presence] in Blood by Automated count 0-2 N [facility] Immature granulocytes [#/volume] in Blood by Automated count 0.0 U 0-0.1 N [facility] Manual Differential panel - Blood NO [facility] ID Date Data Source [id number] 05/01/2020 08:41:00 AM EDT [facility] Name Value Range Interpretation Code Description Data Kay rce(s) Supporting Document(s) Urea nitrogen [Mass/volume] in Serum or Plasma 18 mg/dL 9-23 N [facility] Sodium [Moles/volume] in Serum or Plasma 141 mmol/L 132-146 N [facility] Potassium [Moles/volume] in Serum or Plasma 4.1 mmol/L 3.5-5.5 N [facility] Chloride [Moles/volume] in Serum or Plasma 108 mmol/L 99-109 N [facility] Carbon dioxide, total [Moles/volume] in Serum or Plasma 27 mmol/L 20 -31 N [facility] Anion gap in Serum or Plasma 10 mmol/L 8-16 N [facility] Glucose [Mass/volume] in Serum or Plasma 125 mg/dL 74-106 Above high normal [facility] Creatinine 0.9 mg/dL 0.5-1.1 [facility] Glomerular filtration rate/1.73 sq M.pre dicted [Volume Rate/Area] in Serum or Plasma Greater Than 60 ABOVE 60 [facility] Alanine aminotransferase [Enzymatic acti vity/volume] in Serum or Plasma by With P-5'-P 33 U/L 10-49 N [facility] ital Aspartate aminotransferase [Enzymatic ac tivity/volume] in Serum or Plasma by With P-5'-P 20 U/L 0-33 N [facility] pital Alkaline phosphatase [Enzymatic activity/volume] in Serum or Plasma 90 U/L 45-129 N [facility] Calcium [Mass/volume] in Serum or Plasma 9.2 mg/dL 8.5-10.1 [facility] Bilirubin.total [Mass/volume] in Serum or Plasma 0.6 mg/dL 0.3-1.2 [facility] Albumin [Mass/volume] in Serum or Plasma by Bromocresol purple (BCP) dye binding method 3.7 g/dL 3.2-4.8 [facility] ital Protein [Mass/volume] in Serum or Plasma 7.6 g/dL 5.7-8.2 [facility] ID Date Data Source [id number] 05/01/2020 08:41:00 AM T [facility] Name Value Range Interpretation Code Description Data Kay rce(s) Supporting Document(s) Triglycerides 189 mg/dL 0-150 Above high normal [facility] Cholesterol 194 mg/dL 120-200 [facility] HDL Cholesterol 50 mg/dL [facility] HDL Less than 40 mg/dL: Major risk for CHDHDL Greater than 59 mg/dL: Low risk for CHD LDL Cholesterol, Calc 107 mg/dL 0-100 Above high normal [facility] ID Date Data Source [id number] 05/01/2020 08:41:00 AM EDT [facility] Name Value Range Interpretation Code Description Data Kay rce(s) Supporting Document(s) Thyrotropin [Units/volume] in Serum or Plasma by Detec tion limit <= 0.005 mIU/L 3.84 u[iU]/mL 0.35-5.50 N [facility] ID Date Data Source [id number] 04/05/2020 08:40:00 AM EDT [facility] Patient Name: MARII DYKES : 1955 Sex: F Pt Unit #: [id number] Location:AMB.ORTHO Provider: Visit Date/Time: 04/05/20 Primary Insurance: [facility] Secondary Insurance: Self Pay Intake Vital Signs 04/05/20 08:45 BP 124/72 Respiration 16 Pulse 84 Pulse Oximetry (%) 96 Oxygen Delivery Method room air Intake Visit Reasons: Hand pain Is patient in pain?: Yes Pain scale (1-10): 4 Allergies No Known Drug Allergies Allergy (Verified 02/21/20 10:22) HIV Testing Offer - ages 13-64 Requirement for HIV testing offer been met?: Declines today. Pretest education received and acknowledged Coronavirus Screening Screening Have you traveled outside of [facility] or [facility] in the last 14 days.: No Has patient experienced coronavirus symptoms: No PFSH Medical History Hyperlipidemia Hypothyroidism Migraine Pityriasis lichenoides chronica Right rotator cuff tear Vitamin D deficiency Surgical History History of - artificial joint History of - surgery ( 05/2014) History of hysterectomy ( 1985) History of orthopedic surgery Family History Mother No problems noted. Father No problems noted. Brother No problems noted. Brother No problems noted. Brother No problems noted. Brother No problems noted. Sister No problems noted. Sister No problems noted. Sister No problems noted. Sister No problems noted. Social History Does the Patient have a Healthcare Proxy: Yes Does Patient have a DNR?: No Does Patient have a Living Will?: No Advance Directives on File or in chart?: No Hx Recent Travel (where): No Smoking Status: Never smoker Tobacco: How many years used: 37 how long ago did patient quit smokin years ago HPI Additional HPI HPI Details: Patient is a Right hand dominant 64 year old female, here for her Right thumb pain. Her thumb has been catching, stiff, and sore since her carpal tunnel release in September 2019. Her pain andcatching is located at the MCP joint of the thumb. She also admits to slight swelling. She denies any numbness or tingling. Her pain is worse at night. She takes Aleve for other issues, does not take any medication for the thumb. She sleeps well. Patient is 64-year-old female several months status post right carpal tunnel release. She states that her carpal tunnel symptoms have gone and she has excellent pain relief. She states that over the past few weeks and months she has had worsening pain at the base of her thumb volarly. She states that on occasion she wakes up in the morning and her thumb stuck flexed. She has to use her other hand to extend it. She states that the pain when it does trigger is 7 out of 10 in severity however at baseline it is about 3-4 out of 10 in severity. She has not tried a steroid injection. She has tried oral anti- inflammatories and activity modification. No other complaints. No numbnesstingling paresthesias. No triggering of any other digits. No falls traumas or ER visits no recent coughs or fever. Use Pain Management History of Present Illness Associated symptoms: Denies weight gain and Denies weight loss Review of Systems Const Denies anorexia, Denies excessive sweating, Denies fatigue, Denies fever(s), Denies headache(s), Denies weight gain and Denies weight loss Eyes Denies blurry vision, Denies change in vision, Denies dry eyes, Denies irritation, Denies itchy eyesand Denies loss of vision ENT Denies abnormal hearing, Denies dysphagia, Denies dizziness, Denies headache(s), Denies lip swelling, Denies nasal congestion, Denies nasal discharge, Denies disequilibrium, Denies sinus pain,Denies sore throat and Denies throat swelling Card Denies chest pain, Denies pedal edema, Denies lightheadedness, Denies palpitations and Denies dyspnea Resp Denies cough, Denies excessive phlegm production, Denies pain on inspiration, Denies dyspnea and Denies wheezing GI Denies abdominal pain, Denies change in bowel habits, Denies dysphagia, Denies early satiety, Deniesheartburn, Denies diarrhea, Denies nausea and Denies vomiting Musc Denies back pain, Reports arthralgias (Right thumb), Denies limited range of motion, Denies muscle cramps and Denies muscle weakness Skin/Breast Denies breast pain, Denies change in pigmentation, Denies lesions, Denies nail changes, Denies rash and Denies unusual bruising Neuro Denies abnormal hearing, Denies dizziness, Denies headache(s), Denies loss of vision, Denies memory loss, Denies paresthesias and Denies disequilibrium Psych Denies abnormal sleep pattern, Denies anxiety, Denies change in appetite, Denies depression, Denies irritability and Denies memory loss Endo Denies cold intolerance, Denies excessive sweating, Denies fatigue, Denies polyphagia, Denies polydipsia, Denies polyuria and Denies palpitations Yuri/Lymph Denies easy bleeding, Denies easy bruising and Denies lymphadenopathy Aller/Immun Denies urticaria, Denies itchy eyes, Denies lip swelling, Denies seasonal rhinorrhea, Denies throat swelling and Denies wheezing Exam Const General: no acute distress [facility] Head: other (atraumatic normocephalic) Eyes Conjunctivae: other (moist sclera) Neck Neck: normal visual inspection Chest Chest: other (no labored breathing) Resp Effort Inspection: other (respiration is intact) Cardio Pulses: other (palpable pulses) GI Other: soft, no guarding Other: deferred examination Musc Other: RIGHT upper extremity: Skin is intact incision is healed. Patient is neurovascularly intact. Fingers are warm well perfused and sensate to light touch. Negative Phalen sign. Negative Tinel sign at the carpal tunnel. Patient is able to make composite fist and extend all fingers. Patient is unable to flex the thumb IP joint secondary to trigger finger. Palpable nodules felt over the A1 sage. Tenderness over this area is noted. No triggering of any other digits. X- ray of the thumb was reviewed which reveals no evidence of fracture or dislocation. 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 Psych Appearance: other (awake) Assessment Plan Assessment Plan (1) Pain of hand: Code(s): M79.643 - Pain in unspecified hand (2) Trigger thumb, right thumb: Status: Acute Code(s): M65.311 - Trigger thumb, right thumb SNOMED Code(s): 230805498673841 Category: Medical Plan - Navi Hunt MD: 64-year-old female here for follow-up of carpal tunnel surgery. In addition the patient also has new onset right trigger thumb. Patient also has a history of a left trigger thumb which was injected with corticosteroid injection and resolved. At this point I recommended corticosteroid injection of the thumb flexor sheath. I explained the risk benefits alternatives and complications. Patient understood and agreed to proceed. Procedure: Patient was explained the risks, benefits alternatives, complications to injection of the thumb flexor sheath, right. Complications include but are not limited to localized pain, bleeding, infection, fat necrosis, transient hyperglycemia (high blood sugar), skin discoloration, tendon rupture, failure of treatment, nerve injury. The patient verbalized understanding and agreed to proceed despite the risks. All questions were thoroughly answered. The skin was prepped using betadine and 70% isopropynol. A 2:1 mixture of 4 mg of dexamethasone and1% plain Lidocaine was injected with minimal discomfort. The patient tolerated the procedure well. Post injection instructions were given to the patient and the patient verbalized understanding. Allquestions were answered. Electronically Signed By: <Electronically signed by Navi Hunt MD> Date/Time Signed: 04/05/20 0940 Name Value Range Interpretation Code Description Data Kay rce(s) Supporting Document(s) ID Date Data Source [id number] 04/04/2020 04:00:00 PM EDT [facility] [address] [place] [address] [phone] NAME SEX PT STATUS ACCOUNT NUMBER MARII DYKES REG REF [id number] ORDERING PHYSICIAN LOCATION MEDICAL RECORD NO. Navi Hunt MD RAD [id number] ATTENDING PHYSICIAN DATE OF DATE OF EXAM/TIME Jacy Franz MD 1955 04/04/20821 TYPE / EXAM Xray Hand Complete RT REASON FOR EXAM right hand pain, ortho MARII DYKES [id number] 1955 ADDENDUM CORRECTION: The original report incorrectly reflects Kristie Miranda as the reporting Radiologist. The correct Radiologist for this report is [...] = 0.00 mGy-cm Fluoroscopy Time (in secs): Name Value Range Interpretation Code Description Data Kay rce(s) Supporting Document(s) ID Date Data Source [id number] 02/21/2020 01:25:00 PM EDT [facility] Name: MARII DYKES : 1955 Age: 64 MR#: [id number] Admit Date: 02/21/20 Provider: Gerson Francisco MD Room #: Consulting Provider: Dictation Date: 02/21/20 Operative Note Operative Report Date of Service Date of service:: 02/21/20 Operative Report Surgeon: Gerson Francisco MD MPH Anesthesiologist(s): Jacinto Means MD Anesthesia Type: MAC Pre-Operative Diagnosis: Screening colonsocopy Post-Operative Diagnosis: same as pre-op (Moderate diverticulosis) Procedure Procedure: Screening colonoscopy Complications: No Post-Operative Condition: Good Operative Treatments Specimens: No Specimens Operative Narrative Narrative: After informed consent was obtained, the patient was placed in the left lateral position and the above medications were titrated with adequate sedation. Monitoring was provided throughout the entire procedure. Digital rectal exam was performed revealing normal sphincter tone and moderatesized hemorrhoids. The Pentax video colonoscope was inserted into rectum and advanced under direct visualization, without difficulty, to the cecum, where the cecal strap, appendiceal orifice, and theileocecal valve were identified. The quality of the preparation was fair. The colonoscope was then withdrawn while carefully examining the mucosa over 6 minutes according to the ASGE guidelines. The colonic mucosa appeared normal with normal vascularity and haustral markings. No masses, polyps,AVM/s were seen. There was moderate divertciulosis throughout the colon but mostly on the left side. On retroflexed view in the rectum, there are mild internal hemorrhoids. The endoscope was removed and the procedure terminated. The patient tolerated the procedure well without complications. Assessment Plan A P Free Text/Narrative :: Screening colonoscopy in 10 years Dictated by: <Electronically signed by Gerson Francisco > Gerson Francisco 02/21/20 1328 Gerson Francisco SIGNATURE DA Report Cosigners: D: ERMA 02/21/20 1325 T: ERMA 02/21/20 1325 CC: Name Value Range Interpretation Code Description Data Kay rce(s) Supporting Document(s) ID Date Data Source [id number] 02/18/2020 06:03:00 PM EDT [facility] PRE OPTHIS RP PANEL TESTS FOR SA RS-CoV-2,(COVID-19)FilmArray Respiratory Panel is a Multiplexed NAAT-PCR testNORMAL VALUE FOR ALL 20 PATHOGENS IS "NOT DETECTED".The FilmArray RP panel detects Influenza A H1,H3 qec0075 H1 viruses,Influenza B virus, Respiratory syncytialvirus, Human metapneumovirus,Parainfluenza virus 1,2,3, and4, Adenovirus,Rhino/Enterovirus,Coronavirus HKU 1, Nl63,OC43, and 229E,Bordetella pertussis, Bordetellaparapertussis, Mycoplasma pneumoniae and Chlamydiapneumoniae, SARS-CoV-2 (COVID 19).THIS TEST HAS NOT BEEN EVALUATED FOR USE WITH SPECIMENSOTHER THAN NASOPHARYNGEAL SWAB SPECIMENS.THE PERFORMANCE OF THIS TEST HAS NOT BEEN ESTABLISHED FORPATIENTS WITHOUT SIGNS AND SYMPTOMS OF RESPIRATORYINFECTION.RESULTS FROM THIS TEST MUST BE CORRELATED WITH CLINICAL HISTORY, EPIDEMIOLOGICAL DATA , AND OTHER DATA AVAILABLE TOTHE CLINICIAN EVALUATING THE PATIENT.THE PERFORMANCE OF THE FilmARRAY RP HAS NOT BEEN ESTABLISHEDIN INDIVIDUALS WHO RECEIVED INFLUENZA VACCINE. RECENTADMINISTRATION OF A NASAL INFLUENZA VACCINE MAY CAUSE AFALSE POSITIVE RESULT FOR INFLUENZA A AND/OR B.NEGATIVE RESULTS SHOULD NOT BE USED THE SOLE BASIS FORDIAGNOSIS, TREATMENT, OR OTHER MANAGEMENT DECISIONS.NEGATIVE RESULTS IN THE SETTING OF A RESPIRATORY ILLNESSMAYBE DUE TO INFECTION WITH PATHOGENS THAT ARE NOT DETECTEDBY THIS TEST OR LOWER RESPIRATORY TRACT INFECTION THAT ISNOT DETECTED BY A NASOPHARYNGEAL SWAB SPECIMEN.No Organisms Detected Name Value Range Interpretation Code Description Data Kay rce(s) Supporting Document(s) ID Date Data Source [id number] 02/18/2020 12:00:00 AM EDT [facility] Name Value Range Interpretation Code Description Data Kay rce(s) Supporting Document(s) SARS-CoV2 Rapid PCR [facility] This lab was ordered by [facility] gaby FLOYD and reported by [facility]. ID Date Data Source [id number] 02/14/2020 09:56:00 AM EDT [facility] Patient Name: MARII DYKES : 1955 Sex: F Pt Unit #: [id number] Location:[facility] Provider: Visit Date/Time: 02/14/20 Primary Insurance: R/[facility] Secondary Insurance: Self Pay Intake Vital Signs 3 02/14/20 09:57 Current Height 5 ft 2 in Current Weight 200 lb Weight Measurement Method Standing Scale BMI 36.6 Intake Visit Reasons: Rash Nurse Note: States that since she had carpel tunnel surgery she has had these spots that appear on her left wrist - seem to be pockets of blood that will explode would like checked out , advised to stop aleve but still taking ibuprofen Spring Fitter Helper Required: No Accompanied by: Self / Same as Patient Is patient in pain?: No Allergies No Known Drug Allergies Allergy (Verified 01/25/20 09:14) Medications amitriptyline 25 mg PO HS atorvastatin (Lipitor) 40 mg PO DAILY biotin 10,000 mcg PO DAILY calcium carbonate-vitamin D3 600 mg(1,500mg) -200 unit 1 ea PO DAILY multivitamin (Daily Multi-Vitamin) 1 tab PO DAILY sumatriptan succinate (Imitrex) 50 mg PO Q2H MDD 4 Synthroid (levothyroxine) 88 mcg PO QDAY NS Is last menstrual period known: No Post menopausal: Yes Patient : No Fall Risk History of falls: No Ambulatory Aid:: None Gait/Transferring:: Normal Medications:: No High Risk Medications PHQ-2/9 Over the last 2 weeks, how often have you been bothered by any of the following problems? 1. Little interest or pleasure in doing things: not at all 2. Feeling down, depressed, or hopeless: not at all Total score: 0 HIV Testing Offer - ages 13-64 Requirement for HIV testing offer been met?: Declines today. Pretest education received and acknowledged Hep C Testing Offered: Yes Hep C Requirement met: Refuses today SBIRT Annual Questionnaire Are you currently in recovery for alcohol or substance use?: No How many times in the past year have you had 4 or more drinks in a day?: None How many times in the past year have you used a recreational drug or used a prescription medication for nonmedical reasons?: None Do you need a note to return Do you need a note to return to daycare/school/sports/work: No Coronavirus Screening Screening Have you traveled outside of [facility] or [facility] in the last 14 days.: No Has patient experienced coronavirus symptoms: No PFSH Medical History Hyperlipidemia Hypothyroidism Migraine Pityriasis lichenoides chronica Right rotator cuff tear Vitamin D deficiency Surgical History History of - artificial joint History of - surgery ( 05/2014) History of hysterectomy ( 1985) History of orthopedic surgery F amily History Mother No problems noted. Father No problems noted. Brother No problems noted. Brother No problems noted. Brother No problems noted. Brother No problems noted. Sister No problems noted. Sister No problems noted. Sister No problems noted. Sister No problems noted. Social History Does the Patient have a Healthcare Proxy: Yes Does Patient have a DNR?: No Does Patient have a Living Will?: No Advance Directives on File or in chart?: No Hx Recent Travel (where): No Tobacco: How many years used: 37 how long ago did patient quit smokin years ago HPI Rash Associated symptoms: Reports arthralgias; Denies abdominal pain, cough, fever(s), vomiting or nausea Review of Systems Const Denies chills, Denies fatigue, Denies fever(s) and Denies poor appetite Card Denies chest pain, Denies palpitations and Denies dyspnea Resp Denies cough, Denies dyspnea and Denies wheezing GI Denies abdominal pain, Denies nausea and Denies vomiting Musc Reports arthralgias and Reports limited range of motion Skin/Breast Reports lesions (bruising and small blood blistr) Endo Denies fatigue and Denies palpitations Yuri/Lymph Reports easy bruising and Denies lymphadenopathy Aller/Immun Denies wheezing Exam Const General: cooperative and no acute distress Nutritional Appearance: average body habitus Orientation: alert and awake Resp Effort Inspection: normal respiratory effort Auscultation: no rales, no rhonchi and no wheezes Cardio Rate: regular rate Rhythm: regular rhythm Skin Trauma: other (bruising R wrist, scabbed vescicle) Assessment Plan Assessment Plan (1) Rash: Code(s): R21 - Rash and other nonspecific skin eruption Additional Comments Additional Comments: discussed medications, stop ibuprofen as well, also had steroid injections, seeif not improving Electronically Signed By: <Electronically signed by Jacy Franz MD> Date/Time Signed: 02/14/20 1225 Name Value Range Interpretation Code Description Data Kay rce(s) Supporting Document(s) ID Date Data Source [id number] 01/25/2020 08:55:00 AM EDT [facility] Name: MARII DYKES : 1955 Age: 64 MR#: [id number] Admit Date: 01/25/20 Provider: Gerson Francisco MD Room #: Consulting Provider: Dictation Date: 01/25/20 Intake Vital Signs 01/25/20 08:55 Current Height 5 ft 2 in Current Weight 200 lb Weight Measurement Method Stated by Patient BMI 36.6 BP 124/70 Blood Pressure Location Lt brachial Position Sitting Pulse 92 Pulse Strength Normal Pulse Source Pulse Oximeter Temp 98.1 F Temp Source Oral Pulse Oximetry (%) 96 Oxygen Delivery Method room air Intake Visit Reasons: Screening Colonoscopy Spring Fitter Helper Required: No Is patient in pain?: Yes (right shoulder) Pain scale (1-10): 6 Allergies No Known Drug Allergies Allergy (Verified 01/25/20 09:14) HIV Testing Offer - ages 13-64 Requirement for HIV testing offer been met?: Declines today. Pretest education received and acknowledged Coronavirus Screening Screening Have you traveled outside of [facility] or [facility] in the last 14 days.: No Has patient experienced coronavirus symptoms: No PFSH Social History Does the Patient have a Healthcare Proxy: Yes Does Patient have a DNR?: No Does Patient have a Living Will?: No Advance Directives on File or in chart?: No Hx Recent Travel (where): No Tobacco: How many years used: 37 how long ago did patient quit smokin years ago HPI Additional HPI HPI Details: 64 yoF who is here for screening colonoscopy. Last one in 2007 which showed diverticulosisand no ther anomalies. No changes in bowel habi ts, no blood in stool, and no weight loss. No familyhx of colorectal cancer. Review of Systems Const All systems reviewed are unremarkable except as noted in HPI and below Reports headache(s) Eyes Reports system reviewed and no additional complaints, except as documented and Reports requires corrective lenses ENT Reports system reviewed and no additional complaints, except as documented and Reports headache(s) Card Reports system reviewed and no additional complaints, except as documented Resp Reports system reviewed and no additional complaints, except as documented GI Reports system reviewed and no additional complaints, except as documented Genitourinary: Reports system reviewed and no additional complaints, except as documented Musc Reports system reviewed and no additional complaints, except as documented Skin/Breast Reports system reviewed and no additional complaints, except as documented Neuro Reports system reviewed and no additional complaints, except as documented and Reports headache(s) Psych Reports system reviewed and no additional complaints, except as documented Endo Reports system reviewed and no additional complaints, except as documented Yuri/Lymph Reports system reviewed and no additional complaints, except as documented Aller/Immun Reports system reviewed and no additional complaints, except as documented Exam Const General: cooperative, healthy appearing, no acute distress, well developed and well groomed Nutritional Appearance: well nourished Orientation: alert, awake and oriented x3 HENMT Head: normal to inspection, normocephalic, atraumatic and no scalp tenderness Ears: hearing grossly normal bilaterally, external ears normal, TM's normal bilaterally, EAC's normal and no periauricular adenopathy General nose exam: external nose normal, nares normal, no nasal polyps, septum normal and no nasal discharge Face and sinus: normal facial exam and sinuses nontender Mouth: oral mucosae normal, lip normal, tongue normal, oropharynx normal and moist mucous membranes Throat: posterior oropharynx normal Eyes General: appearance normal, both eyes and all related structures Periorbital: periorbital findings normal Eyelids: eyelids normal Conjunctivae: conjunctivae normal Sclera: sclerae normal Pupils: PERRL EOM: EOM intact bilaterally Direct ophthalmoscopy: normal light reflex Neck Neck: normal visual inspection, full ROM, no lymphadenopathy, supple and no JVD present Neck mass: No Thyroid: thyroid normal Carotids: normal carotid upstroke Resp Effort Inspection: normal respiratory effort Auscultation: clear to auscultation bilaterally Percussion: percussion normal Cardio Jugular venous pressure: no JVD Palpation: normal PMI Rate: regular rate Rhythm: regular rhythm Heart Sounds: S1 normal and S2 normal Pulses: normal peripheral pulses GI Inspection: Yes normal to inspection Palpation: soft, no hepatosplenomegaly, no aortic enlargement and nontender Percussion: normal to percussion Auscultation: normal bowel sounds Musc Cervical Spine: normal cervical lordosis and cervical ROM normal Thoracic/Lumbar Spine: thoracic and lumbar spine normal to inspection, thoraco-lumbar ROM normal andstraight leg raise negative bilaterally Pelvis: no pain with anterior-posterior compression and no pain with lateral compression Skin Lesions: no lesions Rashes: no rashes Hair: normal Nails: normal Neuro General: patient alert, patient awake, patient oriented x3, gait normal, moves all extremities and normal light touch, pain and propioception Cranial Nerves: CN's II-XII intact bilaterally Cognition: normal cognition Speech: speech normal Gait: normal gait Motor: muscle tone normal throughout and strength 5/5 throughout Sensory Exam: no sensory deficits noted Extrem General: normal to inspection, full ROM, capillary refill normal, no clubbing, cyanosis or edema andno muscle atrophy Psych Appearance: grossly normal and well kempt Mental Status: mental status grossly normal Speech and Movement: speech and movement normal Mood: congruent mood Affect: normal affect Attitude: cooperative Thought Process: normal Thought Content: normal Insight: insight good Judgment: judgment good Assessment Plan Assessment Plan (1) Encounter for screening colonoscopy: Code(s): Z12.11 - Encounter for screening for malignant neoplasm of colon Plan - Gerson Francisco: 64 yoF who is here for screening colonoscopy. Last one in 2007 which showed diverticulosis and no other anomalies. No changes in bowel habits, no blood in stool, and no weight loss. No family hx ofcolorectal cancer. -Discussed colonoscopy with patient. The procedure details as well as risks which include but not limited to bleeding and perforation were discussed. SHe understands and wishes to proceed. Dictated by: <Electronically signed by Gerson Francisco > Gerson Francisco 01/25/20 0917 Gerson Topete SIGNATURE DA Report Cosigners: D: ERMA 01/25/20 0855 T: THEODORE 01/25/20 0855 CC: Name Value Range Interpretation Code Description Data Kay rce(s) Supporting Document(s) ID Date Data Source [id number] 01/25/2020 09:01:00 AM EDT [facility] Name Value Range Interpretation Code Description Data Kay rce(s) Supporting Document(s) Thyrotropin [Units/volume] in Serum or Plasma by Morena cao limit <= 0.005 mIU/L 3.31 u[iU]/mL 0.35-5.50 N [facility] ID Date Data Source [id number] 12/27/2019 08:43:00 AM EDT [facility] Patient Name: MARII DYKES : 1955 Sex: F Pt Unit #: [id number] Location:[facility] Provider: Visit Date/Time: 12/27/19 Primary Insurance: [facility] Secondary Insurance: Self Pay Intake Vital Signs 3 12/27/19 08:50 Current Height 5 ft 2 in Current Weight 219 lb Weight Measurement Method Standing Scale BMI 40.0 BP 132/60 Blood Pressure Location Rt radial Position Sitting Respiration 12 Pulse 90 Pulse Strength Normal Pulse Source Pulse Oximeter Pulse Oximetry (%) 96 Oxygen Delivery Method room air Intake Visit Reasons: Migraine headache, Annual Physical, Hyperlipidemia, Thyroid dysfunction Nurse Note: Annual Physical - Due for Mammo, and Due for Colonoscopy screening - Would be willing [facility] insurance to see if Cologuard would be covered. States she is getting a lot black and blues randomly, not sure why - cut back salomon thyroid med , taking ? 1/2 to 1/3 of pill, hair improved, TSHdone today Spring Fitter Helper Required: No Accompanied by: Is patient in pain?: No Allergies No Known Drug Allergies Allergy (Verified 10/04/19 14:46) Medications amitriptyline 25 mg PO HS atorvastatin (Lipitor) 40 mg PO DAILY biotin 10,000 mcg PO DAILY calcium carbonate-vitamin D3 600 mg(1,500mg) -200 unit 1 ea PO DAILY multivitamin (Daily Multi-Vitamin) 1 tab PO DAILY sumatriptan succinate (Imitrex) 50 mg PO Q2H MDD 4 Synthroid (levothyroxine) 112 mcg PO QDAY 30 days NS Synthroid (levothyroxine) 88 mcg PO QDAY NS Is last menstrual period known: No Post menopausal: Yes Patient : No Fall Risk History of falls: No Ambulatory Aid:: None Gait/Transferring:: Normal Medications:: No High Risk Medications PHQ-2/9 Over the last 2 weeks, how often have you been bothered by any of the following problems? 1. Little interest or pleasure in doing things: not at all 2. Feeling down, depressed, or hopeless: not at all Total score: 0 HIV Testing Offer - ages 13-64 HIV testing Offer: Yes Requirement for HIV testing offer been met?: Declines today. Pretest education received and acknowledged Hep C Testing Offered: Yes Hep C Requirement met: Refuses today SBIRT Annual Questionnaire Are you currently in recovery for al cohol or substance use?: No How many times in the past year have you had 4 or more drinks in a day?: None How many times in the past year have you used a recreational drug or used a prescription medication for nonmedical reasons?: None Do you need a note to return Do you need a note to return to daycare/school/sports/work: No Coronavirus Screening Screening Have you traveled outside of [facility] or [facility] in the last 14 days.: No Has patient experienced coronavirus symptoms: No [facility] Medical History Hyperlipidemia Hypothyroidism Migraine Pityriasis lichenoides chronica (Acute) Right rotator cuff tear Vitamin D deficiency Surgical History History of - artificial joint History of - surgery ( 05/2014) History of hysterectomy ( 1985) History of orthopedic surgery (Acute) Family History Mother No problems noted. Father No problems noted. Brother No problems noted. Brother No problems noted. Brother No problems noted. Brother No problems noted. Sister No problems noted. Sister No problems noted. Sister No problems noted. Sister No problems noted. Social History Does the Patient have a Healthcare Proxy: Yes Does Patient have a DNR?: No Does Patient have a Living Will?: No Advance Directives on File or in chart?: No Hx Recent Travel (where): No Tobacco: How many years used: 37 how long ago did patient quit smokin years ago HPI Hyperlipidemia reports headache(s) (improved); denies chest pain or dyspnea Most Recent Cardiac Tests: No Data to Display Thyroid Dysfunction denies palpitations, chest pain, irritability, anxiety, diarrhea or diplopia fatigue (since amitriptylline); denies weight gain, depression or constipation Thyroid Dysfunction Results: 2 TSH 1.59 uIU/mL (0.35- 5.50) 12/27/19 Pain Management History of Present Illness Associated symptoms: Denies weakness, Denies numbness, Denies weight gain and Denies weight loss Review of Systems Const Denies chills, Reports fatigue (since amitriptylline), Denies fever(s), Reports headache(s) (improved), Denies night sweats, Denies weakness, Denies weight gain and Denies weight loss Eyes Denies blurry vision, Denies diplopia and Denies eye discharge ENT Denies otalgia, Reports headache(s) (improved), Denies nasal congestion and Denies sore throat Card Denies chest pain, Denies palpitations and Denies dyspnea Resp Denies chest congestion, Denies cough, Denies dyspnea and Denies wheezing GI Denies abdominal pain, Denies constipation, Denies diarrhea, Denies nausea and Denies vomiting Genitourinary: Denies abnormal vaginal bleeding or dysuria Musc Denies arthralgias, Denies limited range of motion and Denies numbness Skin/Breast Denies breast pain, Denies breast mass, Denies lesions and Denies rash Neuro Reports headache(s) (improved), Denies numbness and Denies weakness Psych Denies abnormal sleep pattern, Denies anxiety, Denies depression and Denies irritability Endo Reports fatigue (since amitriptylline), Denies polydipsia, Denies polyuria and Denies palpitations Yuri/Lymph Denies easy bleeding, Reports easy bruising (hands, ? aleve) and Denies lymphadenopathy Aller/Immun Denies wheezing Exam Const General: cooperative, healthy appe aring and no acute distress Nutritional Appearance: well nourished and overweight [facility] Head: normal to inspection, normocephalic and atraumatic Ears: TM's normal bilaterally and EAC's normal General nose exam: external nose normal; no nasal discharge noted Mouth: oral mucosae normal Throat: posterior oropharynx normal and no postnasal drainage Eyes General: appearance normal, both eyes and all related structures Conjunctivae: conjunctivae normal Sclera: sclerae normal Pupils: PERRL EOM: EOM intact bilaterally Neck Neck: normal visual inspection and full ROM Thyroid: thyroid normal Carotids: normal carotid upstroke Lymphatic: no lymphadenopathy noted Chest Chest: normal inspection of the chest Breast/Axilla Inspection: normal inspection of the breasts and normal inspection of the axillae Breast/Axilla Palpation: normal palpation of the breasts, normal palpation of the axillae and no axillary lymphadenopathy Resp Effort Inspection: normal respiratory effort Auscultation: no rales, no rhonchi and no wheezes Cardio Rate: regular rate Rhythm: regular rhythm Heart Sounds: no murmurs GI Inspection: Yes normal to inspection Palpation: soft, no masses and nontender Auscultation: normal bowel sounds Musc Cervical Spine: cervical ROM normal Thoracic/Lumbar Spine: thoracic and lumbar spine normal to inspection Skin Lesions: no lesions Rashes: no rashes Neuro General: patient alert and patient awake Cranial Nerves: hearing normal Cognition: normal cognition Motor: muscle tone normal throughout Sensory Exam: no sensory deficits noted Extrem General: no c lubbing, cyanosis or edema Psych Appearance: grossly normal Mental Status: mental status grossly normal Assessment Plan Assessment Plan (1) Hyperlipidemia: Status: Acute Code(s): E78.5 - Hyperlipidemia, unspecified SNOMED Code(s): 24387216 Category: Medical Qualifiers: Hyperlipidemia type: mixed hyperlipidemia Qualified Code(s): E78.2 - Mixed hyperlipidemia (2) Migraine: SNOMED Code(s): 43470751 Category: Medical Qualifiers: Migraine type: unspecified Status migrainosus presence: without status migrainosus Intractability: not intractable Qualified Code(s): G43.909 - Migraine, unspecified, not intractable, without status migrainosus (3) Hypothyroidism: Status: Acute Code(s): E03.9 - Hypothyroidism, unspecified SNOMED Code(s): 74615426 Category: Medical Qualifiers: Hypothyroidism type: acquired Qualified Code(s): E03.9 - Hypothyroidism, unspecified Orders: Orders: TSH 1 Month (4) Encounter for routine adult medical exam with abnormal findings: Code(s): Z00.01 - Encounter for general adult medical examination with abnormal findings Additional Comments Additional Comments: mammo ordered, she will check on cologuard, discussed thyroid dose, will order synthroid 88 mcg, check TSH 1 month,see 6 months, headaches improved, may be less tired withl 1/2 tab amitriptylline Orders Other Medications: New: Synthroid (levothyroxine) 88 mcg PO QDAY 30 tabs 2RF NS Other Orders: Orders: 3D DIG MAMMO SCREEN BILAT 1 Month Z12.31 Instructions: Hypothyroidism (GEN) Follow Up: 6 Months Electronically Signed By: <Electronically signed by Jacy Franz MD> Date/Time Signed: 12/27/19 0944 Name Value Range Interpretation Code Description Data Kay rce(s) Supporting Document(s) ID Date Data Source [id number] 12/27/2019 09:00:00 AM [facility] Name Value Range Interpretation Code Description Data Kay rce(s) Supporting Document(s) Thyrotropin [Units/volume] in Serum or Plasma by Detec tion limit <= 0.005 mIU/L 1.59 u[iU]/mL 0.35-5.50 N [facility] ID Date Data Source [id number] 11/22/2019 09:03:00 AM [facility] Name Value Range Interpretation Code Description Data Kay rce(s) Supporting Document(s) Thyrotropin [Units/volume] in Serum or Plasma by Detec tion limit <= 0.005 mIU/L 1.75 u[iU]/mL 0.35-5.50 N [facility] ID Date Data Source [id number] 11/03/2019 08:39:00 AM [facility] Patient Name: MARII DYKES : 1955 Sex: F Pt Unit #: [id number] Location:[facility] Provider: Visit Date/Time: 11/03/19 Primary Insurance: [facility] Secondary Insurance: Self Pay Intake Vital Signs 11/03/19 08:41 BP 122/78 Respiration 16 Pulse 87 Pulse Oximetry (%) 96 Oxygen Delivery Method room air Intake Visit Reasons: Post op visit (orthopedics) Is patient in pain?: No Allergies No Known Drug Allergies Allergy (Verified 10/04/19 14:46) HIV Testing Offer - ages 13-64 Requirement for HIV testing offer been met?: Declines today. Pretest education received and acknowledged Coronavirus Screening Screening Have you traveled outside of [facility] or [facility] in the last 14 days.: No Has patient experienced coronavirus symptoms: No [facility] Medical History Hyperlipidemia Hypothyroidism Migraine Pityriasis lichenoides chronica (Acute) Right rotator cuff tear Vitamin D deficiency Surgical History (Updated 10/15/19 @ 09:03 by Katja Caballero) History of - artificial joint History of - surgery ( 05/2014) History of hysterectomy ( 1985) History of orthopedic surgery (Acute) Social History Does the Patient have a Healthcare Proxy: Yes Does Patient have a DNR?: No Does Patient have a Living Will?: No Advance Directives on File or in chart?: No Hx Recent Travel (where): No Tobacco: How many years used: 37 how long ago did patient quit smokin years ago HPI Additional HPI HPI Details: Patient is a Right hand dominant 64 year old female, here for a 4 week post op of the rightcarpal tunnel release, performed on 10/05/19. Today, she is experiencing an aching pain at times in the hand. She denies any numbness or tingling.She has not needed any medication for pain and sleeps well. Her ROM is improved and she continues todo home exercises. Exam Extrem Other: Right palm is healing with excellent cosmesis no appreciable swelling today. Maturing skin over the incision as expected. Mild tenderness over the incision site with minimal firmness. Patient has full pain-free range of motion of her fingers, thumb and wrist. She is regaining face burler strength and denies any paresthesias of the median nerve distribution today. Assessment Plan Assessment Plan (1) Encounter for orthopedic follow-up care: Code(s): Z47.89 - Encounter for other orthopedic aftercare Plan - Hanane Hoover PA-C: Postop right carpal tunnel release. Patient is doing very well and paresthesias have resolved. Shewill continue with home exercises. Expect continued improvement and intermittent discomfort and patient may follow-up on an as-needed basis. Electronically Signed By: <Electronically signed by Hanane Warren> Date/Time Signed: 11/03/19 1237 Name Value Range Interpretation Code Description Data Kay e(s) Supporting Document(s) ID Date Data Source [id number] 10/15/2019 09:01:00 AM EDT [facility] Patient Name: MARII DYKES : 1955 Sex: F Pt Unit #: [id number] Location:AMB.ORTHO Provider: Visit Date/Time: 10/15/19 Primary Insurance: R/[facility] Secondary Insurance: Self Pay ADDENDUM Patient's diagnosis listed below is incorrect. Patient's appropriate diagnosis is carpal tunnel syndrome of the right upper limb. G56.01 <Electronically signed by Hanane Warren> Addendum Signed By: Date/Time: 10/22/19 0749 Intake Vital Signs 10/15/19 09:05 BP 126/74 Respiration 16 Pulse 79 Pulse Oximetry (%) 98 Intake Visit Reasons: Post op visit (orthopedics) Is patient in pain?: Yes Pain scale (1-10): 2 Allergies No Known Drug Allergies Allergy (Verified 10/04/19 14:46) HIV Testing Offer - ages 13-64 Requirement for HIV testing offer been met?: Declines today. Pretest education received and acknowledged Coronavirus Screening Screening Risk:travel to high risk area;contact w/ high risk person: No Has patient experienced coronavirus symptoms: No PFSH Medical History Hyperlipidemia Hypothyroidism Migraine Pityrias is lichenoides chronica (Acute) Right rotator cuff tear Vitamin D deficiency Surgical History (Updated 10/15/19 @ 09:03 by Katja Caballero) History of - artificial joint History of - surgery ( 05/2014) History of hysterectomy ( 1985) History of orthopedic surgery (Acute) Social History Does the Patient have a Healthcare Proxy: Yes Does Patient have a DNR?: No Does Patient have a Living Will?: No Advance Directives on File or in chart?: No Hx Recent Travel (where): No Tobacco: How many years used: 37 how long ago did patient quit smokin years ago HPI Additional HPI HPI Details: Patient is a 64 year old female, here for a 10 day post op of the right carpal tunnel release, performed on 10/05/19. Today, she is experiencing an aching pain at times in the hand. She states the numbness is gone. Sheis very pleased. Orthopedic General Post-Op History of Present lllness Current symptoms: Denies fever(s) or limited range of motion Review of Systems Const Denies anorexia, Denies excessive sweating, Denies fatigue, Denies fever(s), Denies headache(s), Denies weight gain and Denies weight loss Eyes Denies blurry vision, Denies change in vision, Denies dry eyes, Denies irritation, Denies itchy eyesand Denies loss of vision ENT Denies abnormal hearing, Denies dysphagia, Denies dizziness, Denies headache(s), Denies lip swelling, Denies nasal congestion, Denies nasal discharge, Denies disequilibrium, Denies sinus pain,Denies sore throat and Denies throat swelling Card Denies chest pain, Denies pedal edema, Denies lightheadedness, Denies palpitations and Denies dyspnea Resp Denies cough, Denies excessive phlegm production, Denies pain on inspiration, Denies dyspnea and Denies wheezing GI Denies abdominal pain, Denies change in bowel habits, Denies dysphagia, Denies early satiety, Deniesheartburn, Denies diarrhea, Denies nausea and Denies vomiting Denies abnormal vaginal bleeding, Denies difficulty voiding, Denies pelvic pain, Denies urinary incontinence and Denies urinary urgency Musc Denies back pain, Reports arthralgias (right wrist), Denies limited range of motion, Denies muscle cramps and Denies muscle weakness Skin/Breast Denies breast pain, Denies change in pigmentation, Denies lesions, Denies nail changes, Denies rash and Denies unusual bruising Neuro Denies abnormal hearing, Denies dizziness, Denies headache(s), Denies loss of vision, Denies memory loss, Denies paresthesias and Denies disequilibrium Psych Denies abnormal sleep pattern, Denies anxiety, Denies change in appetite, Denies depression, Denies irritability and Denies memory loss Endo Denies cold intolerance, Denies excessive sweating, Denies fatigue, Denies polyphagia, Denies polydipsia, Denies polyuria and Denies palpitations Yuri/Lymph Denies easy bleeding, Denies easy bruising and Denies lymphadenopathy Aller/Immun Denies urticaria, Denies itchy eyes, Denies lip swelling, Denies seasonal rhinorrhea, Denies throat swelling and Denies wheezing Exam Extrem Other: Inspection: Incision shows excellent cosmesis. No erythema. Mild generalized swelling and resolving ecchym osis over the volar distal forearm. Palpation: Tender over the incision itself and distal volar forearm. Range of motion: Full flexion and extension of the fingers and wrist. Thumb opposition to the base of the small finger. Neurovascular: Intact sensation to the tips of all fingers including the median nerve distribution. Intact capillary refill. Assessment Plan Assessment Plan (1) Encounter for orthopedic follow-up care: Code(s): Z47.89 - Encounter for other orthopedic aftercare (2) Left carpal tunnel syndrome: Status: Acute Code(s): G56.02 - Carpal tunnel syndrome, left upper limb SNOMED Code(s): 31105141 Category: Medical Plan - Hanane Hoover PA-C: Patient doing well postoperatively. Sutures removed. Pain is now under control. Paresthesias of the median nerve distribution are resolved. May wash with regular soap and water. Continue postop range of motion exercises. Recommended padded bicycling glove or wrist splint intermittently for pain. Avoid heavy lifting or pressure in the palm. Followup in 4 weeks. Electronically Signed By: <Electronically signed by Hanane Warren> Date/Time Signed: 10/15/19 0926 Name Value Range Interpretation Code Description Data Kay rce(s) Supporting Document(s) ID Date Data Source [id number] 10/05/2019 04:12:00 PM EDT [facility] Name: MARII DYKES : 1955 Age: 64 MR#: [id number] Admit Date: 10/05/19 Provider: Navi Hunt MD Room #: Consulting Provider: Dictation Date: 10/05/19 Operative Note Orthopedic Operative Report Date of service Date of service:: 10/05/19 Operative Note Orthopaedic Surgeons:: Navi Hunt MD Anesthesiologist(s): Yesenia Reyes MD Anesthesia Type: Leeper Block Pre- Operative Diagnosis: 1. Right carpal tunnel syndrome Post-Operative Diagnosis: same as pre-op Procedure: 1. Right carpal tunnel release Findings: There was significant compression particularly proximal to the wrist crease. The median nerve showed an hourglass configuration with significant adhesions to the overlying transverse carpal ligament which were freed up. EBL (ml): 2 Specimens: No Specimens Complications: No Post-Operative Condition: Good Narrative: INDICATIONS: This is a right who developed carpal tunnel syndrome and is not responding to non operative treatment and is brought to surgery for release of above. In fact prior to surgery the patient has had 2-3 corticosteroid injections into the carpal canal with persistent symptoms throughout the years. The risks,benefits and alternatives have been discussed. The patient has verbalized understanding and consented with the treatment plan. PROCEDURE: The patient was taken to the operating room and placed supine on the table and [facility]. The operative arm is prepped and draped in the usual sterile fashion. A timeout was called confirming correct patient, laterality, procedure, relevant tests/images, and perioperative antibiotics. Patient was given antibiotics prior to incision . An anterior approach to the carpal tunnel is undertaken. The skin and the subcutaneoustissue are sharply incised. Under loupe magnification, dissection is carried down to the palmar fascia. Care is taken to preserve crossing cutaneous nerve branches. The palmar fascia is incised and the sentinal fat layer is gently sweeped away exposing the transverse carpal ligament. Under direct visualization the TCL is incised ulnarly off the hook of the hamate. Using visualization and palpation the transverse carpal ligament is released. Distally the superficial arch is identified and proximally the dissection is carried to the antebrachial forearm fascia taking care to avoid injury to the palmar cutaneous nerve. There is significant compression of the median nerve as it traveled under the antebrachial fascia and the distal forearm. Care was taken not to injure the nerve during the decompression. A complete release is carried out and exploration of the carpal canal reveals no significant tenos ynovitis. The median nerve and its branches are intact. There is no ganglion cysts or masses in the carpal canal. The tourniquet is let down. Hemostasis is achieved. Patient is given a mixture of 1% lidocaine with epinephrine and 0.5% Marcaine which is infused intothe subcutaneous tissues. The wounds are irrigated and closed. Sterile dressings are applied. The patient is awakened and delivered to the recovery room in stable condition. COUNTS: complete Dictated by: <Electronically signed by Navi Hunt MD> Navi Hunt MD 10/05/19 1616 Navi Hunt MD SIGNATURE DA Report Cosigners: D: NAIAMI 10/05/19 161 T: NAIAMI 10/05/19 161 CC: Name Value Range Interpretation Code Description Data Kay rce(s) Supporting Document(s) ID Date Data Source [id number] 10/04/2019 01:42:00 PM EDT [facility] [address] [id number] [phone] NAME SEX PT STATUS ACCOUNT NUMBER MARII DYKES REG REF [id number] ORDERING PHYSICIAN LOCATION MEDICAL RECORD NO. Navi Hunt MD RAD [id number] ATTENDING PHYSICIAN DATE OF DATE OF EXAM/TIME Jacy Franz MD 1955 10/04/19 / 1315 TYPE / EXAM Xray Wrist complete RT [...] Trans Dt/Tm: Trans by: DT Prt Dt/Tm: [id number]: Total DLP = 0.00 mGy-cm Fluoroscopy Time (in secs): Name Value Range Interpretation Code Description Data Kay rce(s) Supporting Document(s) ID Date Data Source [id number] 10/04/2019 12:46:00 PM EDT [facility] Patient Name: MARII DYKES : 1955 Sex: F Pt Unit #: [id number] [facility]: Visit Date/Time: 10/04/19 Primary Insurance: [facility] Secondary Insurance: Self Pay Intake Vital Signs 10/04/19 12:48 BP 132/74 Respiration 16 Pulse 84 Pulse Oximetry (%) 96 Oxygen Delivery Method room air Intake Visit Reasons: Wrist Pain Follow-up Is patient in pain?: Yes Pain scale (1-10): 4 Allergies No Known Drug Allergies Allergy (Verified 09/13/19 09:50) HIV Testing Offer - ages 13-64 Requirement for HIV testing offer been met?: Declines today. Pretest education received and acknowledged [facility] Medical History Hyperlipidemia Hypothyroidism Migraine Pityriasis lichenoides chronica (Acute) Right rotator cuff tear Vitamin D deficiency Surgical History History of - artificial joint History of - surgery ( 05/2014) History of hysterectomy ( 1985) Family History Mother No problems noted. Father No problems noted. Brother No problems noted. Brother No problems noted. Brother No problems noted. Brother No problems noted. Sister No problems noted. Sister No problems noted. Sister No problems noted. Sister No problems noted. Social History Does the Patient have a Healthcare Proxy: Yes Does Patient have a DNR?: No Does Patient have a Living Will?: No Advance Directives on File or in chart?: No Hx Recent Travel (where): No Tobacco: How many years used: 37 how long ago did patient quit smokin years ago HPI Additional HPI HPI Details: Patient is a Right hand dominant 64 year old female who is here for follow-up of her Right wrist pain and paresthesia. She has had pain and numbness in both hands for several years with the Right being more severe. She had NCS EMG performed by [facility] in the past. Denise mercedes has received several steroid injections in the past, with the most recent being at her last office visit 07/05/19, where the bilateral wrists and Left thumb were injected. Her injection in the Right wrist lasted until a few days ago. She wears bilateral wrist cockup braces at bedtime with no relief from pain. Left thumb triggering has resolved. Patient states that on the right side she has had up to 3 injectionsin the carpal canal. She has no triggering on the right side. No other complaints. No falls or other traumas. Review of Systems Const All systems reviewed are unremarkable except as noted in HPI and below Card Reports system reviewed and no additional complaints, except as documented Resp Reports system reviewed and no additional complaints, except as documented Psych Reports system reviewed and no additional complaints, except as documented Exam Musc Other: PHYSICAL EXAM: CONST: General Appearance - No acute distress, no emaciation Psych: Alert and oriented to location and date Head/Neck: Atraumatic CV: palpable peripheral pulses, no peripheral edema Resp: No labored breathing or use of accessory muscles of respiration. Lymph: No palpable antecubital lyphadeopathy Neuro: Normal reflexes (br) and neg isaacs sign. Right UPPER EXTREMITY Skin: Intact. Deformity: No thenar or hyperthenar atrophy Fingers/nails: No clubbing or cyanosis Tenderness: No tenderness across the A1 pulleys of any digit. No palpable triggering Motor: 5+ APB/1DIL Sens: Diminished to light touch over the tips of the thumb index and middle fingers Vasc: palpable pulses, BCR < 2 sec Sandra's: Positive Phalens: Positive CONTRALATERAL UPPER EXTREMITY Skin: Intact. Deformity: None Fingers/nails: No clubbing or cyanosis Tenderness: Mildly palpable actively reducible triggering of the thumb. No tenderness Motor: 5+ APB/1DI Sens: Diminished sensation to light touch over the thumb index and middle fingers Vasc: palpable pulses, BCR < 2 sec Sandra's: Positive Phalens: Positive XRAYs/IMAGING: Previous x-rays were reviewed. Neurodiagnostic studies previously were reviewed Assessment Plan Assessment Plan (1) Pain i n wrist: Code(s): M25.539 - Pain in unspecified wrist Orders: Orders: Xray Wrist complete RT Today (2) Carpal tunnel syndrome, right: Status: Acute Code(s): G56.01 - Carpal tunnel syndrome, right upper limb SNOMED Code(s): 11868405 Category: Medical Plan - Navi Hunt MD: Patient has right carpal tunnel syndrome which is clinically significant. She has tried multiple corticosteroid injections activity modification bracing. This is all failed to treat the problem. At this point I recommend surgical intervention. I discussed the risk benefits alternatives complications and expected outcome. Patient agreed with surgery. She also agreed that there is no guarantee of any particular outcome. Patient understood and will schedule surgery for her tomorrow. She will require preoperative clearance. SURGICAL CONSENT The operation and its objectives and pre and post operative course were explained to the patient as well as any alternative methods of treatment. Both operative and non-operative treatment courseshave benefits and have consequences both positive and negative. As in any surgical procedure, thereare risks involved, although statistically their incidence is low. The most frequent complications in surgery include infection, permanent numbness, joint stiffness, persistent swelling, tenderness, prominence of the surgical scar(s), pain, muscle tendon/bone injury, nerve injury, loss of digit or limb, neuropathic pain (CRPS), failure of treatment, unmet expectations, etc. The patient also understood that separate related or unrelated disease entities may become more apparent after resolution of symptoms. There are also risks associated with anesthesia involving the heart, lungs, vascular system, brain, kidneys, liver, etc. These were all explained to the patient and have verbalized understanding and consent. PROCEDURE: Right carpal tunnel release I also explained to the patient that medicine is not a precise science and individual variations with respect to healing and ultimate recovery are impossible to predict. There is no guarantee that the surgery will be successful and it is even conceivable, although very unlikely, that the condition will be aggravated. It [...] that may be taken for medical education purposes, provided that their name is neither revealed nor listed in any publication. The pre and post operative course has been thoroughly discussed including the possible need for postoperative therapy / rehabilitation. The patient verbalized understanding and consent to all of the above before a decision for surgery was made. The decision to accept the surgical plan was not made under any duress. Every reasonable effort was made to explain the details of the patients care in a compassionate manner understandable by the patients educational level, language barrier, and any other disability that would hinder complete and thorough understanding. (3) Left carpal tunnel syndrome: Status: Acute Code(s): G56.02 - Carpal tunnel syndrome, left upper limb SNOMED Code(s): 72148837 Category: Medical Plan - Navi Hunt MD: Patient is less symptomatic on the left side however it is still positive on the side. Again when she recovers on the right side I will recommend carpal tunnel release surgery on the left side. This will be done in the near future however clinically the right side is more significant and it isher dominant side. (4) Trigger thumb, left thumb: Status: Acute Code(s): M65.312 - Trigger thumb, left thumb SNOMED Code(s): 787540797366299 Category: Medical Plan - Navi Hunt MD: Patient also complains of triggering of the left thumb which is clinically improved from corticosteroid injection. We will continue to follow this if this recurs will recommend surgical release. Electronically Signed By: <Electronically signed by Navi Hunt MD> Date/Time Signed: 10/04/19 1424 Name Value Range Interpretation Code Description Data Kay rce(s) Supporting Document(s) ID Date Data Source [id number] 09/27/2019 09:08:00 AM [facility] Patient Name: MARII DYKES : 1955 Sex: F Pt Unit #: [id number] Location:[facility] Provider: Visit Date/Time: 09/27/19 Primary Insurance: [facility] Secondary Insurance: Self Pay ADDENDUM medically stable, cleared for surgery <Electronically signed by Jacy Franz MD> Addendum Signed By: Date/Time: 10/04/19 1350 Intake Vital Signs 09/27/19 09:10 Current Height 5 ft 2 in Current Weight 192 lb Weight Measurement Method Stated by Patient BMI 35.1 BP 148/72 Blood Pressure Location Lt brachial Position Sitting Respiration 12 Pulse 74 Pulse Strength Normal Pulse Source Pulse Oximeter Pulse Oximetry (%) 98 Oxygen Delivery Method room air Intake Visit Reasons: Thyroid dysfunction Nurse Note: Thyroid follow up - States she is feeling some better, but her shoulder is bothersome still - , hair improving 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 1. Little interest or pleasure in doing things: not at all 2. Feeling down, depressed, or hopeless: not at all Total score: 0 HIV Testing Offer - ages 13-64 HIV testing Offer: Yes Requirement for HIV testing offer been met?: Declines today. Pretest education received and acknowledged Hep C Testing Offered: Yes Hep C Requirement met: Refuses today SBIRT Annual Questionnaire Are you currently in recovery for alcohol or substance use?: No How many times in the past year have you had 4 or more drinks in a day?: None How many times in the past year have you used a recreational drug or used a prescription medication for nonmedical reasons?: None Do you need a note to return Do you need a note to return to daycare/school/sports/work: No PFSH Medical History Hyperlipidemia Hypothyroidism Migraine Pityriasis lichenoides chronica (Acute) Right rotator cuff tear Vitamin D deficiency Surgical History History of - artificial joint History of - surgery ( 05/2014) History of hysterectomy ( 1985) Family History Mother No problems noted. Father No problems noted. Brother No problems noted. Brother No problems noted. Brother No problems noted. Brother No problems noted. Sister No problems noted. Sister No problems noted. Sister No problems noted. Sister No problems noted. Social History Does the Patient have a Healthcare Proxy: Yes Does Patient have a DNR?: No Does Patient have a Living Will?: No Advance Directives on File or in chart?: No Hx Recent Travel (where): No Tobacco: How many years us ed: 37 how long ago did patient quit smokin years ago HPI Thyroid Dysfunction denies chest pain, anxiety, alopecia or dyspnea on exertion denies fatigue, memory loss or alopecia Thyroid Dysfunction Results: TSH 0.60 uIU/mL (0.35-5.50) 09/27/19 Review of Systems Const Denies chills, Denies fatigue, Denies fever(s), Reports headache(s) and Denies night sweats ENT Reports headache(s) Card Denies chest pain and Denies dyspnea on exertion Resp Denies cough and Denies dyspnea on exertion Skin/Breast Denies alopecia Neuro Reports headache(s), Denies memory loss and Denies other visual disturbances Psych Denies abnormal sleep pattern, Denies anxiety and Denies memory loss Endo Denies fatigue Exam Const General: cooperative and no acute distress Nutritional Appearance: average body habitus Orientation: alert, awake and oriented x3 Resp Effort Inspection: normal respiratory effort Cardio Rate: regular rate Rhythm: regular rhythm Skin Hair: normal Neuro Cranial Nerves: CN's II-XII intact bilaterally Cognition: normal cognition Speech: speech normal Gait: normal gait Psych Mental Status: mental status grossly normal Assessment Plan Assessment Plan (1) Migraine: Code(s): G43.909 - Migraine, unspecified, not intractable, without status migrainosus Qualifiers: Migraine type: without aura Status migrainosus presence: without status migrainosus Intractability: not intractable Qualified Code(s): G43.009 - Migraine without aura, not intractable, without status migrainosus (2) Hypothyroidism: Status: Acute Code(s): E03.9 - Hypothyroidism, unspecified SNOMED Code(s): 76594348 Category: Medical Qualifiers: Hypothyroidism type: acquired Qualified Code(s): E03.9 - Hypothyroidism, unspecified Plan - Jacy Franz M.D.: thyroid and hair loss improved, TSH normal, seeing neurology for headaches, advised on ortho for shoulder, see 3 months Orders: Orders: TSH 3 Months Orders Instructions: Hypothyroidism (GEN) Follow Up: 3 Months Electronically Signed By: <Electronically signed by Jacy Franz MD> Date/Time Signed: 09/27/19 1243 Name Value Range Interpretation Code Description Data Kay rce(s) Supporting Document(s) ID Date Data Source [id number] 09/27/2019 08:09:00 AM [facility] Name Value Range Interpretation Code Description Data Kay rce(s) Supporting Document(s) Thyrotropin [Units/volume] in Serum or Plasma by Detec tion limit <= 0.005 mIU/L 0.60 u[iU]/mL 0.35-5.50 [facility] ID Date Data Source [id number] 09/13/2019 09:20:00 AM [facility] Patient Name: MARII DYKES : 1955 Sex: F Pt Unit #: [id number] Location:[facility] Provider: Visit Date/Time: 09/13/19 Primary Insurance: [facility] Secondary Insurance: Self Pay Intake Vital Signs 09/13/19 09:20 Current Height 5 ft 2 in Current Weight 192 lb Weight Measurement Method Stated by Patient BMI 35.1 BP 128/68 Blood Pressure Location Lt brachial Position Sitting Pulse 74 Pulse Strength Normal Pulse Source Pulse Oximeter Pulse Oximetry (%) 98 Oxygen Delivery Method room air Intake Visit Reasons: Office visit Accompanied by: Self / Same as Patient Is patient in pain?: No Allergies No Known Drug Allergies Allergy (Verified 09/13/19 09:50) Medications biotin PO calcium carbonate-vitamin D3 600 mg(1,500mg) -200 unit 1 ea PO DAILY Imitrex (sumatriptan succinate) 50 mg PO Q2H 90 days MDD 4 NS Lipitor (atorvastatin) 40 mg PO DAILY 90 days NS multivitamin (Daily Multi-Vitamin) 1 tab PO DAILY naproxen 500 mg PO Q12HR Synthroid (levothyroxine) 112 mcg PO QDAY 30 days NS Zithromax (azithromycin) 500 mg PO .TIW NS Patient : No HIV Testing Offer - ages 13-64 Requirement for HIV testing offer been met?: Declines today. Pretest education received and acknowledged [facility] Derm Medical History (Updated 09/13/19 @ 09:32 by IKANA Flores) Hyperlipidemia Hypothyroidism Migraine Pityriasis lichenoides chronica (Acute) Right rotator cuff tear Vitamin D deficiency Surgical History History of - artificial joint History of - surgery ( 05/2014) History of hysterectomy ( 1985) Family History Mother No problems noted. Father No problems noted. Brother No problems noted. Brother No problems noted. Brother No problems noted. Brother No problems noted. Sister No problems noted. Sister No problems noted. Sister No problems noted. Sister No problems noted. Social Hx Alcohol Use No Social History Does the Patient have a Healthcare Proxy: Yes Does Patient have a DNR?: No Does Patient have a Living Will?: No Advance Directives on File or in chart?: No Hx Recent Travel (where): No Tobacco: How many years used: 37 how long ago did patient quit smokin years ago Pertinent Past History Pertinent Past History Previous skin cancer: none Family history of nonmelanoma skin cancer: No Family history with melanoma: No Dermatology HPI History of Present Illness Details:: Established Patient follows up for Pityriasis Lichenoides. Patient notes that she also started taking Biotin as she heard it can help withthe nails and skin. She said that she has noticed a little difference. She notes that she can go about 2-3 weeks withouta spot and then she will get one here and there. Current Symptoms Chief Complaint:: Pityriasis Lichenoides Location: upper arms (Right), forearms and thighs (Right Thigh) Duration: years Symptoms: itchy Severity of symptoms: mild Current treatment: Zithromax TIW (Brand Name) Treatment response: better Skin care goals for today' visit: None per patient Contacts/family history of similar?: No Dermatology ROS Constituitional Reports system reviewed and no additional complaints, except as documented Psych Reports system reviewed and no additional complaints, except as documented Dermatology Exam Constitutional General appearance: comfortable Orientation Orientation: alert and oriented x 3 Skin Skin exam performed including: face, eyelids, nose, lips, neck, chest, right arm, right hand, fingers, left arm and left hand Face and Body: 1. Pityriasis Lichenoides lesion Psych Appearance: grossly normal Mental Status: mental status grossly normal Speech and Movement: speech and movement normal Mood: congruent mood Affect: normal affect Attitude: cooperative Thought Content: normal Insight: insight good Judgment: judgment good Assessment Plan Assessment Plan (1) Pityriasis lichenoides chronica: Status: Acute Code(s): L41.1 - Pityriasis lichenoides chronica SNOMED Code(s): 74574062 Category: Medical Medications: Ch anged: From: Zithromax (azithromycin) 500 mg PO .TIW 12 tabs 1RF NS To: Zithromax (azithromycin) *MUST BE BRAND NAME 500 mg PO .TIW 36 tabs 3RF NS Orders Follow Up: yrly Electronically Signed By: <Electronically signed by Brenna BRUNO> Date/Time Signed: 09/13/19 0950 Name Value Range Interpretation Code Description Data Kay rce(s) Supporting Document(s) ID Date Data Source [id number] 08/30/2019 09:29:00 AM [facility] Patient Name: MARII DYKES : 1955 Sex: F Pt Unit #: [id number] Location:[facility] Provider: Visit Date/Time: 08/30/19 Primary Insurance: [facility] Secondary Insurance: Self Pay Intake Vital Signs 3 08/30/19 09:29 Current Height 5 ft 2 in Current Weight 192 lb Weight Measurement Method Stated by Patient BMI 35.1 BP 134/62 Blood Pressure Location Lt brachial Position Sitting Respiration 12 Pulse 87 Pulse Strength Normal Pulse Source Pulse Oximeter Intake Visit Reasons: Thyroid dysfunction Nurse Note: Thyroid follow up - States she has been trying really hard to take the synthroid apart from everything else, but sometimes it is hard with her migraines - then she has to take Imitrex no matter what Spring Fitter Helper Required: No Accompanied by: Self / Same as Patient Is patient in pain?: No Allergies No Known Drug Allergies Allergy (Verified 02/06/19 18:59) Is last menstrual period known: No Post menopausal: Yes Patient : No Fall Risk History of falls: No Ambulatory Aid:: None Gait/Transferring:: Normal Medications:: No High Risk Medications PHQ-2/9 Over the last 2 weeks, how often have you been bothered by any of the following problems? 1. Little interest or pleasure in doing things: not at all 2. Feeling down, depressed, or hopeless: not at all Total score: 0 HIV Testing Offer - ages 13-64 HIV testing Offer: Yes Requirement for HIV testing offer been met?: Declines today. Pretest education received and acknowledged Hep C Testing Offered: Yes Hep C Requirement met: Refuses today SBIRT Annual Questionnaire Are you currently in recovery for alcohol or substance use?: No How many times in the past year have you had 4 or more drinks in a day?: None How many times in the past year have you used a recreational drug or used a prescription medication for nonmedical reasons?: None Do you need a note to return Do you need a note to return to daycare/school/sports/work: No PFSH Social History Does the Patient have a Healthcare Proxy: Yes Does Patient have a DNR?: No Does Patient have a Living Will?: No Advance Directives on File or in chart?: No Hx Recent Travel (where): No Tobacco: How many years used: 37 how long ago did patient quit smokin years ago HPI Thyroid Dysfunction denies palpitations, chest pain, dyspnea on exertion or diplopia denies fatigue Thyroid Dysfunction Results: TSH 0.10 uIU/mL (0.35- 5.50) L 08/27/19 Review of Systems Const Denies chills, Denies fatigue, Denies fever(s) and Reports headache(s) Eyes Denies blurry vision and Denies diplopia ENT Reports headache(s), Denies nasal congestion and Denies sinus pressure Card Denies chest pain, Denies palpitations and Denies dyspnea on exertion Resp Denies cough and Denies dyspnea on exertion Skin/Breast Reports change in hair (less hair loss) Neuro Reports headache(s) Endo Denies fatigue and Denies palpitations Exam Const General: cooperative and no acute distress Nutritional Appearance: average body habitus Resp Effort Inspection: normal respiratory effort Cardio Rate: regular rate Rhythm: regular rhythm Skin Hair: normal Assessment Plan Assessment Plan (1) Thyroid Dysfunction: Code(s): E07.9 - Disorder of thyroid, unspecified (2) Hypothyroidism: Status: Acute Code(s): E03.9 - Hypothyroidism, unspecified SNOMED Code(s): 27848905 Category: Medical Qualifiers: Hypothyroidism type: acquired Qualified Code(s): E03.9 - Hypothyroidism, unspecified Plan - Jacy Franz M.D.: TSH still low, decrease thyroid dose, check 1 month, many headaches , neuro referral done, see 4 months Orders: Orders: TSH 1 Month (3) Migraine: Code(s): G43.909 - Migraine, unspecified, not intractable, without status migrainosus Qualifiers: Intractability: not intractable Migraine type: with aura Status migrainosus presence: without status migrainosus Qualified Code(s): G43.109 - Migraine with aura, not intractable, without status migrainosus Orders: Referrals: Neurology Referral Orders Other Medications: New: Synthroid (levothyroxine) 112 mcg PO QDAY 30 days 30 tabs 2RF NS Discontinued: Synthroid (levothyroxine) Discontinued Reason: Completed referral 125 mcg PO QDAY 30 tabs 2RF NS Instructions: Hypothyroidism (GEN) Follow Up: 4 Months Electronically Signed By: <Electronically signed by Jacy Franz MD> Date/Time Signed: 08/30/19 1211 Name Value Range Interpretation Code Description Data Kay rce(s) Supporting Document(s) ID Date Data Source [id number] 08/27/2019 10:33:00 AM [facility] Name Value Range Interpretation Code Description Data Kay rce(s) Supporting Document(s) Triglycerides 144 mg/dL 0-150 [facility] Cholesterol 172 mg/dL 120-200 [facility] HDL Cholesterol 59 mg/dL [facility] HDL Less than 40 mg/dL: Major risk for CHDHDL Greater than 59 mg/dL: Low risk for CHD LDL Cholesterol, Calc 85 mg/dL 0-100 N [facility] ID Date Data Source [id number] 08/27/2019 10:33:00 AM [facility] Name Value Range Interpretation Code Description Data Kay rce(s) Supporting Document(s) Thyrotropin [Units/volume] in Serum or Plasma by Detec tion limit <= 0.005 mIU/L 0.10 u[iU]/mL 0.35-5.[address] [facility] @Review & document.Repeated by: Amie resendez 08/27/19 1033.Result Confirmation: 0.101 uIU/mL ID Date Data Source [id number] 07/14/2019 09:18:00 AM [facility] [address] [place] [address] [phone] NAME SEX PT STATUS ACCOUNT NUMBER MARII DYKES REG REF [id number] ORDERING PHYSICIAN LOCATION MEDICAL RECORD NO. Josesito Ragland MD RAD [id number] ATTENDING PHYSICIAN DATE OF DATE OF EXAM/TIME Jacy Farnz MD 1955 07/14/19912 TYPE / EXAM Xray Knee Comp 4 or more RT REASON FOR EXAM 1 year post op right total knee arthroplasty- Orth Procedure: Right knee Clinical indication: 1 years status post right knee arthroplasty Comparison: 12/28/2018 Technique: 4 view(s) Findings: No fractures are seen. Spurring at the medial and lateral joint compartments of the leftknee is consistent with degenerative disease. The patient is status post total right knee prosthesis placement. No abnormalities between the boneor prosthesis is present.. Multiple calcifications posterior to the right knee suggest loose bodies, possibly within a Padilla'scyst.. Bone mineralization is normal. Impression: Multiple calcific loose bodies posterior to the right knee possibly in a Padilla's cyst Findings in the medial and lateral joint compartments of the left knee consistent with degenerativedisease Unremarkable total right knee prosthesis Reported By Bandar Arita MD on 07/14/19917 Signed By Bandar Arita MD on 07/14/19919 Date Time CC: Bandar Arita MD; Jacy Franz MD Techn: FROSA Trans Dt/Tm: Trans by: DT Prt Dt/Tm: [id number]: Total DLP = 0.00 mGy-cm Fluoroscopy Time (in secs): Name Value Range Interpretation Code Description Data Kay rce(s) Supporting Document(s) ID Date Data Source [id number] 07/05/2019 03:11:00 PM EST [facility] [address] [place] [address] [phone] NAME SEX PT STATUS ACCOUNT NUMBER MARII DYKES REG REF [id number] ORDERING PHYSICIAN LOCATION MEDICAL RECORD NO. Cash Bautista MD RAD [id number] ATTENDING PHYSICIAN DATE OF DATE OF EXAM/TIME [...] Trans Dt/Tm: Trans by: DT Prt Dt/Tm: [id number]: Total DLP = 0.00 mGy-cm Fluoroscopy Time (in secs): Name Value Range Interpretation Code Description Data Kay rce(s) Supporting Document(s) ID Date Data Source [id number] 06/28/2019 02:48:00 [place] [address] [phone] NAME SEX PT STATUS ACCOUNT NUMBER MARII DYKES REG REF [id number] ORDERING PHYSICIAN LOCATION MEDICAL RECORD NO. Jacy Franz MD LAB [id number] ATTENDING PHYSICIAN DATE OF DATE OF EXAM/TIME [...] Trans Dt/Tm: Trans by: DT Prt Dt/Tm: [phone]: Total DLP = 0.00 mGy-cm Fluoroscopy Time (in secs): Name Value Range Interpretation Code Description Data Kay rce(s) Supporting Document(s) ID Date Data Source [id number] 06/28/2019 09:02:00 AM [facility] Patient Name: MARII DYKES : 1955 Sex: F Pt Unit #: [id number] Location:[facility] Provider: Visit Date/Time: 06/28/19 Primary Insurance: [facility] Secondary Insurance: Self Pay Intake Vital Signs 3 06/28/19 09:03 Current Height 5 ft 2 in Current Weight 190 lb BMI 34.7 BP 168/82 Position Sitting Respiration 12 Pulse 68 Pulse Strength Normal Pulse Source Pulse Oximeter Pulse Oximetry (%) 95 Oxygen Delivery Method room air Intake Visit Reasons: Office visit Nurse Note: 6 month follow - Had blood work done this morning, for her Thyroid - would like to discuss- States her hair is still falling our horribly - States she has pain in her Right shoulder to her elbow - Spring Fitter Helper Required: No Accompanied by: se Is patient in pain?: Yes (Right shoulder to elbow) Pain scale (1-10): 5 Allergies No Known Drug Allergies Allergy (Verified 02/06/19 18:59) Is last menstrual period known: No Post menopausal: Yes Patient : No Fall Risk History of falls: Yes HIV Testing Offer - ages 13-64 HIV testing Offer: Yes Requirement for HIV testing offer been met?: Declines today. Pretest education received and acknowledged Hep C Testing Offered: Yes Hep C Requirement met: Refuses today SBIRT Annual Questionnaire Are you currently in recovery for alcohol or substance use?: No How many times in the past year have you had 4 or more drinks in a day?: None How many times in the past year have you used a recreational drug or used a prescription medication for nonmedical reasons?: None PFSH Social History Hx Recent Travel (where): No Tobacco: How many years used: 37 how long ago did patient quit smokin years ago Review of Systems Const Denies chills, Denies fatigue, Denies fever(s) and Denies headache(s) ENT Denies otalgia, Denies headache(s), Denies hoarseness and Denies sore throat Card Denies chest pain, Denies palpitations and Denies dyspnea on exertion Resp Denies cough and Denies dyspnea on exertion GI Denies nausea and Denies vomiting Musc Reports arthralgias (R shoulder) and Reports limited range of motion Skin/Breast Reports change in hair and Denies dry skin Neuro Denies headache(s) Psych Denies abnormal sleep pattern, Denies anxiety, Denies depression and Denies difficulty concentrating Endo Denies fatigue and Denies palpitations Exam Const General: cooperative and no acute distress Nutritional Appearance: average body habitus Orientation: alert, awake and oriented to person Neck Neck mass: No Thyroid: thyroid normal Resp Effort Inspection: normal respiratory effort Auscultation: no rales and no rhonchi Cardio Rate: regular rate Rhythm: regular rhythm Musc Other: R shoulder tender anterior, decreased ROM Immunizations Flucelvax Quad [id number] (PF) Performing Pr ovider: Jacy Franz M.D. Administered by: Allegra Maldonado on 06/28/19 09:40 Dose Route Admin Location Lot Number Expiration Date [facility] Manufactu rer 0.5 mL IM Left arm [id number] 01/25/20 [id number] [employer] VIS Given Date VIS Provided VIS Publication Date 06/28/19 Single Vaccine 19 Eligibility Eligibility Date Funding Source Not [facility] Eligible 06/28/19 Private Assessment Plan Assessment Plan (1) Hypothyroidism: Cu rrent Visit: No Status: Acute Code(s): E03.9 - Hypothyroidism, unspecified Category: Medical Plan - Jacy Franz M.D.: discussed thyroid, hair loss, decrease to synthroid 125 mcg, check 6 weeks, x ray shoulder and orthoreferral done, aleve bid advised Orders: Orders: INJ - Influenza Vaccine Today LIPID PANEL 2 Months TSH 2 Months (2) Hyperlipidemia: Current Visit: No Status: Acute Code(s): E78.5 - Hyperlipidemia, unspecified Category: Medical Orders: Orders: INJ - Influenza Vaccine Today LIPID PANEL 2 Months TSH 2 Months Orders Other Medications: New: Synthroid (levothyroxine) 125 mcg PO QDAY 30 tabs 2RF NS Discontinued: levothyroxine Discontinued Reason: Order changed 137 mcg PO DAILY 90 days 90 tabs 3RF NS Other Orders: Orders: INJ - Influenza Vaccine Today Z23 Xray Shoulder complete RT Today M75.81 Instructions: Hypothyroidism (GEN) Follow Up: 2 Months Electronically Signed By: <Electronically signed by Jacy Franz MD> Date/Time Signed: 06/28/19 1341 Name Value Range Interpretation Code Description Data Kay rce(s) Supporting Document(s) ID Date Data Source [id number] 06/28/2019 08:38:00 AM EST [facility] Name Value Range Interpretation Code Description Data Kay rce(s) Supporting Document(s) Thyrotropin [Units/volume] in Serum or Plasma by Detec tion limit <= 0.005 mIU/L 0.08 u[iU]/mL 0.35-5.[address] [facility] @Review & document.Repeated by: Debra Estrada 06/28/19 0838.Result Confirmation: 0.074 uIU/mL Procedure Social History Code Duration Value Status Description Data Source(s ) Smoking 07/18/2020 12:00:00 AM EST Former Smoker completed Former Smoker eCW1 ([facility]) Smoking 07/18/2020 12:00:00 AM EST Former Smoker completed Former Smoker eCW1 ([facility]) Smoking 07/18/2020 12:00:00 AM EST Former Smoker completed Former Smoker eCW1 ([facility]) 07/17/2020 01:53:43 PM EST No completed No [facility] 07/17/2020 01:53:43 PM EST No completed No [facility] 07/17/2020 01:53:43 PM EST Former smoker completed Former smoker [facility] 07/17/2020 01:53:43 PM EST No completed No [facility] 07/17/2020 01:53:43 PM EST No completed No [facility] 07/17/2020 01:53:43 PM EST Former smoker completed Former smoker [facility] 07/17/2020 01:53:43 PM EST No completed No [facility] 07/17/2020 01:53:43 PM EST No completed No [facility] 07/17/2020 01:53:43 PM EST Former smoker completed Former smoker [facility] Smoking 07/17/2020 01:53:00 PM EST Former smoker completed Former smoker [facility] Smoking 07/17/2020 01:53:00 PM EST Former smoker completed Former smoker [facility] Smoking 07/17/2020 01:53:00 PM EST Former smoker completed Former smoker [facility] 06/20/2020 01:36:00 PM EST No completed No [facility] 06/20/2020 01:36:00 PM EST No completed No [facility] 06/20/2020 01:36:00 PM EST Never smoker completed Never s [facility] Smoking 06/20/2020 01:36:00 PM EST Never smoker completed Never s [facility] 06/20/2020 01:36:00 PM EST No completed No [facility] 06/20/2020 01:36:00 PM EST No completed No [facility] 06/20/2020 01:36:00 PM EST Never smoker completed Never s [facility] Smoking 06/20/2020 01:36:00 PM EST Never smoker completed Never s [facility] Smoking 02/17/2020 10:32:00 AM EDT Never smoker completed Never s [facility] Smoking 02/17/2020 10:32:00 AM EDT Never smoker completed Never s [facility] 02/17/2020 09:32:00 AM EDT No completed No [facility] 02/17/2020 09:32:00 AM EDT Never smoker completed Never s [facility] 02/17/2020 09:32:00 AM EDT No completed No [facility] 02/17/2020 09:32:00 AM EDT Never smoker completed Never s [facility] 02/17/2020 09:32:00 AM EDT No completed No [facility] 02/17/2020 09:32:00 AM EDT Never smoker completed Never s [facility] Smoking 02/17/2020 09:32:00 AM EDT Never smoker completed Never s [facility] 02/17/2020 09:32:00 AM EDT Never smoker completed Never s [facility] Smoking 02/17/2020 09:32:00 AM EDT Never smoker completed Never s [facility] 02/17/2020 09:32:00 AM EDT No completed No [facility] 10/04/2019 02:47:00 PM EDT Former smoker completed Former smoker [facility] 10/04/2019 02:47:00 PM EDT Former smoker completed Former smoker [facility] Smoking 10/04/2019 02:47:00 PM EDT Former smoker completed Former smoker [facility] 10/04/2019 02:47:00 PM EDT Former smoker completed Former smoker [facility] Smoking 10/04/2019 02:47:00 PM EDT Former smoker completed Former smoker [facility] 10/04/2019 02:47:00 PM EDT Former smoker completed Former smoker [facility] Smoking 10/04/2019 02:47:00 PM EDT Former smoker completed Former smoker [facility] 10/04/2019 02:47:00 PM EDT Former smoker completed Former smoker [facility] Smoking 10/04/2019 02:47:00 PM EDT Former smoker completed Former smoker [facility] 10/04/2019 02:47:00 PM EDT Former smoker completed Former smoker [facility] Smoking 10/04/2019 02:47:00 PM EDT Former smoker completed Former smoker [facility] 10/04/2019 02:47:00 PM EDT Former smoker completed Former smoker [facility] Smoking 10/04/2019 02:47:00 PM EDT Former smoker completed Former smoker [facility] 10/04/2019 02:47:00 PM EDT Former smoker completed Former smoker [facility] Smoking 10/04/2019 02:47:00 PM EDT Former smoker completed Former smoker [facility] Vital Signs ID Date Data Source UNK Name Value Range Interpretation Code Description Data Source(s) [place] body weight 110 [lb_av] 110 [lb_av] MEDEN T ([facility]) Body mass index (BMI) [Ratio] 38.8 kg/m2 38.8 k g/m2 MEDENT ([facility]) Body weight 212.00 [lb_av] 212.00 [lb_av] MEDEN T ([facility]) Body height 62 [in_i] 62 [in_i] MEDENT ([facility]) 5'2" Respiratory rate 12 /min 12 /min MEDENT ( [facility]) Diastolic blood pressure 70 mm[Hg] 70 mm[Hg] eCW1 ([facility]) Systolic blood pressure 122 mm[Hg] 122 mm[Hg] e CW1 ([facility]) Body temperature 97.5 [degF] 97.5 [degF] eCW1 ( [facility]) Respiratory rate 18 /min 18 /min eCW1 ([facility]) Heart rate 91 /min 91 /min eCW1 ([facility]) Body mass index (BMI) [Ratio] 40.13 kg/m2 40.13 kg/m2 eCW1 ([facility]) Body height 62.5 [in_i] 62.5 [in_i] eCW1 ([facility]) Body weight 223 [lb_av] 223 [lb_av] eCW1 ([facility]) [place] body weight 110 [lb_av] 110 [lb_av] MEDEN T ([facility]) Body mass index (BMI) [Ratio] 36.6 kg/m2 36.6 k g/m2 MEDENT ([facility]) Body weight 200.00 [lb_av] 200.00 [lb_av] MEDEN T ([facility]) Body height 62 [in_i] 62 [in_i] MEDENT ([facility]) 5'2" Respiratory rate 12 /min 12 /min MEDENT ( [facility]) [place] body weight 110 [lb_av] 110 [lb_av] MEDEN T ([facility]) Body mass index (BMI) [Ratio] 36.6 kg/m2 36.6 k g/m2 MEDENT ([facility]) Body weight 200.00 [lb_av] 200.00 [lb_av] MEDEN T ([facility]) Body height 62 [in_i] 62 [in_i] MEDENT ([facility]) 5'2" Respiratory rate 12 /min 12 /min MEDENT ( [facility]) Body mass index (BMI) [Ratio] 38.4 kg/m2 38.4 k g/m2 MEDENT ([facility]) Body weight 210.00 [lb_av] 210.00 [lb_av] MEDEN T ([facility]) Body height 62 [in_i] 62 [in_i] MEDENT ([facility]) 5'2" Respiratory rate 12 /min 12 /min MEDENT ( [facility]) Heart rate 72 /min 72 /min MEDENT ([facility]) Diastolic blood pressure 76 mm[Hg] 76 mm[Hg] MEDENT ([facility]) Systolic blood pressure 120 mm[Hg] 120 mm[Hg] M EDJAKI ([facility]) Patient Treatment Plan of Care Planned Activity Planned Date Details Description Data Source (s) Ketorolac Tromethamine 10 MG Oral Tablet 07/20/2020 12:00:00 AM EST eCW1 ([facility]) Ketorolac Tromethamine 10 MG Oral Tablet 07/20/2020 12:00:00 AM EST eCW1 ([facility]) Ketorolac Tromethamine 10 MG Oral Tablet 07/20/2020 12:00:00 AM EST eCW1 ([facility])
[2020-08-10] MEDS ORDERED: propofoL 200 MG/20 ML VIAL As Ordered ONE (09:10)
[2020-08-10] MEDS ORDERED: fentaNYL 100 MCG/2 ML INJECTION (J3010) As Ordered ONE (09:10)
[2020-08-10] MEDS ORDERED: LIDOCAINE 2% 100MG/5ML SDV (FOR ANES.) As Ordered ONE (09:10)
[2020-08-10] MEDS ORDERED: MIDAZOLAM INJ 2MG/2ML VIAL (J2250 PER 1MG) As Ordered ONE (09:10)
[2020-08-10 11:10] VITALS: BP 157/91
--- NOTE | 2020-08-10 14:44 | RO ---
OPERATIVE NOTE DATE OF OPERATION: 08/10/2020 PREOPERATIVE DIAGNOSIS: Left kidney stone. POSTOPERATIVE DIAGNOSIS: Left kidney stone. PROCEDURE: Left extracorporeal shockwave lithotripsy. SURGEON: Alberto Noble MD HEALTH AND PHYSICAL EDUCATION TEACHER: None. ANESTHESIA: MAC. OPERATIVE INDICATIONS: This 65-year-old female was found to have a 9-mm left ureteropelvic junction stone on recent CT scan. She was brought to the operating room today for treatment. DESCRIPTION OF PROCEDURE: The patient was brought to the operating room and MAC anesthesia was administered. Prophylactic antibiotics were infused. She was placed in the supine position in preparation for left-sided extracorporeal shockwave lithotripsy. Fluoroscopy and ultrasonography were utilized to monitor stone position and fragmentation throughout the procedure. Shockwaves were then delivered to the left sided 9 mm ureteropelvic junction stone ungated. There were no arrhythmias. The stone did appear to fragment well. After 2500 shocks, the procedure was then completed. The patient was then awakened from anesthesia and transported to the recovery room in stable condition. ESTIMATED BLOOD LOSS: 0 mL. COMPLICATIONS: None. SPECIMENS: None. PLAN: The patient will follow-up with the urology clinic in a few weeks for a postoperative visit. We will get a KUB prior to assess for residual stone burden. SANTOS
--- NOTE | 2020-08-11 04:40 | REP ---
INDICATION: KUB PRIOR TO SDC COMPARISON: None. TECHNIQUE: Supine view of the abdomen and pelvis. FINDINGS: Bowel gas pattern is nonspecific. Small left intrarenal calculi cannot be excluded. No foreign body. Skeletal structures intact and age-appropriate. IMPRESSION: Nonspecific abdominal radiograph. As above. <Electronically signed by Chris Clarke > 08/11/20 7401
== END 2020-08-10 11:30 | disposition home or self-care (01) ==
LOC: M SDC 07:05
PROVIDERS: ATTEND Urology
DX: N20.1 Calculus of ureter (principal); E03.9 Hypothyroidism, unspecified; K21.9 Gastro-esophageal reflux disease without esophagitis; G43.909 Migraine, unspecified, not intractable, without status migrainosus; Z87.891 Personal history of nicotine dependence; Z79.899 Other long term (current) drug therapy
CPT/HCPCS: 50590; 74018; J0690; J2250; J3010

== ENCOUNTER → 2021-06-09 | Outpatient (CLI) | payer OTHER ==
[~2021-06-09] MED LIST changes: +D32000CA PO; +FLOM0.4C39 PO; +LIPI20TA PO; -LR 1,000 ML IV ONE; +SYNT100T PO; -ceFAZolin SOD 2 GM in IV 1 EA IV ONE
== END ==
LOC: M LABSMTC 09:08
PROVIDERS: ATTEND Anesthesiology
DX: Z01.812 Encounter for preprocedural laboratory examination (principal); Z20.822 Contact with and (suspected) exposure to COVID-19

== ENCOUNTER 2021-06-14 06:31 | Day surgery (SDC) | payer OTHER ==
[~2021-06-14] VITALS: Ht 157.5 cm; Wt 101.2 kg
[~2021-06-14 06:31] MED LIST changes: +CIPROFLOXACIN 400 MG in IV 1 EA IV ONE; +LR 1,000 ML IV ONE
--- OUTSIDE RECORDS SUMMARY | 2021-06-14 06:36 | CCD ---
Continuity of Care Document (CCD) Created on: 06/04/2021 Gisselle Dykes External Reference #: [id number] : [id number] Sex: Female Author Author Gisselle PIMENTEL M.D. Organization Unknown Address [address] [place] [address] Phone [phone] Care Team Providers Care [employer] To [employer] Generation Name Role Phone Jacy Franz M.D. AUTM [phone] Problems Active Problems Provider Date Migraine Arabella Pimentel M.D. Onset: 10/11/2019 Social History Type Date Description Comments Sex Unknown Tobacco Use Start: Unknown End: Unknown Patient is a former smoker Allergies and adverse reactions Description No Known Drug Allergies Medications Active Medications SIG Qnty Indications Ordering Provide r Date Atorvastatin Calcium 40mg Tablets Once a day Arabella Pimentel M.D. Immunizations Description No Information Available Vital Signs Date Vital Result Comment 06/04/2021 10:53am Respiratory Rate 12 /min Height 62 inches 5'2" Weight 223.00 lb BMI (Body Mass Index) 40.8 kg/m2 [place] Body Weight 110 lb 01/04/2021 3:13pm Respiratory Rate 12 /min Height 62 inches 5'2" Weight 223.00 lb BMI (Body Mass Index) 40.8 kg/m2 [place] Body Weight 110 lb Results Description No Information Available Procedures Date Code Description Status 01/04/2021 [id number] Phone Evaluation/Management Phys ician 11-20 Mins Completed Medical Devices Description No Information Available Encounters Type Date Location Provider Dx Diagnosis Office Visit 01/04/2021 2:45p Main office - [place] Arabella lopez M.D. G43.719 Chronic migraine w/o aura, intractable, w/o stat migr Assessments Date Code Description Provider 06/04/2021 G43.719 Chronic migraine wit hout aura, intractable, without status migrainosus Arabella Pimentel M.D. 01/04/2021 G43.719 Chronic migraine wit hout aura, intractable, without status migrainosus Arabella Pimentel M.D. Plan of Treatment No Information Available Functional Status Description No Information Available Mental Status Description No Information Available Referrals Description No Information Available
--- OUTSIDE RECORDS SUMMARY | 2021-06-14 06:36 | CCD ---
Author Author [facility] Organization [facility] em[facility] Address Unknown Phone Unavailable Care Team Providers Care Living Skills Advisor Name Role Phone Sue Strong Unavailable PROBLEMS Type Condition ICD9-CM Code [id number] Code Onset Dates Condition S tatus W/U Status Risk SNOMED Code Notes Problem Kidney stone N20.0 Active confirmed [id number] ALLERGIES No Known Allergies ENCOUNTERS from 1955 to 2021-04-03 Encounter Location Date Provider Diagnosis [facility] [address] [phone] [place] [address] Mar, Sue Tamezre IMMUNIZATIONS No Information SOCIAL HISTORY Tobacco Use: Social History Observation Description Date Details (start date - stop date) Former Smoker Sex Assigned At : Social History Observation Description Sex Assigned At Unknown Language: Question Answer Notes Languages spoken: Kazakh Taoist: Question Answer Notes Taoist No synagogue beliefs that would impact health care. Alcohol [...] End Date Status Calcium + D Active Aleve 220 MG 1 tablet with food or milk as needed Orally every 12 hrs Active Percocet 5-325 MG 1 tablet Orally every 6 hrs as needed for pain (MDD4) Jul, Active Lipitor 40 MG 1 tablet Orally Once a day for 30 day(s) Active Ketorolac Tromethamine 10 MG 1 tablet with food or mil k as needed Orally every 6 hrs for 5 day(s) Jun, Active Boniva 150 MG 1 tablet Orally for 30 day(s) Active Imitrex 25 MG 1 tablet at least 2 hours be tween doses as needed Orally Twice a day Active Synthroid 150 MCG 1 tablet in the morning on a n empty stomach Orally Once a day for 30 day(s) Active Flomax 0.4 MG 1 capsule 30 minutes after t he same meal each day Orally Once a day for 30 Days Jul, Active PROCEDURES No Information RESULTS No Results REASON FOR VISIT pain in kidney MEDICAL (GENERAL) HISTORY Type Description Date Medical History high cholesterol Medical History hypolipidiemia Medical History renal colic Surgical History rotator cuff 2014 Goals Section No Information Health Concerns No Information MEDICAL EQUIPMENT No Information MENTAL STATUS No Information FUNCTIONAL STATUS No Information ASSESSMENTS No Information PLAN OF TREATMENT Medication Medication Name Sig Start Date Stop Date Flomax 0.4 MG 1 capsule 30 minutes after t he same meal each day Orally Once a day for 30 Days Jul, Percocet 5-325 MG 1 tablet Orally every 6 hrs as needed fo r pain (MDD4) Jul, Ketorolac Tromethamine 10 MG 1 tablet with food or mil k as needed Orally every 6 hrs for 5 day(s) Jun, Insurance Providers Payer Name Payer Address Payer Phone Insured Name Patient Relati onship to Insured Coverage Start Date Coverage End Date [facility] [address] [address] [facility] [phone] Alberto Dykes
--- OUTSIDE RECORDS SUMMARY | 2021-06-14 06:36 | CCD ---
Author Author [facility] Organization [facility] Address Unknown Phone Unavailable Care Team Providers Care Production Cell Leader Name Role Phone Teresa Cassidy Unavailable PROBLEMS Type Condition ICD9-CM Code [id number] Code Onset Dates Condition S tatus W/U Status Risk SNOMED Code Notes Problem Kidney stone N20.0 Active confirmed [id number] Problem Left renal stone N20.0 Active confirmed 406 37436 Problem Calculus of kidney N20.0 Active confirmed 9 4755930 ALLERGIES No Known Allergies ENCOUNTERS from 1955 to 2021-05-30 Encounter Location Date Provider Diagnosis [facility] U[facility] [address] [phone] [place] [address] Apr, Teresa Cassidy Kidney stone N20.0 IMMUNIZATIONS No Information SOCIAL HISTORY Tobacco Use: Social History Observation Description Date Details (start date - stop date) Former Smoker Sex Assigned At : Social History Observation Description Sex Assigned At Unknown Language: Question Answer Notes Languages spoken: Qatari Methodist: Question Answer Notes Methodist No baptist beliefs that would impact health care. Alcohol [...] Notes Start Da te End Date Status Ketorolac Tromethamine 10 MG 1 tablet with food or mil k as needed Orally every 6 hrs for 5 day(s) Jun, Unknown Boniva 150 MG 1 tablet Orally for 30 day(s) Unknown Calcium + D Unknown Aleve 220 MG 1 tablet with food or milk as needed Orally every 12 hrs Unknown Synthroid 150 MCG 1 tablet in the morning on a n empty stomach Orally Once a day for 30 day(s) Unknown Percocet 5-325 MG 1 tablet Orally every 6 hrs as needed for pain (MDD4) Jul, Unknown Lipitor 40 MG 1 tablet Orally Once a day for 30 day(s) Unknown Flomax 0.4 MG 1 capsule 30 minutes after t he same meal each day Orally Once a day for 30 days Do not give Generic- Brand only Jul, Unknown Imitrex 25 MG 1 tablet at least 2 hours be tween doses as needed Orally Twice a day Unknown PROCEDURES No Information RESULTS Component Value Reference Range XRAY ABDOMEN, FLAT PLATE KUB XR.ABDP PLZ or SMC Reviewed date:05/30/2021 12:40:51 Interpretation: Performing Lab:[facility] [place], [place] [address] REASON FOR VISIT refill MEDICAL (GENERAL) HISTORY Type Description Date Medical History high cholesterol Medical History hypolipidiemia Medical History renal colic Medical History Left renal stone Surgical History rotator cuff 2013 Surgical History Left ESWL July 2020 for 9 mm UPJ sto ne Goals Section No Information Health Concerns No Information MEDICAL EQUIPMENT No Information MENTAL STATUS No Information FUNCTIONAL STATUS No Information ASSESSMENTS Encounter Date Diagnosis Assessment Notes Treatment Notes Treatm ent Clinical Notes Apr, Kidney stone (ICD-10 - N20.0) PLAN OF TREATMENT Next Appt Details Provider Name:Sue Strong, 2021-06-27 3 09:00:00 AM, [address], , [place], [address], Insurance Providers Payer Name Payer Address Payer Phone Insured Name Patient Relati onship to Insured Coverage Start Date Coverage End Date [facility] [address] [address] [facility] [phone] Alberto Dykes
--- OUTSIDE RECORDS SUMMARY | 2021-06-14 06:36 | CCD ---
Author Author [facility] em[facility] Organization [facility] em[facility] Address Unknown Phone Unavailable Care Team Providers Care Organic Search Lead Name Role Phone Real Alberto Unavailable PROBLEMS Type Condition ICD9-CM Code PRH40-LY Code Onset Dates Condition S tatus W/U Status Risk SNOMED Code Notes Problem Kidney stone N20.0 Active confirmed [id number] ALLERGIES No Known Allergies ENCOUNTERS from 1955 to 2021-03-15 Encounter Location Date Provider Diagnosis [facility] U[facility] [address] [phone] [place] [address] Feb, Alberto Noble IMMUNIZATIONS No Information SOCIAL HISTORY Tobacco Use: Social History Observation Description Date Details (start date - stop date) Former Smoker Sex Assigned At : Social History Observation Description Sex Assigned At Unknown Language: Question Answer Notes Languages spoken: Tunisian Amish: Question Answer Notes Amish No protestant beliefs that would impact health care. Alcohol [...] Information RESULTS No Results REASON FOR VISIT ct results MEDICAL (GENERAL) HISTORY Type Description Date Medical [...] Insured Coverage Start Date Coverage End Date [facility] [address] [address] [facility] [phone] Alberto Dykes
--- OUTSIDE RECORDS SUMMARY | 2021-06-14 06:36 | CCD ---
Author Author [facility] Organization [facility] Address Unknown Phone Unavailable Care Team Providers Care Cafeteria Cook Name Role Phone ChelsyDejan castillo Unavailable PROBLEMS Type Condition ICD9-CM Code PHM13-TL Code Onset Dates Condition S tatus W/U Status Risk SNOMED Code Notes Problem Kidney stone N20.0 Active confirmed 0432963 7 Problem Left renal stone N20.0 Active confirmed 914 33586 Problem Calculus of kidney N20.0 Active confirmed 9 7597822 ALLERGIES No Known Allergies ENCOUNTERS from 1955 to 2021-06-12 Encounter Location Date Provider Diagnosis [facility] Urology [address] [phone] [place] [address] May, Dejan French Kidney stone N20.0 IMMUNIZATIONS No Information SOCIAL HISTORY Tobacco Use: Social History Observation Description Date Details (start date - stop date) Former Smoker Sex Assigned At : Social History Observation Description Sex Assigned At Unknown Language: Question Answer Notes Languages spoken: Russian Christianity: Question Answer Notes Christianity No zoroastrian beliefs that would impact health care. Alcohol [...] a day Unknown PROCEDURES No Information RESULTS No Results REASON FOR VISIT LAB RESULT MEDICAL (GENERAL) HISTORY Type Description Date Medical [...] Notes Treatment Notes Treatm ent Clinical Notes May, Kidney stone (ICD-10 - N20.0) PLAN OF TREATMENT Future Test Test Name Order Date URINE CULTURE [id number] UA URINALYSIS [id number] Next Appt Details Provider Name:Sue L Tae, 2021-06-27 3 09:00:00 AM, [address], , [place], [address], Insurance Providers Payer Name Payer Address Payer Phone Insured Name Patient Relati onship to Insured Coverage Start Date Coverage End Date [facility] [address] [address] [facility] [phone] Alberto Dykes
--- OUTSIDE RECORDS SUMMARY | 2021-06-14 06:36 | CCD | Continuity of Care Document ---
Author Author Gisselle PIMENTEL M.D. Organization Unknown Address [address] [place] [address] Phone [phone] Care Team Providers Care Car Shunter Name Role Phone Jacy Franz M.D. AUTM [phone] Problems Active Problems Provider Date Migraine Arabella [...] lb BMI (Body Mass Index) 40.8 kg/m2 Telephone Body Weight 110 lb 01/04/2021 3:13pm Respiratory Rate 12 /min Height 62 inches 5'2" Weight 223.00 lb BMI (Body Mass Index) 40.8 kg/m2 Telephone Body Weight 110 lb Results Description No Information Available Procedures Date Code Description Status 06/04/2021 52032 Phone Evaluation/Management Phys ician 11-20 Mins Completed 01/04/2021 59541 Phone Evaluation/Management Phys ician 11-20 Mins Completed Medical Devices Description No Information Available Encounters Type Date Location Provider Dx Diagnosis Office Visit 06/04/2021 10:15a Main office - [place] Arabella lopez M.D. G43.719 Chronic migraine w/o aura, intractable, w/o stat migr Office Visit 01/04/2021 2:45p Main office - [place] Arabella lopez M.D. G43.719 Chronic migraine w/o aura, intractable, w/o stat migr Assessments Date Code Description Provider 06/04/2021 G43.719 Chronic migraine wit hout aura, intractable, without status migrainosus Arabella Pimentel M.D. 01/04/2021 G43.719 Chronic migraine wit hout aura, intractable, without status migrainosus Arabella Pimentel M.D. Plan of Treatment Future Appointment(s):* 10/01/2021 11:45 am - Arabella Pimentel M.D. at Main office - [place] Functional Status Description No Information Available Mental Status Description No Information Available Referrals Description No Information Available
--- OUTSIDE RECORDS SUMMARY | 2021-06-14 06:37 | CCD ---
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 Name Role Phone Kaleigh Franz MD Unavailable [...] Unavailable Kaleigh Franz MD Unavailable Unavailable Kaleigh Frnaz MD Unavailable Unavailable Kaleigh Franz MD Unavailable Unavailable Kaleigh Franz MD Unavailable Unavailable KwickKaleigh williamson MD Unavailable Unavailable AlesiaickKaleigh williamson MD Unavailable Unavailable Kaleigh Franz MD Unavailable Unavailable Alesiaicklis, Kaleigh Louie MD Unavailable Unavailable Kwicklis, Kaleigh Louie MD Unavailable Unavailable Alesiaickteri, Kaleigh Louie MD Unavailable Unavailable Alesiaickteri, Kaleigh Louie MD Unavailable Unavailable Maria M, Kaleigh Louie MD Unavailable Unavailable AlesiaickKaleigh williamson MD Unavailable Unavailable Alesiaickteri, Kaleigh Louie MD Unavailable Unavailable Kaleigh Franz MD Unavailable Unavailable PARSHALL, A EVELIO MD Unavailable Unavailable PARSHALL, A EVELIO MD Unavailable Unavailable PARSHALL, A EVELIO MD Unavailable Unavailable PARSHALL, A EVELIO MD Unavailable Unavailable PARSHALL, A EVELIO MD Unavailable Unavailable PARSHALL, A EVELIO MD Unavailable Unavailable PARSHALL, A EVELIO MD Unavailable Unavailable PARSHALL, A EVELIO MD Unavailable Unavailable PARSHALL, A EVELIO MD Unavailable Unavailable PARSHALL, A EVELIO MD Unavailable Unavailable PARSHALL, A EVELIO MD Unavailable Unavailable PARSHALL, A EVELIO MD Unavailable Unavailable PARSHALL, A EVELIO MD Unavailable Unavailable PARSHALL, A EVELIO MD Unavailable Unavailable PARSHALL, A EVELIO MD Unavailable Unavailable PARSHALL, A EVELIO MD Unavailable Unavailable PARSHALL, A EVELIO MD Unavailable Unavailable PARSHALL, A EVELIO MD Unavailable Unavailable PARSHALL, A EVELIO MD Unavailable Unavailable PARSHALL, A EVELIO MD Unavailable Unavailable PARSHALL, A EVELIO MD Unavailable Unavailable PARSHALL, A EVELIO MD Unavailable Unavailable PARSHALL, A EVELIO MD Unavailable Unavailable PARSHALL, A EVELIO MD Unavailable Unavailable PARSHALL, A EVELIO MD Unavailable Unavailable PARSHALL, A EVELIO MD Unavailable Unavailable PARSHALL, A EVELIO MD Unavailable Unavailable PARSHALL, A EVELIO MD Unavailable Unavailable PARSHALL, A EVELIO MD Unavailable Unavailable PARSHALL, A EVELIO MD Unavailable Unavailable PARSHALL, A EVELIO MD Unavailable Unavailable PARSHALL, A EVELIO MD Unavailable Unavailable PARSHALL, A EVELIO MCLAUGHLIN Unavailable Unavailable Kaleigh BREAUX MD Unavailable Unavailable Kaleigh BREAUX MD Unavailable Unavailable Kaleigh BREAUX MD Unavailable Unavailable Kaleigh BREAUX MD Unavailable Unavailable Kaleigh BREAUX MD Unavailable Unavailable Kaleigh BREAUX MD Unavailable Unavailable Recore, Sue Robbins WHNP Unavailable Unavailable Recore, Sue Robbins WHNP Unavailable Unavailable Recore, Sue Robbins WHNP Unavailable Unavailable Recore, Sue Itzel WHNP Unavailable Unavailable Recore, Sue Itzel WHNP Unavailable Unavailable Recore, Sue Itzel WHNP Unavailable Unavailable Recore, Sue Itzel WHNP Unavailable Unavailable Recore, Sue Itzel WHNP Unavailable Unavailable Recore, Sue Itzel WHNP Unavailable Unavailable Recore, Sue Itzel WHNP Unavailable Unavailable Recore, Sue Itzel WHNP Unavailable Unavailable Recore, Sue Itzel WHNP Unavailable Unavailable Recore, Sue Itzel WHNP Unavailable Unavailable Recore, Sue Itzel WHNP Unavailable Unavailable Recore, Sue Itzel WHNP Unavailable Unavailable Recore, Sue Itzel WHNP Unavailable Unavailable Recore, Sue Itzel WHNP Unavailable Unavailable Recore, Sue Itzel WHNP Unavailable Unavailable Recore, Sue Itzel WHNP Unavailable Unavailable Recore, Sue Itzel WHNP Unavailable Unavailable Recore, Sue Itzel WHNP Unavailable Unavailable Recore, Sue Itzel WHNP Unavailable Unavailable Recore, Sue Itzel WHNP Unavailable Unavailable Recore, Sue Itzel WHNP Unavailable Unavailable Recore, Sue Itzel WHNP Unavailable Unavailable Recore, Sue Itzel WHNP Unavailable Unavailable Recore, Sue Itzel WHNP Unavailable Unavailable Recore, Sue Itzel WHNP Unavailable Unavailable Recore, Sue Itzel WHNP Unavailable Unavailable Recore, Sue Itzel WHNP Unavailable Unavailable Recore, Sue Itzel WHNP Unavailable Unavailable Rosalia Valdes MD Unavailable Unavailable LISA, J KATHERINE DPM PC Unavailable Unavailable LISA, J KATHERINE DPM PC Unavailable Unavailable LISA, J KATHERINE DPM PC Unavailable Unavailable LISA, J KATHERINE DPM PC Unavailable Unavailable LISA, J KATHERINE DPM PC Unavailable Unavailable LISA, J KATHERINE DPM PC Unavailable Unavailable LISA, J KATHERINE DPM PC Unavailable Unavailable LISA, J KATHERINE DPM PC Unavailable Unavailable LISA, J KATHERINE DPM PC Unavailable Unavailable LISA, J KATHERINE DPM PC Unavailable Unavailable LISA, J KATHERINE DPM PC Unavailable Unavailable LISA, J KATHERINE DPM PC Unavailable Unavailable LISA, J KATHERINE DPM PC Unavailable Unavailable LISA, J KATHERINE DPM PC Unavailable Unavailable LISA, J KATHERINE DPM PC Unavailable Unavailable LISA, J KATHERINE DPM PC Unavailable Unavailable LISA, J KATHERINE DPM PC Unavailable Unavailable LISA, J KATHERINE DPM PC Unavailable Unavailable LISA, J KATHERINE DPM PC Unavailable Unavailable LISA, J KATHERINE DPM PC Unavailable Unavailable LISA, J KATHERINE DPM [facility] Unavailable Unavailable LISA, J KATHERINE DPM [facility] Unavailable Unavailable LISA, J KATHERINE DPM [facility] Unavailable Unavailable LISA, J KATHERINE D[facility] Unavailable Unavailable LISA, J KATHERINE DPM [facility] Unavailable Unavailable LISA, J KATHERINE [facility] Unavailable Unavailable LISA, J KATHERINE [facility] Unavailable Unavailable LISA, J KATHERINE [facility] Unavailable Unavailable Lor KRUGER MD Unavailable Unavailable Lor Ragland MD Unavailable [...] Unavailable Unavailable Jack VELIZ MD Unavailable Unavailable Joni Stoll MD Unavailable Unavailable Joni Stoll MD Unavailable Unavailable Joni Stoll MD Unavailable Unavailable Joni Stoll MD Unavailable Unavailable Jerman O Arabella MCLAUGHLIN Unavailable Unavailable Jerman O Arabella MCLAUGHLIN Unavailable Unavailable Jerman O Sorinah Unavailable Unavailable Joni Stoll MD Unavailable Unavailable Joni Stoll MD Unavailable Unavailable Joni Stoll MD Unavailable Unavailable Joni Stoll MD Unavailable Unavailable Jerman O Sorinah Unavailable Unavailable Joni Stoll MD Unavailable Unavailable [...] Unavailable Unavailable Joni Stollah Unavailable Unavailable Joni Stoll MD Unavailable Unavailable Joni Stoll MD Unavailable Unavailable Jnoi Stoll MD Unavailable Unavailable Joni Stoll MD Unavailable Unavailable Joni Stoll MD Unavailable Unavailable Joni Stollah Unavailable Unavailable Joni Stoll MD Unavailable Unavailable [...] Unavailable Unavailable Joni Stoll MD Unavailable Unavailable LEIBELSPERGER, HANANE PA Unavailable Unavailable [...] Unavailable LEIBELSPERGER, HANANE PA Unavailable Unavailable LEIBELSPERGER, HANAEN PA Unavailable Unavailable LEIBELSPERGER, HANANE PA Unavailable Unavailable ERNESTINE, E MELI GAS LEAK TESTER Unavailable Unavailable ERNESTINE, E MELI GAS LEAK TESTER Unavailable Unavailable ERNESTINE, E MELI GAS LEAK TESTER Unavailable Unavailable ERNESTINE, E MELI GAS LEAK TESTER Unavailable Unavailable ERNESTINE, E MELI GAS LEAK TESTER Unavailable Unavailable ERNESTINE, E MELI GAS LEAK TESTER Unavailable Unavailable ERNESTINE, E MELI GAS LEAK TESTER Unavailable Unavailable ERNESTINE, E MELI GAS LEAK TESTER Unavailable Unavailable ERNESTINE, E MELI GAS LEAK TESTER Unavailable Unavailable ERNESTINE, E MELI GAS LEAK TESTER Unavailable Unavailable ERNESTINE, E MELI GAS LEAK TESTER Unavailable Unavailable ERNESTINE, E MELI GAS LEAK TESTER Unavailable Unavailable ERNESTINE, E MELI GAS LEAK TESTER Unavailable Unavailable ERNESTINE, E MELI GAS LEAK TESTER Unavailable Unavailable ERNESTINE, E MELI GAS LEAK TESTER Unavailable Unavailable ERNESTINE, E MELI GAS LEAK TESTER Unavailable Unavailable ERNESTINE, E MELI GAS LEAK TESTER Unavailable Unavailable ERNESTINE, E MELI GAS LEAK TESTER Unavailable Unavailable ERNESTINE, E MELI GAS LEAK TESTER Unavailable Unavailable ERNESTINE, E MELI GAS LEAK TESTER Unavailable Unavailable ERNESTINE, E MELI GAS LEAK TESTER Unavailable Unavailable ERNESTINE, E MELI GAS LEAK TESTER Unavailable Unavailable ERNESTINE, E MELI GAS LEAK TESTER Unavailable Unavailable ERNESTINE, E MELI GAS LEAK TESTER Unavailable Unavailable Re-disclosure Warning The records that [...] is protected by Article 27-F of the [facility] Public Health law. If you continue you may have access to information: Regarding HIV / AIDS; Provided by facilities licensed or operated by the [facility] Office of Mental Health; or Provided by the [facility] Office for People With Developmental Disabilities. If such information is present, then the following [facility] mandated warning applies: This information has been [...] law may result in a fine or fdc sentence or both. A general authorization for the release of medical or other information is NOT sufficient authorization for further disc losure. Allergies and Adverse Reactions Type Description Substance Reaction Status Data Source(s ) Food allergy No Known Food Allergies No Known Food Allergies [facility] Drug allergy No Known Drug Allergies No Known Drug Allergies [facility] Family History Family Member Name Family Member Gender Family Member Status Date o f Status Description Data Source(s) Unknown Female Problem [facility] ([facility]) Unknown Female Problem [facility] ([facility]) Unknown Female Problem [facility] ([facility]) Encounters Encounter Providers Location Date Indications Data Source(s ) Unknown [address] [facility] [id number] 06/11/2021 12:00:00 AM EST eCW1 ([facility]) Outpatient Attender: SREE KRUGER MD 06/07/2021 07:32:00 AM EST PREOP [facility] PREOP Office Visit Attender: Arabella Stoll MD Main office - [facility] 06/04/2021 09:15:00 AM EST [facility] ([facility]) TeleMedicine Phone E/M by Yoandy 5-10 Min [address] [place] [address] 05/23/2021 12:00:00 AM EDT eCW1 ([facility]) Outpatient Attender: Jacy Franz MDReferrer: Jacy mora MD 05/21/2021 08:48:00 AM EDT - 05/21/2021 09:33:00 AM EDT [facility] Outpatient Attender: KATHERINE GONZALEZ DPM 05/21/2021 12:0 0:00 AM EDT N20.0 [facility] N20.0 Unknown [address] [facility] [address] 03/28/2021 12:00:00 AM EDT [facility] [place] [address] [facility] [address] 03/15/2021 12:00:00 AM EDT [facility]) Outpatient Attender: Sue FIGUEROA 021 08:20:00 AM EDT W/O, KIDNEY STONE,N20.1 [facility] W/O, KIDNEY STONE,N20.1 Unknown [address] [facility] [address] 02/23/2021 12:00:00 AM EDT [facility]) Outpatient Attender: Jacy Franz MDReferrer: Jacy mora MD 02/05/2021 08:49:00 AM EDT - 02/05/2021 09:20:00 AM EDT [facility] Outpatient Attender: Jacy Franz MD 02/05/2021 0 7:10:00 AM EDT E03.9,R53.83 [facility] E03.9,R53.83 [place] [address] [facility] [address] 01/19/2021 12:00:00 AM EDT [facility]CW1 [facility]) Office Visit Attender: Arabella Stoll MD [facility] office - [facility] 01/04/2021 02:45:00 PM EDT [facility] ([facility]IVEN [facility]) [place] [address] [facility] [address] 01/04/2021 12:00:00 AM EDT eCW1 ([facility]) [place] [address] [facility] [address] 01/02/2021 12:00:00 AM EDT eCW1 ([facility]) Outpatient Attender: MELI SINHA NP 01/01/2021 07:5 0:00 AM EDT W/O, OBSTRUCTION OF LEFT URETERAL PELVIC JUNCTION [facility] W/O, OBSTRUCTION OF LEFT URETERAL PELVIC JUNCTION Outpatient Attender: Jacy Franz MD 12/26/2020 07:32:0 0 AM EDT R53.83 [facility] R53.83 [place] [address] [facility] [address] 12/14/2020 12:00:00 AM EDT eCW1 ([facility]) Outpatient Attender: HANANE Beverly: Jacy Franz MD 11/06/2020 03:29:00 PM EDT - 11/06/2020 04:08:00 PM EDT [facility] [place] [address] [facility] [address] 11/06/2020 12:00:00 AM EDT eCW1 ([facility]) Emergency Attender: EVELIO DANIELLE MD 11/02 10:37:00 AM EDT - 11/02/2020 02:45:00 PM EDT [facility] Patient [facility] [place] [address] [facility] [address] 11/02/2020 12:00:00 AM EDT eCW1 ([facility]) Outpatient Attender: Jacy Franz MD 10/09/2020 12:03:0 0 PM EDT E03.9 [facility] E03.9 Outpatient Attender: HANANE BRUNO 09/25/2020 08:42:00 AM EST - 09/25/2020 09:01:00 AM EST [facility] Attender: Josesito Danielserrer: Josesito john MD 09/18/2020 08:23:00 AM EST - 02/19/2021 12:20:00 PM EDT S/P SHOULDER RTC REPAIR [facility] S/P SHOULDER RTC REPAIR Patient discharged. Unknown [address] [facility] [place] [address] 09/13/2020 12:00:00 AM EST eCW1 ([facility]) Outpatient Attender: Sánchez Valdes MD 09/04/2020 08:12:00 A M EST N20.0,N20.1 [facility] N20.0,N20.1 Unknown [address] [facility] [place] [address] 09/04/2020 12:00:00 AM EST eCW1 ([facility]) Outpatient Attender: HANANE Beverly: Jacy Franz MD 08/28/2020 08:26:00 AM EST - 08/28/2020 09:03:00 AM EST [facility] Outpatient Attender: Sánchez Valdes MDConsultant: HANANE BRUNO 08/21/2020 08:43:00 AM EST N20.0,M65.332 [facility] N20.0,M65.332 Outpatient Attender: Josesito Ragland MD 08/18 08:49:00 AM EST - 08/18/2020 04:50:00 PM EST M75.100/RT SHOULDER [id number] [facility] M75.100/RT SHOULDER [id number] Patient discharged. Unknown [address] [facility] [place] [address] 08/14/2020 12:00:00 AM EST eCW1 ([facility]) [place] [address] [facility] [address] 08/10/2020 12:00:00 AM EST eCW1 ([facility]) Office Visit Attender: Arabella Stoll MD Main office - [facility] 08/07/2020 11:30:00 AM EST [facility] ([facility]ida, ) Outpatient Attender: HANANE Beverly: Jacy Franz MD 08/07/2020 08:30:00 AM EST - 08/07/2020 09:16:00 AM EST [facility] Outpatient Attender: Sánchez Valdes MD 08/07/2020 07:55:00 A M EST N20.0 [facility] N20.0 Outpatient Attender: Jacy Franz MDReferrer: Jacy mora MD 07/31/2020 08:56:00 AM EST - 07/31/2020 09:30:00 AM EST [facility] Outpatient Attender: Jacy Franz MD 07/31/2020 07:56:0 0 AM EST D64.9 [facility] D64.9 Unknown [address] [facility] [place] [address] 07/26/2020 12:00:00 AM EST eCW1 ([facility]) Outpatient Attender: HANANE BRUNO 0 07:55:00 AM EST SCREENING Z12.31,E78.2,Z01.818,E03.9,I10 [facility] SCREENING Z12.31,E78.2,Z01.818,E03.9,I10 [place] [address] [facility] [place] [address] 07/20/2020 12:00:00 AM EST eCW1 ([facility]) Outpatient [address] [facility] [address] 07/18/2020 12:00:00 AM EST eCW1 ([facility]) Emergency Attender: LAWRENCE BREAUX MD 06/28 01:02:00 PM EST - 07/17/2020 04:55:00 PM EST KIDNEY PAIN,CONSTIPATED [facility] KIDNEY PAIN,CONSTIPATED Patient discharged. Outpatient Attender: ALBERTO VELIZ MD 07/13/2020 11:40:00 AM EST Z87.898 [facility] Z87.898 Admission cancelled. Disregard status an d admitted date. Outpatient Attender: Jacy Franz MDReferrer: Jacy mora MD 07/03/2020 09:24:00 AM EST [facility] Outpatient Attender: HANANE HOOVER PAReferrer: Jacy Franz MD 06/21/2020 08:32:00 AM EST [facility] Outpatient Attender: HANANE BRUNO 0 07:28:00 AM EST THIRD DIGIT LT HAND [facility] THIRD DIGIT LT HAND Outpatient Attender: Josesito Ragland MDReferrer: Jacy williamson MD 05/29/2020 03:11:00 PM EST - 05/29/2020 03:50:00 PM EST [facility] Outpatient Attender: Jacy Franz MDReferrer: Jacy mora MD 05/29/2020 02:56:00 PM EST - 05/29/2020 03:09:00 PM EST [facility] Outpatient Attender: Jacy Franz MD 05/08/2020 0 2:41:00 PM EDT RT SHOULDER STRAIN [facility] RT SHOULDER STRAIN Outpatient Attender: Jacy Franz MD 05/01/2020 07:29:0 0 AM EDT E03.9 [facility] E03.9 Office Visit Attender: Arabella Stoll MD Main office - [facility] 04/24/2020 02:00:00 PM EDT MED[facility] ([facility] en[facility]ida, ESTIVEN) Immunizations Vaccine Date Status Description Data Source(s) COVID-19 Pfizer 11/18/2020 12:00:00 AM EDT completed [facility] COVID-19 VACCINE Pfizer 11/18/2020 12:00:00 AM EDT completed [facility] Vaccine Series Complete: YESThis Data wa s Submitted to [facility] Via [employer]. COVID-19 Pfizer 10/28/2020 12:00:00 AM EDT completed [facility] COVID-19 Pfizer 10/28/2020 12:00:00 AM EDT completed COVID-19 Pf [facility] COVID-19 Pfizer 10/28/2020 12:00:00 AM EDT completed COVID-19 Pf [facility] COVID-19 VACCINE Pfizer 10/28/2020 12:00:00 AM EDT completed [facility] Vaccine Series Complete: NOThis Data was Submitted to [facility] Via [employer]. IIV3. This is one of two codes replacing CVX 15, which is being retired. 05/29/2020 12:00:00 AM EST completed [facility] IIV3. This is one of two codes replacing CVX 15, which is being retired. 05/29/2020 12:00:00 AM EST completed influenza vaccine, inactivated [facility] IIV3. This is one of two codes replacing CVX 15, which is being retired. 05/29/2020 12:00:00 AM EST completed influenza vaccine, inactivated [facility] IIV3. This is one of two codes replacing CVX 15, which is being retired. 05/29/2020 12:00:00 AM EST completed influenza vaccine, inactivated [facility] IIV3. This is one of two codes replacing CVX 15, which is being retired. 05/29/2020 12:00:00 AM EST completed influenza vaccine, inactivated [facility] IIV3. This is one of two codes replacing CVX 15, which is being retired. 05/29/2020 12:00:00 AM EST completed influenza vaccine, inactivated [facility] IIV3. This is one of two codes replacing CVX 15, which is being retired. 05/29/2020 12:00:00 AM EST completed influenza vaccine, inactivated [facility] IIV3. This is one of two codes replacing CVX 15, which is being retired. 05/29/2020 12:00:00 AM EST completed influenza vaccine, inactivated [facility] IIV3. This is one of two codes replacing CVX 15, which is being retired. 05/29/2020 12:00:00 AM EST completed influenza vaccine, inactivated [facility] IIV3. This is one of two codes replacing CVX 15, which is being retired. 05/29/2020 12:00:00 AM EST completed influenza vaccine, inactivated [facility] Medications Medication Brand Name Start Date Product Form Dose Route Admi nistrative Instructions Pharmacy Instructions Status Indications Reaction Description Data Source(s) tramadol hydrochloride 50 MG Oral Tablet Tramadol Tramadol 01/22/2021 04:00:51 PM EDT [address] [facility] Levothyroxine Sodium 0.1 MG Oral Tablet Levothyroxine (Synthroid) 100 mcg tablet Levothyroxine (Synthroid) 100 mcg tablet 12/27/2020 12:57:04 PM EDT 100 MCG active [facility] Levothyroxine Sodium 0.075 MG Oral Table t [Synthroid] Levothyroxine (Synthroid) 75 mcg tablet Levothyroxine (Synthroid) 75 mcg tablet 11/24/2020 10: 17:04 AM EDT 75 MCG completed [facility] Tamsulosin hydrochloride 0.4 MG Oral Capsule Tamsulosi n (Flomax) 0.4 mg capsule Tamsulosin (Flomax) 0.4 mg capsule 11/06/2020 12:47:29 PM EDT 0.4 MG active [facility] Tamsulosin hydrochloride 0.4 MG Oral Capsule Tamsulosi n (Flomax) 0.4 mg capsule Tamsulosin (Flomax) 0.4 mg capsule 11/06/2020 12:47:29 PM EDT 0.4 MG active [facility] Tamsulosin hydrochloride 0.4 MG Oral Capsule Tamsulosi n (Flomax) 0.4 mg capsule Tamsulosin (Flomax) 0.4 mg capsule 11/02/2020 02:31:56 PM EDT 0.4 MG active [facility] Tamsulosin hydrochloride 0.4 MG Oral Capsule Tamsulosi n (Flomax) 0.4 mg capsule Tamsulosin (Flomax) 0.4 mg capsule 11/02/2020 02:31:56 PM EDT 0.4 MG completed [facility] Tamsulosin hydrochloride 0.4 MG Oral Capsule Tamsulosi n (Flomax) 0.4 mg capsule Tamsulosin (Flomax) 0.4 mg capsule 11/02/2020 02:31:56 PM EDT 0.4 MG completed [facility] Acetaminophen 325 MG / Oxycodone Hydroch loride 5 MG Oral Tablet Oxycodone- Acetaminophen (Percocet) 5-325 mg tablet Oxycodone-Acetaminophen (Percocet) 5- 325 mg tablet 11/02/2020 02:31:31 PM EDT 1 TAB completed [facility] Acetaminophen 325 MG / Oxycodone Hydroch loride 5 MG Oral Tablet Oxycodone- Acetaminophen (Percocet) 5-325 mg tablet Oxycodone-Acetaminophen (Percocet) 5- 325 mg tablet 11/02/2020 02:31:31 PM EDT 1 TAB completed [facility] Acetaminophen 325 MG / Oxycodone Hydroch loride 5 MG Oral Tablet Oxycodone- Acetaminophen (Percocet) 5-325 mg tablet Oxycodone-Acetaminophen (Percocet) 5- 325 mg tablet 11/02/2020 02:31:31 PM EDT 1 TAB active [facility] Acetaminophen 325 MG / Oxycodone Hydroch loride 5 MG Oral Tablet Oxycodone-Acetaminophen Oxycodone-Acetaminophen 08/18/2020 03:07:13 PM EST 1 TAB active [facility] Acetaminophen 325 MG / Oxycodone Hydroch loride 5 MG Oral Tablet Oxycodone-Acetaminophen Oxycodone-Acetaminophen 08/18/2020 03:07:13 PM EST 1 TAB completed [facility] Acetaminophen 325 MG / Oxycodone Hydroch loride 5 MG Oral Tablet Oxycodone-Acetaminophen Oxycodone-Acetaminophen 08/18/2020 03:07:13 PM EST 1 TAB completed [facility] Acetaminophen 325 MG / Oxycodone Hydroch loride 5 MG Oral Tablet Oxycodone-Acetaminophen Oxycodone-Acetaminophen 08/18/2020 03:07:13 PM EST 1 TAB completed [facility] Acetaminophen 325 MG / Oxycodone Hydroch loride 5 MG Oral Tablet Oxycodone-Acetaminophen Oxycodone-Acetaminophen 08/18/2020 03:07:13 PM EST 1 TAB completed [facility] atorvastatin 40 MG Oral Tablet Atorvastatin (Lipitor) 40 mg tablet Atorvastatin (Lipitor) 40 mg tablet 08/15/2020 04:18:00 PM EST 40 MG active [facility] atorvastatin 40 MG Oral Tablet Atorvastatin (Lipitor) 40 mg tablet Atorvastatin (Lipitor) 40 mg tablet 08/15/2020 04:18:00 PM EST 40 MG active [facility] Levothyroxine Sodium 0.075 MG Oral Table t Levothyroxine (Synthroid) 75 mcg tablet Levothyroxine (Synthroid) 75 mcg tablet 08/15/2020 04:18:00 PM EST 0 completed [facility] Levothyroxine Sodium 0.075 MG Oral Table t Levothyroxine (Synthroid) 75 mcg tablet Levothyroxine (Synthroid) 75 mcg tablet 08/15/2020 04:18:00 PM EST 0 active [facility] atorvastatin 40 MG Oral Tablet Atorvastatin (Lipitor) 40 mg tablet Atorvastatin (Lipitor) 40 mg tablet 08/15/2020 04:18:00 PM EST 40 MG active [facility] atorvastatin 40 MG Oral Tablet Atorvastatin (Lipitor) 40 mg tablet Atorvastatin (Lipitor) 40 mg tablet 08/15/2020 04:18:00 PM EST 40 MG active [facility] Levothyroxine Sodium 0.075 MG Oral Table t Levothyroxine (Synthroid) 75 mcg tablet Levothyroxine (Synthroid) 75 mcg tablet 08/15/2020 04:18:00 PM EST 0 active [facility] Levothyroxine Sodium 0.075 MG Oral Table t Levothyroxine (Synthroid) 75 mcg tablet Levothyroxine (Synthroid) 75 mcg tablet 08/15/2020 04:18:00 PM EST 0 active [facility] atorvastatin 40 MG Oral Tablet Atorvastatin (Lipitor) 40 mg tablet Atorvastatin (Lipitor) 40 mg tablet 08/15/2020 04:18:00 PM EST 40 MG active [facility] Levothyroxine Sodium 0.075 MG Oral Table t Levothyroxine (Synthroid) 75 mcg tablet Levothyroxine (Synthroid) 75 mcg tablet 08/15/2020 04:18:00 PM EST 0 active [facility] Tamsulosin hydrochloride 0.4 MG Oral Capsule [Flomax] Flomax 0.4 MG Flomax 0.4 MG 08/10/2020 12:00:00 AM EST 1.0 {capsule_30_minutes_after_the_same_meal_each_day} active Flomax 0.4 MG eCW1 ([facility]) Acetaminophen 325 MG / Oxycodone Hydroch loride 5 MG Oral Tablet [Percocet] Percocet 5-325 MG Percocet 5-325 MG 08/10/2020 12:00:00 AM EST 1.0 {t ablet} active eCW1 ([facility]) Acetaminophen 325 MG / Oxycodone Hydroch loride 5 MG Oral Tablet [Percocet] Percocet 5-325 MG Percocet 5-325 MG 08/10/2020 12:00:00 AM EST 1.0 {t ablet} active Percocet 5-325 MG eCW1 ([facility]) Acetaminophen 325 MG / Oxycodone Hydroch loride 5 MG Oral Tablet [Percocet] Percocet 5-325 MG Percocet 5-325 MG 08/10/2020 12:00:00 AM EST 1.0 {t ablet} active Percocet 5-325 MG eCW1 ([facility]) Acetaminophen 325 MG / Oxycodone Hydroch loride 5 MG Oral Tablet [Percocet] Percocet 5-325 MG Percocet 5-325 MG 08/10/2020 12:00:00 AM EST 1.0 {t ablet} active Percocet 5-325 MG eCW1 ([facility]) Acetaminophen 325 MG / Oxycodone Hydroch loride 5 MG Oral Tablet [Percocet] Percocet 5-325 MG Percocet 5-325 MG 08/10/2020 12:00:00 AM EST 1.0 {t ablet} active Percocet 5-325 MG eCW1 ([facility]) Tamsulosin hydrochloride 0.4 MG Oral Capsule [Flomax] Flomax 0.4 MG Flomax 0.4 MG 08/10/2020 12:00:00 AM EST 1.0 {capsule_30_minutes_after_the_same_meal_each_day} active Flomax 0.4 MG eCW1 ([facility]) Tamsulosin hydrochloride 0.4 MG Oral Capsule [Flomax] Flomax 0.4 MG Flomax 0.4 MG 08/10/2020 12:00:00 AM EST 1.0 {capsule_30_minutes_after_the_same_meal_each_day} active eCW1 ([facility]) Tamsulosin hydrochloride 0.4 MG Oral Capsule [Flomax] Flomax 0.4 MG Flomax 0.4 MG 08/10/2020 12:00:00 AM EST 1.0 {capsule_30_minutes_after_the_same_meal_each_day} active Flomax 0.4 MG eCW1 ([facility]) Tamsulosin hydrochloride 0.4 MG Oral Capsule [Flomax] Flomax 0.4 MG Flomax 0.4 MG 08/10/2020 12:00:00 AM EST 1.0 {capsule_30_minutes_after_the_same_meal_each_day} active Flomax 0.4 MG eCW1 ([facility]) Acetaminophen 325 MG / Oxycodone Hydroch loride 5 MG Oral Tablet [Percocet] Percocet 5-325 MG Percocet 5-325 MG 08/10/2020 12:00:00 AM EST 1.0 {t ablet} active Percocet 5-325 MG eCW1 ([facility]) Acetaminophen 325 MG / Oxycodone Hydroch loride 5 MG Oral Tablet [Percocet] Percocet 5-325 MG Percocet 5-325 MG 08/10/2020 12:00:00 AM EST 1.0 {t ablet} active Percocet 5-325 MG eCW1 ([facility]) Tamsulosin hydrochloride 0.4 MG Oral Capsule [Flomax] Flomax 0.4 MG Flomax 0.4 MG 08/10/2020 12:00:00 AM EST 1.0 {capsule_30_minutes_after_the_same_meal_each_day} active Flomax 0.4 MG eCW1 ([facility]) Tamsulosin hydrochloride 0.4 MG Oral Capsule [Flomax] Flomax 0.4 MG Flomax 0.4 MG 08/10/2020 12:00:00 AM EST 1.0 {capsule_30_minutes_after_the_same_meal_each_day} active Flomax 0.4 MG eCW1 ([facility]) Tamsulosin hydrochloride 0.4 MG Oral Capsule [Flomax] Flomax 0.4 MG Flomax 0.4 MG 08/10/2020 12:00:00 AM EST 1.0 {capsule_30_minutes_after_the_same_meal_each_day} active Flomax 0.4 MG eCW1 ([facility]) Tamsulosin hydrochloride 0.4 MG Oral Capsule [Flomax] Flomax 0.4 MG Flomax 0.4 MG 08/10/2020 12:00:00 AM EST 1.0 {capsule_30_minutes_after_the_same_meal_each_day} active Flomax 0.4 MG eCW1 ([facility]) Acetaminophen 325 MG / Oxycodone Hydroch loride 5 MG Oral Tablet [Percocet] Percocet 5-325 MG Percocet 5-325 MG 08/10/2020 12:00:00 AM EST 1.0 {t ablet} active eCW1 ([facility]) Acetaminophen 325 MG / Oxycodone Hydroch loride 5 MG Oral Tablet [Percocet] Percocet 5-325 MG Percocet 5-325 MG 08/10/2020 12:00:00 AM EST 1.0 {t ablet} active Percocet 5-325 MG eCW1 ([facility]) Acetaminophen 325 MG / Oxycodone Hydroch loride 5 MG Oral Tablet [Percocet] Percocet 5-325 MG Percocet 5-325 MG 08/10/2020 12:00:00 AM EST 1.0 {t ablet} active Percocet 5-325 MG eCW1 ([facility]) Tamsulosin hydrochloride 0.4 MG Oral Capsule [Flomax] Flomax 0.4 MG Flomax 0.4 MG 08/10/2020 12:00:00 AM EST 1.0 {capsule_30_minutes_after_the_same_meal_each_day} active Flomax 0.4 MG eCW1 ([facility]) Acetaminophen 325 MG / Oxycodone Hydroch loride 5 MG Oral Tablet [Percocet] Percocet 5-325 MG Percocet 5-325 MG 08/10/2020 12:00:00 AM EST 1.0 {t ablet} active Percocet 5-325 MG eCW1 ([facility]) Tamsulosin hydrochloride 0.4 MG Oral Capsule [Flomax] Flomax 0.4 MG Flomax 0.4 MG 08/10/2020 12:00:00 AM EST 1.0 {capsule_30_minutes_after_the_same_meal_each_day} active Flomax 0.4 MG eCW1 ([facility]) Acetaminophen 325 MG / Oxycodone Hydroch loride 5 MG Oral Tablet [Percocet] Percocet 5-325 MG Percocet 5-325 MG 08/10/2020 12:00:00 AM EST 1.0 {t ablet} active Percocet 5-325 MG eCW1 ([facility]) Tamsulosin hydrochloride 0.4 MG Oral Capsule [Flomax] Flomax 0.4 MG Flomax 0.4 MG 08/10/2020 12:00:00 AM EST 1.0 {capsule_30_minutes_after_the_same_meal_each_day} active eCW1 ([facility]) Tamsulosin hydrochloride 0.4 MG Oral Capsule [Flomax] Flomax 0.4 MG Flomax 0.4 MG 08/10/2020 12:00:00 AM EST 1.0 {capsule_30_minutes_after_the_same_meal_each_day} active Flomax 0.4 MG eCW1 ([facility]) Acetaminophen 325 MG / Oxycodone Hydroch loride 5 MG Oral Tablet [Percocet] Percocet 5-325 MG Percocet 5-325 MG 08/10/2020 12:00:00 AM EST 1.0 {t ablet} active Percocet 5-325 MG eCW1 ([facility]) Acetaminophen 325 MG / Oxycodone Hydroch loride 5 MG Oral Tablet [Percocet] Percocet 5-325 MG Percocet 5-325 MG 08/10/2020 12:00:00 AM EST 1.0 {t ablet} active Percocet 5-325 MG eCW1 ([facility]) Acetaminophen 325 MG / Oxycodone Hydroch loride 5 MG Oral Tablet [Percocet] Percocet 5-325 MG Percocet 5-325 MG 08/10/2020 12:00:00 AM EST 1.0 {t ablet} active Percocet 5-325 MG eCW1 ([facility]) Tamsulosin hydrochloride 0.4 MG Oral Capsule [Flomax] Flomax 0.4 MG Flomax 0.4 MG 08/10/2020 12:00:00 AM EST 1.0 {capsule_30_minutes_after_the_same_meal_each_day} active Flomax 0.4 MG eCW1 ([facility]) Tamsulosin hydrochloride 0.4 MG Oral Capsule [Flomax] Flomax 0.4 MG Flomax 0.4 MG 08/10/2020 12:00:00 AM EST 1.0 {capsule_30_minutes_after_the_same_meal_each_day} active Flomax 0.4 MG eCW1 ([facility]) Levothyroxine Sodium 0.075 MG Oral Table t [Synthroid] Levothyroxine (Synthroid) 75 mcg tablet Levothyroxine (Synthroid) 75 mcg tablet 07/26/2020 10: 06:57 AM EST 0 completed [facility] Levothyroxine Sodium 0.075 MG Oral Table t [Synthroid] Levothyroxine (Synthroid) 75 mcg tablet Levothyroxine (Synthroid) 75 mcg tablet 07/26/2020 10: 06:57 AM EST 0 active [facility] Levothyroxine Sodium 0.075 MG Oral Table t [Synthroid] Levothyroxine (Synthroid) 75 mcg tablet Levothyroxine (Synthroid) 75 mcg tablet 07/26/2020 10: 06:57 AM EST 0 completed [facility] Levothyroxine Sodium 0.075 MG Oral Table t [Synthroid] Levothyroxine (Synthroid) 75 mcg tablet Levothyroxine (Synthroid) 75 mcg tablet 07/26/2020 10: 06:57 AM EST 0 completed [facility] Levothyroxine Sodium 0.075 MG Oral Table t [Synthroid] Levothyroxine (Synthroid) 75 mcg tablet Levothyroxine (Synthroid) 75 mcg tablet 07/26/2020 10: 06:57 AM EST 0 completed [facility] Levothyroxine Sodium 0.075 MG Oral Table t [Synthroid] Levothyroxine (Synthroid) 75 mcg tablet Levothyroxine (Synthroid) 75 mcg tablet 07/26/2020 10: 06:57 AM EST 0 completed [facility] Levothyroxine Sodium 0.075 MG Oral Table t [Synthroid] Levothyroxine (Synthroid) 75 mcg tablet Levothyroxine (Synthroid) 75 mcg tablet 07/26/2020 10: 06:57 AM EST 0 active [facility] Ketorolac Tromethamine 10 MG Oral Tablet Ketorolac Trometham ine 10 MG 07/20/2020 12:00:00 AM EST active Ketorol ac Tromethamine 10 MG eCW1 ([facility]) Ketorolac Tromethamine 10 MG Oral Tablet Ketorolac Trometham ine 10 MG 07/20/2020 12:00:00 AM EST active Ketorol ac Tromethamine 10 MG eCW1 ([facility]) Ketorolac Tromethamine 10 MG Oral Tablet Ketorolac Trometham ine 10 MG 07/20/2020 12:00:00 AM EST active eCW1 ([facility]) Ketorolac Tromethamine 10 MG Oral Tablet Ketorolac Trometham ine 10 MG 07/20/2020 12:00:00 AM EST active Ketorol ac Tromethamine 10 MG eCW1 ([facility]) Ketorolac Tromethamine 10 MG Oral Tablet Ketorolac Trometham ine 10 MG 07/20/2020 12:00:00 AM EST active Ketorol ac Tromethamine 10 MG eCW1 ([facility]) Ketorolac Tromethamine 10 MG Oral Tablet Ketorolac Trometham ine 10 MG 07/20/2020 12:00:00 AM EST active Ketorol ac Tromethamine 10 MG eCW1 ([facility]) Ketorolac Tromethamine 10 MG Oral Tablet Ketorolac Trometham ine 10 MG 07/20/2020 12:00:00 AM EST active Ketorol ac Tromethamine 10 MG eCW1 ([facility]) Ketorolac Tromethamine 10 MG Oral Tablet Ketorolac Trometham ine 10 MG 07/20/2020 12:00:00 AM EST active Ketorol ac Tromethamine 10 MG eCW1 ([facility]) Ketorolac Tromethamine 10 MG Oral Tablet Ketorolac Trometham ine 10 MG 07/20/2020 12:00:00 AM EST active Ketorol ac Tromethamine 10 MG eCW1 ([facility]) Ketorolac Tromethamine 10 MG Oral Tablet Ketorolac Trometham ine 10 MG 07/20/2020 12:00:00 AM EST active Ketorol ac Tromethamine 10 MG eCW1 ([facility]) Ketorolac Tromethamine 10 MG Oral Tablet Ketorolac Trometham ine 10 MG 07/20/2020 12:00:00 AM EST active Ketorol ac Tromethamine 10 MG eCW1 ([facility]) Ketorolac Tromethamine 10 MG Oral Tablet Ketorolac Trometham ine 10 MG 07/20/2020 12:00:00 AM EST active Ketorol ac Tromethamine 10 MG eCW1 ([facility]) Ketorolac Tromethamine 10 MG Oral Tablet Ketorolac Trometham ine 10 MG 07/20/2020 12:00:00 AM EST active Ketorol ac Tromethamine 10 MG eCW1 ([facility]) Ketorolac Tromethamine 10 MG Oral Tablet Ketorolac Trometham ine 10 MG 07/20/2020 12:00:00 AM EST active Ketorol ac Tromethamine 10 MG eCW1 ([facility]) Ketorolac Tromethamine 10 MG Oral Tablet Ketorolac Trometham ine 10 MG 07/20/2020 12:00:00 AM EST active Ketorol ac Tromethamine 10 MG eCW1 ([facility]) Ketorolac Tromethamine 10 MG Oral Tablet Ketorolac Trometham ine 10 MG 07/20/2020 12:00:00 AM EST active eCW1 ([facility]) Ketorolac Tromethamine 10 MG Oral Tablet Ketorolac Trometham ine 10 MG 07/20/2020 12:00:00 AM EST active Ketorol ac Tromethamine 10 MG eCW1 ([facility]) Ketorolac Tromethamine 10 MG Oral Tablet Ketorolac Trometham ine 10 MG 07/20/2020 12:00:00 AM EST active Ketorol ac Tromethamine 10 MG eCW1 ([facility]) Acetaminophen 325 MG / Oxycodone Hydroch loride 5 MG Oral Tablet Oxycodone- Acetaminophen (Percocet) 5-325 mg tablet Oxycodone-Acetaminophen (Percocet) 5- 325 mg tablet 07/17/2020 04:19:34 PM EST 1 TAB active [facility] Acetaminophen 325 MG / Oxycodone Hydroch loride 5 MG Oral Tablet Oxycodone- Acetaminophen (Percocet) 5-325 mg tablet Oxycodone-Acetaminophen (Percocet) 5- 325 mg tablet 07/17/2020 04:19:34 PM EST 1 TAB completed [facility] Acetaminophen 325 MG / Oxycodone Hydroch loride 5 MG Oral Tablet Oxycodone- Acetaminophen (Percocet) 5-325 mg tablet Oxycodone-Acetaminophen (Percocet) 5- 325 mg tablet 07/17/2020 04:19:34 PM EST 1 TAB completed [facility] Acetaminophen 325 MG / Oxycodone Hydroch loride 5 MG Oral Tablet Oxycodone- Acetaminophen (Percocet) 5-325 mg tablet Oxycodone-Acetaminophen (Percocet) 5- 325 mg tablet 07/17/2020 04:19:34 PM EST 1 TAB completed [facility] Acetaminophen 325 MG / Oxycodone Hydroch loride 5 MG Oral Tablet Oxycodone- Acetaminophen (Percocet) 5-325 mg tablet Oxycodone-Acetaminophen (Percocet) 5- 325 mg tablet 07/17/2020 04:19:34 PM EST 1 TAB completed [facility] Acetaminophen 325 MG / Oxycodone Hydroch loride 5 MG Oral Tablet Oxycodone- Acetaminophen (Percocet) 5-325 mg tablet Oxycodone-Acetaminophen (Percocet) 5- 325 mg tablet 07/17/2020 04:19:34 PM EST 1 TAB active [facility] Acetaminophen 325 MG / Oxycodone Hydroch loride 5 MG Oral Tablet Oxycodone- Acetaminophen (Percocet) 5-325 mg tablet Oxycodone-Acetaminophen (Percocet) 5- 325 mg tablet 07/17/2020 04:19:34 PM EST 1 TAB active [facility] Acetaminophen 325 MG / Oxycodone Hydroch loride 5 MG Oral Tablet Oxycodone- Acetaminophen (Percocet) 5-325 mg tablet Oxycodone-Acetaminophen (Percocet) 5- 325 mg tablet 07/17/2020 04:19:34 PM EST 1 TAB active [facility] Amitriptyline Hydrochloride 10 MG Oral Tablet Amitriptyline HCL 07/11/2020 12:00:00 AM EST active [facility] ([facility]) Afluria Qd (3yr up)(PF) (flu vac [id number] 36mos up(P F)) 05/29/2020 02:56:12 PM EST 0.[address] [facility] (flu vac [id number] 36mos up(P F)) 05/29/2020 02:56:12 PM EST 0.5 ML completed [facility] Afluria Qd (3yr up)(PF) (flu vac [id number] 36mos up(P F)) 05/29/2020 02:56:12 PM EST 0.[address] [facility] (3yr up)(PF) (flu vac [id number] 36mos up(P F)) 05/29/2020 02:56:12 PM EST 0.[address] [facility] (3yr up)(PF) (flu vac [id number] 36mos up(P F)) 05/29/2020 02:56:12 PM EST 0.[address] [facility] (3yr up)(PF) (flu vac [id number] 36mos up(P F)) 05/29/2020 02:56:12 PM EST 0.[address] [facility] (3yr up)(PF) (flu vac [id number] 36mos up(P F)) 05/29/2020 02:56:12 PM EST 0.5 ML completed [facility] Afluria Qd (3yr up)(PF) (flu vac [id number] 36mos up(P F)) 05/29/2020 02:56:12 PM EST 0.[address] [facility] (3yr up)(PF) (flu vac [id number] 36mos up(P F)) 05/29/2020 02:56:12 PM EST 0.[address] [facility] (3yr up)(PF) (flu vac [id number] 36mos up(P F)) 05/29/2020 02:56:12 PM EST 0.5 ML completed [facility] Levothyroxine Sodium 0.075 MG Oral Table t [Synthroid] Levothyroxine (Synthroid) 75 mcg tablet Levothyroxine (Synthroid) 75 mcg tablet 05/01/2020 12: 48:34 PM EDT 75 MCG active [facility] Levothyroxine Sodium 0.075 MG Oral Table t [Synthroid] Levothyroxine (Synthroid) 75 mcg tablet Levothyroxine (Synthroid) 75 mcg tablet 05/01/2020 12: 48:34 PM EDT 75 MCG active [facility] Levothyroxine Sodium 0.075 MG Oral Table t [Synthroid] Levothyroxine (Synthroid) 75 mcg tablet Levothyroxine (Synthroid) 75 mcg tablet 05/01/2020 12: 48:34 PM EDT 75 MCG completed [facility] Levothyroxine Sodium 0.075 MG Oral Table t [Synthroid] Levothyroxine (Synthroid) 75 mcg tablet Levothyroxine (Synthroid) 75 mcg tablet 05/01/2020 12: 48:34 PM EDT 75 MCG completed [facility] Levothyroxine Sodium 0.075 MG Oral Table t [Synthroid] Levothyroxine (Synthroid) 75 mcg tablet Levothyroxine (Synthroid) 75 mcg tablet 05/01/2020 12: 48:34 PM EDT 75 MCG active [facility] Levothyroxine Sodium 0.075 MG Oral Table t [Synthroid] Levothyroxine (Synthroid) 75 mcg tablet Levothyroxine (Synthroid) 75 mcg tablet 05/01/2020 12: 48:34 PM EDT 75 MCG completed [facility] Levothyroxine Sodium 0.075 MG Oral Table t [Synthroid] Levothyroxine (Synthroid) 75 mcg tablet Levothyroxine (Synthroid) 75 mcg tablet 05/01/2020 12: 48:34 PM EDT 75 MCG active [facility] Levothyroxine Sodium 0.075 MG Oral Table t [Synthroid] Levothyroxine (Synthroid) 75 mcg tablet Levothyroxine (Synthroid) 75 mcg tablet 05/01/2020 12: 48:34 PM EDT 75 MCG completed [facility] Levothyroxine Sodium 0.075 MG Oral Table t [Synthroid] Levothyroxine (Synthroid) 75 mcg tablet Levothyroxine (Synthroid) 75 mcg tablet 05/01/2020 12: 48:34 PM EDT 75 MCG completed [facility] Levothyroxine Sodium 0.075 MG Oral Table t [Synthroid] Levothyroxine (Synthroid) 75 mcg tablet Levothyroxine (Synthroid) 75 mcg tablet 05/01/2020 12: 48:34 PM EDT 75 MCG completed [facility] Levothyroxine Sodium 0.075 MG Oral Table t [Synthroid] Levothyroxine (Synthroid) 75 mcg tablet Levothyroxine (Synthroid) 75 mcg tablet 05/01/2020 12: 48:34 PM EDT 75 MCG completed [facility] Levothyroxine Sodium 0.075 MG Oral Table t [Synthroid] Levothyroxine (Synthroid) 75 mcg tablet Levothyroxine (Synthroid) 75 mcg tablet 05/01/2020 12: 48:34 PM EDT 75 MCG active [facility] atorvastatin 40 MG Oral Tablet Atorvastatin (Lipitor) 40 mg tablet Atorvastatin (Lipitor) 40 mg tablet 05/01/2020 12:47:17 PM EDT 40 MG active [facility] atorvastatin 40 MG Oral Tablet Atorvastatin (Lipitor) 40 mg tablet Atorvastatin (Lipitor) 40 mg tablet 05/01/2020 12:47:17 PM EDT 40 MG completed [facility] atorvastatin 40 MG Oral Tablet Atorvastatin (Lipitor) 40 mg tablet Atorvastatin (Lipitor) 40 mg tablet 05/01/2020 12:47:17 PM EDT 40 MG active [facility] atorvastatin 40 MG Oral Tablet Atorvastatin (Lipitor) 40 mg tablet Atorvastatin (Lipitor) 40 mg tablet 05/01/2020 12:47:17 PM EDT 40 MG active [facility] atorvastatin 40 MG Oral Tablet Atorvastatin (Lipitor) 40 mg tablet Atorvastatin (Lipitor) 40 mg tablet 05/01/2020 12:47:17 PM EDT 40 MG active [facility] atorvastatin 40 MG Oral Tablet Atorvastatin (Lipitor) 40 mg tablet Atorvastatin (Lipitor) 40 mg tablet 05/01/2020 12:47:17 PM EDT 40 MG active [facility] atorvastatin 40 MG Oral Tablet Atorvastatin (Lipitor) 40 mg tablet Atorvastatin (Lipitor) 40 mg tablet 05/01/2020 12:47:17 PM EDT 40 MG completed [facility] atorvastatin 40 MG Oral Tablet Atorvastatin (Lipitor) 40 mg tablet Atorvastatin (Lipitor) 40 mg tablet 05/01/2020 12:47:17 PM EDT 40 MG active [facility] atorvastatin 40 MG Oral Tablet Atorvastatin (Lipitor) 40 mg tablet Atorvastatin (Lipitor) 40 mg tablet 05/01/2020 12:47:17 PM EDT 40 MG completed [facility] atorvastatin 40 MG Oral Tablet Atorvastatin (Lipitor) 40 mg tablet Atorvastatin (Lipitor) 40 mg tablet 05/01/2020 12:47:17 PM EDT 40 MG completed [facility] atorvastatin 40 MG Oral Tablet Atorvastatin (Lipitor) 40 mg tablet Atorvastatin (Lipitor) 40 mg tablet 05/01/2020 12:47:17 PM EDT 40 MG completed [facility] atorvastatin 40 MG Oral Tablet Atorvastatin (Lipitor) 40 mg tablet Atorvastatin (Lipitor) 40 mg tablet 05/01/2020 12:47:17 PM EDT 40 MG active [facility] Sumatriptan 50 MG Oral Tablet [Imitrex] Sumatriptan Succinate (Imitrex) 50 mg tablet Sumatriptan Succinate (Imitrex) 50 mg tablet 04/24/2020 09:5 1:45 AM EDT 50 MG active [facility] Sumatriptan 50 MG Oral Tablet [Imitrex] Sumatriptan Succinate (Imitrex) 50 mg tablet Sumatriptan Succinate (Imitrex) 50 mg tablet 04/24/2020 09:5 1:45 AM EDT 50 MG active [facility] Sumatriptan 50 MG Oral Tablet [Imitrex] Sumatriptan Succinate (Imitrex) 50 mg tablet Sumatriptan Succinate (Imitrex) 50 mg tablet 04/24/2020 09:5 1:45 AM EDT 50 MG active [facility] Sumatriptan 50 MG Oral Tablet [Imitrex] Sumatriptan Succinate (Imitrex) 50 mg tablet Sumatriptan Succinate (Imitrex) 50 mg tablet 04/24/2020 09:5 1:45 AM EDT 50 MG active [facility] Sumatriptan 50 MG Oral Tablet [Imitrex] Sumatriptan Succinate (Imitrex) 50 mg tablet Sumatriptan Succinate (Imitrex) 50 mg tablet 04/24/2020 09:5 1:45 AM EDT 50 MG gavin [facility] Sumatriptan 50 MG Oral Tablet [Imitrex] Sumatriptan Succinate (Imitrex) 50 mg tablet Sumatriptan Succinate (Imitrex) 50 mg tablet 04/24/2020 09:5 1:45 AM EDT 50 MG [facility] Sumatriptan 50 MG Oral Tablet [Imitrex] Sumatriptan Succinate (Imitrex) 50 mg tablet Sumatriptan Succinate (Imitrex) 50 mg tablet 04/24/2020 09:5 1:45 AM EDT 50 MG gavin [facility] Sumatriptan 50 MG Oral Tablet [Imitrex] Sumatriptan Succinate (Imitrex) 50 mg tablet Sumatriptan Succinate (Imitrex) 50 mg tablet 04/24/2020 09:5 1:45 AM EDT 50 MG gavin [facility] Sumatriptan 50 MG Oral Tablet [Imitrex] Sumatriptan Succinate (Imitrex) 50 mg tablet Sumatriptan Succinate (Imitrex) 50 mg tablet 04/24/2020 09:5 1:45 AM EDT 50 MG gavin [facility] Sumatriptan 50 MG Oral Tablet [Imitrex] Sumatriptan Succinate (Imitrex) 50 mg tablet Sumatriptan Succinate (Imitrex) 50 mg tablet 04/24/2020 09:5 1:45 AM EDT 50 MG completed [facility] Sumatriptan 50 MG Oral Tablet [Imitrex] Sumatriptan Succinate (Imitrex) 50 mg tablet Sumatriptan Succinate (Imitrex) 50 mg tablet 04/24/2020 09:5 1:45 AM EDT 50 MG gavin [facility] Sumatriptan 50 MG Oral Tablet [Imitrex] Sumatriptan Succinate (Imitrex) 50 mg tablet Sumatriptan Succinate (Imitrex) 50 mg tablet 04/24/2020 09:5 1:45 AM EDT 50 MG gavin [facility] Sumatriptan 50 MG Oral Tablet [Imitrex] Sumatriptan Succinate (Imitrex) 50 mg tablet Sumatriptan Succinate (Imitrex) 50 mg tablet 04/19/2020 12:2 9:16 PM EDT 50 MG completed [facility] Sumatriptan 50 MG Oral Tablet [Imitrex] Sumatriptan Succinate (Imitrex) 50 mg tablet Sumatriptan Succinate (Imitrex) 50 mg tablet 04/19/2020 12:2 9:16 PM EDT 50 MG completed [facility] Sumatriptan 50 MG Oral Tablet [Imitrex] Sumatriptan Succinate (Imitrex) 50 mg tablet Sumatriptan Succinate (Imitrex) 50 mg tablet 04/19/2020 12:2 9:16 PM EDT 50 MG completed [facility] Sumatriptan 50 MG Oral Tablet [Imitrex] Sumatriptan Succinate (Imitrex) 50 mg tablet Sumatriptan Succinate (Imitrex) 50 mg tablet 04/19/2020 12:2 9:16 PM EDT 50 MG completed [facility] Sumatriptan 50 MG Oral Tablet [Imitrex] Sumatriptan Succinate (Imitrex) 50 mg tablet Sumatriptan Succinate (Imitrex) 50 mg tablet 04/19/2020 12:2 9:16 PM EDT 50 MG completed [facility] Sumatriptan 50 MG Oral Tablet [Imitrex] Sumatriptan Succinate (Imitrex) 50 mg tablet Sumatriptan Succinate (Imitrex) 50 mg tablet 04/19/2020 12:2 9:16 PM EDT 50 MG completed [facility] Sumatriptan 50 MG Oral Tablet [Imitrex] Sumatriptan Succinate (Imitrex) 50 mg tablet Sumatriptan Succinate (Imitrex) 50 mg tablet 04/19/2020 12:2 9:16 PM EDT 50 MG completed [facility] Sumatriptan 50 MG Oral Tablet [Imitrex] Sumatriptan Succinate (Imitrex) 50 mg tablet Sumatriptan Succinate (Imitrex) 50 mg tablet 04/19/2020 12:2 9:16 PM EDT 50 MG completed [facility] Sumatriptan 50 MG Oral Tablet [Imitrex] Sumatriptan Succinate (Imitrex) 50 mg tablet Sumatriptan Succinate (Imitrex) 50 mg tablet 04/19/2020 12:2 9:16 PM EDT 50 MG completed [facility] Sumatriptan 50 MG Oral Tablet [Imitrex] Sumatriptan Succinate (Imitrex) 50 mg tablet Sumatriptan Succinate (Imitrex) 50 mg tablet 04/19/2020 12:2 9:16 PM EDT 50 MG completed [facility] Sumatriptan 50 MG Oral Tablet [Imitrex] Sumatriptan Succinate (Imitrex) 50 mg tablet Sumatriptan Succinate (Imitrex) 50 mg tablet 04/19/2020 12:2 9:16 PM EDT 50 MG completed [facility] Sumatriptan 50 MG Oral Tablet [Imitrex] Sumatriptan Succinate (Imitrex) 50 mg tablet Sumatriptan Succinate (Imitrex) 50 mg tablet 04/19/2020 12:2 9:16 PM EDT 50 MG completed [facility] Levothyroxine Sodium 0.088 MG Oral Table t Levothyroxine (Synthroid) 88 mcg tablet Levothyroxine (Synthroid) 88 mcg tablet 03/27/2020 12:43:46 PM E DT 88 MCG completed [facility] Levothyroxine Sodium 0.088 MG Oral Table t Levothyroxine (Synthroid) 88 mcg tablet Levothyroxine (Synthroid) 88 mcg tablet 03/27/2020 12:43:46 PM E DT 88 MCG [facility] [facility] Levothyroxine Sodium 0.088 MG Oral Table t Levothyroxine (Synthroid) 88 mcg tablet Levothyroxine (Synthroid) 88 mcg tablet 03/27/2020 12:43:46 PM E DT 88 MCG completed [facility] Levothyroxine Sodium 0.088 MG Oral Table t Levothyroxine (Synthroid) 88 mcg tablet Levothyroxine (Synthroid) 88 mcg tablet 03/27/2020 12:43:46 PM E DT 88 MCG completed [facility] Levothyroxine Sodium 0.088 MG Oral Table t Levothyroxine (Synthroid) 88 mcg tablet Levothyroxine (Synthroid) 88 mcg tablet 03/27/2020 12:43:46 PM E DT 88 MCG completed [facility] Levothyroxine Sodium 0.088 MG Oral Table t Levothyroxine (Synthroid) 88 mcg tablet Levothyroxine (Synthroid) 88 mcg tablet 03/27/2020 12:43:46 PM E DT 88 MCG completed [facility] Levothyroxine Sodium 0.088 MG Oral Table t Levothyroxine (Synthroid) 88 mcg tablet Levothyroxine (Synthroid) 88 mcg tablet 03/27/2020 12:43:46 PM E DT 88 MCG completed [facility] Levothyroxine Sodium 0.088 MG Oral Table t Levothyroxine (Synthroid) 88 mcg tablet Levothyroxine (Synthroid) 88 mcg tablet 03/27/2020 12:43:46 PM E DT 88 MCG completed [facility] Levothyroxine Sodium 0.088 MG Oral Table t Levothyroxine (Synthroid) 88 mcg tablet Levothyroxine (Synthroid) 88 mcg tablet 03/27/2020 12:43:46 PM E DT 88 MCG completed [facility] Levothyroxine Sodium 0.088 MG Oral Table t Levothyroxine (Synthroid) 88 mcg tablet Levothyroxine (Synthroid) 88 mcg tablet 03/27/2020 12:43:46 PM E DT 88 MCG completed [facility] Levothyroxine Sodium 0.088 MG Oral Table t Levothyroxine (Synthroid) 88 mcg tablet Levothyroxine (Synthroid) 88 mcg tablet 03/27/2020 12:43:46 PM E DT 88 MCG completed [facility] Levothyroxine Sodium 0.088 MG Oral Table t Levothyroxine (Synthroid) 88 mcg tablet Levothyroxine (Synthroid) 88 mcg tablet 03/27/2020 12:43:46 PM E DT 88 MCG completed [facility] Amitriptyline Hydrochloride 25 MG Oral Tablet Amitriptyline 12/27/2019 08:57:34 AM EDT 12.5 MG completed [facility] Amitriptyline Hydrochloride 25 MG Oral Tablet Amitriptyline 12/27/2019 08:57:34 AM EDT 12.5 MG completed [facility] Amitriptyline Hydrochloride 25 MG Oral Tablet Amitriptyline 12/27/2019 08:57:34 AM EDT 12.5 MG completed [facility] Amitriptyline Hydrochloride 25 MG Oral Tablet Amitriptyline 12/27/2019 08:57:34 AM EDT 12.5 MG completed [facility] Amitriptyline Hydrochloride 25 MG Oral Tablet Amitriptyline 12/27/2019 08:57:34 AM EDT 12.5 MG completed [facility] atorvastatin 40 MG Oral Tablet Atorvastatin (Lipitor) 40 mg tablet Atorvastatin (Lipitor) 40 mg tablet 10/04/2019 02:44:54 PM EDT 40 MG completed [facility] Sumatriptan 50 MG Oral Tablet [Imitrex] Sumatriptan Succinate (Imitrex) 50 mg tablet Sumatriptan Succinate (Imitrex) 50 mg tablet 10/04/2019 02:4 4:54 PM EDT 50 MG completed [facility] atorvastatin 40 MG Oral Tablet Atorvastatin (Lipitor) 40 mg tablet Atorvastatin (Lipitor) 40 mg tablet 10/04/2019 02:44:54 PM EDT 40 MG completed [facility] atorvastatin 40 MG Oral Tablet Atorvastatin (Lipitor) 40 mg tablet Atorvastatin (Lipitor) 40 mg tablet 10/04/2019 02:44:54 PM EDT 40 MG completed [facility] atorvastatin 40 MG Oral Tablet Atorvastatin (Lipitor) 40 mg tablet Atorvastatin (Lipitor) 40 mg tablet 10/04/2019 02:44:54 PM EDT 40 MG completed [facility] atorvastatin 40 MG Oral Tablet Atorvastatin (Lipitor) 40 mg tablet Atorvastatin (Lipitor) 40 mg tablet 10/04/2019 02:44:54 PM EDT 40 MG completed [facility] atorvastatin 40 MG Oral Tablet Atorvastatin (Lipitor) 40 mg tablet Atorvastatin (Lipitor) 40 mg tablet 10/04/2019 02:44:54 PM EDT 40 MG completed [facility] Sumatriptan 50 MG Oral Tablet [Imitrex] Sumatriptan Succinate (Imitrex) 50 mg tablet Sumatriptan Succinate (Imitrex) 50 mg tablet 10/04/2019 02:4 4:54 PM EDT 50 MG completed [facility] Sumatriptan 50 MG Oral Tablet [Imitrex] Sumatriptan Succinate (Imitrex) 50 mg tablet Sumatriptan Succinate (Imitrex) 50 mg tablet 10/04/2019 02:4 4:54 PM EDT 50 MG completed [facility] Sumatriptan 50 MG Oral Tablet [Imitrex] Sumatriptan Succinate (Imitrex) 50 mg tablet Sumatriptan Succinate (Imitrex) 50 mg tablet 10/04/2019 02:4 4:54 PM EDT 50 MG completed [facility] atorvastatin 40 MG Oral Tablet Atorvastatin (Lipitor) 40 mg tablet Atorvastatin (Lipitor) 40 mg tablet 10/04/2019 02:44:54 PM EDT 40 MG completed [facility] Sumatriptan 50 MG Oral Tablet [Imitrex] Sumatriptan Succinate (Imitrex) 50 mg tablet Sumatriptan Succinate (Imitrex) 50 mg tablet 10/04/2019 02:4 4:54 PM EDT 50 MG completed [facility] Sumatriptan 50 MG Oral Tablet [Imitrex] Sumatriptan Succinate (Imitrex) 50 mg tablet Sumatriptan Succinate (Imitrex) 50 mg tablet 10/04/2019 02:4 4:54 PM EDT 50 MG completed [facility] Sumatriptan 50 MG Oral Tablet [Imitrex] Sumatriptan Succinate (Imitrex) 50 mg tablet Sumatriptan Succinate (Imitrex) 50 mg tablet 10/04/2019 02:4 4:54 PM EDT 50 MG completed [facility] atorvastatin 40 MG Oral Tablet Atorvastatin (Lipitor) 40 mg tablet Atorvastatin (Lipitor) 40 mg tablet 10/04/2019 02:44:54 PM EDT 40 MG completed [facility] atorvastatin 40 MG Oral Tablet Atorvastatin (Lipitor) 40 mg tablet Atorvastatin (Lipitor) 40 mg tablet 10/04/2019 02:44:54 PM EDT 40 MG completed [facility] Sumatriptan 50 MG Oral Tablet [Imitrex] Sumatriptan Succinate (Imitrex) 50 mg tablet Sumatriptan Succinate (Imitrex) 50 mg tablet 10/04/2019 02:4 4:54 PM EDT 50 MG completed [facility] atorvastatin 40 MG Oral Tablet Atorvastatin (Lipitor) 40 mg tablet Atorvastatin (Lipitor) 40 mg tablet 10/04/2019 02:44:54 PM EDT 40 MG completed [facility] atorvastatin 40 MG Oral Tablet Atorvastatin (Lipitor) 40 mg tablet Atorvastatin (Lipitor) 40 mg tablet 10/04/2019 02:44:54 PM EDT 40 MG completed [facility] Sumatriptan 50 MG Oral Tablet [Imitrex] Sumatriptan Succinate (Imitrex) 50 mg tablet Sumatriptan Succinate (Imitrex) 50 mg tablet 10/04/2019 02:4 4:54 PM EDT 50 MG completed [facility] Sumatriptan 50 MG Oral Tablet [Imitrex] Sumatriptan Succinate (Imitrex) 50 mg tablet Sumatriptan Succinate (Imitrex) 50 mg tablet 10/04/2019 02:4 4:54 PM EDT 50 MG completed [facility] Sumatriptan 50 MG Oral Tablet [Imitrex] Sumatriptan Succinate (Imitrex) 50 mg tablet Sumatriptan Succinate (Imitrex) 50 mg tablet 10/04/2019 02:4 4:54 PM EDT 50 MG completed [facility] Sumatriptan 50 MG Oral Tablet [Imitrex] Sumatriptan Succinate (Imitrex) 50 mg tablet Sumatriptan Succinate (Imitrex) 50 mg tablet 10/04/2019 02:4 4:54 PM EDT 50 MG completed [facility] atorvastatin 40 MG Oral Tablet Atorvastatin (Lipitor) 40 mg tablet Atorvastatin (Lipitor) 40 mg tablet 10/04/2019 02:44:54 PM EDT 40 MG completed [facility] Insurance Providers Payer name Policy type / Coverage type Policy ID Covered democrat ID Covered democrat's relationship to medrano Policy [place] Plan Information Lifetime Benefit Solution Medigap Part B [id number] [place] / UMR F [id number] SELF [id number] [employer] / UMR F [id number] SELF [id number] UMR F [id number] SPOUSE [id number] [employer] Other 505 [id number] Self 505 [employer] Other 505 [id number] Self 505 [employer]OM[employer] Other 505 [id number] Self 505 [employer] Other [id number] Self 505 [employer] Other 505 [id number] Self 505 [employer] Other [id number] Self 505 [employer] Other [id number] Self 505 [employer] Other [id number] Self 505 [employer]OM[employer] Other [id number] Self 505 [employer]OM[employer] Other [id number] Self 505 UMR [facility] [id number] 2 [id number] [employer] (pr) Commercial [id number] Self UMR O [id number] S [id number] [employer] PPO O [id number] S [id number] R F [id number] SELF [id number] Problems, Conditions, and Diagnoses Code Display Name Description Problem Type Effective Dates Data Source(s) N20.0 [id number] Calculus of kidney Problem 05/25/2021 12:00: 00 AM EDT eCW1 ([facility]) N20.0 [id number] Left renal stone Problem 05/23/2021 12:00:00 AM EDT eCW1 ([facility]) N20.0 Kidney stone Kidney stone Problem 07/18/2020 12:00:00 A M EST eCW1 ([facility]) Surgeries/Procedures Procedure Description Date Indications Data Source(s) PHYSICIAN TELEPHONE EVALUATION 11-20 MIN 06/04/2021 12 :00:00 AM EST [facility] ([facility]) PHYSICIAN TELEPHONE EVALUATION 11-20 MIN 01/04/2021 12 :00:00 AM EDT [facility] ([facility]) CT Abd/pel w/o contrast [facility]02[facility]o contrast 11/02/2020 12:17:00 PM [facility] Urine culture (procedure) 11/02/2020 12:00:00 AM [facility] Urine Culture 11/02/2020 12:00:00 AM [facility] Urine culture (procedure) 11/02/2020 12:00:00 AM [facility] Radiography of clhkvv-ofzrwk-vtmuviu (procedure) 09/04 09:26:00 AM [facility] Radiography of rluphm-obiohj-uahkkei (procedure) 09/04 09:26:00 AM [facility] Radiography of hfhpcc-fuhtkz-yxdlclo (procedure) 09/04 09:26:00 AM [facility] X-ray of middle finger (procedure) 08/21/2020 09:08:00 AM [facility] X-ray of middle finger (procedure) 08/21/2020 09:08:00 AM [facility] X-ray of middle finger (procedure) 08/21/2020 09:08:00 AM [facility] X-ray of middle finger (procedure) 08/21/2020 09:08:00 AM [facility] Urine culture (procedure) 08/07/2020 12:00:00 AM [facility] Urine culture (procedure) 08/07/2020 12:00:00 AM [facility] Urine culture (procedure) 08/07/2020 12:00:00 AM [facility] Urine culture (procedure) 08/07/2020 12:00:00 AM [facility] Urine Culture 08/07/2020 12:00:00 AM [facility] Urine culture (procedure) 08/07/2020 12:00:00 AM [facility] Plain chest X-ray (procedure) 07/24/2020 09:50:00 AM E [facility] Plain chest X-ray (procedure) 07/24/2020 09:50:00 AM E [facility] Plain chest X-ray (procedure) 07/24/2020 09:50:00 AM E [facility] Plain chest X-ray (procedure) 07/24/2020 09:50:00 AM E [facility] Plain chest X-ray (procedure) 07/24/2020 09:50:00 AM E [facility] Plain chest X-ray (procedure) 07/24/2020 09:50:00 AM E [facility] Plain chest X-ray (procedure) 07/24/2020 09:50:00 AM E [facility] Screening mammography (procedure) 07/24/2020 09:18:00 AM [facility] Screening mammography (procedure) 07/24/2020 09:18:00 AM [facility] Screening mammography (procedure) 07/24/2020 09:18:00 AM [facility] Screening mammography (procedure) 07/24/2020 09:18:00 AM [facility] Screening mammography (procedure) 07/24/2020 09:18:00 AM [facility] Screening mammography (procedure) 07/24/2020 09:18:00 AM [facility] Screening mammography (procedure) 07/24/2020 09:18:[address] [facility] [address] Abd/pel w/o contrast 07/17/2020 03:44:[address] [facility] [address] Abd/pel w/o contrast 07/17/2020 03:44:[address] [facility] [address] Abd/pel w/o contrast 07/17/2020 03:44:[address] [facility] [address] Abd/pel w/o contrast 07/17/2020 03:44:[address] [facility] [address] Abd/pel w/o contrast 07/17/2020 03:44:[address] [facility] [address] Abd/pel w/o contrast 07/17/2020 03:44:[address] [facility] [address] Abd/pel w/o contrast 07/17/2020 03:44:[address] [facility] [address] Abd/pel w/o contrast 07/17/2020 03:44:00 PM [facility] Diagnostic radiography of abdomen (procedure) 07/17/20 20 02:26:00 PM [facility] Diagnostic radiography of abdomen (procedure) 07/17/20 20 02:26:00 PM [facility] Diagnostic radiography of abdomen (procedure) 07/17/20 20 02:26:00 PM [facility] Diagnostic radiography of abdomen (procedure) 07/17/20 20 02:26:00 PM [facility] Diagnostic radiography of abdomen (procedure) 07/17/20 20 02:26:00 PM [facility] Diagnostic radiography of abdomen (procedure) 07/17/20 20 02:26:00 PM [facility] Diagnostic radiography of abdomen (procedure) 07/17/20 20 02:26:00 PM [facility] Diagnostic radiography of abdomen (procedure) 07/17/20 20 02:26:00 PM [facility] Urine culture (procedure) 07/17/2020 12:00:00 AM [facility] Urine culture (procedure) 07/17/2020 12:00:00 AM [facility] Urine culture (procedure) 07/17/2020 12:00:00 AM [facility] Urine culture (procedure) 07/17/2020 12:00:00 AM [facility] Urine culture (procedure) 07/17/2020 12:00:00 AM [facility] Urine Culture 07/17/2020 12:00:00 AM [facility] Urine culture (procedure) 07/17/2020 12:00:00 AM [facility] Urine culture (procedure) 07/17/2020 12:00:00 AM [facility] X-ray of middle finger (procedure) 06/21/2020 07:33:48 AM [facility] X-ray of middle finger (procedure) 06/21/2020 07:33:48 AM [facility] X-ray of middle finger (procedure) 06/21/2020 07:33:48 AM [facility] X-ray of middle finger (procedure) 06/21/2020 07:33:48 AM [facility] X-ray of middle finger (procedure) 06/21/2020 07:33:48 AM [facility] X-ray of middle finger (procedure) 06/21/2020 07:33:48 AM [facility] X-ray of middle finger (procedure) 06/21/2020 07:33:48 AM [facility] X-ray of middle finger (procedure) 06/21/2020 07:33:48 AM [facility] X-ray of middle finger (procedure) 06/21/2020 07:33:48 AM [facility] X-ray of middle finger (procedure) 06/21/2020 07:33:48 AM [facility] Magnetic resonance imaging of shoulder (procedure) 05/08/2020 02:45:35 PM [facility] Magnetic resonance imaging of shoulder (procedure) 05/08/2020 02:45:35 PM [facility] Magnetic resonance imaging of shoulder (procedure) 05/08/2020 02:45:35 PM [facility] Magnetic resonance imaging of shoulder (procedure) 05/08/2020 02:45:35 PM [facility] Magnetic resonance imaging of shoulder (procedure) 05/08/2020 02:45:35 PM [facility] Magnetic resonance imaging of shoulder (procedure) 05/08/2020 02:45:35 PM [facility] Magnetic resonance imaging of shoulder (procedure) 05/08/2020 02:45:35 PM [facility] Magnetic resonance imaging of shoulder (procedure) 05/08/2020 02:45:35 PM [facility] Magnetic resonance imaging of shoulder (procedure) 05/08/2020 02:45:35 PM [facility] Magnetic resonance imaging of shoulder (procedure) 05/08/2020 02:45:35 PM [facility] Magnetic resonance imaging of shoulder (procedure) 05/08/2020 02:45:35 PM [facility] Magnetic resonance imaging of shoulder (procedure) 05/08/2020 02:45:35 PM [facility] Results ID Date Data Source [id number] 06/07/2021 08:59:00 AM EST [facility] [address] [place] [id number] [phone] NAME SEX PT STATUS ACCOUNT NUMBER MARII DYKES REG REF [id number] ORDERING PHYSICIAN LOCATION MEDICAL RECORD NO. SREE KRUGER MD EKG [id number] ATTENDING PHYSICIAN DATE OF DATE OF EXAM/TIME Jacy Franz MD 1955 06/07/21828 TYPE / EXAM Xray Chest 2 view PA/LAT REASON FOR EXAM LEFT RENAL STONE CLINICAL HISTORY: [facility] LEFT RENAL STONE COMPARISON: Comparison chest radiograph July 24, 2020. TECHNIQUE: 2 view chest x-ray. FINDINGS: The lungs are slightly hyperinflated but free of infiltrate. Pleural angles are sharp. Heart size is normal. Pulmonary vasculature is not increased. No significant bony abnormality is seen.. Thoracic aorta is somewhat tortuous. No change from comparison study. IMPRESSION: No active disease. Reported By Mahendra Waters MD on 06/07/21858 Signed By Mahendra Waters MD on 06/07/21899 Date Time CC: Mahendra Waters M.D.; Jacy Franz MD Techn: RADTC Trans Dt/Tm: Trans by: DT Prt Dt/Tm: [id number]: Total DLP = 0.00 mGy-cm Fluoroscopy Time (in secs): Name Value Range Interpretation Code Description Data Kay rce(s) Supporting Document(s) ID Date Data Source [id number] 06/08/2021 06:58:00 AM [facility] 25,000 CFU/MLStaph spp. coag negCoryneba cterium spp.Probable contaminants no senst done Name Value Range Interpretation Code Description Data Kay rce(s) Supporting Document(s) ID Date Data Source [id number] 06/07/2021 08:05:00 AM [facility] Name Value Range Interpretation Code Description Data Kay rce(s) Supporting Document(s) Leukocytes [#/volume] in Blood by Automated count 7.6 10*3/uL 4.45-10 .71 N [facility] Erythrocytes [#/volume] in Blood by Automated count 4.62 10*6/uL 4.20 -5.40 [facility] Hemoglobin [Moles/volume] in Blood 13.7 g/dL 10.7-15.4 N [facility] Hematocrit [Volume Fraction] of Blood by Automated count 42.7 % 3 7-47 N [facility] Erythrocyte mean corpuscular volume [Ent itic volume] in Cord blood by Automated count 92 fL 80-96 N [facility] ital Erythrocyte mean corpuscular hemoglobin [Entitic mass] by Au tomated count 30 pg 27-31 [facility] Erythrocyte mean corpuscular hemoglobin concentration [Mass/volume] in Cord blood 32 g/dL 33-37 Below low normal [facility] Erythrocyte distribution width [Entitic volume] by Automated count 14 % 11-15 N [facility] Platelets [#/volume] in Blood by Automated count 249 10*3/uL 130-472 N [facility] Platelet mean volume [Entitic volume] in Blood 9.5 fL 9.1-13.1 N [facility] Neutrophils/100 leukocytes in Blood by Automated count 57.1 % 41- 77 [facility] Neutrophils [#/volume] in Blood by Automated count 4.3 U 1.7-7.6 N [facility] Lymphocytes/100 leukocytes in Blood by Automated count 29.1 % 14- 46 [facility] Lymphocytes [#/volume] in Blood by Automated count 2.2 U 0.6-4.6 N [facility] Monocytes/100 leukocytes in Blood by Automated count 9.7 % 4-12 N [facility] Monocytes [#/volume] in Blood by Automated count 0.7 U 0.2-1.2 N [facility] Eosinophils/100 leukocytes in Blood by Automated count 3.0 % 0-7 N [facility] Eosinophils [#/volume] in Blood by Automated count 0.2 U 0.0-0.5 N [facility] Basophils/100 leukocytes in Blood by Automated count 0.8 % 0.4-1 .3 N [facility] Basophils [#/volume] in Blood by Automated count 0.1 U 0.0-0.2 N [facility] NUCLEATED RED BLOOD CELL 0 % [facility] NUCLEATED RED BLOOD CELL# 0 U [facility] Immature granulocytes [Presence] in Blood by Automated count 0-2 N [facility] Immature granulocytes [#/volume] in Blood by Automated count 0.0 U 0-0.1 N [facility] Manual Differential panel - Blood NO [facility] ID Date Data Source [id number] 06/07/2021 08:50:00 AM EST [facility] Name Value Range Interpretation Code Description Data Kay rce(s) Supporting Document(s) Urea nitrogen [Mass/volume] in Serum or Plasma 23 mg/dL 9-23 [facility] Sodium [Moles/volume] in Serum or Plasma 144 mmol/L 132-146 [facility] Potassium [Moles/volume] in Serum or Plasma 4.1 mmol/L 3.5-5.5 [facility] Chloride [Moles/volume] in Serum or Plasma 109 mmol/L 99-109 [facility] Carbon dioxide, total [Moles/volume] in Serum or Plasma 30 mmol/L 20 -31 N [facility] Anion gap in Serum or Plasma 9 mmol/L 8-[address] [facility] Glucose [Mass/volume] in Serum or Plasma 113 mg/dL 74-106 Above high normal [facility] Creatinine 1.0 mg/dL 0.5-1.1 [facility] Glomerular filtration rate/1.73 sq M.pre dicted [Volume Rate/Area] in Serum or Plasma 56 ml/min ABOVE 60 [facility] ital Alanine aminotransferase [Enzymatic acti vity/volume] in Serum or Plasma by With P-5'-P 32 U/L 10-49 N [facility] ital Aspartate aminotransferase [Enzymatic ac tivity/volume] in Serum or Plasma by With P-5'-P 20 U/L 0-33 N [facility] pital Alkaline phosphatase [Enzymatic activity/volume] in Serum or Plasma 93 U/L 45-129 N [facility] Calcium [Mass/volume] in Serum or Plasma 8.8 mg/dL 8.5-10.1 N [facility] Bilirubin.total [Mass/volume] in Serum or Plasma 0.7 mg/dL 0.3-1.2 N [facility] Albumin [Mass/volume] in Serum or Plasma by Bromocresol purple (BCP) dye binding method 3.7 g/dL 3.2-4.8 N [facility] ital Protein [Mass/volume] in Serum or Plasma 7.5 g/dL 5.7-8.2 [facility] ID Date Data Source [id number] 06/08/2021 07:21:00 AM EST [facility] Name Value Range Interpretation Code Description Data Kay rce(s) Supporting Document(s) 25-Hydroxyvitamin D2+25-Hydroxyvitamin D3 [Mass/volume ] in Serum or Plasma 36 ng[facility]mL 30[facility] Status 25-OH Vitamin D :Deficiency: <20 ng/mLInsufficiency: 20 - 29 ng/mLOptimal: > or = 30 ng/mLFor 25-OH Vitamin D testing on patients onD2-supplementation and patients for whom quantitationof D2 and D3 fractions is required, the QuestAssureD(TM)25- [place] VIT D, (D2,D3), LC/MS/MS is recommended: ordercode 22994 (patients >2yrs).See Note 1Note 1For additional information, please refer tohttp://education.[employer]/faq/SOB919(This link is being provided for informational/educational purposes only.)THIS TEST WAS PERFORMED AT:[facility] [id number] TRIMBLE MD ID Date Data Source [id number] 06/07/2021 08:50:00 AM [facility] Name Value Range Interpretation Code Description Data Kay rce(s) Supporting Document(s) Triglycerides 125 mg/dL 0-150 N [facility] Cholesterol 157 mg/dL 120-200 N [facility] HDL Cholesterol 49 mg/dL [facility] HDL Less than 40 mg/dL: Major risk for CHDHDL Greater than 59 mg/dL: Low risk for CHD LDL Cholesterol, Calc 83 mg/dL 0-100 N [facility] ID Date Data Source [id number] 06/07/2021 08:50:00 AM [facility] Name Value Range Interpretation Code Description Data Kay rce(s) Supporting Document(s) Thyrotropin [Units/volume] in Serum or Plasma by Detec tion limit <= 0.005 mIU/L 0.83 u[iU]/mL 0.35[facility] Date Data Source [id number] 05/21/2021 09:09:00 AM EDT [facility] Patient Name: MARII DYKES DO B: 1955 Sex: F Pt Unit #: [id number] Location:[facility] Provider: Visit Date/Time: 05/21/21 Primary Insurance: [facility] Secondary Insurance: Self Pay ADDENDUM exam and history reviewed, cleared for surgery <Electronically signed by Jacy Franz MD> 05/28/21 1231 Intake Vital Signs 05/21/21 09:10 Current Height 5 ft 2 in Current Weight 223 lb Weight Measurement Method Standing Scale BMI 40.8 BP 118/62 Blood Pressure Location Rt brachial Position Sitting Respiration 12 Pulse 66 Pulse Strength Normal Pulse Source Pulse Oximeter Pulse Oximetry (%) 98 Oxygen Delivery Method room air Intake Visit Reasons: Hyperlipidemia, Hypothyroidism Nurse Note: 3 month follow up Thyroid and Cholesterol, states she had an X-ray this morning for her Kidney stones, no t having any issues with it, but Urologist at [facility] ordered it. Pt is not willing to have Mammo done until 07/18- states she does them every 2 years, Not yearly as recommended. Has had COVID shots, and is planning on getting her HD flu at [facility] the Pharmacy as we do not have any HD flu right now. Mobile Sales Consultant Required: No Accompanied by: Self / Same as Patient Is patient in pain?: No Allergies No Known Drug Allergies Allergy (Verified 11/02/20 10:53) No Known Food Allergies Allergy (Unverified 05/21/21 09:12) Medications - Last Reconciled 05/21/21 by Jacy Franz M.D. biotin 10,000 mcg PO DAILY calcium carbonate-vitamin D3 600 mg(1,500mg) -200 unit 1 ea PO DAILY Imitrex (sumatriptan succinate) 50 mg PO Q2H 75 days PRN MDD 4 NS Lipitor (atorvastatin) 40 mg PO DAILY 90 days NS multivitamin (Daily Multi-Vitamin) 1 tab PO DAILY Synthroid (levothyroxine) 100 mcg PO QDAY 30 days NS tramadol 50 mg PO Q8H 7 days PRN MDD 3 Is last menstrual period known: No Post menopausal: Yes Patient : Yes Fall Risk History of falls: No [...] Requirement for HIV testing offer been met?: Not in age range Hep C Testing Offered: Yes Hep C [...] a note to return to daycare/school/sports/work: No HPI Additional HPI HPI Details: has not felt well, feels mostly due to renal calculus, had x ray, following with urology Hyperlipidemia denies headache(s), chest pain or dyspnea Most Recent Cardiac Tests: No Data to Display Hypothyroidism Current symptoms: Reports fatigue; Denies weight loss or poor appetite PFSH Medical History (Updated 05/21/21 @ 12:26 by Jacy Franz M.D.) Hyperlipidemia Hypothyroidism Migraine Pityriasis lichenoides chronica Right rotator cuff tear Trigger finger, left middle finger Trigger thumb of left hand Trigger thumb, left thumb Trigger thumb, right thumb Vitamin D deficiency Surgical History History of - artificial joint History of - surgery ( 05/2014) History of arthroscopy of right shoulder (08/18/20) History of hysterectomy ( 1985) History of lithotripsy History of orthopedic surgery Family History Mother No problems noted. Father No problems noted. Brother No problems noted. Brother No problems noted. Brother No problems noted. Brother No problems noted. Sister No problems noted. Sister No problems noted. Sister No problems noted. Sister No problems noted. Social History Does the Patient have a Healthcare Proxy: Yes (Alberto Dykes) Does Patient have a DNR?: No Does Patient have a Living Will?: No Advance Directives on File or in chart?: No Hx Recent Travel (where): No Smoking Status: Former smoker Tobacco: How many years used: 37 how long ago did patient quit smokin years ago Review of Systems Const Denies chills, Reports fatigue, Denies fever(s), Denies headache(s), Denies night sweats, Denies poor appetite, Denies weakness, Denies weight gain and Denies weight loss Eyes Denies blurry vision, Denies diplopia and Denies eye discharge ENT Denies vertigo, Denies dizziness, Denies otalgia, Denies headache(s), Denies nasal congestion and Denies sore throat Card Denies chest pain, Denies palpitations and Denies dyspnea Resp Denies cough, Denies dyspnea and Denies wheezing GI Reports abdominal pain, Denies constipation, Denies diarrhea, Denies nausea and Denies vomiting Genitourin radha: Denies abnormal vaginal bleeding, dysuria, urinary frequency or urinary incontinence Musc Denies back pain, Denies arthralgias, Denies limited range of motion and Denies numbness Skin/Breast Denies breast pain, Denies change in hair, Denies lesions and Denies rash Neuro Denies vertigo, Denies dizziness, Denies headache(s), Denies numbness and Denies weakness Psych Denies abnormal sleep pattern, Denies anxiety, Denies depression and Denies irritability Endo Reports fatigue, Denies polydipsia, Denies polyuria and Denies palpitations Yuri/Lymph Denies easy bleeding, Denies easy bruising and Denies lymphadenopathy Aller/Immun Denies wheezing Exam Const General: cooperative and no acute distress Nutritional Appearance: average body habitus Orientation: alert and awake Resp Effort Inspection: normal respiratory effort Auscultation: no rales, no rhonchi and no wheezes Cardio Rate: regular rate Rhythm: regular rhythm GI Palpation: soft, no masses and nontender General: No CVA tenderness Extrem General: no clubbing, cyanosis or edema Assessment Plan Assessment Plan (1) Hyperlipidemia: Status: Acute Code(s): E78.5 - Hyperlipidemia, unspecified SNOMED Code(s): 22800687 Category: Medical Qualifiers: Hyperlipidemia type: mixed hyperlipidemia Qualified Code(s): E78.2 - Mixed hyperlipidemia (2) Hypothyroidism: Status: Acute Code(s): E03.9 - Hypothyroidism, unspecified SNOMED Code(s): 88823371 Category: Medical Qualifiers: Hypothyroidism type: acquired Qualified Code(s): E03.9 - Hypothyroidism, unspecified (3) Renal lithiasis: Status: Acute Code(s): N20.0 - Calculus of kidney SNOMED Code(s): 56674680 Category: Medical Plan: x ray reviewed, she will follow with urology, due labs, see 3 months, immunizations advised Orders: Orders CMP 2 Weeks E03.9 - Hypothyroidism, unspecified LIPID PANEL 2 Weeks E03.9 - Hypothyroidism, unspecified TSH 2 Weeks E03.9 - Hypothyroidism, unspecified CBC W AUTO DIFF 2 Weeks E03.9 - Hypothyroidism, unspecified Vitamin D 25-OH 2 Weeks E55.9 - Vitamin D deficiency, unspecified Orders Instructions: Hypothyroidism (GEN) Coding Level of Care Code 04129 Est Pt Intermediate Comp Diagnoses Hyperlipidemia E78.2 Hyperlipidemia type: mixed hyperlipidemia Hypothyroidism E03.9 Hypothyroidism type: acquired Renal lithiasis N20.0 Additional Codes Intake - Is patient in pain?: No ([id number]) <Electronically signed by Jacy Franz MD> 05/21/21 1230 Name Value Range Interpretation Code Description Data Kay rce(s) Supporting Document(s) ID Date Data Source [id number] 05/21/2021 08:41:00 AM EDT [facility] [address] [place] [address] [phone] NAME SEX PT STATUS ACCOUNT NUMBER MARII DYKES PRE REF [id number] ORDERING PHYSICIAN LOCATION MEDICAL RECORD NO. Katherine PRITCHETT [facility] [id number] ATTENDING PHYSICIAN DATE OF DATE OF EXAM/TIME Jacy Franz MD 1955 05/21/21836 TYPE / EXAM Xray Abdomen 1 View (KUB) REASON FOR EXAM KIDNEY STONE CLINICAL HISTORY: [facility] KIDNEY STONE TECHNIQUE: KUB: 3 views provided. COMPARISON: Comparison KUB September 24, 2020. Comparison CT study March 05, 2021.. FINDINGS: There are no dilated loops of bowel to suggest an obstruction. There is no evidence of free air. There is scattered stool throughout the colon and rectum. There is a curvilinear calcification overlying the left renal pelvic region may be intrarenal nephrolithiasis versus vascular calcification. Psoas margins are symmetric. Flank stripes appear intact. No mass, organomegaly, or pathologic calcification is seen. IMPRESSION: 3 mm curvilinear calcification overlies the left kidney may reflect intrarenal nephrolithiasis versus vascular calcification. Unchanged from prior study September 24, 2020. Otherwise negative supine abdominal radiographs. Reported By Mahendra Waters MD on 05/21/2141 Signed By Mahendra Waters MD on 05/21/21 0845 Date Time CC: Mahendra Waters M.D.; Jacy Franz MD Techn: CARMEGGAN Trans Dt/Tm: Trans by: DT Prt Dt/Tm: [id number]: Total DLP = 0.00 mGy-cm Fluoroscopy Time (in secs): Name Value Range Interpretation Code Description Data Kay rce(s) Supporting Document(s) ID Date Data Source [id number] 03/05/2021 09:27:00 AM EDT [facility] [address] [place] [address] [phone] NAME SEX PT STATUS ACCOUNT NUMBER MARII DYKES REG REF [id number] ORDERING PHYSICIAN LOCATION MEDICAL RECORD NO. Sue WILKINS [facility] [id number] ATTENDING PHYSICIAN DATE OF DATE OF EXAM/TIME Jacy Franz MD 1955 03/05/21840 TYPE / EXAM CT Abd/pel w/o contrast REASON FOR EXAM OBSTRUCTION OF LEFT URETEROPELVIC JUNCTION DUE TO STONES CLINICAL HISTORY: [facility] OBSTRUCTION OF LEFT URETEROPELVIC JUNCTION DUE TO STONES COMPARISON: January 31, 2021 TECHNIQUE: CT images through the abdomen and pelvis obtained without intravenous contrast. Dose reduction techniques were used including automated exposure control and adjustment of mA and/or KV according to patient size. Radiation dose: DLP: 643 FINDINGS: LUNG BASES: Unremarkable LIVER: No focal mass lesions. No intrahepatic biliary ductal dilatation. GALLBLADDER: CT appearance is unremarkable. SPLEEN: Unremarkable. PANCREAS: Normal CT appearance. ADRENALS: No nodules. KIDNEYS: Right kidney is normal in appearance without hydronephrosis. Left kidney again shows a small stone within the renal pelvis measuring 4 mm unchanged in position. There is no hydronephrosis. BOWEL: There is stable diverticular change of the left colon. Bowel is otherwise unremarkable. MESENTERY/PERITONEUM: Unremarkable. NODES: Nondilated. PELVIS: Uterus is surgically absent.. BONE WINDOWS: There are degenerative changes within the spine particularly of the facet joints at L5-S1. VASCULATURE: Normal, without aneurysm or significant atherosclerotic disease. SOFT TISSUES: Unremarkable. IMPRESSION: Stable small stone in the left renal pelvis without hydronephrosis. Surgical absence of the uterus. Stable colonic diverticulosis. Reported By Josesito Pate MD on 03/05/21926 Signed By Josesito Pate MD on 03/05/21930 Date Time CC: Josesito Pate M.D.; Jacy Franz MD Techn: DADA Trans Dt/Tm: Trans by: DT Prt Dt/Tm: : Total DLP = 643.00 mGy-cm : Total Radiation Dose = 9.6450 mSv Lifetime Dose: 39.7650 mSv Name Value Range Interpretation Code Description Data Kay rce(s) Supporting Document(s) ID Date Data Source [id number] 02/05/2021 08:50:00 AM EDT [facility] Patient Name: MARII DYKES DO B: 1955 Sex: F Pt Unit #: [id number] Location:[facility] Provider: Visit Date/Time: 02/05/21 Primary Insurance: [facility] Secondary Insurance: Self Pay Intake Vital Signs 02/05/21 08:55 Current Height 5 ft 2 in Current Weight 224 lb Weight Measurement Method Standing Scale BMI 40.9 BP 162/88 Blood Pressure Location Rt brachial Position Sitting Respiration 12 Pulse 66 Pulse Strength Normal Pulse Source Pulse Oximeter Pulse Oximetry (%) 96 Oxygen Delivery Method room air Intake Visit Reasons: Hypothyroidism, Hyperlipidemia Nurse Note: 3 month follow up- Cholesterol and Thyroid also having issues with Kidney stones?? - Had Blood work done - feels that her thyroid mediation needs to be increased, she states her weight gain is still an issue, and her hair is still falling out, and she is blaming all this on her thryoid even though her level with WNL Mobile Sales Consultant Required: No Allergies No Known Drug Allergies Allergy (Verified 11/02/20 10:53) Medications - Last Reconciled 02/05/21 by Jacy Franz M.D. atorvastatin (Lipitor) 40 mg PO DAILY biotin 10,000 mcg PO DAILY calcium carbonate-vitamin D3 600 mg(1,500mg) -200 unit 1 ea PO DAILY Flomax (tamsulosin) 0.4 mg PO DAILY NS Imitrex (sumatriptan succinate) 50 mg PO Q2H 75 days PRN MDD 4 NS multivitamin (Daily Multi-Vitamin) 1 tab PO DAILY Synthroid (levothyroxine) 100 mcg PO QDAY 30 days NS tramadol 50 mg PO Q8H 7 days PRN MDD 3 Is last menstrual period known: No Post [...] Requirement for HIV testing offer been met?: Not in age range Do you need a note to return Do you need a note to return to daycare/school/sports/work: No Coronavirus Screening Screening Are you currently positive or on isolation for COVID ?: No Do you have any NEW signs of one or more of the following?: no symptoms Do you have NEW signs of at least two of the following?: no symptoms HPI Additional HPI HPI Details: annual physical, concerns re thyroid, weight gain Hyperlipidemia denies headache(s), chest pain or dyspnea Most Recent Cardiac Tests: No Data to Display Hypothyroidism Current symptoms: Reports fatigue; Denies weight loss or poor appetite PFSH Medical History Hyperlipidemia Hypothyroidism Migraine Pityriasis lichenoides chronica Right rotator cuff tear Vitamin D deficiency Surgical History History of - artificial joint History of - surgery ( 05/2014) History of arthroscopy of right shoulder (08/18/20) History of hysterectomy ( 1985) History of lithotripsy History of orthopedic surgery Family History Mother No problems noted. Father No problems noted. Brother No problems noted. Brother No problems noted. Brother No problems noted. Brother No problems noted. Sister No problems noted. Sister No problems noted. Sister No problems noted. Sister No problems noted. Social History Does the Patient have a Healthcare Proxy: Yes (Alberto Dykes) Does Patient have a DNR?: No Does Patient have a Living Will?: No Advance Directives on File or in chart?: No Hx Recent Travel ([facility]): No Smoking Status: Former smoker Tobacco: How many years used: 37 how long ago did patient quit smokin years ago Review of Systems Const Denies chills, Reports fatigue, Denies fever(s), Denies headache(s), Denies night sweats, Denies poor appetite, Denies weakness, Reports weight gain and Denies weight loss Eyes [...] and Denies vomiting Genitourinary: Denies abnormal vaginal bleeding, metrorrhagia or dysuria Musc Denies back pain, Denies arthralgias, Denies limited range of motion and Denies numbness Skin/Breast Denies breast pain, Reports change in hair, Denies lesions and Denies rash Neuro Denies vertigo, Denies dizziness, Denies headache(s), Denies numbness and Denies weakness Psych Denies abnormal sleep pattern, Denies anxiety, Denies depression and Denies irritability Endo Reports fatigue, Denies polydipsia, Denies polyuria and Denies palpitations Yuri/Lymph Denies easy bleeding, Denies easy bruising and Denies lymphadenopathy Aller/Immun Denies wheezing Exam Const General: cooperative, healthy appearing and no acute distress Nutritional Appearance: well nourished [facility] Head: normal to inspection, normocephalic and atraumatic Ears: TM's normal bilaterally and EAC's normal General nose exam: external nose normal; No no nasal discharge noted Mouth: oral mucosae normal Throat: posterior oropharynx normal and no postnasal drainage Eyes General: appearance normal, both eyes and all related structures Conjunctivae: conjunctivae normal Sclera: sclerae normal Neck Neck: normal visual inspection and full ROM Thyroid: thyroid normal Lymphatic: no lymphadenopathy noted Chest Chest: normal [...] clubbing, cyanosis or edema Psych Appearance: grossly normal Mental Status: mental status grossly normal Assessment Plan Assessment Plan (1) Hyperlipidemia: Status: Acute Code(s): E78.5 - Hyperlipidemia, unspecified SNOMED Code(s): 95585192 Category: Medical Qu alifiers: Hyperlipidemia type: mixed hyperlipidemia Qualified Code(s): E78.2 - Mixed hyperlipidemia (2) Hypothyroidism: Status: Acute Code(s): E03.9 - Hypothyroidism, unspecified SNOMED Code(s): 83036481 Category: Medical Qualifiers: Hypothyroidism type: acquired Qualified Code(s): E03.9 - Hypothyroidism, unspecified (3) Encounter for routine adult health examination with abnormal findings: Code(s): Z00.01 - Encounter for general adult medical examination with abnormal findings Plan: discussed thyroid with concerns re weight, hair, kidney stones, . last tsh normal, offered endocrinereferral, refused at present, check TSH 1 month, see 3 months or as needed, discussed weight , diet and exercise Orders: Orders TSH 1 Month E03.9 - Hypothyroidism, unspecified Orders Instructions: Hypothyroidism (GEN) Coding Level of Care Code 75987 Well 40-64 (Est) Diagnoses Hyperlipidemia E78.2 Hyperlipidemia type: mixed hyperlipidemia Hypothyroidism E03.9 Hypothyroidism type: acquired Encounter for routine adult health examination with abnormal findings Z00.01 <Electronically signed by Jacy Franz MD> 02/05/21 1258 Name Value Range Interpretation Code Description Data Kay rce(s) Supporting Document(s) ID Date Data Source [id number] 02/05/2021 08:14:00 AM T [facility] Name Value Range Interpretation Code Description Data Kay rce(s) Supporting Document(s) Magnesium [Mass/volume] in Serum or Plasma 2.1 mg/dL 1.3-2.7 N [facility] ID Date Data Source [id number] 02/05/2021 08:38:00 AM [facility] Name Value Range Interpretation Code Description Data Kay rce(s) Supporting Document(s) Vitamin B12 555 pg/mL 211-911 N [facility] Hospital ID Date Data Source [id number] 02/06/2021 06:55:00 AM [facility] Name Value Range Interpretation Code Description Data Kay rce(s) Supporting Document(s) 25-Hydroxyvitamin D2+25-Hydroxyvitamin D3 [Mass/volume ] in Serum or Plasma 25 ng/mL 30-100 [facility] Vitamin D Status 25-OH Vitamin D :Deficiency: <20 ng/mLInsufficiency: 20 - 29 ng/mLOptimal: > or = 30 ng/mLFor 25-OH Vitamin D testing on patients onD2-supplementation and patients for whom quantitationof D2 and D3 fractions is required, the QuestAssureD(TM)25- [place] VIT D, (D2,D3), LC/MS/MS is recommended: ordercode 10911 (patients >2yrs).See Note 1Note 1For additional information, please refer tohttp://education.[employer]/faq/ASP821(This link is being provided for informational/educational purposes only.)THIS TEST WAS PERFORMED AT:[facility] [address]MACHELLE TRIMBLE MD ID Date Data Source [id number] 02/05/2021 08:14:00 AM [facility] Name Value Range Interpretation Code Description Data Kay rce(s) Supporting Document(s) Thyrotropin [Units/volume] in Serum or Plasma by Detec tion limit <= 0.005 mIU/L 2.23 u[iU]/mL 0.35-5.50 [facility] al ID Date Data Source [id number] 01/01/2021 01:08:00 PM [facility] [address] [place] [address] [phone] NAME SEX PT STATUS ACCOUNT NUMBER MARII DYKES REG REF [id number] ORDERING PHYSICIAN LOCATION MEDICAL RECORD NO. MELI SINHA [place] [id number] ATTENDING PHYSICIAN DATE OF DATE OF EXAM/TIME Jacy Franz MD 1955 01/01/2138 TYPE / EXAM CT Abd/pel w/o contrast REASON FOR EXAM OBSTRUCTION OF LEFT URETEROPELVIC JUNCTION DUE TO STONE COMPARISON: None available. TECHNIQUE: CT images through the abdomen and pelvis obtained without intravenous contrast. FINDINGS: LUNG BASES: Unremarkable LIVER: No focal mass lesions. No intrahepatic biliary ductal dilatation. GALLBLADDER: CT appearance is unremarkable. SPLEEN: Unremarkable. PANCREAS: Normal CT appearance. ADRENALS: No nodules. KIDNEYS: No solid lesions. The right kidney is unremarkable. The left kidney demonstrates mild hydronephrosis with a 3.9 mm calculus in the region of the right UPJ. There is mild left-sided hydroureter seen to the bladde r however there is no evidence of UVJ calculus or bladder calculus. This could represent a recently passed calculus. BOWEL: Nondilated. MESENTERY/PERITONEUM: Unremarkable. NODES: Nondilated. PELVIS: Diverticular disease is seen in the sigmoid colon without evidence of diverticulosis.. BONE WINDOWS: No aggressive osseous abnormalities. VASCULATURE: Normal, without aneurysm or significant atherosclerotic disease. SOFT TISSUES: Unremarkable. IMPRESSION: Small left-sided UPJ calculus but does not appear to be obstructing with mild left-sided hydronephrosis. A mildly dilated left ureter may be due to the recent passage of a calculus. Reported By Kellie Brewer MD on 01/01/21 1308 Signed By Kellie Brewer MD on 01/01/21 1329 Date Time CC: Kellie Brewer MD; Jacy Franz MD Techn: FROSA Trans Dt/Tm: Trans by: DT Prt Dt/Tm: : Total DLP = 677.00 mGy-cm : Total Radiation Dose = 10.1550 mSv Lifetime Dose: 30.1200 mSv Name Value Range Interpretation Code Description Data Kay rce(s) Supporting Document(s) ID Date Data Source [id number] 12/26/2020 07:57:00 AM EDT [facility] Name Value Range Interpretation Code Description Data Kay rce(s) Supporting Document(s) Leukocytes [#/volume] in Blood by Automated count 6.7 10*3/uL 4.45-10 .71 N [facility] Erythrocytes [#/volume] in Blood by Automated count 4.68 10*6/uL 4.20 -5.40 N [facility] Hemoglobin [Moles/volume] in Blood 12.8 g/dL 10.7-15.4 N [facility] Hematocrit [Volume Fraction] of Blood by Automated count 40.4 % 3 7-47 N [facility] Erythrocyte mean corpuscular volume [Ent itic volume] in Cord blood by Automated count 86 fL 80-96 N [facility] ital Erythrocyte mean corpuscular hemoglobin [Entitic mass] by Au tomated count 27 pg 27-31 N [facility] Erythrocyte mean corpuscular hemoglobin concentration [Mass/volume] in Cord blood 32 g/dL 33-37 Below low normal [facility] Erythrocyte distribution width [Entitic volume] by Automated cou nt 16 % 11-15 Above high normal [facility] Platelets [#/volume] in Blood by Automated count 256 10*3/uL 130-472 N [facility] Platelet mean volume [Entitic volume] in Blood 9.8 fL 9.1-13.1 N [facility] Neutrophils/100 leukocytes in Blood by Automated count 56.4 % 41- 77 N [facility] Neutrophils [#/volume] in Blood by Automated count 3.8 U 1.7-7.6 N [facility] Lymphocytes/100 leukocytes in Blood by Automated count 30.0 % 14- 46 N [facility] Lymphocytes [#/volume] in Blood by Automated count 2.0 U 0.6-4.6 N [facility] Monocytes/100 leukocytes in Blood by Automated count 10.0 % 4-12 N [facility] Monocytes [#/volume] in Blood by Automated count 0.7 U 0.2-1.2 N [facility] Eosinophils/100 leukocytes in Blood by Automated count 2.7 % 0-7 N [facility] Eosinophils [#/volume] in Blood by Automated count 0.2 U 0.0-0.5 N [facility] Basophils/100 leukocytes in Blood by Automated count 0.6 % 0.4-1 .3 N [facility] Basophils [#/volume] in Blood by Automated count 0.0 U 0.0-0.2 N [facility] NUCLEATED RED BLOOD CELL 0 % [facility] NUCLEATED RED BLOOD CELL# 0 U [facility] Immature granulocytes [Presence] in Blood by Automated count 0-2 N [facility] Immature granulocytes [#/volume] in Blood by Automated count 0.0 U 0-0.1 N [facility] Manual Differential panel - Blood NO [facility] ID Date Data Source [id number] 12/26/2020 09:08:00 AM EDT [facility] Name Value Range Interpretation Code Description Data Kay rce(s) Supporting Document(s) Urea nitrogen [Mass/volume] in Serum or Plasma 17 mg/dL 9-23 N [facility] Sodium [Moles/volume] in Serum or Plasma 142 mmol/L 132-146 [facility] Potassium [Moles/volume] in Serum or Plasma 4.3 mmol/L 3.5-5.5 [facility] Chloride [Moles/volume] in Serum or Plasma 109 mmol/L 99-109 [facility] Carbon dioxide, total [Moles/volume] in Serum or Plasma 27 mmol/L 20 -31 [facility] Anion gap in Serum or Plasma 10 mmol/L 8-16 [facility] Glucose [Mass/volume] in Serum or Plasma 133 mg/dL 74-106 Above high normal [facility] Creatinine 0.9 mg/dL 0.5-1.1 [facility] Glomerular filtration rate/1.73 sq M.pre dicted [Volume Rate/Area] in Serum or Plasma Greater Than 60 ABOVE 60 [facility] Alanine aminotransferase [Enzymatic acti vity/volume] in Serum or Plasma by With P-5'-P 30 U/L 10-49 N [facility] ital Aspartate aminotransferase [Enzymatic ac tivity/volume] in Serum or Plasma by With P-5'-P 23 U/L 0-33 N [facility] pital Alkaline phosphatase [Enzymatic activity/volume] in Serum or Plasma 90 U/L 45-129 N [facility] Calcium [Mass/volume] in Serum or Plasma 8.7 mg/dL 8.5-10.1 [facility] Bilirubin.total [Mass/volume] in Serum or Plasma 0.5 mg/dL 0.3-1.2 [facility] Albumin [Mass/volume] in Serum or Plasma by Bromocresol purple (BCP) dye binding method 3.7 g/dL 3.2-4.8 [facility] ital Protein [Mass/volume] in Serum or Plasma 7.4 g/dL 5.7-8.2 [facility] ID Date Data Source [id number] 12/26/2020 09:08:00 AM [facility] Value Range Interpretation Code Description Data Kay rce(s) Supporting Document(s) Iron [Mass/volume] in Serum or Plasma 60 ug/dL 50-170 [facility] Iron values may be falsely elevated in s ever samples frompatients treated with anticoagulants (e.g., hemodialysispatients) Iron binding capacity [Moles/volume] in Serum or Plasma 16 20-55 Below low normal [facility] Iron binding capacity [Mass/volume] in Serum or Plasma 387 ug/dL 250 -450 [facility] ID Date Data Source [id number] 12/26/2020 09:08:00 AM [facility] Name Value Range Interpretation Code Description Data Kay rce(s) Supporting Document(s) Thyroxine (T4) free [Mass/volume] in Serum or Plasma 1.00 ng/dL 0.89- 1.76 [facility] ID Date Data Source [id number] 12/26/2020 09:08:00 AM [facility] Value Range Interpretation Code Description Data Kay rce(s) Supporting Document(s) Thyrotropin [Units/volume] in Serum or Plasma by Detec tion limit <= 0.005 mIU/L 11.20 u[iU]/mL 0.35-5.50 Above high normal [facility] @Review & document.@A repeat was not nee ded due to historical results. [facility] ID Date Data Source [id number] 11/06/2020 03:34:00 PM [facility] Patient Name: MARII DYKES DO B: 1955 Sex: F Pt Unit #: [id number] [facility] Provider: Visit Date/Time: 11/06/20 Primary Insurance: [facility] Secondary Insurance: Self Pay Intake Vital Signs 11/06/20 15:35 Current Height 5 ft 2 in Current Weight 205 lb Weight Measurement Method Most recent on chart BMI 37.5 BP 116/76 Respiration 16 Pulse 94 Pulse Oximetry (%) 95 Oxygen Delivery Method room air Intake Visit Reasons: PO right shoulder surg 08/18 [place] Is patient in pain?: No Allergies No Known Drug Allergies Allergy (Verified 11/02/20 10:53) HIV Testing Offer - ages 13-64 Requirement for HIV testing offer been met?: Not in age range Coronavirus Screening Screening Are you currently positive or on isolation for COVID ?: No Do you have any NEW signs of one or more of the following?: no symptoms Do you have NEW signs of at least two of the following?: no symptoms HPI Additional HPI HPI Details: Patient is a 65 year old female here for 11 week post op of a arthroscopy right shoulder with subacromial decompression, long head biceps tenotomy, distal clavicle resection followed by double row rotator cuff repair performed on 08/18/20. Patient has had significant improvement since last office visit. She has minimal to no discomfort. She is doing predominantly home exercises andvisiting with physical therapy twice a month. Patient has regained full functional range of motion of the right shoulder since last office visit. Patient continues to avoid any aggravating factors or heavy lifting. [facility] Medical History (Updated 11/02/20 @ 14:31 by Evelio Danielle) Hyperlipidemia Hypothyroidism Migraine Pityriasis lichenoides chronica Right rotator cuff tear Vitamin D deficiency Surgical History (Updated 11/06/20 @ 15:36 by Hattie Luevano) History of - artificial joint History of - surgery ( 05/2014) History of arthroscopy of right shoulder (08/18/20) History of hysterectomy ( 1985) History of lithotripsy History of orthopedic surgery Family History Mother No problems noted. Father No problems noted. Brother No problems noted. Brother No problems noted. Brother No problems noted. Brother No problems noted. Sister No problems noted. Sister No problems noted. Sister No problems noted. Sister No problems noted. Social History Does the Patient have a Healthcare Proxy: Yes (Alberto Dykes) Does Patient have a DNR?: No Does Patient have a Living Will?: No Advance Directives on File or in chart?: No Hx Recent Travel (where): No Smoking Status: Former smoker Tobacco: How many years used: 37 how long ago did patient quit smokin years ago Exam Extrem Other: Arthroscopy incisions the right shoulder are fully hea led. Patient surprisingly has regainedfull pain-free active range of motion of the right shoulder despite only being 11 months out from massive rotator cuff repair. Mild tenderness laterally at rotator cuff insertion otherwise nontender throughout the right shoulder. Isometrically is 5/5 internal as well as external rotationof the right shoulder. Intact sensation throughout the right upper extremity with intact peripheralpulses. Assessment Plan Assessment Plan (1) Rotator cuff tear, non-traumatic: Status: Acute Code(s): M75.100 - Unspecified rotator cuff tear or rupture of unspecified shoulder, not specified as traumatic SNOMED Code(s): 559570234 Category: Medical Qualifiers: Rotator cuff tear extent: complete Laterality: right Qualified Code(s): M75.121 - Completerotator cuff tear or rupture of right shoulder, not specified as traumatic Plan - Hanane Hoover PA-C: Patient is 11 weeks status post right shoulder massive rotator cuff repair. Patient has no pain. She has regained full functional active range of motion of the right shoulder. She has regained range of motion with predominantly home exercise program. At this time she will continue with home exercises to maintain excellent range of motion as well as increase strengthening exercises. She isto continue to avoid overhead activities or any heavy lifting. She is to follow-up in 2 months again for repeat evaluation. Coding Level of Care Code 67274 Global Follow-Up Diagnoses Rotator cuff tear, non-traumatic M75.121 Rotator cuff tear extent: complete Laterality: right <Electronically signed by Hanane Warren> 11/06/20 1722 Name Value Range Interpretation Code Description Data Kay rce(s) Supporting Document(s) ID Date Data Source [id number] 11/02/2020 12:40:00 PM EDT [facility] [address] [place] [address] [phone] NAME SEX PT STATUS ACCOUNT NUMBER MARII DYKES [facility] ER [id number] ORDERING PHYSICIAN LOCATION MEDICAL RECORD NO. Evelio Danielle MD ER [id number] ATTENDING PHYSICIAN DATE OF DATE OF EXAM/TIME Jacy Franz MD 1955 11/02/201216 TYPE / EXAM CT Abd/pel w/o contrast REASON FOR EXAM Left CVA tenderness, hematuria, history of kidney COMPARISON: 07/17/2020 TECHNIQUE: CT images through the abdomen and pelvis obtained without intravenous contrast. FINDINGS: LUNG BASES: Unremarkable small hiatus hernia LIVER: No focal mass lesions. No intrahepatic biliary ductal dilatation. GALLBLADDER: CT appearance is unremarkable. SPLEEN: Unremarkable. PANCREAS: Normal CT appearance. ADRENALS: No nodules. KIDNEYS: The right kidney is unremarkable. Left kidney shows mild to moderate hydronephrosis with the larger left renal calculus changed in position now at the left UVJ with hydroureter measuring approximately 5.7 mm. The smaller left-sided calculus in the region of the left renal pelvis is still present measuring approximately 4 mm... Pelvicalyceal reflux is reidentified unchanged BOWEL: Nondilated. Diffuse diverticulosis without evidence of diverticulitis. MESENTERY/PERITONEUM: Unremarkable. NODES: Nondilated. PELVIS: Unremarkable. BONE WINDOWS: No aggressive osseous abnormalities. VASCULATURE: Normal, without aneurysm or significant atherosclerotic disease. SOFT TISSUES: Unremarkable. IMPRESSION: New obstructing calculus at the left UVJ that has moved left UP J with hydronephrosis and hydroureter. A smaller left pelvic calculus is unchanged. Reported By Kellie Brewer MD on 11/02/20 1240 Signed By Kellie Brewer MD on 11/02/20 1254 Date Time CC: Kellie Brewer MD; Jacy Franz MD Techn: CUMME Trans Dt/Tm: Trans by: DT Prt Dt/Tm: 2879-4434: Total DLP = 599.00 mGy-cm 5342-8155: Total Radiation Dose = 8.9850 mSv Lifetime Dose: 19.9650 mSv Name Value Range Interpretation Code Description Data Kay rce(s) Supporting Document(s) ID Date Data Source [id number] 11/02/2020 11:23:00 AM EDT [facility] Name Value Range Interpretation Code Description Data Kay rce(s) Supporting Document(s) Leukocytes [#/volume] in Blood by Automated count 8.3 10*3/uL 4.45-10 .71 N [facility] Erythrocytes [#/volume] in Blood by Automated count 4.66 10*6/uL 4.20 -5.40 N [facility] Hemoglobin [Moles/volume] in Blood 12.9 g/dL 10.7-15.4 N [facility] Hematocrit [Volume Fraction] of Blood by Automated count 40.8 % 3 7-47 N [facility] Erythrocyte mean corpuscular volume [Ent itic volume] in Cord blood by Automated count 88 fL 80-96 N [facility] ital Erythrocyte mean corpuscular hemoglobin [Entitic mass] by Au tomated count 28 pg 27-31 N [facility] Erythrocyte mean corpuscular hemoglobin concentration [Mass/volume] in Cord blood 32 g/dL 33-37 Below low normal [facility] Erythrocyte distribution width [Entitic volume] by Automated count 14 % 11-15 N [facility] Platelets [#/volume] in Blood by Automated count 278 10*3/uL 130-472 N [facility] Platelet mean volume [Entitic volume] in Blood 9.7 fL 9.1-13.1 N [facility] Neutrophils/100 leukocytes in Blood by Automated count 61.3 % 41- 77 N [facility] Neutrophils [#/volume] in Blood by Automated count 5.1 U 1.7-7.6 N [facility] Lymphocytes/100 leukocytes in Blood by Automated count 26.2 % 14- 46 [facility] Lymphocytes [#/volume] in Blood by Automated count 2.2 U 0.6-4.6 N [facility] Monocytes/100 leukocytes in Blood by Automated count 8.7 % 4-12 N [facility] Monocytes [#/volume] in Blood by Automated count 0.7 U 0.2-1.2 N [facility] Eosinophils/100 leukocytes in Blood by Automated count 3.1 % 0-7 N [facility] Eosinophils [#/volume] in Blood by Automated count 0.3 U 0.0-0.5 N [facility] Basophils/100 leukocytes in Blood by Automated count 0.5 % 0.4-1 .3 N [facility] Basophils [#/volume] in Blood by Automated count 0.0 U 0.0-0.2 N [facility] NUCLEATED RED BLOOD CELL 0 % [facility] NUCLEATED RED BLOOD CELL# 0 U [facility] Immature granulocytes [Presence] in Blood by Automated count 0-2 N [facility] Immature granulocytes [#/volume] in Blood by Automated count 0.0 U 0-0.1 N [facility] Manual Differential panel - Blood NO [facility] ID Date Data Source [id number] 11/02/2020 12:59:00 PM EDT [facility] Name Value Range Interpretation Code Description Data Kay rce(s) Supporting Document(s) Urea nitrogen [Mass/volume] in Serum or Plasma 18 mg/dL 9-23 N [facility] Sodium [Moles/volume] in Serum or Plasma 140 mmol/L 132-146 [facility] Potassium [Moles/volume] in Serum or Plasma 4.0 mmol/L 3.5-5.5 [facility] Chloride [Moles/volume] in Serum or Plasma 108 mmol/L 99-109 [facility] Carbon dioxide, total [Moles/volume] in Serum or Plasma 27 mmol/L 20 -31 N [facility] Anion gap in Serum or Plasma 9 mmol/L 8-16 [facility] Glucose [Mass/volume] in Serum or Plasma 108 mg/dL 74-106 Above high normal [facility] Creatinine 1.0 mg/dL 0.5-1.1 [facility] Glomerular filtration rate/1.73 sq M.pre dicted [Volume Rate/Area] in Serum or Plasma 56 ml/min ABOVE 60 [facility] ital Alanine aminotransferase [Enzymatic acti vity/volume] in Serum or Plasma by With P-5'-P 26 U/L 10-49 N [facility] ital Aspartate aminotransferase [Enzymatic ac tivity/volume] in Serum or Plasma by With P-5'-P 19 U/L 0-33 N [facility] pital Alkaline phosphatase [Enzymatic activity/volume] in Serum or Plasma 100 U/L 45-129 N [facility] Calcium [Mass/volume] in Serum or Plasma 9.3 mg/dL 8.5-10.1 N [facility] Bilirubin.total [Mass/volume] in Serum or Plasma 0.5 mg/dL 0.3-1.2 N [facility] Albumin [Mass/volume] in Serum or Plasma by Bromocresol purple (BCP) dye binding method 3.7 g/dL 3.2-4.8 N [facility] ital Protein [Mass/volume] in Serum or Plasma 7.8 g/dL 5.7-8.2 N [facility] ID Date Data Source [id number] 11/02/2020 11:26:00 AM EDT [facility] Reason for ordering culture: Abnormal fi ndings UA@11/02/20 1117: UA W/ MICRO added. RFLXG = UMIC CIF.Method of Collection:: Voided @11/02/20 1126: Urine culture added. RFL XG = CULT.ADD. Reason for ordering culture: Abnormal fi ndings UA@11/02/20 1117: UA W/ MICRO added. RFLXG = UMIC CIF.Method of Collection:: Voided Name Value Range Interpretation Code Description Data Kay rce(s) Supporting Document(s) Color of Urine [facility] Appearance of Urine CLEAR [facility] pH of Urine by Test strip 5.5 5-8 [facility] Specific gravity of Urine by Refractometry 1.009 1.005-1.030 [facility] Leukocyte esterase [Presence] in Urine by Test strip NEGAT TERRY [facility] Nitrite [Presence] in Urine by Test strip NEGATIVE [facility] Protein [Presence] in Urine by Test strip NEGATIVE [facility] Glucose [Mass/volume] in Urine by Automated test strip NEGATIVE NEG ATIVE [facility] Ketones [Presence] in Urine by Test strip NEGATIVE [facility] Urobilinogen [Presence] in Urine 0.2-1 EU/dl [facility] Bilirubin.total [Presence] in Urine by Automated test strip NEGATIVE [facility] Erythrocytes [#/volume] in Urine by Test strip MODERATE N EGATIVE Above high normal [facility] @DO MICRO!!!!A Culture has been added to this specimen per established criteria URINE MICROSCOPIC? (CIF) Microscopic Added [facility] ID Date Data Source [id number] 11/03/2020 11:17:00 AM EDT [facility] Reason for ordering culture: Abnormal fi ndings UA@11/02/20 1117: UA W/ MICRO added. RFLXG = UMIC CIF.Method of Collection:: Voided @11/02/20 1126: Urine culture added. RFL XG = CULT.ADD. Reason for ordering culture: Abnormal fi ndings UA@11/02/20 1117: UA W/ MICRO added. RFLXG = UMIC CIF.Method of Collection:: Voided Name Value Range Interpretation Code Description Data Kay rce(s) Supporting Document(s) Bacteria identified in Urine by Culture [facility] ID Date Data Source [id number] 11/02/2020 11:26:00 AM EDT [facility] Reason for ordering culture: Abnormal fi ndings UA@11/02/20 1117: UA W/ MICRO added. RFLXG = UMIC CIF.Method of Collection:: Voided @11/02/20 1126: Urine culture added. RFL XG = CULT.ADD. Reason for ordering culture: Abnormal fi ndings UA@11/02/20 1117: UA W/ MICRO added. RFLXG = UMIC CIF.Method of Collection:: Voided Name Value Range Interpretation Code Description Data Kay rce(s) Supporting Document(s) Erythrocytes [#/volume] in Urine by Manual count 6-10 /hpf 0-5 Above high normal [facility] Cells [Type] in Urine sediment by Light microscopy [facility] ID Date Data Source [id number] 11/02/2020 10:55:00 AM EDT [facility] ED Physician Documentation NAME: MARII DYKES : 1955 AGE: 65 MR#: [id number] SERVICE DATE: 11/02/[address]: Evelio Danielle MD PRIMARY CARE DR: Jacy Franz MD ROOM#: ADDENDUM Discharge Plan Admission/Discharge Dx Primary DC Diagnosis: Left ureteral lithiasis, left renal colic ED Provider: Evelio Danielle ED Status: Discharged Time Seen by Provider: 11/02/20 10:41 Triaged At: 11/02/20 10:38 Condition Condition: Good Discharge Detail Disposition: Home, Self-Care Med Rec New Prescriptions: New oxycodone-acetaminophen [Percocet] 5-325 mg tablet 1 tab PO Q8H PRN (Reason: pain) Qty: 12 RF: 0 tamsulosin [Flomax] 0.4 mg capsule 0.4 mg PO DAILY Qty: 30 RF: 0 Continued biotin 10,000 mcg capsule 10,000 mcg PO DAILY RF: 0 multivitamin [Daily Multi-Vitamin] Tablet 1 tab PO DAILY RF: 0 atorvastatin [Lipitor] 40 mg tablet 40 mg PO DAILY RF: 0 levothyroxine [Synthroid] 75 mcg tablet See Rx Instructions .ROUTE .COMPLEX RF: 0 calcium carbonate-vitamin D3 1 EACH tablet 1 ea PO DAILY RF: 0 sumatriptan succinate [Imitrex] 50 mg tablet 50 mg PO Q2H MDD 4 PRN (Reason: migraines) 75 Days Qty: 36 RF: 3 Follow Up Visit/Referrals: Teresa Cassidy [PHYSICIAN] - (Call tomorrow for an appoint to be seen later next week.) Discharge Problem: Renal lithiasis Medications Medication reconciliation performed by provider at discharge: Yes Follow Up Care/Instructions Diet/Activity/Wound Care..: As we discussed you do have a kidney stone that is passed all the way down the ureter on the left side and is almost ready to empty into the kidney. I did speak with Dr. Cassidy from [facility] and at this point time she recommends pain medication, and Flomax and to strain all of your urines. You are to call their office tomorrow for an appointment to be seen later next week. If your pain becomes unbearable they asked that you call their office to arrange for follow-up. With all of this being said if your pain is excruciating and you are unable to be seen or to go to where they direct you to go you are always welcome to return to our ED understanding that we do not have urology services here at this facility. *Discharge Patient* Discharge Orders: Discharge Order (Routine); Ordered 11/02/20 Ordered By: Evelio Danielle Discharge Date/Time: 11/02/20 14:45 Interventions Interventions: ED Discharge Instructions Last Done: 11/02/20 14:51 ED Urogenital Last Done: 11/02/20 10:54 Addendum Addendum Note: Correction of the history of present illness this patient presented to the ED complaining of left kidney area pain and not left knee pain. Addended by: <Electronically signed by Evelio Danielle > 11/03/20 1340 Addendum Cosigners: D: PARBÁRBARA 11/03/20 1340 T: PARMA 11/03/20 1340 CC: Jacy Franz MD [facility] (Adult, General) General Chief Complaint: Urogenital Stated Complaint: BACK PAIN Resident [facility], travel outisde home, exposure to hot tubs:: No Time Seen by Provider: 11/02/20 10:41 Source: patient Exam Limitations: no limitations History of Present Illness Narrative: This is a 65-year-old obese white female comes in complaining of left knee a tenderness. She states that her pain started yesterday evening sudden in onset. The patient does have a known history of renal lithiasis. She has had lithotripsy performed in July of this year and was told that she did have a residual stone at that point time the reportedly measured about 3 mm. Patient states she did believe that she saw some specks of blood in her urine but otherwise her urine is clear. She has had no nausea or vomiting. No other GI symptoms. No anterior abdominal pain. She states the pain has lessened since arriving here to the ED. She is declined any IV meds but would take oral if available. At this point time we discussed we want to keep her n.p.o. until we decide if a CT is necessary. 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 Past Medical History Has Been Reviewed Allergies/Home Meds Allergies Allergy/AdvReac Type Severity Reaction Status Date / Time No Known Drug Allergies Allergy Verified 11/02/20 10:53 Home Medications Medication Instructions Recorded Confirmed Last Taken Type calcium carbonate-vitamin D3 1 ea PO DAILY tab 05/20/14 11/02/20 0 11/01/20 History multivitamin [Daily Multi-Vitamin] 1 tab PO DAILY 07/06/18 11/02/20 11/01/20 History biotin 10,000 mcg capsule 10,000 mcg PO DAILY 09/13/19 11/02/20 11/01/20 History Imitrex 50 mg tablet 50 mg PO Q2H PRN 75 Days #36 tab 04/24/20 11/02/20 08/07/20 08:00 Rx NS MDD 4 atorvastatin [Lipitor] 40 mg PO DAILY 08/15/20 11/02/20 11/01/20 History levothyroxine [Synthroid] See Rx Instructions .ROUTE .COMPLEX 08/15/20 11/02/20 11/02/20 History oxycodone-acetaminophen [Percocet] 1 tab PO Q8H PRN #12 tab 11/02/20 Unknown Rx tamsulosin [Flomax] 0.4 mg PO DAILY #30 cap 11/02/20 Unknown Rx PMH (from Triage) Patient Medical History PMH Reviewed/Updated as Needed: Yes PMH/PSH from Triage: Medical History (Updated 08/07/20 @ 09:20 by Hanane Hoover PA-C) History of lithotripsy (Medical) Z98.890 History of orthopedic surgery (Medical) Z98.890 right carpal tunnel release 10/05/2019 Hyperlipidemia (Medical) Hypothyroidism (Medical) Migraine (Medical) 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 Right rotator cuff tear (Medical) PAST HX Vitamin D deficiency (Medical) Surgical History (Updated 11/02/20 @ 10:52 by Zuleyka Locke) History of - artificial joint (Surgical) Right total knee arthroplasty 07/06/18 History of - surgery (Surgical 05/2014) ROTATOR CUFF REPAIR LEFT SHOULDER History of hysterectomy (Surgical 1985) History of lithotripsy (Surgical) Z98.890 History of orthopedic surgery (Surgical) Z98.890 right carpal tunnel release 10/05/2019 Hx Drug Resistant Inf ections Hx MRSA: (Methicillin-resistant Staphylococcus aureus): No Hx [...] Use: No Hx Substance Use Treatment: No Smoking Status: Former smoker Vaccination History Hx/Date of Tetanus, Diphtheria Vaccination: Yes Hx/Date of Influenza Vaccination: Yes Hx/Date of Pneumococcal Vaccination: No PFSH Medical History (Updated 11/02/20 @ 14:31 by Evelio Danielle) Hyperlipidemia Hypothyroidism Migraine Pityriasis lichenoides chronica Right rotator cuff tear Vitamin D deficiency Surgical History History of - artificial joint History of - surgery ( 05/2014) History of hysterectomy ( 1985) History of lithotripsy History of orthopedic surgery Family History Mother No problems noted. Father No problems noted. Brother No problems noted. Brother No problems noted. Brother No problems noted. Brother No problems noted. Sister No problems noted. Sister No problems noted. Sister No problems noted. Sister No problems noted. Social History Does the Patient have a Healthcare Proxy: Yes (Alberto Dykes) Does Patient have a DNR?: No Does Patient have a Living Will?: No Advance Directives on File or in chart?: No Hx Recent Travel (where): No Smoking Status: Former smoker Tobacco: How many years used: 37 how long ago did patient quit smokin years ago ROS Review of Systems Constitutional: Denies fever, chills, sweats, weakness, malaise, weight loss, weight gain and other ENT: Denies mouth pain, mouth swelling, dental pain, dry mouth, bleeding gums, ear pain, hearing loss, tinnitis, ear discharge, nasal pain, nasal discharge, nasal congestion, post nasal drip, epistaxis, throat pain, throat swelling, hoarseness, constant throat clearing, pain upon swallowing, recent head trauma, recent airplane travel, recent swimming/diving, uses hearing aid/ear plugs, pain worse with motion, prolonged use of topical meds and other Respiratory: Denies cough, sputum, orthopnea, SOB w/exertion rest, SOB with excertion, SOB at rest, SOB, stridor, wheezing, hemoptysis, pleuritic pain, exposures and other Cardiovascular: Denies chest pain, palpitations, orthopnea, hypertension, paroxysmal noc dyspnea, edema, light headedness, dyspnea on exertion, syncope, known heart murmurs, leg cramps w/walking, pain in feet/toes at night, varicose veins and other Gastrointestinal: Denies No Symptoms/Complaints, nausea, vomiting, abdom inal pain, diarrhea, constipation, heartburn, reflux/regurg, frequent belching, hemorrhoids, hematemesis, black tarry stools, melena, hematochezia, coffee grounds emesis, stomach pain relieved by food, hx of jaundice and other Genitourinary-Female: Reports hematuria (Speck of blood); Denies dysuria, frequency, incontinence, stress incontinence, retention, cloudy or smoky urine, nocturia, kidney stones, over-active bladder, urgency, rash or ulcers, h/o STDs and other Musculoskeletal: Denies neck pain, shoulder pain, arm pain, back pain, hand pain, leg pain, foot pain, thigh or calf cramps, muscle weakness, muscle tenderness, joint swelling, sciatica, muscle pain, joint pain and other Skin/Breasts: Denies rash, lesions, hives, pruritus, bruising, change in color, color changes w/cold, sensitivity to sun, change in hair/nails, breast pain, breast lump, nipple discharge, other, tightness, nodules or bumps and hair loss Neurologic: Denies weakness, numbness, headache, incoordination, change in sp eech, confusion, dizziness, vertigo, lightheadedness, seizures, muscle spasm, tremors, loss of consciousness, memory loss, sensitivity/pain in hands, sensitivity/pain in feet, abnormal gait, paresthesias and other Psychiatric: Denies No Symptoms/Complaints, anxiety, depression, auditory hallucinations, visual hallucinations, suicidal thoughts, homicidal thoughts, hopelessness, helplessness, change in energy, change in sleep patterns, change in motivation, change in concentration, change in sexual urges, feelings of guilt, anhedonia and other Endocrine: Denies No Symptoms/Complaints, Excessive sweating, Loss of appetite, Increased appetite, Intolerance to cold, Intolerance to heat, Flushing, Polydipsia, Polyuria, Increased salt intake, Fingernail changes, Unexplained weight gain, Unexplained weight loss, Decreased sexual desire and Other Physical Exam General Physical Exam Narrative: This is a 65-year-old morbidly obese white female who is awake alert [place] x3 in no acute distress at present time. Limitations: no limitations General appearance: alert Head Head exam: Present atraumatic, normocephalic and normal inspection Eye Eye exam: Present normal apperance, PERRL and EOMI; Absent scleral icterus Pupils: Present normal accommodation ENT ENT exam: Present normal exam, normal orophraynx and mucous membranes moist Neck Neck exam: Present normal inspection and full ROM; Absent tenderness and meningismus Respiratory Respiratory exam: Present normal lung sounds bilaterally Cardiovascular Cardiovascular Exam: Present regular rate and normal rhythm GI/Abdominal GI/Abdominal exam: Present Abd soft, bowel sounds present all quadrents; Absent distended, tenderness and guarding Rectal Rectal exam: Present deferred Extremities Exam Extremities exam: Present normal inspection and Full ROM without tenderness, capillary refill brisk Back Exam Back exam: Present CVA tenderness (L) (Minimal to deep palpation but none to percussion) Neurological Exam Neurological exam: Present alert, oriented X3, CN II-XII intact and normal gait; Absent motor sensory deficit Psychiatric Psychiatric exam: Present normal affect and normal mood; Absent depressed, agitated and anxious Skin Skin exam: Present warm, intact, normal color and rash Vital Signs Vital Signs: Vital Signs 11/02/20 10:48 Temperature 98.6 F Pulse Rate 82 Respiratory Rate 18 Blood Pressure 146/89 O2 Sat by Pulse Oximetry 95 MDM (comprehensive) Lab Data Labs: 11/02/20 11:16 11/02/20 11:16 Laboratory Results Last 24 hours 11/02/20 11:01: Urine Color Yellow, Urine Appearance Clear, Urine pH 5.5, Ur Specific [place] 1.009, Urine Protein Negative, Urine Ketones Negative, Urine Blood Moderate H, Urine Nitrate Negative, Urine Bilirubin Negative, Urine Urobilinogen 0.2 eu/dl, Ur Leukocyte Esterase Negative, Add Ur Microanalysis Microscopic added, Urine RBC 6-10 H, Ur Squamous Epith Cells Few, Urine Glucose Negative 11/02/20 11:16: WBC 8.3, RBC 4.66, Hgb 12.9, Hct 40.8, MCV 88, MCH 28, MCHC 32 L, RDW 14, Plt Count 278, MPV 9.7, Immature Gran % (Auto) 0.2, Neut % (Auto) 61.3, Lymph % (Auto) 26.2, [place] % (Auto) 8.7, Eos % (Auto) 3.1, Baso % (Auto) 0.5, Lymph # (Auto) 2.2, Abs Immat Gran (auto) 0.0, Add Manual Diff No, Absolute Neutrophils 5.1, Monocytes # 0.7, Absolute Eosinophils 0.3, Absolute Basophils 0.0 11/02/20 11:16: Sodium 140, Potassium 4.0, Chloride 108, Carbon Dioxide 27, Anion Gap 9, BUN 18, Creatinine 1.0, GFR Calculation 56, Glucose 108 H, Calcium 9.3, Total Bilirubin 0.5, AST 19, ALT 26, Alkaline Phosphatase 100, Serum Total Protein 7.8, Albumin 3.7 Radiology Data Radiology results: report reviewed Radiology impressions: CT abdomen pelvis without contrast IMPRESSION: New obstructing calculus at the left UVJ that has moved left UPJ with hydronephrosis and hydroureter. A smaller left pelvic calculus is unchanged. Medical Decision Making Free Text/Narative:: I discussed the findings of the CT scan laboratories with both the patient and ultimately with the urologist from [facility]. At this point time we are going to treat her with Flomax and oxycodone for pain. She is to strain all urines and follow- up with them in the office next week. Plan Visit Medications Administered ED medications:: Medications Discontinued Medications Generic Name Dose Route Start Last Admin Trade Name Freq PRN Reason Stop Dose Admin Sodium Chloride 1,000 mls @ 999 mls/hr 11/02/20 12:33 11/02/20 13:41 Ns 0.9% IV 11/02/20 13:33 Infused .Q1H1M ONE Infusion Ketorolac Tromethamine 30 mg 11/02/20 12:32 11/02/20 12:37 Ketorolac Tromethamine 30 Mg/Ml Sdv IVP 11/02/20 12:33 30 mg 1T ONE Administration Discharge Plan Admission/Discharge Dx Primary DC D iagnosis: Left ureteral lithiasis, left renal colic ED Provider: Evelio Danielle ED Status: Ready for Discharge Time Seen by Provider: 11/02/20 10:41 Triaged At: 11/02/20 10:38 Condition Condition: Good Discharge Detail Disposition: Home, Self-Care Med Rec New Prescriptions: New oxycodone-acetaminophen [Percocet] 5-325 mg tablet 1 tab PO Q8H PRN (Reason: pain) Qty: 12 RF: 0 tamsulosin [Flomax] 0.4 mg capsule 0.4 mg PO DAILY Qty: 30 RF: 0 Continued biotin 10,000 mcg capsule 10,000 mcg PO DAILY RF: 0 multivitamin [Daily Multi-Vitamin] Tablet 1 tab PO DAILY RF: 0 atorvastatin [Lipitor] 40 mg tablet 40 mg PO DAILY RF: 0 levothyroxine [Synthroid] 75 mcg tablet See Rx Instructions .ROUTE .COMPLEX RF: 0 calcium carbonate-vitamin D3 1 EACH tablet 1 ea PO DAILY RF: 0 sumatriptan succinate [Imitrex] 50 mg tablet 50 mg PO Q2H MDD 4 PRN (Reason: migraines) 75 Days Qty: 36 RF: 3 Follow Up Visit/Referrals: Alberto son,Teresa Santiago [PHYSICIAN] - (Call tomorrow for an appoint to be seen later next week.) Discharge Problem: Renal lithiasis Medications Medication reconciliation performed by provider at discharge: Yes Follow Up Care/Instructions Diet/Activity/Wound Care..: As we discussed you do have a kidney stone that is passed all the way down the ureter on the left side and is almost ready to empty into the kidney. I did speak with Dr. Cassidy from [facility] and at this point time she recommends pain medication, and Flomax and to strain all of your urines. You are to call their office tomorrow for an appointment to be seen later next week. If your pain becomes unbearable they asked that you call their office to arrange for follow-up. With all of this being said if your pain is excruciating and you are unable to be seen or to go to where they direct you to go you are always welcome to return to our ED understanding that we do not have urology services here at this facility. *Tanna swift Patient* Discharge Orders: Discharge Order (Routine); Ordered 11/02/20 Ordered By: Evelio Danielle Interventions Interventions: ED Urogenital Last Done: 11/02/20 10:54 Report Signers: <Electronically signed by Evelio Danielle > Evelio Danielle 11/02/20 1436 Evelio Danielle SIGNATURE DA Report Cosigners: D: PARMA 11/02/20 105 T: PARMA 11/02/20 105 CC: Jacy Franz MD Name Value Range Interpretation Code Description Data Kay rce(s) Supporting Document(s) ID Date Data Source [id number] 10/09/2020 01:23:00 PM EDT [facility] Name Value Range Interpretation Code Description Data Kay rce(s) Supporting Document(s) Urea nitrogen [Mass/volume] in Serum or Plasma 14 mg/dL 9-23 N [facility] Sodium [Moles/volume] in Serum or Plasma 141 mmol/L 132-146 [facility] Potassium [Moles/volume] in Serum or Plasma 4.2 mmol/L 3.5-5.5 [facility] Chloride [Moles/volume] in Serum or Plasma 108 mmol/L 99-109 [facility] Carbon dioxide, total [Moles/volume] in Serum or Plasma 27 mmol/L 20 -31 N [facility] Anion gap in Serum or Plasma 10 mmol/L 8-[address] [facility] Glucose [Mass/volume] in Serum or Plasma 107 mg/dL 74-106 Above high normal [facility] Creatinine 0.9 mg/dL 0.5-1.1 [facility] Glomerular filtration rate/1.73 sq M.pre dicted [Volume Rate/Area] in Serum or Plasma Greater Than 60 ABOVE 60 [facility] Alanine aminotransferase [Enzymatic acti vity/volume] in Serum or Plasma by With P-5'-P 27 U/L 10-49 N [facility] ital Aspartate aminotransferase [Enzymatic ac tivity/volume] in Serum or Plasma by With P-5'-P 17 U/L 0-33 N [facility] pital Alkaline phosphatase [Enzymatic activity/volume] in Serum or Plasma 102 U/L 45-129 N [facility] Calcium [Mass/volume] in Serum or Plasma 9.0 mg/dL 8.5-10.1 N [facility] Bilirubin.total [Mass/volume] in Serum or Plasma 0.5 mg/dL 0.3-1.2 [facility] Albumin [Mass/volume] in Serum or Plasma by Bromocresol purple (BCP) dye binding method 3.9 g/dL 3.2-4.8 N [facility] Protein [Mass/volume] in Serum or Plasma 7.9 g/dL 5.7-8.2 [facility] ID Date Data Source [id number] 10/09/2020 01:23:00 PM EDT [facility] Name Value Range Interpretation Code Description Data Kay rce(s) Supporting Document(s) Thyrotropin [Units/volume] in Serum or Plasma by Detec tion limit <= 0.005 mIU/L 3.86 u[iU]/mL 0.35-5.50 [facility] al ID Date Data Source [id number] 09/25/2020 08:45:00 AM EST [facility] Patient Name: MARII DYKES DO B: 1955 Sex: F Pt Unit #: [id number] Location:[facility] Provider: Visit Date/Time: 09/25/20 Primary Insurance: [facility] Secondary Insurance: Self Pay Intake Vital Signs 09/25/20 08:46 Current Height 5 ft 2 in Current Weight 205 lb Weight Measurement Method Stated by Patient BMI 37.5 BP 128/78 Blood Pressure Location Lt brachial Position Sitting Respiration 18 Pulse 78 Temp 98.6 F Pulse Oximetry (%) 98 Oxygen Delivery Method room air Intake Visit Reasons: Post op visit (orthopedics) Is patient in pain?: Yes Pain scale (1-10): 4 Allergies No Known Drug Allergies Allergy (Verified 08/18/20 10:33) HIV Testing Offer - ages 13-64 Requirement for HIV testing offer been met?: Declines today. Pretest education received and acknowledged Coronavirus Screening Screening Are you currently positive or on isolation for COVID ?: No Do you have any NEW signs of one or more of the following?: no symptoms Do you have NEW signs of at least two of the following?: no symptoms PFSH Medical History (Updated 08/07/20 @ 09:20 by [...] Details: Patient is a 65 year old female here for 6 week post op of a arthroscopy right shoulder with subacromial decompression, long head biceps tenotomy, distal clavicle resection followed by double row rotator cuff repair performed on 08/18/20. Today she is experiencing 4 out of 10 pain. Continues with physical therapy with good results and increase mobility. Exam Extrem Other: Arthroscopy incisions the right shoulder are fully healed. Patient has no swelling, edema orecchymosis. Patient has regained full active pain-free range of motion of her fingers, wrist, forearm and right elbow. Active assistive range of motion the patient has almost full forward flexion and greater than 120 degrees of abduction. She has full internal and external rotation at her side. Intact sensation throughout the right upper extremity with intact peripheral pulses. Assessment Plan Assessment Plan (1) Encounter for orthopedic follow-up care: Code(s): Z47.89 - Encounter for other orthopedic aftercare Plan - Hanane Hoover PA-C: Patient doing extremely well status post double row rotator cuff repair. At this time she will continue with therapy twice a month as this is all her schedule will allow. Therapy may begin active range of motion and the beginning of isometric strengthening. Patient's left long trigger finger is stable at this time. Patient has agreed to follow-up in 4 to 6 weeks for repeat evaluation. Coding Level of Care Code 22921 Global Follow-Up Diagnoses Encounter for orthopedic follow-up care Z47.89 <Electronically signed by Hanane Warren> 09/25/20 0900 Name Value Range Interpretation Code Description Data Kay rce(s) Supporting Document(s) ID Date Data Source [id number] 09/18/2020 11:16:00 AM [facility] Therapy Department MARII DYKES OB: 1955 Date: 09/18/20 [id number] Attending: Josesito Ragland MD PT Outpatient Evaluation - Evaluation/Subjective Diagnosis:: s/p right RTC repair Impairments: Pain, Decreased AROM, Decreased Strength - Subjective Subjective: Patient reports she had right RTC repair on 08/18/20. She states she wore a sling for awhile but has not been using it now as it just bothers her. Patient reports 6/10 pain at best with rest and up to 10/10 at worst at night and with trying to do dishes and such. Patient reports she takes aleve as needed for pain. She is alone most of the days so has to do most of her stuff herself. Patient reports she will follow up on September 25 with . She will only be able to come once every other week due to her schedule but will do her exercises at home. - Objective Objective: Observation: patient has no sling, swinging arm normally. PROM: right shoulder [id number], abduction 154, ER 70 and IR to L2. Strength: not tested due to surgery. Palpation: Patient has tenderness along anterior and lateral shoulder Assessment: Medical DIagnosis: s/p right RTC repair. Impairments: pain, decreased AROM, decreasedstrength. FUnctional limitations: patient has difficulty with reaching, moving arm Interventions: Therapeutic exercise, Manual therapy, Patient education - Plan of Care Short Term Goal #1: Patient will be independent and 100% accurate with HEP. Short Term Goal #2: Patient will demo right shoulder PROM flexion to full. Short Term Goal #3: Patient will demo no pain > 3/10 to tolerate all exercises. [employer] goal #1: Patient will demo full AROM t/o right shoulder. [facility] Goal #2: Patient will demo 4+/5 t/o right shoulder to lift and reach. [facility] goal #3: Patient will demo no pain > 1/10 to get back to all normal activity. Precautions/Comments:: Patient wants to come 1x every other week. Frequency: 1x/week Rehab Potential: Good Visits Requested: 8 Expiration date of orders:: 11/13/20 Therapist Sabrina Priest 09/18/20 1116 I certify this plan of care Josesito Chatman MD 09/18/20 1359 Date Time LAST EDIT: Name Value Range Interpretation Code Description Data Kay rce(s) Supporting Document(s) ID Date Data Source [id number] 09/04/2020 10:56:00 AM EST [facility] [address] [place] [address] [phone] NAME SEX PT STATUS ACCOUNT NUMBER MARII DYKES REG REF [id number] ORDERING PHYSICIAN LOCATION MEDICAL RECORD NO. Sánchez Valdes MD RAD [id number] ATTENDING PHYSICIAN DATE OF DATE OF EXAM/TIME Jacy Franz MD 1955 09/04/20925 TYPE / EXAM Xray Abdomen 1 View (KUB) REASON FOR EXAM KIDNEY STONE, OBSTRUC COMPARISON: CT scan dated July 17, 2020 FINDINGS: At approximately 3.6 mm calcification injection of the left renal pelvis. No other calcifications projects over the silhouette of either kidney or their corresponding ureters. IMPRESSION: 3.6 mm calcification projecting over the left renal pelvis. Reported By Vinicius Steele MD on 09/04/20 1056 Signed By Vinicius Steele MD on 09/04/20 1105 Date Time CC: Vinicius Steele MD; Jacy Franz MD Techn: BAIAB Trans Dt/Tm: Trans by: DT Prt Dt/Tm: [id number]: Total DLP = 0.00 mGy-cm Fluoroscopy Time (in secs): Name Value Range Interpretation Code Description Data Kay rce(s) Supporting Document(s) ID Date Data Source [id number] 08/28/2020 08:26:00 AM [facility] Patient Name: MARII DYKES DO B: 1955 Sex: F Pt Unit #: [id number] [facility] Provider: Visit Date/Time: 08/28/20 Primary Insurance: [facility] Secondary Insurance: Self Pay Intake Vital Signs 08/28/20 08:29 Current Height 5 ft 2 in Current Weight 205 lb Weight Measurement Method Stated by Patient BMI 37.5 BP 126/82 Blood Pressure Location Lt brachial Position Sitting Respiration 18 Pulse 96 Temp 97.4 F L Pulse Oximetry (%) 99 Oxygen Delivery Method room air Intake Visit Reasons: Post op visit (orthopedics) Is patient in pain?: Yes Pain scale (1-10): 7 Allergies No Known Drug Allergies Allergy (Verified 08/18/20 10:33) HIV Testing Offer - ages 13-64 Requirement for HIV testing offer been met?: Declines today. Pretest education received and acknowledged Coronavirus Screening Screening Have you traveled outside of [facility] or [facility] in the last 14 days.: No Has patient experienced coronavirus symptoms: No PFSH Medical History (Updated 08/07/20 @ 09:20 by [...] Details: Patient is a 65 year old female here for 10 day post op of a arthroscopy right shoulder with subacromial decompression, long head biceps tenotomy, distal clavicle resection followed by double row rotator cuff repair performed on 08/18/20. Today Patient is expriencing pain 7 out of 10. Currently denies taking any medications for pain. Patient admits that she has been taking her shoulder immobilizer off as it is very uncomfortable and she cannot drive or wear her winter jacket while wearing it. Patient has been taking intermittent [id number] Aleve with adequate pain relief. Patient today also mentions pain and stiffness of her left long finger. She has had previous steroidal injection which helped for approximately 1 month. Exam Extrem Other: Incisions of the right shoulder are healing with excellent cosmesis. Expected postoperative swelling and resolving ecchymosis. Expected tenderness at rotator cuff insertion, bicipital groove and acromioclavicular joint. Patient has full pain-free active range of motion of her right hand, forearm and elbow as well as her wrist. She has intact sensation throughout the right upper extremity. Intact peripheral pulses. Assessment Plan Assessment Plan (1) Encounter for orthopedic follow-up care: Code(s): Z47.89 - Encounter for other orthopedic aftercare Plan - Hanane Hoover PA-C: Patient doing well postoperatively. Pain controlled with [id number] Aleve. Sutures removed today. Patient is somewhat noncompliant with shoulder immobilizer as she feels it is very cumbersome. I stressed the absolute importance of the abduction immobilizer given her large rotator cuff tear and overall poor bone quality. We will initiate physical therapy and progression should be slow with no active range of motion or strengthening. Patient has a persistent left long trigger finger which is problematic. At this time she was instructed on simple passive range of motion exercises under warm heat to prevent finger stiffness. Patient will most likely eventually require leftlong trigger finger release when she is through further recovery of the right shoulder. Coding Level of Care Code 12205 Global Follow-Up Diagnoses Encounter for orthopedic follow-up care Z47.89 <Electronically signed by Hanane Warren> 08/28/20 0910 Name Value Range Interpretation Code Description Data Kay rce(s) Supporting Document(s) ID Date Data Source [id number] 08/21/2020 06:09:00 PM [facility] [address] [facility] [place] [id number] [phone] NAME SEX PT STATUS ACCOUNT NUMBER MARII DYKES REG REF [id number] ORDERING PHYSICIAN LOCATION MEDICAL RECORD NO. Hanane BURRELL [id number] ATTENDING PHYSICIAN DATE OF DATE OF EXAM/TIME Jacy Franz MD 1955 08/21/20907 TYPE / EXAM Xray Third Digit,Left Hand REASON FOR EXAM Left long finger pain, ortho COMPARISON: None FINDINGS: Multiple views show no fracture, dislocation, or bony abnormality. Mild degenerative changes are noted The articular surfaces are smooth. Soft tissue swelling is nonspecific IMPRESSION: Soft tissue swelling is a nonspecific finding but could be related to cellulitis.. No fracture or dislocation is seen Reported By Kellie Brewer MD on 08/21/201808 Signed By Kellie Brewer MD on 08/21/201809 Date Time CC: Kellie Brewer MD; Jacy Franz MD Techn: BAIAB Trans Dt/Tm: Trans by: DT Prt Dt/Tm: [id number]: Total DLP = 0.00 mGy-cm Fluoroscopy Time (in secs): Name Value Range Interpretation Code Description Data Kay rce(s) Supporting Document(s) ID Date Data Source [id number] 08/18/2020 02:50:00 PM [facility] Name: MARII DYKES : 1955 Age: 65 MR#: [id number] Admit Date: 08/18/20 Provider: Josesito Ragland MD Room #: Consulting Provider: Dictation Date: 08/18/20 Operative Note Orthopedic Operative Report Date of service Date of service:: 08/18/20 Procedure start time:: 13:00 Operative Note Orthopaedic Surgeons:: Josesito Ragland MD Assisting:: Hanane Hoover PA-C Anesthesiologist(s): Yesenia Reyes MD Anesthesia Type: Supraclavicular right shoulder block Pre-Operative Diagnosis: Right rotator cuff tear. Severe AC arthritis. Partial tearing of intra-articular portion of biceps tendon. Impingement syndrome right shoulder Post-Operative Diagnosis: same as pre-op Procedure: Arthroscopy right shoulder with subacromial decompression, long head biceps tenotomy, distal clavicle resection followed by double row rotator cuff repair Findings: See operative report EBL (ml): [address] [place] [address]?: No Dressing in place?: Yes Packing in place?: No Packing: No Packing Drain: No Drain Tourniquet:: No Tourniquet used Specimens: No Specimens Complications: No Post-Operative Condition: Good Narrative: Patient was seen in the preop holding area supraclavicular nerve block was performed by anesthesia. Patient was given 2 g of IV Ancef. Patient was subsequently transferred to the operating room theater. General anesthetic was administered. Patient was semisitting position using a beach chair. The head was properly positioned and affixed within the head golf coach. The right shoulder was circumferentially prepped and draped in the usual manner without complication. Surgical timeout was taken. A posterior portal was established into the glenohumeral joint and an anterior portal was established in the rotator cuff interval. Patient was noted to have fraying intra-articularly of the long head of the biceps tendon.. A biceps tenotomy was performed. Patientwas noted to have a large retracted tear involving the supraspinatus and infraspinatus tendons partial longitudinal tearing of the subscapularis tendon but an otherwise intact subscapularis tendon. There was no articular wear noted within the glenoid or overlying the humeral head. No loose bodies were seen within the joint. Subacromial space was visualized. An additional lateral portal was made for visualization of the subacromial space. A standard subacromial bursectomy was done exposing the rotator cuff tear which was noted to be repairable. A standard subacromial decompression was performed turning a type III acromium into a type I acromion. The AC joint was visualized and a rectangular section of distal clavicle was removed. The acromial side of the AC joint was also debrided. There was a large spur anteriorly which was removed. The footprint adjacent to the torn rotator cuff was debrided so as to allow a double row repair. Using the Arthrex speedbridge kit, 2 bioabsorbable anchors were placed anteriorly and posteriorly at the articular margin of the humeral head. The fiber tapes incorporated into the anchors were placed through the rotator cuff. Again, the fiber tapes were placed more anteriorly in the rotator cuff and the other fiber tapes were placed more posteriorly. One fiber tape from the anterior anchor and one fiber tape from the more posterior anchor were passed through a swivel lock.. The anchors for the more distal doublerow were established at least a centimeter distal to the proximal row. The swivel locks were placedone more anteriorly and one more posteriorly. With both swivel locks a single fiber tape from the more anterior anchor and a single fiber tape and the more posterior anchor were utilized resounding in crisscrossing of the distal row. The repair was noted to be anatomic with excellent tensioning of the fiber tape sutures. The subacromial space was lavaged and the arthroscopic portals were closed using 3-0 nylon horizontal mattress sutures. Bulky soft tissue dressing was applied and the patient was taken to recovery room in a bulky soft tissue dressing and an UltraSling. There were no complications related to the surgical procedure. I was ably assisted with the surgical procedure by the esteemed physician energy assistant Hanane Hoover [facility]. Dictated by: <Electronically signed by Josesito Ragland MD> Josesito Ragland MD 08/18/20 1508 Josesito Ragland MD SIGNATURE DA Report Cosigners: D: KAPST 08/18/20 1450 T: KAPST 08/18/20 1450 CC: Name Value Range Interpretation Code Description Data Kay rce(s) Supporting Document(s) ID Date Data Source [id number] 08/13/2020 12:00:00 AM EST [facility] Name Value Range Interpretation Code Description Data Kay rce(s) Supporting Document(s) SARS-CoV-2 (COVID-19) RNA [Presence] in Respiratory specimen by BETTY with probe detection Not Detected [facility] This lab was ordered by [facility] and reported by [employer] [facility] [employer]. ID Date Data Source [id number] 08/07/2020 08:41:00 AM [facility] Patient Name: MARII DYKES DO B: 1955 Sex: F Pt Unit #: [id number] [facility] Provider: Visit Date/Time: 08/07/20 Primary Insurance: [facility] Secondary Insurance: Self Pay Intake Vital [...] Known Drug Allergies Allergy (Verified 08/07/20 09:18) [facility] Medical History (Updated 08/07/20 @ 09:20 by [...] Details: Patient is a 65 year old wzric-yhtj-cyinchsd female, here for a surgical consult of [...] nourished Orientation: alert, awake and oriented x3 HENMI Head: normal to inspection, normocephalic and atraumatic [...] shoulder, not specified as traumatic SNOMED Code(s): 008436224 Category: Medical Qualifiers: Rotator cuff tear extent: [...] - Primary osteoarthritis, right shoulder SNOMED Code(s): 738569944 Category: Medical <Electronically signed by Hanane Warren> 08/07/20 0924 Name Value Range Interpretation Code Description Data Kay rce(s) Supporting Document(s) ID Date Data Source [id number] 08/08/2020 07:29:00 AM [facility] Name Value Range Interpretation Code Description Data Kay rce(s) Supporting Document(s) Bacteria identified in Urine by Culture [facility] ID Date Data Source [id number] 08/07/2020 08:11:00 AM [facility] Name Value Range Interpretation Code Description Data Kay rce(s) Supporting Document(s) Leukocytes [#/volume] in Blood by Automated count 10.1 10*3/uL 4.45-1 0.71 N [facility] Erythrocytes [#/volume] in Blood by Automated count 3.89 10*6/uL 4.20-5.40 Below low normal [facility] Hemoglobin [Moles/volume] in Blood 12.0 g/dL 10.7-15.4 N [facility] Hematocrit [Volume Fraction] of Blood by Automated count 37.9 % 3 7-47 N [facility] Erythrocyte mean corpuscular volume [Ent itic volume] in Cord blood by Automated count 97.4 fL 80-96 Above high normal [facility] Erythrocyte mean corpuscular hemoglobin [Entitic mass] by Automated count 30.8 pg 27-31 N [facility] Erythrocyte mean corpuscular hemoglobin concentration [Mass/volume] in Cord blood 31.7 g/dL 33-37 Below low normal [facility] Erythrocyte distribution width [Entitic volume] by Automated count 13 % 11-15 N [facility] Platelets [#/volume] in Blood by Automated count 379 10*3/uL 130-472 N [facility] Platelet mean volume [Entitic volume] in Blood 9.5 fL 9.1-13.1 N [facility] Neutrophils/100 leukocytes in Blood by Automated count 57.2 % 41- 77 N [facility] Neutrophils [#/volume] in Blood by Automated count 5.8 U 1.7-7.6 N [facility] Lymphocytes/100 leukocytes in Blood by Automated count 30.5 % 14- 46 N [facility] Lymphocytes [#/volume] in Blood by Automated count 3.1 U 0.6-4.6 N [facility] Monocytes/100 leukocytes in Blood by Automated count 8.6 % 4-12 N [facility] Monocytes [#/volume] in Blood by Automated count 0.9 U 0.2-1.2 N [facility] Eosinophils/100 leukocytes in Blood by Automated count 2.6 % 0-7 N [facility] Eosinophils [#/volume] in Blood by Automated count 0.3 U 0.0-0.5 N [facility] Basophils/100 leukocytes in Blood by Automated count 0.8 % 0.4-1 .3 N [facility] Basophils [#/volume] in Blood by Automated count 0.1 U 0.0-0.2 N [facility] NUCLEATED RED BLOOD CELL 0 % [facility] NUCLEATED RED BLOOD CELL# 0 U [facility] Immature granulocytes [Presence] in Blood by Automated count 0-2 N [facility] Immature granulocytes [#/volume] in Blood by Automated count 0.0 U 0-0.1 N [facility] Manual Differential panel - Blood NO [facility] ID Date Data Source [id number] 08/07/2020 08:49:00 AM [facility] Name Value Range Interpretation Code Description Data Kay rce(s) Supporting Document(s) Urea nitrogen [Mass/volume] in Serum or Plasma 17 mg/dL 9-23 N [facility] Sodium [Moles/volume] in Serum or Plasma 141 mmol/L 132-146 [facility] Potassium [Moles/volume] in Serum or Plasma 4.1 mmol/L 3.5-5.5 N [facility] Chloride [Moles/volume] in Serum or Plasma 106 mmol/L 99-109 N [facility] Carbon dioxide, total [Moles/volume] in Serum or Plasma 29 mmol/L 20 -31 N [facility] Anion gap in Serum or Plasma 10 mmol/L 8-[address] [facility] Glucose [Mass/volume] in Serum or Plasma 136 mg/dL 74-106 Above high normal [facility] Creatinine 1.2 mg/dL 0.5-1.[address] [facility] Glomerular filtration rate/1.73 sq M.pre dicted [Volume Rate/Area] in Serum or Plasma 45 ml/min ABOVE 60 [facility] ital Calcium [Mass/volume] in Serum or Plasma 9.5 mg/dL 8.5-10.1 [facility] ID Date Data Source [id number] 08/05/2020 08:30:00 AM [facility] Name Value Range Interpretation Code Description Data Kay rce(s) Supporting Document(s) SARS coronavirus [address] [facility] This lab was ordered by [facility] and reported by [facility]. ID Date Data Source [id number] 07/31/2020 09:07:00 AM [facility] Patient Name: MARII DYKES DO B: 1955 Sex: F Pt Unit #: [id number] Location:[facility] Provider: Visit Date/Time: 07/31/20 Primary Insurance: R/[facility] Secondary Insurance: Self Pay Intake Vital [...] having it Taken care of on 08/10/2020t [facility] - Otherwise doing well - Mobile Sales Consultant Required: No Accompanied by: Self / Same [...] Screening Screening Have you traveled outside of [facility] or [facility] in the last 14 days.: No Has patient experienced coronavirus symptoms: No [facility] Medical History Hyperlipidemia Hypothyroidism Migraine Pityriasis lichenoides [...] no acute distress Nutritional Appearance: well nourished [facility] Head: normal to inspection, normocephalic and atraumatic [...] 07/24/20 I10 Coding Level of Care Code 60401 Est Pt Extended Comp Exam Detailed Diagnoses [...] rce(s) Supporting Document(s) ID Date Data Source [id number] 07/31/2020 08:44:00 AM [facility] Name Value Range Interpretation Code Description Data Kay rce(s) Supporting Document(s) Leukocytes [#/volume] in Blood by Automated count 11.8 10*3/uL 4.45-10.71 Above high normal [facility] Erythrocytes [#/volume] in Blood by Automated count 3.62 10*6/uL 4.20-5.40 Below low normal [facility] Hemoglobin [Moles/volume] in Blood 11.0 g/dL 10.7-15.4 N [facility] Hematocrit [Volume Fraction] of Blood by Automated count 35.4 % 37-47 Below low normal [facility] Erythrocyte mean corpuscular volume [Ent itic volume] in Cord blood by Automated count 97.8 fL 80-96 Above high normal [facility] Erythrocyte mean corpuscular hemoglobin [Entitic mass] by Automated count 30.4 pg 27-31 N [facility] Erythrocyte mean corpuscular hemoglobin concentration [Mass/volume] in Cord blood 31.1 g/dL 33-37 Below low normal [facility] Erythrocyte distribution width [Entitic volume] by Automated count 13 % 11-15 N [facility] Platelets [#/volume] in Blood by Automated count 392 10*3/uL 130-472 N [facility] Platelet mean volume [Entitic volume] in Blood 9.7 fL 9.1-13.1 N [facility] Neutrophils/100 leukocytes in Blood by Automated count 68.1 % 41- 77 N [facility] Neutrophils [#/volume] in Blood by Automated count 8.1 U 1.7-7.6 Above high normal [facility] Lymphocytes/100 leukocytes in Blood by Automated count 19.8 % 14- 46 N [facility] Lymphocytes [#/volume] in Blood by Automated count 2.3 U 0.6-4.6 N [facility] Monocytes/100 leukocytes in Blood by Automated count 9.1 % 4-12 N [facility] Monocytes [#/volume] in Blood by Automated count 1.1 U 0.2-1.2 N [facility] Eosinophils/100 leukocytes in Blood by Automated count 2.3 % 0-7 N [facility] Eosinophils [#/volume] in Blood by Automated count 0.3 U 0.0-0.5 N [facility] Basophils/100 leukocytes in Blood by Automated count 0.4 % 0.4-1 .3 N [facility] Basophils [#/volume] in Blood by Automated count 0.1 U 0.0-0.2 N [facility] NUCLEATED RED BLOOD CELL 0 % [facility] NUCLEATED RED BLOOD CELL# 0 U [facility] Immature granulocytes [Presence] in Blood by Automated count 0-2 N [facility] Immature granulocytes [#/volume] in Blood by Automated count 0.0 U 0-0.1 N [facility] Manual Differential panel - Blood NO [facility] ID Date Data Source [id number] 07/31/2020 09:28:00 AM EST [facility] Name Value Range Interpretation Code Description Data Kay rce(s) Supporting Document(s) Urea nitrogen [Mass/volume] in Serum or Plasma 22 mg/dL 9-23 N [facility] Sodium [Moles/volume] in Serum or Plasma 142 mmol/L 132-146 N [facility] Potassium [Moles/volume] in Serum or Plasma 4.7 mmol/L 3.5-5.5 N [facility] Chloride [Moles/volume] in Serum or Plasma 107 mmol/L 99-109 N [facility] Carbon dioxide, total [Moles/volume] in Serum or Plasma 30 mmol/L 20 -31 N [facility] Anion gap in Serum or Plasma 10 mmol/L 8-16 N [facility] Glucose [Mass/volume] in Serum or Plasma 122 mg/dL 74-106 Above high normal [facility] Creatinine 1.3 mg/dL 0.5-1.[address] [facility] Glomerular filtration rate/1.73 sq M.pre dicted [Volume Rate/Area] in Serum or Plasma 41 ml/min ABOVE 60 [facility] ital Calcium [Mass/volume] in Serum or Plasma 9.2 mg/dL 8.5-10.1 [facility] ID Date Data Source [id number] 07/25/2020 09:50:00 AM EST [facility] [address] [place], [place] [id number] [phone] NAME SEX PT STATUS ACCOUNT NUMBER MARII DYKES REG REF [id number] ORDERING PHYSICIAN LOCATION MEDICAL RECORD NO. Jacy Franz MD EKG [id number] ATTENDING PHYSICIAN DATE OF DATE OF EXAM/TIME [...] mammogram was read with the assistance of [employer], an FDA-approved computer-aided detection system for mammography. Reported By Vinicius Steele MD on 07/25/20949 Signed By Vinicius Steele MD on 07/25/20957 Date Time CC: Vinicius Steele MD; Jacy Franz MD Techn: BAKLE Trans Dt/Tm: Trans by: DT Prt Dt/Tm: 1: Total DLP = 0.00 mGy-cm 6560-9581: Total Radiation Dose = 0.0000 mSv Lifetime Dose: 10.9800 mSv Name Value Range Interpretation Code Description Data Kay rce(s) Supporting Document(s) ID Date Data Source [id number] 07/24/2020 10:09:00 AM [facility] [address] [place] [address] [phone] NAME SEX PT STATUS ACCOUNT NUMBER MARII DYKES REG REF [id number] ORDERING PHYSICIAN LOCATION MEDICAL RECORD NO. Jacy Franz MD EKG [id number] ATTENDING PHYSICIAN DATE OF DATE OF EXAM/TIME [...] 100 Signed By Vinicius Steele MD on 07/24/201008 Date Time CC: Vinicius Steele MD; Jacy Franz MD Techn: EBEBR Trans Dt/Tm: Trans by: DT Prt Dt/Tm: [id number]: Total DLP = 0.00 mGy-cm Fluoroscopy Time (in secs): Name Value Range Interpretation Code Description Data Kay rce(s) Supporting Document(s) ID Date Data Source [id number] 07/24/2020 10:04:00 AM [facility] Name Value Range Interpretation Code Description Data Kay rce(s) Supporting Document(s) Urea nitrogen [Mass/volume] in Serum or Plasma 15 mg/dL 9-23 N [facility] Sodium [Moles/volume] in Serum or Plasma 144 mmol/L 132-146 [facility] Potassium [Moles/volume] in Serum or Plasma 4.6 mmol/L 3.5-5.5 N [facility] Chloride [Moles/volume] in Serum or Plasma 107 mmol/L 99-109 [facility] Carbon dioxide, total [Moles/volume] in Serum or Plasma 32 mmol/ L 20-31 Above high normal [facility] Anion gap in Serum or Plasma 10 mmol/L 8-[address] [facility] Glucose [Mass/volume] in Serum or Plasma 127 mg/dL 74-106 Above high normal [facility] Creatinine 1.2 mg/dL 0.5-1.[address] [facility] Glomerular filtration rate/1.73 sq M.pre dicted [Volume Rate/Area] in Serum or Plasma 45 ml/min ABOVE 60 [facility] ital Calcium [Mass/volume] in Serum or Plasma 9.0 mg/dL 8.5-10.1 N [facility] ID Date Data Source [id number] 07/24/2020 10:04:00 AM [facility] Name Value Range Interpretation Code Description Data Kay rce(s) Supporting Document(s) Thyrotropin [Units/volume] in Serum or Plasma by Detec tion limit <= 0.005 mIU/L 10.30 u[iU]/mL 0.35-5.50 Above high normal [facility] @Review & document.Repeated by: Debra Estrada 07/24/20 1004.Result Confirmation: 10.3 uIU/mL ID Date Data Source [id number] 07/24/2020 08:37:00 AM EST [facility] Name Value Range Interpretation Code Description Data Kay rce(s) Supporting Document(s) Leukocytes [#/volume] in Blood by Automated count 7.9 10*3/uL 4.45-10 .71 N [facility] Erythrocytes [#/volume] in Blood by Automated count 3.24 10*6/uL 4.20-5.40 Below low normal [facility] Hemoglobin [Moles/volume] in Blood 9.9 g/dL 10.7-15.4 Below low no rmal [facility] Hematocrit [Volume Fraction] of Blood by Automated count 31.5 % 37-47 Below low normal [facility] Erythrocyte mean corpuscular volume [Ent itic volume] in Cord blood by Automated count 97.2 fL 80-96 Above high normal [facility] Erythrocyte mean corpuscular hemoglobin [Entitic mass] by Automated count 30.6 pg 27-31 N [facility] Erythrocyte mean corpuscular hemoglobin concentration [Mass/volume] in Cord blood 31.4 g/dL 33-37 Below low normal [facility] Erythrocyte distribution width [Entitic volume] by Automated count 13 % 11-15 N [facility] Platelets [#/volume] in Blood by Automated count 301 10*3/uL 130-472 N [facility] Platelet mean volume [Entitic volume] in Blood 9.2 fL 9.1-13.1 N [facility] Neutrophils/100 leukocytes in Blood by Automated count 55.5 % 41- 77 N [facility] Neutrophils [#/volume] in Blood by Automated count 4.4 U 1.7-7.6 N [facility] Lymphocytes/100 leukocytes in Blood by Automated count 31.1 % 14- 46 N [facility] Lymphocytes [#/volume] in Blood by Automated count 2.4 U 0.6-4.6 N [facility] Monocytes/100 leukocytes in Blood by Automated count 8.2 % 4-12 N [facility] Monocytes [#/volume] in Blood by Automated count 0.6 U 0.2-1.2 N [facility] Eosinophils/100 leukocytes in Blood by Automated count 3.8 % 0-7 N [facility] Eosinophils [#/volume] in Blood by Automated count 0.3 U 0.0-0.5 N [facility] Basophils/100 leukocytes in Blood by Automated count 0.9 % 0.4-1 .3 N [facility] Basophils [#/volume] in Blood by Automated count 0.1 U 0.0-0.2 N [facility] NUCLEATED RED BLOOD CELL 0 % [facility] NUCLEATED RED BLOOD CELL# 0 U [facility] Immature granulocytes [Presence] in Blood by Automated count 0-2 N [facility] Immature granulocytes [#/volume] in Blood by Automated count 0.0 U 0-0.1 N [facility] Manual Differential panel - Blood NO [facility] ID Date Data Source [id number] 07/17/2020 03:46:00 PM EST [facility] [address] [place] [address] [phone] NAME SEX PT STATUS ACCOUNT NUMBER MARII DYKES [facility] ER [id number] ORDERING PHYSICIAN LOCATION MEDICAL RECORD NO. Lawrence Breaux MD ER [id number] ATTENDING PHYSICIAN DATE OF DATE OF EXAM/TIME [...] Trans Dt/Tm: Trans by: DT Prt Dt/Tm: [id number]: Total DLP = 732.00 mGy-cm 9100-2399: Total Radiation Dose = 10.9800 mSv Lifetime Dose: 10.9800 mSv Name Value Range Interpretation Code Description Data Kay rce(s) Supporting Document(s) ID Date Data Source [id number] 07/17/2020 02:33:00 PM [facility] [address] [place] [id number] [phone] NAME SEX PT STATUS ACCOUNT NUMBER MARII DYKES [facility] ER [id number] ORDERING PHYSICIAN LOCATION MEDICAL RECORD NO. Lawrence Breaux MD ER [id number] ATTENDING PHYSICIAN DATE OF DATE OF EXAM/TIME [...] Trans Dt/Tm: Trans by: DT Prt Dt/Tm: [phone]: Total DLP = 0.00 mGy-cm Fluoroscopy Time (in secs): Name Value Range Interpretation Code Description Data Kay rce(s) Supporting Document(s) ID Date Data Source [id number] 07/17/2020 02:25:00 PM EST [facility] Reason for ordering culture: Abnormal fi ndings UA@07/17/20 1405: UA W/ MICRO added. RFLXG = UMIC CIF.Method of Collection:: Voided @07/17/20 1425: Urine culture added. RFL XG = CULT.ADD. Reason for ordering culture: Abnormal fi ndings UA@07/17/20 1405: UA W/ MICRO added. RFLXG = UMIC CIF.Method of Collection:: Voided Name Value Range Interpretation Code Description Data Kay rce(s) Supporting Document(s) Color of Urine [facility] Appearance of Urine CLEAR Abnormal (applies to non-nu meric results) [facility] pH of Urine by Test strip 5.0 5-8 [facility] Specific gravity of Urine by Refractometry 1.027 1.005-1.030 [facility] Leukocyte esterase [Presence] in Urine by Test strip NEGATIVE Abnormal (applies to non-numeric results) [facility]A Culture has been added to this specimen per established criteria Nitrite [Presence] in Urine by Test strip NEGATIVE [facility] Protein [Presence] in Urine by Test strip NEGATIVE Above high normal [facility] @DO MICRO!!!! Glucose [Mass/volume] in Urine by Automated test strip NEGATIVE NEG ATIVE [facility] Ketones [Presence] in Urine by Test strip NEGATIVE [facility] Urobilinogen [Presence] in Urine 0.2-1 EU/dl [facility] Bilirubin.total [Presence] in Urine by Automated test strip NEGATIVE [facility] Erythrocytes [#/volume] in Urine by Test strip LARGE NEGATIV E Above high normal [facility] @DO MICRO!!!!A Culture has been added to this specimen per established criteria URINE MICROSCOPIC? (CIF) Microscopic Added [facility] ID Date Data Source [id number] 07/18/2020 12:57:00 PM [facility] Reason for ordering culture: Abnormal fi ndings [...] Document(s) Bacteria identified in Urine by Culture [facility] ID Date Data Source [id number] 07/17/2020 02:25:00 PM EST [facility] Reason for ordering culture: Abnormal fi ndings [...] count 51-100 /hpf 0-5 Above high normal [facility] Leukocytes [#/volume] in Urine by Manual count 5-8 /hpf 0-5 Above high normal [facility] Cells [Type] in Urine sediment by Light microscopy [facility] Amorphous sediment [Presence] in Urine sediment by Light microscopy [facility] ID Date Data Source [id number] 07/17/2020 01:52:00 PM EST [facility] ED Physician Documentation NAME: MARII DYKES : 1955 AGE: 65 MR#: [id number] SERVICE DATE: 07/17/[address]: Lawrence Breaux MD PRIMARY CARE DR: Jacy Franz MD ROOM#: HPI (Adult, General) General Chief Complaint: Urogenital Stated Complaint: KIDNEY PAIN,CONSTIPATED Resident LT, travel outisde home, exposure to hot tubs:: [...] Turbid A, Urine pH 5.0, Ur Specific [place] 1.027, Urine Protein 100 mg/dl H, Urine [...] Diagnosis: L sided Renal Colic ED Provider: Lawrence Breaux ED Status: Discharged Time Seen by Provider: [...] discharge: Yes Follow Up Care/Instructions Diet/Activity/Wound Care..: [facility] Urology appointment tomorrow at 10:30 AM; pain medicine as needed *Discharge Patient* Discharge Orders: Discharge Order (Routine); Ordered 07/17/20 Ordered By: Lawrence Breaux Discharge Date/Time: 07/17/20 16:55 Interventions Interventions: ED Discharge Instructions Last Done: 07/17/20 17:10 ED Urogenital Last Done: 07/17/20 13:44 Report Signers: <Electronically signed by Lawrence Breaux MD> Lawrence Breaux MD 07/18/20 0821 Lawrence Breaux MD SIGNATURE DA Report Cosigners: D: URSULA 07/17/20 135 T: URSULA 07/17/20 135 CC: Jacy Franz MD Name Value Range Interpretation Code Description Data Kay rce(s) Supporting Document(s) ID Date Data Source [id number] 07/03/2020 09:33:00 AM [facility] Patient Name: MARII DYKES DO B: 1955 Sex: F Pt Unit #: [id number] Location:[facility] Provider: Visit Date/Time: 07/03/20 Primary Insurance: [facility] Secondary Insurance: Self Pay Intake Vital [...] - scheduled for shoulder surgery in july Mobile Sales Consultant Required: No Accompanied by: Alphonse marti Is [...] Screening Screening Have you traveled outside of [facility] or [facility] in the last 14 days.: No Has patient experienced coronavirus symptoms: No [facility] Medical History Hyperlipidemia Hypothyroidism Migraine Pityriasis lichenoides [...] Code(s): E78.5 - Hyperlipidemia, unspecified SNOMED Code(s): 98019315 Category: Medical Qualifiers: Hyperlipidemia type: mixed hyperlipidemia Qualified Code(s): E78.2 - Mixed hyperlipidemia Plan - Jacy Franz M.D.: lipids were good, will recheck TSH with preop labs, has appt 1 month, cortisone to hand, call if notimproved 1 week (2) Hypothyroidism: Status: Acute Code(s): E03.9 - Hypothyroidism, unspecified SNOMED Code(s): 409 97100 Category: Medical Qualifiers: Hypothyroidism type: acquired Qualified Code(s): E03.9 - Hypothyroidism, unspecified Orders: Orders: TSH 1 Month (3) Contact dermatitis: Code(s): L25.9 - Unspecified contact dermatitis, unspecified cause Orders Instructions: Hypothyroidism (GEN) <Electronically signed by Jacy Franz MD> 07/03/20 1014 Name Value Range Interpretation Code Description Data Kay rce(s) Supporting Document(s) ID Date Data Source [id number] 06/21/2020 08:50:00 AM [facility] [address] [place] [id number] [phone] NAME SEX PT STATUS ACCOUNT NUMBER MARII DYKES REG REF [id number] ORDERING PHYSICIAN LOCATION MEDICAL RECORD [id number] ATTENDING PHYSICIAN DATE OF DATE OF EXAM/TIME Jacy Franz MD 1955 06/21/2033 TYPE / EXAM Xray Third Digit,Left Hand [...] Trans Dt/Tm: Trans by: DT Prt Dt/Tm: [id number]: Total DLP = 0.00 mGy-cm Fluoroscopy Time (in secs): Name Value Range Interpretation Code Description Data Kay rce(s) Supporting Document(s) ID Date Data Source [id number] 06/21/2020 08:34:00 AM [facility] Patient Name: MARII DYKES DO B: 1955 Sex: F Pt Unit #: [id number] Location:AMB.ORTHO Provider: Visit Date/Time: 06/21/20 Primary Insurance: R/[facility] Secondary Insurance: Self Pay Intake Vital [...] Screening Screening Have you traveled outside of [facility] or [facility] in the last 14 days.: No Has patient experienced coronavirus symptoms: No PFS Medical History (Updated 06/21/20 @ 09:13 by [...] as well as pain. No improvement with tovp-oox-brchtch anti- inflammatories. Pain Management History of Present [...] overweight Orientation: alert, awake and oriented x3 HENMT Head: normal to inspection, normocephalic and atraumatic [...] Trigger finger, left middle finger SNOMED Code(s): 632640236 Category: Medical Plan - Hanane Hoover PA-C: [...] [place] in July. <Electronically signed by Hanane BRUNO C> 06/21/20 0914 Name Value Range Interpretation Code Description Data Kay rce(s) Supporting Document(s) ID Date Data Source [id number] 05/29/2020 04:47:00 PM [facility] Patient Name: MARII DYKES DO B: 1955 Sex: F Pt Unit #: [id number] Location:[facility] Provider: Visit Date/Time: 05/29/20 Primary Insurance: [facility] Secondary Insurance: Self Pay Documented by User: Allegra Maldonado 05/30/20 10:17 Intake Nurse Note Intake Visit Reasons: Flu shot Nurse Note: Pt in for Flu shot, tolerated well, no additional concerns today Accompanied by: Self / Same as Patient Coronavirus Screening Screening Have you traveled outside of [facility] or [facility] in the last 14 days.: No Has patient experienced coronavirus symptoms: No Immunizations Afluria Qd (3yr up)(PF) Performing Provider: Jacy Franz M.D. Administered by: Allegra Maldonado on 05/29/20 10:15 Dose Route Admin Location Lot Number Expiration Date [facility] Manufactu rer 0.5 mL IM Right deltoid [id number] 01/24/21 66106-076-82 [employer] VIS Given Date VIS Provided VIS Publication Date 05/29/20 Single Vaccine 19 Eligibility Eligibility Date Funding Source Not VFC Eligible 05/29/20 Private Assessment Plan Orders Other Orders: Orders: INJ - Influenza Vaccine 05/29/20 Z23 Documented by User: Jacy Franz M.D. 05/31/20 07:27 Intake Nurse Note Intake Visit Reasons: Flu shot Immunizations Afluria Qd (3yr up)(PF) Performing Provider: Jacy Franz M.D. Administered by: Allegra Maldonado on 05/29/20 10:15 Dose Route Admin Location Lot Number Expiration Date [facility] Manufactu rer 0.5 mL IM Right deltoid [id number] 01/24/21 03300-100-54 [employer] VIS Given Date VIS Provided VIS Publication Date 05/29/20 Single Vaccine 19 Eligibility Eligibility Date Funding Source Not VFC Eligible 05/29/20 Private Assessment Plan Orders Other Orders: Orders: INJ - Influenza Vaccine 05/29/20 Z23 <Electronically signed by Jacy Franz MD> 05/31/20 0727 Name Value Range Interpretation Code Description Data Kay rce(s) Supporting Document(s) ID Date Data Source [id number] 05/29/2020 07:36:00 AM [facility] Patient Name: MARII DYKES DO B: 1955 Sex: F Pt Unit #: [id number] Location:AMB.[facility]THO Provider: Visit Date/Time: 05/29/20 Primary Insurance: R/[facility] Secondary Insurance: Self Pay Intake Vital [...] Screening Screening Have you traveled outside of [facility] or [facility] in the last 14 days.: No Has patient experienced coronavirus symptoms: No [facility] Medical History (Updated 05/29/20 @ 15:52 by [...] habitus Orientation: alert, awake and oriented x3 [facility] Head: normal to inspection, normocephalic and atraumatic [...] shoulder external rotation and right shoulder abduction. [place]'s and liftoff tests are negative. She has [...] shoulder, not specified as traumatic SNOMED Code(s): 988156255 Category: Medical Qualifiers: Rotator cuff tear extent: [...] rce(s) Supporting Document(s) ID Date Data Source [id number] 05/08/2020 04:25:00 PM EDT [facility] [address] [place] [address] [phone] NAME SEX PT STATUS ACCOUNT NUMBER MARII DYKES REG REF [id number] ORDERING PHYSICIAN LOCATION MEDICAL RECORD NO. Jacy Franz MD MRI [id number] ATTENDING PHYSICIAN DATE OF DATE OF EXAM/TIME [...] Time ) Signed by: Donna Means M.D., [facility] Reported By Donna Means MD on 05/08/201624 Signed By Donna Means MD on 05/08/201624 Date Time CC: Donna Means MD; Jacy Franz MD Techn: FROJO Trans Dt/Tm: Trans by: DT Prt Dt/Tm: [id number]: Total DLP = 0.00 mGy-cm [id number]: Total Radiation Dose = 0.0000 mSv Lifetime Dose: 0 mSv Name Value Range Interpretation Code Description Data Kay rce(s) Supporting Document(s) ID Date Data Source [id number] 05/01/2020 07:44:00 AM EDT [facility] Name Value Range Interpretation Code Description Data Kay rce(s) Supporting Document(s) Leukocytes [#/volume] in Blood by Automated count 7.7 10*3/uL 4.45-10 .71 N [facility] Erythrocytes [#/volume] in Blood by Automated count 4.70 10*6/uL 4.20 -5.40 N [facility] Hemoglobin [Moles/volume] in Blood 14.4 g/dL 10.7-15.4 [facility] Hematocrit [Volume Fraction] of Blood by Automated count 44.1 % 3 7-47 N [facility] Erythrocyte mean corpuscular volume [Ent itic volume] in Cord blood by Automated count 93.8 fL 80-96 N [facility] Erythrocyte mean corpuscular hemoglobin [Entitic mass] by Automated count 30.6 pg 27-31 N [facility] Erythrocyte mean corpuscular hemoglobin concentration [Mass/volume] in Cord blood 32.7 g/dL 33-37 Below low normal [facility] Erythrocyte distribution width [Entitic volume] by Automated count 13 % 11-15 N [facility] Platelets [#/volume] in Blood by Automated count 285 10*3/uL 130-472 N [facility] Platelet mean volume [Entitic volume] in Blood 9.7 fL 9.1-13.1 N [facility] Neutrophils/100 leukocytes in Blood by Automated count 51.7 % 41- 77 N [facility] Neutrophils [#/volume] in Blood by Automated count 4.0 U 1.7-7.6 N [facility] Lymphocytes/100 leukocytes in Blood by Automated count 34.5 % 14- 46 N [facility] Lymphocytes [#/volume] in Blood by Automated count 2.7 U 0.6-4.6 N [facility] Monocytes/100 leukocytes in Blood by Automated count 8.7 % 4-12 N [facility] Monocytes [#/volume] in Blood by Automated count 0.7 U 0.2-1.2 N [facility] Eosinophils/100 leukocytes in Blood by Automated count 4.0 % 0-7 N [facility] Eosinophils [#/volume] in Blood by Automated count 0.3 U 0.0-0.5 N [facility] Basophils/100 leukocytes in Blood by Automated count 0.8 % 0.4-1 .3 N [facility] Basophils [#/volume] in Blood by Automated count 0.1 U 0.0-0.2 N [facility] NUCLEATED RED BLOOD CELL 0 % [facility] NUCLEATED RED BLOOD CELL# 0 U [facility] Immature granulocytes [Presence] in Blood by Automated count 0-2 N [facility] Immature granulocytes [#/volume] in Blood by Automated count 0.0 U 0-0.1 N [facility] Manual Differential panel - Blood NO [facility] ID Date Data Source [id number] 05/01/2020 08:41:00 AM EDT [facility] Name Value Range Interpretation Code Description Data Kay rce(s) Supporting Document(s) Urea nitrogen [Mass/volume] in Serum or Plasma 18 mg/dL 9-23 N [facility] Sodium [Moles/volume] in Serum or Plasma 141 mmol/L 132-146 N [facility] Potassium [Moles/volume] in Serum or Plasma 4.1 mmol/L 3.5-5.5 N [facility] Chloride [Moles/volume] in Serum or Plasma 108 mmol/L 99-109 N [facility] Carbon dioxide, total [Moles/volume] in Serum or Plasma 27 mmol/L 20 -31 N [facility] Anion gap in Serum or Plasma 10 mmol/L 8-16 [facility] Glucose [Mass/volume] in Serum or Plasma 125 mg/dL 74-106 Above high normal [facility] Creatinine 0.9 mg/dL 0.5-1.1 [facility] Glomerular filtration rate/1.73 sq M.pre dicted [Volume Rate/Area] in Serum or Plasma Greater Than 60 ABOVE 60 [facility] Alanine aminotransferase [Enzymatic acti vity/volume] in Serum or Plasma by With P-5'-P 33 U/L 10-49 N [facility] ital Aspartate aminotransferase [Enzymatic ac tivity/volume] in Serum or Plasma by With P-5'-P 20 U/L 0-33 [facility] pital Alkaline phosphatase [Enzymatic activity/volume] in Serum or Plasma 90 U/L 45-129 N [facility] Calcium [Mass/volume] in Serum or Plasma 9.2 mg/dL 8.5-10.1 [facility] Bilirubin.total [Mass/volume] in Serum or Plasma 0.6 mg/dL 0.3-1.2 [facility] Albumin [Mass/volume] in Serum or Plasma by Bromocresol purple (BCP) dye binding method 3.7 g/dL 3.2-4.8 [facility] ital Protein [Mass/volume] in Serum or Plasma 7.6 g/dL 5.7-8.2 [facility] ID Date Data Source [id number] 05/01/2020 08:41:00 AM EDT [facility] Name Value Range Interpretation Code Description Data Kay rce(s) Supporting Document(s) Triglycerides 189 mg/dL 0-150 Above high normal [facility] Cholesterol 194 mg/dL 120-200 [facility] HDL Cholesterol 50 mg/dL [facility] HDL Less than 40 mg/dL: Major risk for CHDHDL Greater than 59 mg/dL: Low risk for CHD LDL Cholesterol, Calc 107 mg/dL 0-100 Above high normal [facility] ID Date Data Source [id number] 05/01/2020 08:41:00 AM EDT [facility] Name Value Range Interpretation Code Description Data Kay rce(s) Supporting Document(s) Thyrotropin [Units/volume] in Serum or Plasma by Detec tion limit <= 0.005 mIU/L 3.84 u[iU]/mL [facility].35[facility].50 [facility] Social History Code Duration Value Status Description Data Source(s ) Smoking 05/23/2021 12:00:00 AM EDT Former Smoker completed Former Smoker eCW1 ([facility]) Smoking 05/23/2021 12:00:00 AM EDT Former Smoker completed Former Smoker eCW1 ([facility]) 11/02/2020 11:09:26 AM EDT No completed No [facility] 11/02/2020 11:09:26 AM EDT No completed No [facility] 11/02/2020 11:09:26 AM EDT Former smoker completed Former smoker [facility] 11/02/2020 11:09:26 AM EDT No completed No [facility] 11/02/2020 11:09:26 AM EDT No completed No [facility] 11/02/2020 11:09:26 AM EDT Former smoker completed Former smoker [facility] 11/02/2020 11:09:26 AM EDT No completed No [facility] 11/02/2020 11:09:26 AM EDT No completed No [facility] 11/02/2020 11:09:26 AM EDT Former smoker completed Former smoker [facility] 11/02/2020 11:09:26 AM EDT No completed No [facility] 11/02/2020 11:09:26 AM EDT No completed No [facility] 11/02/2020 11:09:26 AM EDT Former smoker completed Former smoker [facility] Smoking 11/02/2020 11:09:00 AM EDT Former smoker completed Former smoker [facility] Smoking 11/02/2020 11:09:00 AM EDT Former smoker completed Former smoker [facility] Smoking 11/02/2020 11:09:00 AM EDT Former smoker completed Former smoker [facility] 08/15/2020 04:18:00 PM EST No completed No [facility] 08/15/2020 04:18:00 PM EST Former smoker completed Former smoker [facility] Smoking 08/15/2020 04:18:00 PM EST Former smoker completed Former smoker [facility] 08/15/2020 04:18:00 PM EST No completed No [facility] 08/15/2020 04:18:00 PM EST Former smoker completed Former smoker [facility] Smoking 08/15/2020 04:18:00 PM EST Former smoker completed Former smoker [facility] Smoking 07/18/2020 12:00:00 AM EST Former Smoker completed Former Smoker eCW1 ([facility]) Smoking 07/18/2020 12:00:00 AM EST Former Smoker completed Former Smoker eCW1 ([facility]) Smoking 07/18/2020 12:00:00 AM EST Former Smoker completed Former Smoker eCW1 ([facility]) Smoking 07/18/2020 12:00:00 AM EST Former Smoker completed Former Smoker eCW1 ([facility]) Smoking 07/18/2020 12:00:00 AM EST Former Smoker completed Former Smoker eCW1 ([facility]) Smoking 07/18/2020 12:00:00 AM EST Former Smoker completed Former Smoker eCW1 ([facility]) Smoking 07/18/2020 12:00:00 AM EST Former Smoker completed Former Smoker eCW1 ([facility]) Smoking 07/18/2020 12:00:00 AM EST Former Smoker completed Former Smoker eCW1 ([facility]) Smoking 07/18/2020 12:00:00 AM EST Former Smoker completed Former Smoker eCW1 ([facility]) Smoking 07/18/2020 12:00:00 AM EST Former Smoker completed Former Smoker eCW1 ([facility]) Smoking 07/18/2020 12:00:00 AM EST Former Smoker completed Former Smoker eCW1 ([facility]) Smoking 07/18/2020 12:00:00 AM EST Former Smoker completed Former Smoker eCW1 ([facility]) Smoking 07/18/2020 12:00:00 AM EST Former Smoker completed Former Smoker eCW1 ([facility]) Smoking 07/18/2020 12:00:00 AM EST Former Smoker completed Former Smoker eCW1 ([facility]) Smoking 07/18/2020 12:00:00 AM EST Former Smoker completed Former Smoker eCW1 ([facility]) Smoking 07/18/2020 12:00:00 AM EST Former Smoker completed Former Smoker eCW1 ([facility]) 07/17/2020 01:53:43 PM EST No completed No [facility] 07/17/2020 01:53:43 PM EST No completed No [facility] 07/17/2020 01:53:43 PM EST No completed No [facility] 07/17/2020 01:53:43 PM EST No completed No [facility] 07/17/2020 01:53:43 PM EST Former smoker completed Former smoker [facility] 07/17/2020 01:53:43 PM EST No completed No [facility] 07/17/2020 01:53:43 PM EST No completed No [facility] 07/17/2020 01:53:43 PM EST Former smoker completed Former smoker [facility] 07/17/2020 01:53:43 PM EST No completed No [facility] 07/17/2020 01:53:43 PM EST No completed No [facility] 07/17/2020 01:53:43 PM EST Former smoker completed Former smoker [facility] Smoking 07/17/2020 01:53:00 PM EST Former smoker completed Former smoker [facility] Smoking 07/17/2020 01:53:00 PM EST Former smoker completed Former smoker [facility] Smoking 07/17/2020 01:53:00 PM EST Former smoker completed Former smoker [facility] 06/20/2020 01:36:00 PM EST No completed No [facility] 06/20/2020 01:36:00 PM EST No completed No [facility] 06/20/2020 01:36:00 PM EST Never smoker completed Never s [facility] Smoking 06/20/2020 01:36:00 PM EST Never smoker completed Never s [facility] 06/20/2020 01:36:00 PM EST No completed No [facility] 06/20/2020 01:36:00 PM EST No completed No [facility] 06/20/2020 01:36:00 PM EST Never smoker completed Never s [facility] Smoking 06/20/2020 01:36:00 PM EST Never smoker completed Never s [facility] Vital Signs ID Date Data Source UNK Name Value Range Interpretation Code Description Data Source(s) Body height 62 [in_i] 62 [in_i] MEDENT ([facility]) 5'2" Respiratory rate 12 /min 12 /min MED[facility] ( [facility]) Body mass index (BMI) [Ratio] 40.8 kg/m2 40.8 k g/m2 [facility] ([facility]) [place] body weight 110 [lb_av] 110 [lb_av] MEDEN T ([facility]) Body weight 223.00 [lb_av] 223.00 [lb_av] MEDEN T ([facility]) Respiratory rate 12 /min 12 /min [facility] ( [facility]) Body height 62 [in_i] 62 [in_i] MEDENT ([facility]) 5'2" [place] body weight 110 [lb_av] 110 [lb_av] MEDEN T ([facility]) Body weight 223.00 [lb_av] 223.00 [lb_av] MEDEN T ([facility]) Body mass index (BMI) [Ratio] 40.8 kg/m2 40.8 k g/m2 [facility] ([facility]) Respiratory rate 12 /min 12 /min MED[facility] ( [facility]) Body height 62 [in_i] 62 [in_i] [facility] ([facility]) 5'2" Body weight 212.00 [lb_av] 212.00 [lb_av] MEDEN T ([facility]) Body mass index (BMI) [Ratio] 38.8 kg/m2 38.8 k g/m2 [facility] ([facility]) [place] body weight 110 [lb_av] 110 [lb_av] MEDEN T ([facility]) Body weight 223 [lb_av] 223 [lb_av] eCW1 ([facility]) Body height 62.5 [in_i] 62.5 [in_i] eCW1 ([facility]) Body mass index (BMI) [Ratio] 40.13 kg/m2 40.13 kg/m2 eCW1 ([facility]) Heart rate 91 /min 91 /min eCW1 ([facility]) Body temperature 97.5 [degF] 97.5 [degF] eCW1 ( [facility]) Respiratory rate 18 /min 18 /min eCW1 ([facility]) Systolic blood pressure 122 mm[Hg] 122 mm[Hg] e CW1 ([facility]) Diastolic blood pressure 70 mm[Hg] 70 mm[Hg] eCW1 ([facility]) Respiratory rate 12 /min 12 /min MEDENT ( [facility], ) Body height 62 [in_i] 62 [in_i] MEDENT ([facility], ) 5'2" Body weight 200.00 [lb_av] 200.00 [lb_av] MEDEN T ([facility], ) Body mass index (BMI) [Ratio] 36.6 kg/m2 36.6 k g/m2 MEDENT ([facility], ) [place] body weight 110 [lb_av] 110 [lb_av] MEDEN T ([facility]) Patient Treatment Plan of Care Planned Activity Planned Date Details Description Data Source (s) Tamsulosin hydrochloride 0.4 MG Oral Capsule [Flomax] 08/10/2020 12:00:00 AM EST eCW1 ([facility]) Acetaminophen 325 MG / Oxycodone Hydrochloride 5 MG Or al Tablet [Percocet] 08/10/2020 12:00:00 AM EST eCW1 ([facility]) Tamsulosin hydrochloride 0.4 MG Oral Capsule [Flomax] 08/10/2020 12:00:00 AM EST eCW1 ([facility]) Acetaminophen 325 MG / Oxycodone Hydrochloride 5 MG Or al Tablet [Percocet] 08/10/2020 12:00:00 AM EST eCW1 ([facility]) Tamsulosin hydrochloride 0.4 MG Oral Capsule [Flomax] 08/10/2020 12:00:00 AM EST eCW1 ([facility]) Acetaminophen 325 MG / Oxycodone Hydrochloride 5 MG Or al Tablet [Percocet] 08/10/2020 12:00:00 AM EST eCW1 ([facility]) Acetaminophen 325 MG / Oxycodone Hydrochloride 5 MG Or al Tablet [Percocet] 08/10/2020 12:00:00 AM EST eCW1 ([facility]) Tamsulosin hydrochloride 0.4 MG Oral Capsule [Flomax] 08/10/2020 12:00:00 AM EST eCW1 ([facility]) Acetaminophen 325 MG / Oxycodone Hydrochloride 5 MG Or al Tablet [Percocet] 08/10/2020 12:00:00 AM EST eCW1 ([facility]) Tamsulosin hydrochloride 0.4 MG Oral Capsule [Flomax] 08/10/2020 12:00:00 AM EST eCW1 ([facility]) Acetaminophen 325 MG / Oxycodone Hydrochloride 5 MG Or al Tablet [Percocet] 08/10/2020 12:00:00 AM EST eCW1 ([facility]) Tamsulosin hydrochloride 0.4 MG Oral Capsule [Flomax] 08/10/2020 12:00:00 AM EST eCW1 ([facility]) Tamsulosin hydrochloride 0.4 MG Oral Capsule [Flomax] 08/10/2020 12:00:00 AM EST eCW1 ([facility]) Acetaminophen 325 MG / Oxycodone Hydrochloride 5 MG Or al Tablet [Percocet] 08/10/2020 12:00:00 AM EST eCW1 ([facility]) Tamsulosin hydrochloride 0.4 MG Oral Capsule [Flomax] 08/10/2020 12:00:00 AM EST eCW1 ([facility]) Acetaminophen 325 MG / Oxycodone Hydrochloride 5 MG Or al Tablet [Percocet] 08/10/2020 12:00:00 AM EST eCW1 ([facility]) Acetaminophen 325 MG / Oxycodone Hydrochloride 5 MG Or al Tablet [Percocet] 08/10/2020 12:00:00 AM EST eCW1 ([facility]) Tamsulosin hydrochloride 0.4 MG Oral Capsule [Flomax] 08/10/2020 12:00:00 AM EST eCW1 ([facility]) Acetaminophen 325 MG / Oxycodone Hydrochloride 5 MG Or al Tablet [Percocet] 08/10/2020 12:00:00 AM EST eCW1 ([facility]) Tamsulosin hydrochloride 0.4 MG Oral Capsule [Flomax] 08/10/2020 12:00:00 AM EST eCW1 ([facility]) Acetaminophen 325 MG / Oxycodone Hydrochloride 5 MG Or al Tablet [Percocet] 08/10/2020 12:00:00 AM EST eCW1 ([facility]) Tamsulosin hydrochloride 0.4 MG Oral Capsule [Flomax] 08/10/2020 12:00:00 AM EST eCW1 ([facility]) Acetaminophen 325 MG / Oxycodone Hydrochloride 5 MG Or al Tablet [Percocet] 08/10/2020 12:00:00 AM EST eCW1 ([facility]) Tamsulosin hydrochloride 0.4 MG Oral Capsule [Flomax] 08/10/2020 12:00:00 AM EST eCW1 ([facility]) Acetaminophen 325 MG / Oxycodone Hydrochloride 5 MG Or al Tablet [Percocet] 08/10/2020 12:00:00 AM EST eCW1 ([facility]) Tamsulosin hydrochloride 0.4 MG Oral Capsule [Flomax] 08/10/2020 12:00:00 AM EST eCW1 ([facility]) Ketorolac Tromethamine 10 MG Oral Tablet 07/20/2020 12:00:00 AM EST eCW1 ([facility]) Ketorolac Tromethamine 10 MG Oral Tablet 07/20/2020 12:00:00 AM EST eCW1 ([facility]) Ketorolac Tromethamine 10 MG Oral Tablet 07/20/2020 12:00:00 AM EST eCW1 ([facility]) Ketorolac Tromethamine 10 MG Oral Tablet 07/20/2020 12:00:00 AM EST eCW1 ([facility]) Ketorolac Tromethamine 10 MG Oral Tablet 07/20/2020 12:00:00 AM EST eCW1 ([facility]) Ketorolac Tromethamine 10 MG Oral Tablet 07/20/2020 12:00:00 AM EST eCW1 ([facility]) Ketorolac Tromethamine 10 MG Oral Tablet 07/20/2020 12:00:00 AM EST eCW1 ([facility]) Ketorolac Tromethamine 10 MG Oral Tablet 07/20/2020 12:00:00 AM EST eCW1 ([facility]) Ketorolac Tromethamine 10 MG Oral Tablet 07/20/2020 12:00:00 AM EST eCW1 ([facility]) Ketorolac Tromethamine 10 MG Oral Tablet 07/20/2020 12:00:00 AM EST eCW1 ([facility]) Ketorolac Tromethamine 10 MG Oral Tablet 07/20/2020 12:00:00 AM EST eCW1 ([facility]) Ketorolac Tromethamine 10 MG Oral Tablet 07/20/2020 12:00:00 AM EST eCW1 ([facility]) Ketorolac Tromethamine 10 MG Oral Tablet 07/20/2020 12:00:00 AM EST eCW1 ([facility]) Ketorolac Tromethamine 10 MG Oral Tablet 07/20/2020 12:00:00 AM EST eCW1 ([facility]) Ketorolac Tromethamine 10 MG Oral Tablet 07/20/2020 12:00:00 AM EST eCW1 ([facility]) Ketorolac Tromethamine 10 MG Oral Tablet 07/20/2020 12:00:00 AM EST eCW1 ([facility])
[2021-06-14] MEDS ORDERED: KETAMINE HCL 200 MG/20 ML VIAL As Ordered ONE (07:50)
[2021-06-14] MEDS ORDERED: propofoL 200 MG/20 ML VIAL As Ordered ONE (07:50)
[2021-06-14] MEDS ORDERED: MIDAZOLAM INJ 2MG/2ML VIAL (J2250 PER 1MG) As Ordered ONE (07:50)
[2021-06-14] MEDS ORDERED: fentaNYL 100 MCG/2 ML INJECTION (J3010) As Ordered ONE (07:50)
[2021-06-14] MEDS ORDERED: ONDANSETRON 4MG/2ML VIAL As Ordered ONE (07:50)
[2021-06-14] MEDS ORDERED: LIDOCAINE 2% 100MG/5ML SDV (FOR ANES.) As Ordered ONE (07:50)
[2021-06-14] MEDS ORDERED: GLYCOPYRROLATE INJ 0.2 MG/ML 2 ML VIAL As Ordered ONE (07:50)
[2021-06-14] MEDS ORDERED: PERCOCET 5MG/325MG TAB PO PRN (08:30)
[2021-06-14] MEDS ORDERED: fentaNYL 100 MCG/2 ML INJECTION (J3010) IV PRN (08:30)
[2021-06-14] MEDS ORDERED: ONDANSETRON 4MG/2ML VIAL IV PRN (08:30)
[2021-06-14] MEDS ORDERED: LR 1,000 ML IV SCH (08:30)
--- NOTE | 2021-06-14 08:34 | RO ---
OPERATIVE NOTE DATE OF OPERATION: 06/14/2021 PREOPERATIVE DIAGNOSIS: Left kidney stone. POSTOPERATIVE DIAGNOSIS: Left kidney stone. PROCEDURES: Left extracorporeal shock wave lithotripsy. SURGEON: Alberto Noble MD. ADVERTISING MATERIAL DISTRIBUTOR: None. ANESTHESIA: MAC. OPERATIVE INDICATIONS: This is a 56-year-old female who was found to have a 4 mm left renal pelvic stone. She was brought to the operating room today for treatment. DESCRIPTION OF PROCEDURE: The patient was brought to the operating room and MAC anesthesia was administered. Prophylactic antibiotics were infused. She was placed in the supine position in preparation for left-sided extracorporeal shock wave lithotripsy. Fluoroscopy and ultrasonography were utilized to monitor stone position and fragmentation throughout the procedure. Shock waves were then delivered to the left-sided kidney stone ungated. There were no arrhythmias. The stone did appear to fragment. After 2500 shocks the procedure was concluded. The patient was then awakened from anesthesia and transported to the recovery room in stable condition. ESTIMATED BLOOD LOSS: 0 mL. COMPLICATIONS: None. SPECIMENS: None. PLAN: The patient will follow up in the urology clinic in approximately 2-3 weeks for postoperative visit. We will get imaging prior to assess for residual stone burden.
[2021-06-14 08:35] VITALS: BP 114/62
--- NOTE | 2021-06-14 08:59 | REP ---
INDICATION: KUB BEFORE SDC--PT NEEDS TO GO BACK TO [facility]C COMPARISON: 08/10/2020 TECHNIQUE: Supine view of the abdomen and pelvis. FINDINGS: Tiny 2.5 mm stable calcification again overlies the left kidney. Bowel gas pattern is nonspecific. No organomegaly. No foreign body. Skeletal structures are stable. IMPRESSION: 1. Stable small calcification overlies the left kidney. <Electronically signed by Chris Clarke > 06/14/21 [id number]
== END 2021-06-14 08:45 | disposition home or self-care (01) ==
LOC: M SDC 06:31
PROVIDERS: ATTEND Urology
DX: N20.0 Calculus of kidney (principal); E78.5 Hyperlipidemia, unspecified; E03.9 Hypothyroidism, unspecified; R12 Heartburn; Z79.899 Other long term (current) drug therapy
CPT/HCPCS: 50590; 74018; J0744; J2250; J2405; J3010

== ENCOUNTER → 2021-07-09 | Outpatient (REF) | payer OTHER ==
[~2021-07-09] MED LIST changes: -CIPROFLOXACIN 400 MG in IV 1 EA IV ONE; -LR 1,000 ML IV ONE
[2021-07-09 14:44] LABS: APPEARANCE, URINE HAZY (CLEAR); BACTERIA, URINE AUTO NEGATIVE (NEGATIVE); BILIRUBIN, URINE AUTO NEGATIVE (NEGATIVE); BLOOD, URINE BLOOD NEGATIVE (NEGATIVE); CALCIUM OXALATE CRYSTALS SMALL; COLOR, URINE YELLOW (YELLOW); GLUCOSE, URINE (UA) AUTO NEGATIVE (NEGATIVE); KETONE, URINE AUTO NEGATIVE (NEGATIVE); LEUKOCYTE ESTERASE, URINE AUTO NEGATIVE (NEGATIVE); MUCUS, URINE SMALL (NEGATIVE); NITRITE, URINE AUTO NEGATIVE (NEGATIVE); PROTEIN, URINE AUTO NEGATIVE (NEGATIVE); RBC, URINE AUTO 0 /HPF (0-3); SPECIFIC GRAVITY URINE AUTO 1.019 (1.002-1.035); SQUAMOUS EPITHELIAL CELL UR AU 2 /HPF (0-6); WBC, URINE AUTO 1 /HPF (0-3)
== END ==
LOC: M SMT 13:14
PROVIDERS: ATTEND Nurse Practitioner Women's Health
DX: N20.0 Calculus of kidney (principal)

== ENCOUNTER 2022-05-21 12:30 | Day surgery (SDC) | payer OTHER ==
[~2022-05-21] VITALS: Ht 157.5 cm; Wt 96.2 kg
[~2022-05-21 12:30] MED LIST changes: +BSS IRRIG/VANCO(10MG)/TOBRA(5MG)/EPINEPH(1:1000-0.5CC)500ML BAG-ORONLY IR ONE; +CEFUROXIME 1MG/0.1ML INTRACAMERAL INJ As Ordered ONE; +CYCLOPENTOLATE 1% OPHTH SOLN 2 ML BTL OD SCH; +LIDOCAINE 1% SDV 5ML VIAL As Ordered ONE; +LIDOCAINE 3.5 % 1ML OPHTH TOPICAL GEL OU ONE; +MIDAZOLAM INJ 2MG/2ML VIAL (J2250 PER 1MG) As Ordered ONE; +OFLOXACIN 0.3 % (OCUFLOX) OPTH SOL 5ML OD ONE; +PHENYLEPHRINE 2.5% OPHTH SOL 2ML OD SCH; +PHENYLEPHRINE HCL 10 % OPHTH. SOL 5ML OD PRN; +RIZA10TA2 PO; +TROPICAMIDE 1% OPHTH SOLN 2ML OD SCH
[2022-05-21] MEDS ORDERED: fentaNYL 100 MCG/2 ML INJECTION As Ordered ONE (13:20)
[2022-05-21 13:33] VITALS: BP 132/79
== END 2022-05-21 13:55 | disposition home or self-care (01) ==
LOC: M SDC 12:30
PROVIDERS: ATTEND Ophthalmology
DX: H25.11 Age-related nuclear cataract, right eye (principal); E78.5 Hyperlipidemia, unspecified; E03.9 Hypothyroidism, unspecified; G43.909 Migraine, unspecified, not intractable, without status migrainosus; Z87.891 Personal history of nicotine dependence; Z79.899 Other long term (current) drug therapy
CPT/HCPCS: 66984; 87428; 92015; J0697; J2250; J3010